=== PATIENT | male | born 2000 | race Caucasian/White ===

== ENCOUNTER 2022-12-26 04:38 | Inpatient (IN) ==
[2022-12-26] MEDS ORDERED: SODIUM CHLORIDE 0.9% 1000ML 1,000 ML IV SCH (05:00)
--- NOTE | 2022-12-26 05:08 | Emergency Department Note ---
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 Helical axial images of the head were obtained without IV contrast. Automated exposure control was utilized for the study. A dose lowering technique was utilized adhering to the principles of ALARA. FINDINGS: No acute intracranial hemorrhage, midline shift or mass effect is present. The ventricular system is unremarkable. The basal cisterns are patent. No extra-axial collections are present. There are no findings to suggest acute dural sinus thrombosis or acute territorial infarct. No significant calvarial abnormalities are present. Visualized portions of the sinuses and mastoid air cells are clear. IMPRESSION: 1. No acute intracranial findings. 2. No acute calvarial fracture. ACT 112: Negative or not required by law. Electronically signed by: Odell Dugan M.D. 12/26/2022 8:17 AM Discharge Plan Visit Data Chief Complaint: Illness Stated Complaint: Hallucinogenic, Psychosis Episode ED Provider: Danii Kirby Discharge Problem: CHI (closed head injury), Agitation, Contusion of face, Myalgia, Rhabdomyolysis Patient Disposition: Admitted As Inpatient Discharge Instructions Interventions: ED Discharge Assessment Last Done: 12/26/22 19:17
[2022-12-26 05:40] LABS: Albumin Level 4.7 gm/dl (3.4-5.0); Bilirubin,Total 0.4 mg/dl (0.2-1.0); Calcium 9.3 mg/dl (8.6-10.3); Potassium 3.6 mmol/L (3.5-5.1)
[2022-12-26 05:41] LABS: Basophils # (auto) 0.02 K/uL (0-0.2); Basophils % (auto) 0.2 %; Eosinophils # (auto) 0.08 K/uL (0-0.50); Eosinophils % (auto) 0.7 %; Hematocrit (blood only) 42.9 % (42.0-52.0); Hemoglobin 14.6 g/dl (14.0-18.0); Immature Granulocytes # (auto) 0.09 K/uL (0.01-0.20); Immature Granulocytes % (auto) 0.8 %; Lymphocytes # (auto) 1.89 K/uL (1.2-3.4); Lymphocytes % (auto) 16.4 %; Mean Corpuscular Hemoglobin 27.4 pg (25.0-34.0); Mean Corpuscular Volume 80.5 fL (80.0-100.0); Mean Platelet Volume 11.4 fL (9.4-12.4); Monocytes # (auto) 0.72 K/uL (0.11-0.59); Monocytes % (auto) 6.2 %; Neutrophils # (auto) 8.75 K/uL (1.40-6.50); Neutrophils % (auto) 75.7 %; Platelet Count 223 K/uL (130-400); RDW Coefficient of Variation 13.1 % (11.5-14.5); RDW Standard Deviation 37.5 fL (36.4-46.3); Red Blood Count 5.33 M/uL (4.70-6.10); White Blood Count 11.55 K/ul (4.8-10.8)
[2022-12-26 05:46] LABS: BUN Creatinine Ratio 18.4 (10-20); Creatinine Clr Calc Pharmacy 129.7 ml/min; Est GFR (African American) 84.4 ml/min; Est GFR (Non-African American) 72.8 ml/min; Globulin 2.4 gm/dl (2.5-4.0); Total Protein 7.1 gm/dl (6.0-8.3)
[2022-12-26] MEDS ORDERED: SODIUM CHLORIDE 0.9% 1000ML 1,000 ML IV ONE (05:54)
[2022-12-26 06:48] LABS: Acetaminophen < 3 ug/ml (10-30); Salicylate < 3.0 mg/dl (3.0-30)
[2022-12-26 07:25] LABS: Appearance Urine Clear (Clear); Bacteria Urine Automated Negative (Negative); Bilirubin Urine Negative (Negative); Blood Urine 3+ (Negative); Color Urine Yellow; Epithelial Cell Urine Auto 0-5 /lpf (0-5); Glucose Urine UA Negative (Negative); Ketones Urine 1+ (Negative); Leukocyte Esterase Urine Negative (Negative); Nitrite Urine Negative (Negative); Protein Urine 2+ (Negative); RBC Urine Automated 0-4 /hpf (0-4); Urobilinogen Urine Negative (Negative); pH Urine 5.5 (4.5-7.5)
[2022-12-26 07:43] LABS: Amphetamines+Metham, Urine Neg (Neg); Barbiturates, Urine Neg (Neg); Benzodiazepine, Urine Neg (Neg); Cocaine, Urine Neg (Neg); MDMA (Ecstacy), Urine Neg (Neg); Methadone, Urine Neg (Neg); Opiate, Urine Neg (Neg); Phencyclidine, Urine Neg (Neg)
[2022-12-26] MEDS ORDERED: NICOTINE 14 MG/24 HR PATCH TD STA (08:00)
--- NOTE | 2022-12-26 08:03 | Electrocardiogram Report ---
Test Reason : Blood Pressure : / mmHG Vent. Rate : 105 BPM Atrial Rate : 105 BPM P-R Int : 166 ms QRS Dur : 102 ms QT Int : 360 ms P-R-T Axes : 056 044 036 degrees QTc Int : 475 ms Sinus tachycardia Otherwise normal ECG When compared with ECG of 24-NOV-2022 15:03, Vent. rate has increased BY 42 BPM Confirmed by Kip Flores ([id number]) on 12/26/2022 8:03:13 AM Referred By: REFERRED SELF Confirmed By:Kip Flores
[2022-12-26] MEDS: LACTATED RINGER'S 1,000 ML IV SCH ×3 (08:05→18:25)
--- NOTE | 2022-12-26 08:20 | CT Scan Report ---
CT OF THE HEAD WITHOUT CONTRAST CLINICAL HISTORY: trauma COMPARISON STUDY: No previous studies for comparison. TECHNIQUE: Helical axial images of the head were obtained without IV contrast. Automated exposure con trol was utilized for the study. A dose lowering technique was utilized adhering to the principles o f ALARA. FINDINGS: No acute intracranial hemorrhage, midline shift or mass effect is present. The ventricular system is unremarkable. The basal cisterns are patent. No extra-axial collections are present. There are no findings to suggest acute dural sinus thrombosis or acute territorial infarct. No significant calvarial abnormalities are present. Visualized portions of the sinuses and mastoid air cells are kelsie ar. IMPRESSION: 1. No acute intracranial findings. 2. No acute calvarial fracture. ACT 112: Negative or not required by law. Electronically signed by: Odell Dugan M.D. 12/26/2022 8:17 AM
--- NOTE | 2022-12-26 08:21 | CT Scan Report ---
MAXILLOFACIAL CT WITHOUT CONTRAST CLINICAL HISTORY: trauma COMPARISON STUDY: None. TECHNIQUE: A maxillofacial CT was performed without IV contrast. Coronal and sagittal reformats were viewed. Automated exposure control was utilized for the study. A dose lowering technique was utiliz ed adhering to the principles of ALARA. FINDINGS: No acute facial bone fracture is identified. Alignment of the temporomandibular joints is a natomic. There is mild sinus mucosal thickening. The globes are intact. There is no retrobulbar hemat mehnaz. IMPRESSION: No acute facial fracture. ACT 112: Negative or not required by law. Electronically signed by: Odell Dugan M.D. 12/26/2022 8:20 AM
--- NOTE | 2022-12-26 08:33 | XRay Report ---
XR chest 1V portable CLINICAL HISTORY: trauma COMPARISON STUDY: Chest radiograph November 24, 2022. FINDINGS: Lung volumes are normal. Lungs are clear. There is no pneumothorax or pleural effusion. Car diac size is normal. Mediastinal contours are normal. There is no evidence for pulmonary edema. IMPRESSION: No acute cardiopulmonary findings. ACT 112: Negative or not required by law. Electronically signed by: Odell Dugan M.D. 12/26/2022 8:32 AM
--- NOTE | 2022-12-26 08:41 | CT Scan Report ---
CT cervical spine wo con CT DOSE: 1536.41 mGy.cm CLINICAL HISTORY: 22 years-old Male with trauma. Acute neck injury status post trauma COMPARISON: Head CT of same day TECHNIQUE: Multiple axial CT images of the cervical spine were obtained without contrast. A dose low ering technique was utilized adhering to the principles of ALARA. FINDINGS: Vertebral body heights and alignment are normal. No fracture or subluxation is identified. Mild levoscoliosis of the cervicothoracic junction is likely positional. The study is mildly motion degraded. The intervertebral disc spaces are preserved. No significant central canal or neural for aminal stenosis is identified. The cervical soft tissues appear unremarkable. The visualized lung apices appear clear. IMPRESSION: No acute fracture or subluxation. ACT 112: Negative or not required by law. The above report was generated using voice recognition software. It may contain grammatical, syntax o r spelling errors. Electronically signed by: Crow García M.D. 12/26/2022 8:38 AM
--- NOTE | 2022-12-26 09:20 | History & Physical Report ---
Date of Service December 26, 2022 Assessment & Plan (1) Smokeless tobacco use: (2) Toxic metabolic encephalopathy: (3) Rhabdomyolysis: (4) Contusion of face: (5) CHI (closed head injury): (6) Hypertension: (7) Acute kidney injury: Plan This is a 21-year-old male with PMH of hypertension, obesity, daily tobacco use who presents from home after an aggressive episode earlier this morning and was found to have acute kidney injury in setting of rhabdomyolysis. Toxic metabolic encephalopathy Brief episode of agitation/delirium in setting of developing rhabdo Recent heat exposure and physical overexertion with single episode of agitation with hallucination of police trying to kill him this AM lasting 30 min, resolved with IM Ativan by EMS -> now A&Ox3 Tox screen negative, no evidence of infection with unremarkable CXR and UA, TSH WNL, CK elevated at 4,618 CT head with no acute intracranial findings No post-ictal period suggestive of seizure, no known mental health history Brain MRI wo con ordered, psych and neuro consulted Continue IV fluids Contusion of face, abrasions 2/2 period of agitation, hitting and wrestling this AM CT head, face CT, cervical spine CT without evidence of fracture or trauma Rhabdomyolysis In setting of physical overexertion this week (works for [employer] business), heat exposure and started to jog 2 days ago CK 1,569 -> 4,618 in ED after receiving 2L NSS Evidence of KLAUDIA, no CP Continue IV fluid resuscitation, monitor renal function Acute kidney injury Cr 1.36 (baseline Cr 0.9 per outpatient labwork) 2/2 rhabdo Continue IV fluids HTN Holding lisinopril 2/2 KLAUDIA Tobacco use 1 can of smokeless tobacco daily; nicotine patch ordered DVT Ppx: SCDs Code status: FULL PCP: Lei Dispo: Admitted to [facility] Patient seen in collaboration with Dr. Moore Please see addendum. I spent a total of 75 minutes coordinating, documenting, and providing care for this patient excluding time spent in the performance of separately billed services. History of Present Illness Chief Complaint: Agitation Primary Care Provider: Joel Odom DO This is a 21-year-old male with PMH of hypertension, obesity, daily tobacco use who presents from home after an aggressive episode earlier this morning. Patient lives with parents and earlier this morning, mom overheard him making aggravated sounds and out cries from his room and went to check on it. Found him thrashing around in his bed apparently sleeping but became more agitated when she attempted to wake him up. Patient was not responding to his name or opening his eyes but he was getting out of bed, kneeling on the ground, lying down and rolling back and forth on his forearms. Mom called her into the room due to concern that the patient was going to hurt himself but the situation continued to escalate as patient began wrestling and police were called. EMS and police came to the scene and patient became even more agitated with taking multiple men to hold him down. Was given IM Ativan and then reportedly came to, opened his eyes and answer questions appropriately and calmly. No post ictal period noted, no bowel or bladder incontinence. It was approximately half hour between the time mom first saw patient and when EMS was able to sedate him. Mom showed pictures of the room following this episode with evidence of a chair being upturned and a dresser knocked to the ground. Per patient report, he he remembers multiple men being in the room threatening to kill him and inject him with something lethal and he remembers his mom and girlfriend at bedside crying. Thought he heard his mom say that "this was the end." States that although he clearly remembers these threats, admits they don't make sense when he hears the whole picture from his mom at bedside. Denies any episodes similar to this in the past. No history of hallucinations, night terrors or seizure. Does reportedly snore and has not been fully evaluated for sleep apnea. Leading up to this morning, patient had an active social weekend where he barely slept and drink 1/5 of whiskey during a democrat. 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 States he tried to rehydrate with water in a case of propel. Also started running with his girlfriend this week and jogged a mile Friday evening and Friday morning. Did admit to feeling sore this week but attributed that to starting to jog. Eats a high protein diet consisting mainly of meat, eggs and cheese and takes vitamin C, magnesium and potassium as electrolyte supplements. Started this type of diet 3 months ago and has lost 30 pounds. Denies drug use of any kind including cocaine or meth. Does not drink regularly but more so binge drinks during social events. Only taking lisinopril for history of hypertension and electrolytes mentioned above. Dad with history of bipolar disorder but patient denies any known personal psych history. During exam, patient is fully alert and oriented. Endorsing diffuse muscle aches and fatigue as well as dark urine. Denies any lightheadedness, chest pain, hematuria. No fever, chills, recent illness, congestion, cough, chest pain, shortness of breath, nausea, vomiting, abdominal pain, dysuria, diarrhea constipation. Allergies Allergy/AdvReac Type Severity Reaction Status Date / Time No Known Allergies Allergy Unknown Unverified 02/10/14 13:58 Home Medications Medication Instructions Recorded Confirmed Type Potassium 500mg 1,000 mg PO DAILY 12/26/22 History ascorbic acid (vitamin C) 1,000 mg 1,000 mg PO DAILY 12/26/22 12/26/22 History tablet (Vitamin C) lisinopril 20 mg tablet 20 mg PO DAILY 12/26/22 12/26/22 History magnesium 500 mg tablet 500 mg PO DAILY 12/26/22 12/26/22 History Past Med/Surg History Medical History Hypertension Obesity Smokeless tobacco use Surgical History Status post medial meniscus repair Family History (Updated 12/26/22 @ 10:44 by Mora Marquez PA-C) Other Heart disease Social History Smoking Status: Never smoker Tobacco Type: Smokeless Tobacco (Dip or Chew) Second Hand Exposure: No; Do You Dip or Chew Tobacco: Yes; Tobacco Cessation Education Requested by Patient: No Hx Alcohol Use: Yes Alcohol type: beer and hard liquor Hx Substance Use: No Preferred Language: Mongolian Communication Ability: Effective Mig Welder Required: No Beliefs That Will Affect Care: None Current Living Situation: Parent Other Information That Helps Us Care for You: No Feels Safe at Home: Yes Safety Concerns: Feels Safe At This Time Assistive Devices: None Review of Systems Review of Systems: At least ten systems reviewed and negative except as noted in the HPI. Physical Exam Physical Exam: General Appearance: WD/WN, vitals as above, NAD, sitting up in bed, pleasant, conversing easily Head: normocephalic, atraumatic, multiple contusions and abrasions noted to forehead Eyes: normal inspection, PERRL, + edema and ecchymosis noted to R periorbital region ENT: external ear and nose normal, oropharynx normal Neck: normal visual inspection, trachea midline, no thyromegaly Respiratory: normal respiratory effort, lungs clear to auscultation, no wheeze, rales, rhonchi. No accessory muscle use Cardiovascular: regular rate, rhythm, no murmur, normal peripheral pulses, no BLE edema. Vessels: no JVD Chest: normal inspection of chest Abdomen/GI: normal bowel sounds, soft, nontender, no hepatosplenomegaly Extremities/Musculoskeletal: no cyanosis or clubbing, extremities motor strength 5/5 Neurologic: PERRL, EOMI, accommodation nl, no face palsy, no dysarthria, CN's II-XI intact bilaterally and moves all extremities Psychiatric: A+Ox3, euthymic affect Skin: no rashes, normal color, warm/dry, + superficial bruising and abrasions noted on face, extremities and flank Results & Data Results & Data Vital Signs (Past 12 Hours) Vital Signs Temp Pulse Pulse Resp BP BP Pulse Ox 12/26/22 07:08 92 H 18 145/82 H 99 12/26/22 05:49 92 H 18 145/82 H 99 12/26/22 05:08 36.8 C 104 H 19 98 12/26/22 04:45 112 H 12/26/22 04:42 110 H 25 H 134/86 96 O2 Del Method 12/26/22 07:08 Room Air 12/26/22 05:49 12/26/22 05:08 Room Air 12/26/22 04:45 12/26/22 04:42 Room Air Laboratory Results Short CBC 12/26/22 Range/Units 04:46 WBC 11.55 H (4.8-10.8) K/ul Hgb 14.6 (14.0-18.0) g/dl Hct 42.9 (42.0-52.0) % Plt Count 223 (130-400) K/uL BMP 12/26/22 04:46 Sodium 137 Potassium 3.6 Chloride 104 Carbon Dioxide 18 L BUN 25 H Creatinine 1.36 Glucose 154 H Calcium 9.3 Cardiac Enzymes 07/27/23 07/27/23 Range/Units 04:46 06:15 Total Creatine Kinase 1569 H 4618 H (30-223) U/L Liver Function 12/26/22 Range/Units 04:46 Total Bilirubin 0.4 (0.2-1.0) mg/dl AST 45 H (13-39) U/L ALT 46 (7-52) U/L Alkaline Phosphatase 56 (34-104) U/L Albumin 4.7 (3.4-5.0) gm/dl Urine 12/26/22 Range/Units 06:55 Urine Color Yellow Urine Appearance Clear (Clear) Urine pH 5.5 (4.5-7.5) Ur Specific [place] 1.020 (1.000-1.030) Urine Protein 2+ H (Negative) Urine Glucose (UA) Negative (Negative) Diagnostic Findings Cervical Spine CT 12/26/22 07:24 CT cervical spine wo con CT DOSE: 1536.41 mGy.cm CLINICAL HISTORY: 22 years-old Male with trauma. Acute neck injury status post trauma COMPARISON: Head CT of same day TECHNIQUE: Multiple axial CT images of the cervical spine were obtained without contrast. A dose lowering technique was utilized adhering to the principles of ALARA. FINDINGS: Vertebral body heights and alignment are normal. No fracture or subluxation is identified. Mild levoscoliosis of the cervicothoracic junction is likely positional. The study is mildly motion degraded. The intervertebral disc spaces are preserved. No significant central canal or neural foraminal stenosis is identified. The cervical soft tissues appear unremarkable. The visualized lung apices appear clear. IMPRESSION: No acute fracture or subluxation. ACT 112: Negative or not required by law. The above report was generated using voice recognition software. It may contain grammatical, syntax or spelling errors. Electronically signed by: Crow García M.D. 12/26/2022 8:38 AM Chest X-Ray 12/26/22 07:24 XR chest 1V portable CLINICAL HISTORY: trauma COMPARISON STUDY: Chest radiograph November 24, 2022. FINDINGS: Lung volumes are normal. Lungs are clear. There is no pneumothorax or pleural effusion. Cardiac size is normal. Mediastinal contours are normal. There is no evidence for pulmonary edema. IMPRESSION: No acute cardiopulmonary findings. ACT 112: Negative or not required by law. Electronically signed by: Odell Dugan M.D. 12/26/2022 8:[address] 12/26/22 07:[address] WITHOUT CONTRAST CLINICAL HISTORY: trauma COMPARISON STUDY: None. TECHNIQUE: A maxillofacial CT was performed without IV contrast. Coronal and sagittal reformats were viewed. Automated exposure control was utilized for the study. A dose lowering technique was utilized adhering to the principles of ALARA. FINDINGS: No acute facial bone fracture is identified. Alignment of the temporomandibular joints is anatomic. There is mild sinus mucosal thickening. The globes are intact. There is no retrobulbar hematoma. IMPRESSION: No acute facial fracture. ACT 112: Negative or not required by law. Electronically signed by: Odell Dugan M.D. 12/26/2022 8:[address] 12/26/22 07:24 CT OF THE HEAD WITHOUT CONTRAST CLINICAL HISTORY: trauma COMPARISON STUDY: No previous studies for comparison. TECHNIQUE: Helical axial images of the head were obtained without IV contrast. Automated exposure control was utilized for the study. A dose lowering technique was utilized adhering to the principles of ALARA. FINDINGS: No acute intracranial hemorrhage, midline shift or mass effect is present. The ventricular system is unremarkable. The basal cisterns are patent. No extra-axial collections are present. There are no findings to suggest acute dural sinus thrombosis or acute territorial infarct. No significant calvarial abnormalities are present. Visualized portions of the sinuses and mastoid air cells are clear. IMPRESSION: 1. No acute intracranial findings. 2. No acute calvarial fracture. ACT 112: Negative or not required by law. Electronically signed by: Odell Dugan M.D. 12/26/2022 8:17 AM ECG Additional Comments: EKG reviewed: sinus tachycardia at 105 bpm, Otherwise normal ECG Code Status & VTE Plan VTE Prophylaxis Plan VTE Prophylaxis will be ordered: Yes Supervising Physician Co-Signing Physician Notes Attending addendum: The patient was seen and examined in emergency room in presence of the mother and the girlfriend She worked in the sun on Friday lifting a few tons of heavy stones and try to rehydrate himself, started to jog 1 mile to his stay weaning and also Friday morning and has been on high-protein diet and has had a couple of drinks. He went to bed last evening with minimal aches calf and other areas and woke up at around 3 AM with morning and he was noted to be very confused and required physical restriction and later on controlled with IM Ativan on route to the emergency room. During my examination in the emergency room he was alert awake and oriented and without any symptoms except aches and pains all over. On examination Lying in bed very anxious Obese with stable hemodynamics Generalized erythematous rash likely secondary to sunburn involving face mainly and also other areas of the body Chestclear to auscultate bilaterally HeartS1-S2, regular Abdomenbenign Extremitiesno edema, minimal calf tenderness CNSalert, awake and oriented x3 Admission labs, EKG and imaging studies reviewed No acute findings on imaging studies and the labs showed increasing CPK and mild dehydration with low CO2 Likely suffered heat exhaustion with confusion/delirium secondary to heat exertion Rule out frontal lobe seizures Has rhabdomyolysis Hypertension on lisinopril Will get MRI of the brain, neurology and psychiatric evaluation Will receive intravenous fluid and monitor CK and PRP Agree with assessment and plan as outlined above by RAAD [address] Dr
--- NOTE | 2022-12-26 12:50 | XRay Report ---
ORBIT RADIOGRAPHS 3 VIEWS HISTORY: pre-MRI screening. COMPARISON: Facial bone CT December 26, 2022. FINDINGS: There are no radiopaque foreign bodies identified within the orbits. IMPRESSION: No radiopaque foreign bodies identified within the orbits. ACT 112: Negative or not required by law. Electronically signed by: Odell Dugan M.D. 12/26/2022 12:48 PM
--- NOTE | 2022-12-26 14:21 | Magnetic Resonance Report ---
MR brain wo con HISTORY: 22 years-old Male hallucination, agitation, rhabdo acute altered mental status COMPARISON: Head CT of same day TECHNIQUE: Multiplanar multisequence MRI the brain FINDINGS: No restricted diffusion. No acute intracranial hemorrhage, midline shift, abnormal extra-axial collec tion, hydrocephalus or intracranial mass. Unremarkable midline structures. Normal volume and signal o f the brain parenchyma. Cerebral venous sinuses and major arterial flow voids are patent. Skull, orbi ts and soft tissues are unremarkable. Mild mucosal thickening of the paranasal sinuses. Trace mastoid effusions. IMPRESSION: Unremarkable MRI of the brain. ACT 112: Negative or not required by law. The above report was generated using voice recognition software. It may contain grammatical, syntax o r spelling errors. Electronically signed by: Crow García M.D. 12/26/2022 2:20 PM
[2022-12-26] MEDS ORDERED: ONDANSETRON INJ 2 MG/ML 2 ML VIAL IV PRN (14:25)
[2022-12-26] MEDS ORDERED: POLYETHYLENE (MIRALAX) 17 GM PACK PO PRN (14:25)
[2022-12-26] MEDS ORDERED: ACETAMINOPHEN 325 MG TAB PO PRN (14:25)
[2022-12-26] MEDS ORDERED: NICOTINE 14 MG/24 HR PATCH TD ONE (15:44)
--- NOTE | 2022-12-26 18:02 | Neurology Consultation ---
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 Agree with IVF and trending CK. Patient back to baseline. Will defer on starting AED for now. Will obtain routine EEG tomorrow morning and outpatient ambulatory EEG for further evaluation. Ambulatory EEG will also be helpful to characterize the involuntary movements that he reports having during drowsiness or light sleep. Pending EEG results will consider starting AED as frontal lobe seizure typically respond well to Tegretol. Will arrange follow up in Neurology clinic with myself at [facility]. History of Present Illness Reason for Consultation: Altered mentation Requesting Physician: Mora Marquez PA-C Attending Physician: Rose Mary Moore MD History of Present Illness A 22 yo M with No PMH admitted with acute episode of altered mentation and agitation early this morning last for almost 30 minutes but resolved w Ativan. No history of similar symptoms. No history of epilepsy. Patient amnestic to most but witnessed by mother at bedside. She woak to him moaning and thrashing around. He stood up and was hitting furniture in his room. He was not following commands. Multiple injuries including his eyes, hand, and foot. No illicit durg use. 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 Hauled a lot of shell. Did not bite his tongue. He is back to [facility]. Has muscle jerk at night prior to going to sleep particular on the left side. Allergies Allergy/AdvReac Type Severity Reaction Status Date / Time No Known Allergies Allergy Unknown Unverified 02/10/14 13:58 Home Medications Medication Instructions Recorded Confirmed Type Potassium 500mg 1,000 mg PO DAILY 12/26/22 History ascorbic acid (vitamin C) 1,000 mg 1,000 mg PO DAILY 12/26/22 12/26/22 History tablet (Vitamin C) lisinopril 20 mg tablet 20 mg PO DAILY 12/26/22 12/26/22 History magnesium 500 mg tablet 500 mg PO DAILY 12/26/22 12/26/22 History Patient History Medical History Hypertension Obesity Smokeless tobacco use Surgical History Status post medial meniscus repair Family History (Updated 12/26/22 @ 10:44 by Mora Marquez PA-C) Other Heart disease Social History Smoking Status: Never smoker Tobacco Type: Smokeless Tobacco (Dip or Chew) Second Hand Exposure: No; Do You Dip or Chew Tobacco: Yes; Tobacco Cessation Education Requested by Patient: No Hx Alcohol Use: Yes Alcohol type: beer and hard liquor Hx Substance Use: No Preferred Language: Setswana Communication Ability: Effective Bottle And Glass Inspector Required: No Beliefs That Will Affect Care: None Current Living Situation: Parent Other Information That Helps Us Care for You: No Feels Safe at Home: Yes Safety Concerns: Feels Safe At This Time Assistive Devices: None Physical Exam Physical Exam: Patient seen on televideo. Awake and alert. Speech is clear. tongue midline no abrasion. bruise to his eye. Face symmetric. Moving all 4 extremities. No myoclonic jerks. Gait normal Results & Data Vital Signs (Past 12 Hours) Vital Signs Pulse Pulse Resp BP BP Pulse Ox O2 Del Method 12/26/22 17:00 75 23 12/26/22 17:00 145/81 H 12/26/22 16:50 76 21 12/26/22 16:40 70 20 12/26/22 16:30 69 23 12/26/22 16:30 116/82 12/26/22 16:20 73 18 12/26/22 16:10 65 18 12/26/22 16:00 63 18 12/26/22 16:00 109/60 12/26/22 15:50 72 24 12/26/22 15:40 71 15 12/26/22 15:31 120/78 12/26/22 15:31 70 21 12/26/22 15:30 74 19 12/26/22 15:20 78 22 12/26/22 15:14 69 12/26/22 15:10 79 20 96 12/26/22 15:00 71 19 98 12/26/22 15:00 139/64 12/26/22 14:50 76 19 98 12/26/22 14:40 76 24 99 12/26/22 14:30 74 22 98 12/26/22 14:30 150/66 H 12/26/22 13:40 75 15 12/26/22 13:30 77 15 12/26/22 13:30 136/63 12/26/22 13:20 70 15 12/26/22 13:10 74 15 12/26/22 13:10 141/62 H 12/26/22 13:00 89 22 12/26/22 12:50 73 15 12/26/22 12:40 79 18 12/26/22 12:10 79 22 12/26/22 12:00 79 19 12/26/22 12:00 144/65 H 12/26/22 11:56 134/64 12/26/22 11:56 79 19 12/26/22 11:40 84 15 12/26/22 11:30 81 22 12/26/22 11:20 78 20 12/26/22 11:10 85 15 12/26/22 11:30 82 24 141/71 H 100 Room Air 12/26/22 11:00 79 16 12/26/22 10:51 88 19 12/26/22 10:00 86 16 12/26/22 09:50 93 H 22 12/26/22 09:40 87 16 12/26/22 09:30 80 16 12/26/22 09:20 81 16 12/26/22 09:10 80 16 12/26/22 09:00 81 16 12/26/22 08:50 77 16 12/26/22 08:40 78 22 12/26/22 08:30 79 23 12/26/22 08:20 73 22 12/26/22 08:10 82 18 12/26/22 08:00 80 15 12/26/22 07:55 82 16 12/26/22 07:55 141/71 H 12/26/22 07:30 84 16 12/26/22 07:20 85 16 12/26/22 07:18 82 16 12/26/22 07:18 137/78 12/26/22 06:50 84 16 99 12/26/22 06:40 88 18 99 12/26/22 06:30 84 16 97 12/26/22 06:20 84 21 98 12/26/22 06:10 85 12 97 12/26/22 09:00 89 18 145/82 H 99 Room Air 12/26/22 07:08 92 H 18 145/82 H 99 Room Air
[2022-12-27] MEDS: LACTATED RINGER'S 1,000 ML IV SCH ×5 (01:06→23:12)
[2022-12-27 08:22] LABS: Albumin Globulin Ratio 1.9 (0.9-2); Albumin Level 3.8 gm/dl (3.4-5.0); BUN Creatinine Ratio 17.3 (10-20); Bilirubin,Total 0.6 mg/dl (0.2-1.0); Calcium 8.8 mg/dl (8.6-10.3); Creatinine Clr Calc Pharmacy 221.1 ml/min; Est GFR (African American) 145.2 ml/min; Est GFR (Non-African American) 125.3 ml/min; Total Protein 5.8 gm/dl (6.0-8.3)
[2022-12-27] MEDS: NICOTINE 21 MG/24 HR TDSY TD SCH (09:28)
[2022-12-27 09:32] LABS: Hematocrit (blood only) 36.1 % (42.0-52.0); Hemoglobin 12.3 g/dl (14.0-18.0); Mean Corpuscular Hemoglobin 27.3 pg (25.0-34.0); Mean Corpuscular Hgb Conc 34.1 g/dL (32.0-36.0); Mean Platelet Volume 11.7 fL (9.4-12.4); Platelet Count 150 K/uL (130-400); RDW Coefficient of Variation 13.2 % (11.5-14.5); RDW Standard Deviation 37.9 fL (36.4-46.3); Red Blood Count 4.51 M/uL (4.70-6.10); White Blood Count 6.64 K/ul (4.8-10.8)
--- NOTE | 2022-12-27 11:02 | Psychiatric Consultation ---
Date of Consultation December 27, 2022 Impression / Recommendations Impression Diagnostically sounds like episode of delirium in setting of heat exhaustion/rhabdomyolysis/high protein diet versus seizure episode given report of repeated vocal tics. Appreciate neurology consult and that they'll follow up with him in the outpatient setting. No signs of any current confusion/altered mental status nor any symptoms suggestive of current primary psychiatric disorder. 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 Psychiatry consulted for recommendations given concern for possible hallucinations/confusion. Chief Complaint "I don't remember most of it". History of Present Illness Cory is joined by his mother, godfather and girlfriend at bedside who he is comfortable with being present for our discussion. He was brought by EMT after acute episode of confusion with repetitive verbalizations/grunts and dramatic change in behavior of walking around his home around 3am and destroying items and requiring state police to calm him down. He denies any history of similar episodes. His mother confirms events. Occurred after day of being outside in the heat and then woke up around 3am with abrupt confusion and behavioral agitation. He cannot recall anything except suddenly waking with a executive vice president and chief operating officer on top of him in front of their fireplace in the home and recalls people wanting to give him an injection of medication and he recalls thinking they were talking about him dying or that they would kill him. States he now knows now this wasn't the case. Today fully oriented, mood is stable, denies any concerns. Denies any current hallucinations and his mother confirms he never appeared to be responding to hallucinations during the episode of confusion/behavior change. No psychiatric history, no psychiatric medications, no history of inpatient hospitalizations. Family history of father with late onset bipolar disorder. Allergies Allergy/AdvReac Type Severity Reaction Status Date / Time No Known Allergies Allergy Unknown Unverified 02/10/14 13:58 Home Medications Medication Instructions Recorded Confirmed Type Potassium 500mg 1,000 mg PO DAILY 12/26/22 History ascorbic acid (vitamin C) 1,000 mg 1,000 mg PO DAILY 12/26/22 12/26/22 History tablet (Vitamin C) lisinopril 20 mg tablet 20 mg PO DAILY 12/26/22 12/26/22 History magnesium 500 mg tablet 500 mg PO DAILY 12/26/22 12/26/22 History Patient History Medical History Hypertension Obesity Smokeless tobacco use Surgical History Status post medial meniscus repair Family History Other Heart disease Social History Smoking Status: Never smoker Tobacco Type: Smokeless Tobacco (Dip or Chew) Second Hand Exposure: No; Do You Dip or Chew Tobacco: Yes; Tobacco Cessation Education Requested by Patient: No Hx Alcohol Use: Yes Alcohol type: beer and hard liquor Hx Substance Use: No Preferred Language: German Communication Ability: Effective Loan Manager Required: No Beliefs That Will Affect Care: None Current Living Situation: Parent Other Information That Helps Us Care for You: No Feels Safe at Home: Yes Safety Concerns: Feels Safe At This Time Assistive Devices: None Physical Exam Psychiatric: Orientation: alert and oriented x 3 Apperance: appropriately dressed and appropriately groomed Eye Contact: good eye contact Motor Behavior: no abnormal motor movements Speech: normal rate/rhythm/volume of speech Affect: euthymic affect Mood: no depressed mood and no anxious mood Thought Process: linear/logical thought process Thought Content: reality based without delusions Suicidal Thoughts: denies suicidal thoughts Homicidal Thoughts: denies homicidal thoughts Hallucinations: no auditory hallucinations and no visual hallucinations Cognition: recent memory grossly intact, remote memory grossly intact, attention grossly intact and language grossly intact Estimated Intelligence: consistent with education level Insight: + fair insight Judgment: + fair judgement Vital Signs (Past 24 Hours): Last Vital Signs Temp 36.7 C 12/27/22 10:49 Pulse 72 12/27/22 10:49 Resp 18 12/27/22 10:49 BP 138/89 12/27/22 10:49 Pulse Ox 98 12/27/22 10:49 O2 Del Method Room Air 12/27/22 10:49 Review of Systems All systems reviewed & are unremarkable except as noted in HPI & below Results & Data (PSY) Medications Administered Lactated Ringer's (Lr) 1,000 mls @ 200 mls/hr IV .Q5H [facility] Stop: 01/25/23 07:29 Last Infusion: 12/27/22 09:58 Dose: 200 mls/hr Documented By: Admin: 12/27/22 07:30 Dose: 150 mls/hr Documented By: Infusion: 12/27/22 07:30 Dose: 150 mls/hr Documented By: Admin: 12/27/22 01:06 Dose: 150 mls/hr Documented By: Infusion: 12/27/22 01:06 Dose: 0 mls/hr Documented By: Admin: 12/26/22 18:25 Dose: 150 mls/hr Documented By: Infusion: 12/26/22 17:42 Dose: 0 mls/hr Documented By: Admin: 12/26/22 12:02 Dose: 250 mls/hr Documented By: Infusion: 12/26/22 12:01 Dose: 0 mls/hr Documented By: Admin: 12/26/22 08:05 Dose: 250 mls/hr Documented By: HNB Miscellaneous (Remove Nicoderm Patch) 1 each N/A DAILY@0859 [facility] Stop: 01/26/23 08:58 Last Admin: 12/27/22 09:28 Dose: 1 each Documented By: ALL Nicotine (Nicotine 21 Mg/24 Hr Tdsy) 21 mg TD QAM [facility] Stop: 01/26/23 08:59 Last Admin: 12/27/22 09:28 Dose: 21 mg Documented By: ALL Coding Level of Care Code 68211 IN/OBS CONSULT LVL 3,45M Diagnoses Toxic metabolic encephalopathy G92.8 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
--- NOTE | 2022-12-27 12:17 | Electroencephalogram ---
EEG Procedure Note Date of Service December 27, 2022 Start / End Times Start Time: 09:53 End Time: 10:[address] Wellington Herrera History A 22 year old male with episode of altered mentation. EEG performed for evaluation of epileptiform acitivity. Home Medication List Medication Instructions Recorded Confirmed Type Potassium 500mg 1,000 mg PO DAILY 12/26/22 History ascorbic acid (vitamin C) 1,000 mg 1,000 mg PO DAILY 12/26/22 12/26/22 History tablet (Vitamin C) lisinopril 20 mg tablet 20 mg PO DAILY 12/26/22 12/26/22 History magnesium 500 mg tablet 500 mg PO DAILY 12/26/22 12/26/22 History Inpatient Medication List Lactated Ringer's (Lr) 1,000 mls @ 200 mls/hr IV .Q5H [facility] Stop: 01/25/23 07:29 Last Infusion: 12/27/22 09:58 Dose: 200 mls/hr Documented By: Admin: 12/27/22 07:30 Dose: 150 mls/hr Documented By: Infusion: 12/27/22 07:30 Dose: 150 mls/hr Documented By: Admin: 12/27/22 01:06 Dose: 150 mls/hr Documented By: Infusion: 12/27/22 01:06 Dose: 0 mls/hr Documented By: Admin: 12/26/22 18:25 Dose: 150 mls/hr Documented By: Infusion: 12/26/22 17:42 Dose: 0 mls/hr Documented By: Admin: 12/26/22 12:02 Dose: 250 mls/hr Documented By: Infusion: 12/26/22 12:01 Dose: 0 mls/hr Documented By: Admin: 12/26/22 08:05 Dose: 250 mls/hr Documented By: ARNULFO Miscellaneous (Remove Nicoderm Patch) 1 each N/A DAILY@0859 [facility] Stop: 01/26/23 08:58 Last Admin: 12/27/22 09:28 Dose: 1 each Documented By: ALL Nicotine (Nicotine 21 Mg/24 Hr Tdsy) 21 mg TD QAM [facility] Stop: 01/26/23 08:59 Last Admin: 12/27/22 09:28 Dose: 21 mg Documented By: LCS Discontinued Medications Sodium Chloride (Nss 1000ml) 1,000 mls @ 999 mls/hr IV .Q1H1M [facility] Stop: 12/26/22 06:00 Last Infusion: 12/26/22 06:01 Dose: 0 mls/hr Documented By: Admin: 12/26/22 04:59 Dose: 999 mls/hr Documented By: LINDSEY Sodium Chloride (Nss 1000ml) 1,000 mls @ 999 mls/hr IV .Q1H1M ONE Stop: 12/26/22 06:54 Last Infusion: 12/26/22 06:58 Dose: 0 mls/hr Documented By: Admin: 12/26/22 06:01 Dose: 999 mls/hr Documented By: LINDSEY Miscellaneous (Remove Nicoderm Patch) 1 each N/A DAILY@0859 [facility] Stop: 01/25/23 08:58 Last Admin: 12/26/22 08:13 Dose: Not Given Documented By: ARNULFO Nicotine (Nicotine 14 Mg/24 Hr Patch) 14 mg TD NOW STA Stop: 12/26/22 08:01 Last Admin: 12/26/22 08:13 Dose: 14 mg Documented By: ARNULFO Nicotine (Nicotine 14 Mg/24 Hr Patch) 14 mg TD ONCE ONE Stop: 12/26/22 15:45 Last Admin: 12/26/22 15:49 Dose: 14 mg Documented By: TYLER Description This is a 21 electrode EEG with a single channel dedicated to limited EKG. The electrodes were placed in accordance with the International 10-20 system. REPORT: At the onset of the EEG the patient is awake. The background is symmetric and well organized. The posterior dominant rhythm is 10 Hz. There is a normal anterior to posterior gradient. Frontal head regions consist of low amplitude beta activity. No stage 2 sleep transients are seen. Photic stimulation does not induce any additional abnormalities. Drowsiness is characterized by increased theta activity, decreased blink rate, and decreased myogenic artifact. Interpretation IMPRESSION: This is a normal awake and drowsy routine EEG. There is no evidence of focal slowing or epileptiform activity.
--- NOTE | 2022-12-27 14:37 | Hospitalist Progress Note ---
Date of Service December 27, 2022 Assessment & Plan (1) Smokeless tobacco use: (2) Toxic metabolic encephalopathy: (3) Rhabdomyolysis: (4) Contusion of face: (5) CHI (closed head injury): (6) Hypertension: (7) Acute kidney injury: Plan This is a 21-year-old male with PMH of hypertension, obesity, daily tobacco use who presents from home after an aggressive episode earlier this morning and was found to have acute kidney injury in setting of rhabdomyolysis. Toxic metabolic encephalopathy Brief episode of agitation/delirium in setting of developing rhabdo Recent heat exposure and physical overexertion with single episode of agitation with hallucination of police trying to kill him lasting 30 min, resolved with IM Ativan by EMS -> now A&Ox3 Tox screen negative, no evidence of infection with unremarkable CXR and UA, TSH WNL, CK elevated CT head with no acute intracranial findings No post-ictal period suggestive of seizure, no known mental health history MRI brain without contrastno significant finding Neurology evaluated the patient; no AEDs for now. Outpatient neurology follow- up with Dr. Herrera. Contusion of face, abrasions 2/2 period of agitation, hitting and wrestling this AM CT head, face CT, cervical spine CT without evidence of fracture or trauma Rhabdomyolysis In setting of physical overexertion this week (works for [employer] business), heat exposure and started to jog 2 days ago CK uptrending to 23K. AST elevation likely due to muscle injury as well Creatinine down trended Increase IV fluid rate to 200 cc/h. Strict input and output monitoring Follow-up CK tomorrow a.m. Acute kidney injury, resolved Cr 1.36 (baseline Cr 0.9 per outpatient labwork) 2/2 rhabdo Back to baseline. HTN Holding lisinopril 2/2 KLAUDIA Tobacco use 1 can of smokeless tobacco daily; nicotine patch ordered DVT Ppx: SCDs, ambulation Code status: FULL PCP: Lei Dispo: Ad[facility] Discussed with patient's mother at bedside. Answered questions/queries. Time spent evaluating patient, direct bedside care, chart review, placing orders, interpretation of diagnostic studies, discussion with consultants, patient, and family members, as well as other required patient management activities is 60 minutes. Please note the above document was generated using voice recognition software. It may contain grammatical, syntax or spelling errors. Any formal questions or concerns about the content, text or information contained within the body of this dictation should be directly addressed to the provider for clarification Admission and Anticipated Discharge Date Admission Date: December 26, 2022 Subjective Patient seen and examined at bedside. He reports muscle soreness; no complaint of fever, chills, chest pain or abdominal pain. Assuring urine output. Review of Systems Review of Systems: All systems reviewed & are unremarkable except as noted in Subjective Physical Exam Physical Exam: General Appearance: WD/WN, vitals as above, NAD, sitting up in bed, pleasant, c onversing easily Head: normocephalic, atraumatic, multiple contusions and abrasions noted to forehead Eyes: normal inspection, PERRL, + edema and ecchymosis noted to R periorbital region ENT: external ear and nose normal, oropharynx normal Neck: normal visual inspection, trachea midline, no thyromegaly Respiratory: normal respiratory effort, lungs clear to auscultation, no wheeze, rales, rhonchi. No accessory muscle use Cardiovascular: regular rate, rhythm, no murmur, normal peripheral pulses, no BLE edema. Vessels: no JVD Chest: normal inspection of chest Abdomen/GI: normal bowel sounds, soft, nontender, no hepatosplenomegaly Extremities/Musculoskeletal: no cyanosis or clubbing, extremities motor strength 5/5 Neurologic: PERRL, EOMI, accommodation nl, no face palsy, no dysarthria, CN's II-XI intact bilaterally and moves all extremities Psychiatric: A+Ox3, euthymic affect Skin: no rashes, normal color, warm/dry, + superficial bruising and abrasions noted on face, extremities and flank Results & Data Results & Data Vital Signs (Past 12 Hours) Vital Signs Temp Pulse Pulse Resp BP Pulse Ox O2 Del Method 12/27/22 10:49 36.7 C 72 18 138/89 98 Room Air 12/27/22 07:45 68 12/27/22 07:46 36.4 C L 71 20 136/86 99 Room Air 12/27/22 04:02 36.7 C 66 18 118/50 L 99 Room Air Laboratory Results Laboratory Results WBC 6.64 K/ul (4.8-10.8) 12/27/22 06:42 RBC 4.51 M/uL (4.70-6.10) L 12/27/22 06:42 Hgb 12.3 g/dl (14.0-18.0) L 12/27/22 06:42 Hct 36.1 % (42.0-52.0) L 12/27/22 06:42 MCV 80.0 fL (80.0-100.0) 12/27/22 06:42 MCH 27.3 pg (25.0-34.0) 12/27/22 06:42 MCHC 34.1 g/dL (32.0-36.0) 12/27/22 06:42 RDW Std Deviation 37.9 fL (36.4-46.3) 12/27/22 06:42 RDW Coeff of Yehuda 13.2 % (11.5-14.5) 12/27/22 06:42 Plt Count 150 K/uL (130-400) 12/27/22 06:42 MPV 11.7 fL (9.4-12.4) 12/27/22 06:42 Immature Gran % (Auto) 0.8 % 12/26/22 04:46 Neut % (Auto) 75.7 % 12/26/22 04:46 Lymph % (Auto) 16.4 % 12/26/22 04:46 [place] % (Auto) 6.2 % 12/26/22 04:46 Eos % (Auto) 0.7 % 12/26/22 04:46 Baso % (Auto) 0.2 % 12/26/22 04:46 Neut # (Auto) 8.75 K/uL (1.40-6.50) H 12/26/22 04:46 Lymph # (Auto) 1.89 K/uL (1.2-3.4) 12/26/22 04:46 [place] # (Auto) 0.72 K/uL (0.11-0.59) H 12/26/22 04:46 Eos # (Auto) 0.08 K/uL (0-0.50) 12/26/22 04:46 Baso # (Auto) 0.02 K/uL (0-0.2) 12/26/22 04:46 Immature Gran # (Auto) 0.09 K/uL (0.01-0.20) 12/26/22 04:46 Sodium 140 mmol/L (136-145) 12/27/22 06:42 Potassium 4.0 mmol/L (3.5-5.1) 12/27/22 06:42 Chloride 109 mmol/L (98-107) H 12/27/22 06:42 Carbon Dioxide 26 mmol/L (21-32) 12/27/22 06:42 Anion Gap 5 (3-11) 12/27/22 06:42 BUN 14 mg/dl (6-23) 12/27/22 06:42 Creatinine 0.81 mg/dl (0.6-1.4) D 12/27/22 06:42 Est Cr Clr Drug Dosing 221.1 ml/min 12/27/22 06:42 Est GFR ( Amer) 145.2 ml/min 12/27/22 06:42 Est GFR (Non-Af Amer) 125.3 ml/min 12/27/22 06:42 BUN/Creatinine Ratio 17.3 (10-20) 12/27/22 06:42 Glucose 104 mg/dl (70-99(Fasting)) H 12/27/22 06:42 Calcium 8.8 mg/dl (8.6-10.3) 12/27/22 06:42 Total Bilirubin 0.6 mg/dl (0.2-1.0) 12/27/22 06:42 AST 202 U/L (13-39) H 12/27/22 06:42 ALT 61 U/L (7-52) H 12/27/22 06:42 Alkaline Phosphatase 39 U/L (34-104) 12/27/22 06:42 Total Creatine Kinase 41559 U/L (30-223) H 12/27/22 06:42 Total Protein 5.8 gm/dl (6.0-8.3) L 12/27/22 06:42 Albumin 3.8 gm/dl (3.4-5.0) 12/27/22 06:42 Globulin 2.0 gm/dl (2.5-4.0) L 12/27/22 06:42 Albumin/Globulin Ratio 1.9 (0.9-2) 12/27/22 06:42 TSH 3.164 uIu/ml (0.300-4.500) 12/26/22 04:46 Urine Color Yellow 12/26/22 06:55 Urine Appearance Clear (Clear) 12/26/22 06:55 Urine pH 5.5 (4.5-7.5) 12/26/22 06:55 Ur Specific [place] 1.020 (1.000-1.030) 12/26/22 06:55 Urine Protein 2+ (Negative) H 12/26/22 06:55 Urine Glucose (UA) Negative (Negative) 12/26/22 06:55 Urine Ketones 1+ (Negative) H 12/26/22 06:55 Urine Blood 3+ (Negative) H 12/26/22 06:55 Urine Nitrite Negative (Negative) 12/26/22 06:55 Urine Bilirubin Negative (Negative) 12/26/22 06:55 Urine Urobilinogen Negative (Negative) 12/26/22 06:55 Ur Leukocyte Esterase Negative (Negative) 12/26/22 06:55 Urine WBC (Auto) 1-5 /hpf (0-5) 12/26/22 06:55 Urine RBC (Auto) 0-4 /hpf (0-4) 12/26/22 06:55 U Hyaline Cast (Auto) 5-10 /lpf (0-5) H 12/26/22 06:55 U Epithel Cells (Auto) 0-5 /lpf (0-5) 12/26/22 06:55 Urine Bacteria (Auto) Negative (Negative) 12/26/22 06:55 Salicylates < 3.0 mg/dl (3.0-30) L 12/26/22 06:11 Urine Opiates Screen Neg (Neg) 12/26/22 06:55 Ur Methadone, Qual Neg (Neg) 12/26/22 06:55 Acetaminophen < 3 ug/ml (10-30) L 12/26/22 06:11 Urine Barbiturates Neg (Neg) 12/26/22 06:55 Ur Phencyclidine (PCP) Neg (Neg) 12/26/22 06:55 U Amphetamin/Meth Scrn Neg (Neg) 12/26/22 06:55 MDMA (Ecstasy) Screen Neg (Neg) 12/26/22 06:55 U Benzodiazepines Scrn Neg (Neg) 12/26/22 06:55 Ur Cocaine Metabolite Neg (Neg) 12/26/22 06:55 U Marijuana (THC) Screen Neg (Neg) 12/26/22 06:55 Ethyl Alcohol mg/dL < 10.0 mg/dl (<10.0) 12/26/22 04:[address] 12/26/22 07:24 CT cervical spine wo con CT DOSE: 1536.41 mGy.cm CLINICAL HISTORY: 22 years-old Male with trauma. Acute neck injury status post trauma COMPARISON: Head CT of same day TECHNIQUE: Multiple axial CT images of the cervical spine were obtained without contrast. A dose lowering technique was utilized adhering to the principles of ALARA. FINDINGS: Vertebral body heights and alignment are normal. No fracture or subluxation is identified. Mild levoscoliosis of the cervicothoracic junction is likely positional. The study is mildly motion degraded. The intervertebral disc spaces are preserved. No significant central canal or neural foraminal stenosis is identified. The cervical soft tissues appear unremarkable. The visualized lung apices appear clear. IMPRESSION: No acute fracture or subluxation. ACT 112: Negative or not required by law. The above report was generated using voice recognition software. It may contain grammatical, syntax or spelling errors. Electronically signed by: Crow García M.D. 12/26/2022 8:38 AM Chest X-Ray 12/26/22 07:24 XR chest 1V portable CLINICAL HISTORY: trauma COMPARISON STUDY: Chest radiograph November 24, 2022. FINDINGS: Lung volumes are normal. Lungs are clear. There is no pneumothorax or pleural effusion. Cardiac size is normal. Mediastinal contours are normal. There is no evidence for pulmonary edema. IMPRESSION: No acute cardiopulmonary findings. ACT 112: Negative or not required by law. Electronically signed by: Odell Dugan M.D. 12/26/2022 8:[address] 12/26/22 07:[address] WITHOUT CONTRAST CLINICAL HISTORY: trauma COMPARISON STUDY: None. TECHNIQUE: A maxillofacial CT was performed without IV contrast. Coronal and sagittal reformats were viewed. Automated exposure control was utilized for the study. A dose lowering technique was utilized adhering to the principles of ALARA. FINDINGS: No acute facial bone fracture is identified. Alignment of the temporomandibular joints is anatomic. There is mild sinus mucosal thickening. The globes are intact. There is no retrobulbar hematoma. IMPRESSION: No acute facial fracture. ACT 112: Negative or not required by law. Electronically signed by: Odell Dugan M.D. 12/26/2022 8:[address] 12/26/22 07:24 CT OF THE HEAD WITHOUT CONTRAST CLINICAL HISTORY: trauma COMPARISON STUDY: No previous studies for comparison. TECHNIQUE: Helical axial images of the head were obtained without IV contrast. Automated exposure control was utilized for the study. A dose lowering technique was utilized adhering to the principles of ALARA. FINDINGS: No acute intracranial hemorrhage, midline shift or mass effect is present. The ventricular system is unremarkable. The basal cisterns are patent. No extra-axial collections are present. There are no findings to suggest acute dural sinus thrombosis or acute territorial infarct. No significant calvarial abnormalities are present. Visualized portions of the sinuses and mastoid air cells are clear. IMPRESSION: 1. No acute intracranial findings. 2. No acute calvarial fracture. ACT 112: Negative or not required by law. Electronically signed by: Odell Dugan M.D. 12/26/2022 8:17 AM Brain MRI 12/26/22 10:18 MR brain wo con HISTORY: 22 years-old Male hallucination, agitation, rhabdo acute altered mental status COMPARISON: Head CT of same day TECHNIQUE: Multiplanar multisequence MRI the brain FINDINGS: No restricted diffusion. No acute intracranial hemorrhage, midline shift, abnormal extra-axial collection, hydrocephalus or intracranial mass. Unremarkable midline structures. Normal volume and signal of the brain parenchyma. Cerebral venous sinuses and major arterial flow voids are patent. Skull, orbits and soft tissues are unremarkable. Mild mucosal thickening of the paranasal sinuses. Trace mastoid effusions. IMPRESSION: Unremarkable MRI of the brain. ACT 112: Negative or not required by law. The above report was generated using voice recognition software. It may contain grammatical, syntax or spelling errors. Electronically signed by: Crow García M.D. 12/26/2022 2:20 PM Orbit X-Ray 12/26/22 11:08 ORBIT RADIOGRAPHS 3 VIEWS HISTORY: pre-MRI screening. COMPARISON: Facial bone CT December 26, 2022. FINDINGS: There are no radiopaque foreign bodies identified within the orbits. IMPRESSION: No radiopaque foreign bodies identified within the orbits. ACT 112: Negative or not required by law. Electronically signed by: Odell Dugan M.D. 12/26/2022 12:48 PM
--- NOTE | 2022-12-27 16:41 | Communication Note ---
Date of Service: December 27, [address] Michel. Routine EEG was normal. Ok to discharge from Neuro standpoint when rhabdomyolysis has resolved. Will arrange follow up in Neurology clinic w ambulatory EEG. Will defer on start antiepileptic medication.
[2022-12-28] MEDS: LACTATED RINGER'S 1,000 ML IV SCH ×5 (04:00→22:55)
[2022-12-28 08:43] LABS: Hematocrit (blood only) 34.5 % (42.0-52.0); Hemoglobin 11.7 g/dl (14.0-18.0); Mean Corpuscular Hemoglobin 27.4 pg (25.0-34.0); Mean Corpuscular Hgb Conc 33.9 g/dL (32.0-36.0); Mean Corpuscular Volume 80.8 fL (80.0-100.0); Mean Platelet Volume 11.6 fL (9.4-12.4); Platelet Count 139 K/uL (130-400); RDW Coefficient of Variation 13.2 % (11.5-14.5); RDW Standard Deviation 38.4 fL (36.4-46.3); Red Blood Count 4.27 M/uL (4.70-6.10); White Blood Count 5.92 K/ul (4.8-10.8)
[2022-12-28] MEDS: NICOTINE 21 MG/24 HR TDSY TD SCH (08:51)
[2022-12-28 09:02] LABS: Anion Gap 4 (3-11); BUN Creatinine Ratio 15.1 (10-20); Blood Urea Nitrogen 11 mg/dl (6-23); Calcium 9.1 mg/dl (8.6-10.3); Carbon Dioxide 28 mmol/L (21-32); Chloride 109 mmol/L (98-107); Creatinine Clr Calc Pharmacy 242.3 ml/min; Est GFR (African American) > 150.0 ml/min; Est GFR (Non-African American) 130.7 ml/min; Glucose 115 mg/dl (70-99(Fasting)); Potassium 3.9 mmol/L (3.5-5.1); Sodium 141 mmol/L (136-145)
[2022-12-28 09:18] LABS: Alanine Aminotransferase 61 U/L (7-52); Albumin Globulin Ratio 1.9 (0.9-2); Albumin Level 3.9 gm/dl (3.4-5.0); Alkaline Phosphatase 39 U/L (34-104); Aspartate Aminotransferase 137 U/L (13-39); Bilirubin,Total 0.4 mg/dl (0.2-1.0); Creatine Kinase 9933 U/L (30-223); Globulin 2.1 gm/dl (2.5-4.0)
--- NOTE | 2022-12-28 15:16 | Hospitalist Progress Note ---
Date of Service December 28, 2022 Assessment & Plan (1) Smokeless tobacco use: (2) Toxic metabolic encephalopathy: (3) Rhabdomyolysis: (4) Contusion of face: (5) CHI (closed head injury): (6) Hypertension: (7) Acute kidney injury: Plan Patient is a 21 yr old male with PMH of hypertension, obesity, daily tobacco use who presents from home after an aggressive episode earlier this morning and was found to have acute kidney injury in setting of rhabdomyolysis. Toxic metabolic encephalopathy H/O Alcohol Use Presented with brief episode of agitation/delirium in setting of developing rhabdomyolysis. Recent heat exposure and physical overexertion with single episode of agitation with hallucination of police trying to kill him lasting 30 min, resolved with IM Ativan by EMS DD: Possible partial epileptic seizure, alcohol withdrawal, delirium in setting of heat exhaustion patient is/rhabdomyolysis --Brain MRI:Unremarkable MRI of the brain. --Facial CT:No acute facial fracture. --Neck CT:No acute fracture or subluxation. --Tox Screen: Negative --EEG:This is a normal awake and drowsy routine EEG. There is no evidence of focal slowing or epileptiform activity. Appreciate neurology input Mental status back to baseline Will need neurology follow-up with ambulatory EEG as outpatient No plan to start on antiepileptic medication Advised to avoid driving until cleared by neurology Contusion of face, abrasions Secondary to above Imaging as above Acute Rhabdomyolysis In setting of physical overexertion (works for [employer] business), heat exposure, has been exercising Transaminitis, KLAUDIA due to above --[id number] LFTs improving Renal function stable CK levels improving Continue IV fluids HTN Hold lisinopril for now Monitor BP Tobacco use Uses 1 can of smokeless tobacco daily Continue Nicotine patch Morbid Obesity BMI: 40 DVT Px: SCDs Code status: FULL CODE Admission and Anticipated Discharge Date Admission Date: December 26, 2022 Subjective Patient is seen and examined at bedside States having muscle soreness which has been improving Eager to get discharged Denies any chest pain, dyspnea, dizziness, nausea, vomiting, abdominal pain Discussed with patient's family at bedside Review of Systems Review of Systems: All systems reviewed & are unremarkable except as noted in Subjective Physical Exam Physical Exam: Physical Exam: Vitals signs as noted above General Appearance:Obese, no apparent distress Head: normocephalic, Atraumatic Eyes: normal inspection, EOMI Neck: supple, Trachea midline Respiratory/Chest: Normal breath sounds, CTA, No accessory muscle use Cardiovascular: S1, S2, No murmur Abdomen/GI:Soft, Non tender, Bowel sounds present Extremities/Musculoskeletal:normal inspection, no edema Neurologic/Psych:AAOX3, grossly no focal neurological deficits Skin: normal color, warm Results & Data Results & Data Vital Signs (Past 12 Hours) Vital Signs Temp Pulse Pulse Resp BP Pulse Ox O2 Del Method 12/28/22 11:07 36.8 C 79 18 158/80 H 100 Room Air 12/28/22 07:07 36.5 C 54 L 18 108/63 99 Room Air 12/28/22 07:25 52 L Laboratory Results Short CBC 12/28/22 Range/Units 07:52 WBC 5.92 (4.8-10.8) K/ul Hgb 11.7 L (14.0-18.0) g/dl Hct 34.5 L (42.0-52.0) % Plt Count 139 (130-400) K/uL BMP 12/28/22 07:52 Sodium 141 Potassium 3.9 Chloride 109 H Carbon Dioxide 28 BUN 11 Creatinine 0.73 Glucose 115 H Calcium 9.1 Cardiac Enzymes 12/28/22 Range/Units 07:52 Total Creatine Kinase 9933 H (30-223) U/L Liver Function 12/28/22 Range/Units 07:52 Total Bilirubin 0.4 (0.2-1.0) mg/dl AST 137 H (13-39) U/L ALT 61 H (7-52) U/L Alkaline Phosphatase 39 (34-104) U/L Albumin 3.9 (3.4-5.0) gm/dl
[2022-12-29] MEDS: LACTATED RINGER'S 1,000 ML IV SCH ×2 (03:59→09:05)
[2022-12-29] MEDS: NICOTINE 21 MG/24 HR TDSY TD SCH (08:26)
[2022-12-29 08:46] LABS: Anion Gap 5 (3-11); BUN Creatinine Ratio 12.2 (10-20); Blood Urea Nitrogen 9 mg/dl (6-23); Calcium 9.5 mg/dl (8.6-10.3); Carbon Dioxide 30 mmol/L (21-32); Chloride 108 mmol/L (98-107); Creatinine Clr Calc Pharmacy 243.8 ml/min; Est GFR (African American) > 150.0 ml/min; Glucose 100 mg/dl (70-99(Fasting)); Potassium 4.1 mmol/L (3.5-5.1); Sodium 143 mmol/L (136-145)
[2022-12-29 09:04] LABS: Alanine Aminotransferase 58 U/L (7-52); Albumin Globulin Ratio 1.9 (0.9-2); Alkaline Phosphatase 38 U/L (34-104); Aspartate Aminotransferase 97 U/L (13-39); Bilirubin,Total 0.5 mg/dl (0.2-1.0); Globulin 2.1 gm/dl (2.5-4.0); Magnesium 1.8 mg/dl (1.7-2.4); Total Protein 6.1 gm/dl (6.0-8.3)
[2022-12-29 09:07] LABS: Estimated Average Glucose 105 mg/dl; Hemoglobin A1C 5.3 % (4.5-5.6)
[2022-12-29 09:10] LABS: Creatine Kinase 4971 U/L (30-223)
--- NOTE | 2022-12-29 09:11 | Hospitalist Progress Note ---
Date of Service December 29, 2022 Assessment & Plan (1) Smokeless tobacco use: (2) Toxic metabolic encephalopathy: (3) Rhabdomyolysis: (4) Contusion of face: (5) CHI (closed head injury): (6) Hypertension: (7) Acute kidney injury: Plan Patient is a 21 yr old male with PMH of hypertension, obesity, daily tobacco use who presents from home after an aggressive episode earlier this morning and was found to have acute kidney injury in setting of rhabdomyolysis. Toxic metabolic encephalopathy H/O Alcohol Use Presented with brief episode of agitation/delirium in setting of developing rhabdomyolysis. Recent heat exposure and physical overexertion with single episode of agitation with hallucination of police trying to kill him lasting 30 min, resolved with IM Ativan by EMS DD: Possible partial epileptic seizure, alcohol withdrawal, delirium in setting of heat exhaustion patient is/rhabdomyolysis --Brain MRI:Unremarkable MRI of the brain. --Facial CT:No acute facial fracture. --Neck CT:No acute fracture or subluxation. --Tox Screen: Negative --EEG:This is a normal awake and drowsy routine EEG. There is no evidence of focal slowing or epileptiform activity. Appreciate neurology input Mental status back to baseline No plan to start on antiepileptic medication Advised to avoid driving until cleared by neurology Need neurology follow-up with ambulatory EEG as outpatient Plan to discharge home today Contusion of face, abrasions Secondary to above Imaging as above Acute Rhabdomyolysis In setting of physical overexertion (works for [email or web address] business), heat exposure, has been exercising Transaminitis, KLAUDIA due to above --[id number] LFTs continue to improve Renal function stable Continue IV fluids while hospitalized HTN Resume lisinopril upon discharge Monitor BP Tobacco use Uses 1 can of smokeless tobacco daily Continue Nicotine patch Morbid Obesity BMI: 40 DVT Px: SCDs Code status: FULL CODE Disposition Home Admission and Anticipated Discharge Date Admission Date: December 26, 2022 Subjective Patient is seen and examined at bedside Feels much better today No new complaints Muscle ache resolved CK continues to trend down Denies any chest pain, dyspnea, dizziness, nausea, vomiting, abdominal pain Plan to discharge home today Review of Systems Review of Systems: All systems reviewed & are unremarkable except as noted in Subjective Physical Exam Physical Exam: Physical Exam: Vitals signs as noted above General Appearance:Obese, no apparent distress Head: normocephalic, Atraumatic Eyes: normal inspection, EOMI Neck: supple, Trachea midline Respiratory/Chest: Normal breath sounds, CTA, No accessory muscle use Cardiovascular: S1, S2, No murmur Abdomen/GI:Soft, Non tender, Bowel sounds present Extremities/Musculoskeletal:normal inspection, no edema Neurologic/Psych:AAOX3, grossly no focal neurological deficits Skin: normal color, warm Results & Data Results & Data Vital Signs (Past 12 Hours) Vital Signs Temp Pulse Pulse Resp BP Pulse Ox O2 Del Method 12/29/22 07:23 36.5 C 58 L 18 116/64 97 Room Air 12/29/22 07:30 58 L 12/29/22 02:30 36.5 C 68 22 129/81 99 Room Air 12/28/22 23:33 70 12/28/22 22:51 36.7 C 62 20 130/83 96 Room Air Laboratory Results [facility] 12/29/22 07:52 Sodium 143 Potassium 4.1 Chloride 108 H Carbon Dioxide 30 BUN 9 Creatinine 0.74 Glucose 100 H Calcium 9.5 Cardiac Enzymes 12/29/22 Range/Units 07:52 Total Creatine Kinase 4971 H (30-223) U/L Liver Function 12/29/22 Range/Units 07:52 Total Bilirubin 0.5 (0.2-1.0) mg/dl AST 97 H (13-39) U/L ALT 58 H (7-52) U/L Alkaline Phosphatase 38 (34-104) U/L Albumin 4.0 (3.4-5.0) gm/dl
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
== END 2022-12-29 10:57 | disposition home or self-care (01) | DRG 682 ==
LOC: ED 04:38 → SUATTDRO 09:17 → EDINP 09:17 → 2S 19:17

== ENCOUNTER 2023-01-29 09:38 | Inpatient (IN) ==
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
[2023-01-29] MEDS ORDERED: LORazepam 2 MG/1 ML VIAL IV STA (10:15)
[2023-01-29 10:38] LABS: Basophils # (auto) 0.03 K/uL (0.00-0.20); Basophils % (auto) 0.2 %; Eosinophils # (auto) 0.04 K/uL (0.00-0.50); Eosinophils % (auto) 0.3 %; Hematocrit (blood only) 43.3 % (42.0-52.0); Hemoglobin 14.9 g/dl (14.0-18.0); Immature Granulocytes # (auto) 0.09 K/uL (0.01-0.20); Immature Granulocytes % (auto) 0.7 %; Lymphocytes % (auto) 8.7 %; Mean Corpuscular Hemoglobin 27.7 pg (25.0-34.0); Mean Corpuscular Hgb Conc 34.4 g/dL (32.0-36.0); Mean Corpuscular Volume 80.6 fL (80.0-100.0); Monocytes # (auto) 0.79 K/uL (0.11-0.59); Monocytes % (auto) 6.3 %; Neutrophils # (auto) 10.57 K/uL (1.40-6.50); Neutrophils % (auto) 83.8 %; Platelet Count 217 K/uL (130-400); RDW Coefficient of Variation 12.9 % (11.5-14.5); RDW Standard Deviation 37.2 fL (36.4-46.3); Red Blood Count 5.37 M/uL (4.70-6.10); White Blood Count 12.62 K/ul (4.8-10.8)
--- NOTE | 2023-01-29 10:53 | XRay Report ---
XR chest 1V portable CLINICAL HISTORY: Altered mental status. COMPARISON STUDY: Chest radiograph December 26, 2022. FINDINGS: Lung volumes are normal. Lungs are clear. There is no pneumothorax or pleural effusion. Car diac size is normal. Mediastinal contours are normal. There is no evidence for pulmonary edema. IMPRESSION: No acute cardiopulmonary findings. ACT 112: Negative or not required by law. Electronically signed by: Odell Dugan M.D. 01/29/2023 10:52 AM
[2023-01-29 11:12] LABS: Lyme Ab IgG w/WB Rflx Negative (Negative); Lyme Ab IgM w/WB Rflx Negative (Negative)
[2023-01-29 11:13] LABS: Albumin Globulin Ratio 2.6 (0.9-2); Albumin Level 4.9 gm/dl (3.4-5.0); BUN Creatinine Ratio 13.6 (10-20); Bilirubin,Total 0.7 mg/dl (0.2-1.0); Calcium 9.7 mg/dl (8.6-10.3); Creatinine Clr Calc Pharmacy 157.7 ml/min; Est GFR (African American) 109.1 ml/min; Est GFR (Non-African American) 94.1 ml/min; Globulin 1.9 gm/dl (2.5-4.0); INR 1.1 (0.9-1.1); Magnesium 2.2 mg/dl (1.7-2.4); Partial Thromboplastin Ratio 0.9; Partial Thromboplastin Time 24.6 Seconds (21.0-31.0); Potassium 3.6 mmol/L (3.5-5.1); Prothrombin Time 11.8 Seconds (9.0-12.0); Total Protein 6.8 gm/dl (6.0-8.3)
--- NOTE | 2023-01-29 11:15 | CT Scan Report ---
CT OF THE HEAD WITHOUT CONTRAST CLINICAL HISTORY: Altered mental status. COMPARISON STUDY: Head CT and MRI of the brain December 26, 2022. TECHNIQUE: Helical axial images of the head were obtained without IV contrast. Automated exposure con trol was utilized for the study. A dose lowering technique was utilized adhering to the principles o f ALARA. FINDINGS: This study is moderately compromised by motion artifact. No acute intracranial hemorrhage, midline shift or mass effect is present. The ventricular system is unremarkable. The basal cisterns a re patent. No extra-axial collections are present. There are no findings to suggest acute dural sinus thrombosis or acute territorial infarct. No significant calvarial abnormalities are present. Visuali zed portions of the sinuses and mastoid air cells are clear. IMPRESSION: Exam moderately compromised by motion artifact. No acute intracranial findings. ACT 112: Negative or not required by law. Electronically signed by: Odell Dugan M.D. 01/29/2023 11:14 AM
--- NOTE | 2023-01-29 11:26 | CT Scan Report ---
CT OF THE CERVICAL SPINE WITHOUT CONTRAST CLINICAL HISTORY: altered mental status, head injury COMPARISON STUDY: Cervical spine CT December 26, 2022. TECHNIQUE: Helical axial images of the cervical spine were obtained without IV contrast. Sagittal a nd coronal reconstructions were viewed. Automated exposure control was utilized for the study. A do se lowering technique was utilized adhering to the principles of ALARA. FINDINGS: Alignment of the cervical spine is anatomic. Vertebral body heights are maintained. No acut e cervical spine fracture or subluxation is present. There is no prevertebral edema. Facet joints are intact. IMPRESSION: No acute cervical spine fracture or subluxation. ACT 112: Negative or not required by law. Electronically signed by: Odell Dugan M.D. 01/29/2023 11:24 AM
[2023-01-29 11:31] LABS: Appearance Urine Clear (Clear); Bilirubin Urine Negative (Negative); Blood Urine Trace (Negative); Color Urine Yellow; Epithelial Cell Urine Auto >30 /lpf (0-5); Glucose Urine UA Negative (Negative); Ketones Urine 1+ (Negative); Leukocyte Esterase Urine Negative (Negative); Nitrite Urine Negative (Negative); Protein Urine 2+ (Negative); RBC Urine Automated 0-4 /hpf (0-4); Urobilinogen Urine Negative (Negative); pH Urine 5.5 (4.5-7.5)
[2023-01-29 11:36] LABS: Acetaminophen < 3 ug/ml (10-30); Salicylate < 3.0 mg/dl (3.0-30)
[2023-01-29 11:46] LABS: Mucus Urine Present (None Prsent)
[2023-01-29 11:48] LABS: Bacteria Urine Automated 1+ (Negative)
[2023-01-29 11:54] LABS: Amphetamines+Metham, Urine Neg (Neg); Barbiturates, Urine Neg (Neg); Benzodiazepine, Urine Neg (Neg); Cocaine, Urine Neg (Neg); MDMA (Ecstacy), Urine Neg (Neg); Methadone, Urine Neg (Neg); Opiate, Urine Neg (Neg); Phencyclidine, Urine Neg (Neg)
[2023-01-29] MEDS ORDERED: SODIUM CHLORIDE 0.9% 1,000 ML IV SCH (12:30)
[2023-01-29] MEDS ORDERED: ACETAMINOPHEN 325 MG TAB PO PRN (12:52)
[2023-01-29] MEDS ORDERED: ONDANSETRON INJ 2 MG/ML 2 ML VIAL IV PRN (12:52)
[2023-01-29] MEDS ORDERED: MAGNESIUM HYDROXIDE SUSP 30 ML UDC PO PRN (12:52)
[2023-01-29] MEDS ORDERED: ALUMINUM/MAGNESIUM SUSP 30 ML UDC PO PRN (12:52)
[2023-01-29] MEDS ORDERED: POLYETHYLENE (MIRALAX) 17 GM PACK PO PRN (12:52)
--- NOTE | 2023-01-29 13:06 | History & Physical Report ---
Date of Service January 29, 2023 Assessment & Plan (1) AMS (altered mental status): (2) Paranoia: (3) Hypertension: (4) Smokeless tobacco use: Plan 22 year old male that presents to the ED today after his neighbor brought him to the ED after pt experienced an episode of paranoid thoughts unprovoked leading to him 'destroying' the inside of his home for which he has little to no memory of the events occurring. He had a similar episode occur leading to inpatient hospitalization from 12/26-12/29 where was found to have acute kidney injury in setting of rhabdomyolysis. There was questionable partial seizure last admission and was to have an EEG for follow up and Neurology outpatient review; EEG is scheduled for 02/09. Nothing unusual leading up to his girlfriend departing this morning and after she left he fell back asleep and then woke with paranoia of someone trying to "kill" him. He then destroyed his room but does not recall doing so despite having small lacerations on his head, face arms and legs. Reports having a left leg twitch that occurs every single night; without neuropathy. Nontoxic. UDS negative. TSH 2.780. CK 563. Mild leukocytosis 12.62, CK 563, Lyme's negative, UDS negative. Head CT, CXR and cervical spine CT negative. Last ECHO 01/11/22: EF 62%, LV wall motion normal without valve abnormalities. Patient AAOx4, calm and coherent with appropriate meaningful conversation. No other contributing symptoms. Suspect this is related to sleep-wake cycle. Denies frightening nightmares or sleep walking. Brother at bedside said he sometimes used to talk in his sleep but no behavior issues otherwise. Will trend CK levels, check vitamin B12, obtain awake/drowsy EEG and involve neurology if abnormalities on EEG and psychiatry. If frontal lobe seizures suspected and confirmed; may consider Depakote initiation as discussed with Neurology via tiger text. AMS: Paranoia: back to baseline mental status Suspect this is related to sleep-wake cycle Mild leukocytosis 12.62, afebrile and does not appear toxic UDS negative TSH 2.780 CK 563, Lyme's negative Head CT, CXR and cervical spine CT negative EEG awake/drowsy ordered; suspect frontal lobe seizure; if confirmed; may consider Depakote initiation as discussed with Neurology via tiger text. Based on EEG results, reach out to Neuro; consult Neurology. Consult Psychiatry. HTN: Chronic stable Takes lisinopril; compliant; continue Smokeless tobacco use: Uses chewing tobacco Recommend cessation Disposition: PCP: Joel MIJARES CODE STATUS: Full code VTE prophylaxis: Lovenox SQ I spent a total of 88 minutes coordinating, documenting, and providing care for this patient excluding time spent in the performance of separately billed services. All of the aforementioned completed while collaborating with the assigned attending physician for a full treatment plan. Please see their addendum for further details. History of Present Illness Chief Complaint: AMS;Paranoia Primary Care Provider: Joel Odom DO Mr. Mora is a 22 year old male that presents to the ED today via EMS after he experienced an episode of paranoid thoughts unprovoked leading to him 'destroying' the inside of his home for which he has little to no memory of the events occurring. He had a similar episode occur leading to inpatient hospitalization from 12/26-12/29 where was found to have acute kidney injury in setting of rhabdomyolysis. There was questionable partial seizure last admission and was to have an EEG for follow up and Neurology outpatient review; however, he canceled his appointment on 01/09 and his EEG is scheduled for 02/09. He did admit to a small amount of whiskey last night. He said that there was nothing unusual leading up to his girlfriend departing this morning and after she left h e fell back asleep and then woke with paranoia of someone trying to "" kill him. He then destroyed his room but does not recall doing so despite having small lacerations on his head, face arms and legs. Reports having a left leg twitch that occurs every single night; without neuropathy. Nontoxic. UDS negative. TSH 2.780. CK 563. Drank a small amount of whiskey last night. 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 Mild leukocytosis 12.62, afebrile and does not appear toxic. CK 563, Lyme's negative, UDS negative. Head CT, CXR and cervical spine CT negative. Last ECHO 01/11/22: EF 62%, LV wall motion normal without valve abnormalities. During our examination patient AAOx4, calm and coherent with appropriate meaningful conversation. Girlfriend at bedside feels safe with patient at baseline. Denies headache, visual or auditory changes, shortness of breath, chest pain, palpitations, abdominal pain or tenderness, bowel or urinary changes, auditory or visual hallucinations at baseline, recent falls or trauma. Suspect this is related to sleep-wake cycle. Denies frightening nightmares or sleep walking. Brother at bedside said he sometimes used to talk in his sleep but no behavior issues otherwise. Will trend CK levels, check vitamin B12, obtain awake/drowsy EEG and involve neurology and psychiatry as appropriate. If frontal lobe seizures suspected and confirmed; may consider Depakote initiation as discussed with Neurology via tiger text. Patient will be admitted for further evaluation and management. Please see A/P for further details. Allergies Allergy/AdvReac Type Severity Reaction Status Date / Time No Known Allergies Allergy Unknown Unverified 01/29/23 11:08 Home Medications Medication Instructions Recorded Confirmed Type ascorbic acid (vitamin C) 1,000 mg 1,000 mg PO DAILY 12/26/22 01/29/23 History tablet (Vitamin C) lisinopril 20 mg tablet 20 mg PO DAILY 12/26/22 01/29/23 History magnesium oxide 500 mg tablet 500 mg PO DAILY 01/29/23 01/29/23 History Past Med/Surg History Medical History (Updated 01/29/23 @ 14:20 by MARYANA Muhammad) AMS (altered mental status) Hypertension Obesity Paranoia Smokeless tobacco use Tobacco use disorder Surgical History Status post medial meniscus repair Family History Other Heart disease Social History Smoking Status: Never smoker Tobacco Type: Smokeless Tobacco (Dip or Chew) Second Hand Exposure: No; Do You Dip or Chew Tobacco: Yes; Hx Alcohol Use: Yes Alcohol type: beer and hard liquor Hx Substance Use: No Preferred Language: Turkmen Communication Ability: Effective Sap Security Consultant Required: No Beliefs That Will Affect Care: None Current Living Situation: Parent Feels Safe at Home: Yes Assistive Devices: None Review of Systems Review of Systems: Neuro: (-) Falls, trauma, slurred speech HEENT: (-) SUH, dizziness, dysphagia, visual or auditory changes, (_) auditory hallucinations CV: (-) CP, palpitations, swelling Resp: (-) SOB GI: (-) appetite changes, N/V/D, bowel changes : (-) urinary changes Skin: (-) rashes (+) numerous lacerations on head neck, face, arms, legs. Psych: (-) anxiety, depression, (-) SI/SA Physical Exam Physical Exam: Neuro: AAOx4, PERRLA, no aphagia, memory changes, CNII-XII grossly intact HEENT: head normocephalic, moist mucus membranes CV: S1/S2, (-) M/G/R, (-) edema, cap refill < 3 seconds Resp: Lungs CTA in all tee. On RA GI: Abdomen S/NT/ND, Ax4 bowel sounds, (-) CVA tenderness Musculoskeletal: 5/5 B/L UE strength, 5/5 B/L LE strength. No gait disturbance. left leg twitching during exam Skin: (-) rashes , (-) erythema. Psych: euthymic mood Results & Data Results & Data Vital Signs (Past 12 Hours) Vital Signs Temp Pulse Resp BP Pulse Ox O2 Del Method 01/29/23 12:30 85 24 160/75 H 99 01/29/23 12:00 90 17 99 Room Air 01/29/23 12:00 139/63 01/29/23 11:30 91 H 19 99 Room Air 01/29/23 11:11 94 H 21 99 Room Air 01/29/23 10:45 98 H 20 99 Room Air 01/29/23 10:45 127/76 01/29/23 10:30 101 H 21 01/29/23 10:26 99 H 22 01/29/23 10:26 106 H 01/29/23 10:13 Room Air 01/29/23 09:46 36.9 C 113 H 20 132/88 97 Room Air Laboratory Results Short CBC 01/29/23 Range/Units 10:00 WBC 12.62 H (4.8-10.8) K/ul Hgb 14.9 (14.0-18.0) g/dl Hct 43.3 (42.0-52.0) % Plt Count 217 (130-400) K/uL BMP 08/30/23 10:00 Sodium 138 Potassium 3.6 Chloride 104 Carbon Dioxide 20 L BUN 15 Creatinine 1.10 Glucose 160 H Calcium 9.7 Cardiac Enzymes 01/29/23 Range/Units 10:00 Total Creatine Kinase 563 H (30-223) U/L Liver Function 01/29/23 Range/Units 10:00 Total Bilirubin 0.7 (0.2-1.0) mg/dl AST 37 (13-39) U/L ALT 37 (7-52) U/L Alkaline Phosphatase 55 (34-104) U/L Albumin 4.9 (3.4-5.0) gm/dl Urine 01/29/23 Range/Units 11:10 Urine Color Yellow Urine Appearance Clear (Clear) Urine pH 5.5 (4.5-7.5) Ur Specific [place] 1.020 (1.000-1.030) Urine Protein 2+ H (Negative) Urine Glucose (UA) Negative (Negative) Diagnostic Findings Chest X-Ray 01/29/23 10:12 XR chest 1V portable CLINICAL HISTORY: Altered mental status. COMPARISON STUDY: Chest radiograph December 26, 2022. FINDINGS: Lung volumes are normal. Lungs are clear. There is no pneumothorax or pleural effusion. Cardiac size is normal. Mediastinal contours are normal. There is no evidence for pulmonary edema. IMPRESSION: No acute cardiopulmonary findings. ACT 112: Negative or not required by law. Electronically signed by: Odell Dugan M.D. 01/29/2023 10:[address] 01/29/23 10:31 CT OF THE CERVICAL SPINE WITHOUT CONTRAST CLINICAL HISTORY: altered mental status, head injury COMPARISON STUDY: Cervical spine CT December 26, 2022. TECHNIQUE: Helical axial images of the cervical spine were obtained without IV contrast. Sagittal and coronal reconstructions were viewed. Automated exposure control was utilized for the study. A dose lowering technique was utilized adhering to the principles of ALARA. FINDINGS: Alignment of the cervical spine is anatomic. Vertebral body heights are maintained. No acute cervical spine fracture or subluxation is present. There is no prevertebral edema. Facet joints are intact. IMPRESSION: No acute cervical spine fracture or subluxation. ACT 112: Negative or not required by law. Electronically signed by: Odell Dugan M.D. 01/29/2023 11:[address] 01/29/23 10:31 CT OF THE HEAD WITHOUT CONTRAST CLINICAL HISTORY: Altered mental status. COMPARISON STUDY: Head CT and MRI of the brain December 26, 2022. TECHNIQUE: Helical axial images of the head were obtained without IV contrast. Automated exposure control was utilized for the study. A dose lowering techniq ue was utilized adhering to the principles of ALARA. FINDINGS: This study is moderately compromised by motion artifact. No acute intracranial hemorrhage, midline shift or mass effect is present. The ventricular system is unremarkable. The basal cisterns are patent. No extra- axial collections are present. There are no findings to suggest acute dural sinus thrombosis or acute territorial infarct. No significant calvarial abnormalities are present. Visualized portions of the sinuses and mastoid air cells are clear. IMPRESSION: Exam moderately compromised by motion artifact. No acute intrac ranial findings. ACT 112: Negative or not required by law. Electronically signed by: Odell Dugan M.D. 01/29/2023 11:14 AM Code Status & VTE Plan Code Status Full Code in the event of cardiac or respiratory arrest VTE Prophylaxis Plan VTE Prophylaxis will be ordered: Yes Supervising Physician Co-Signing Physician Notes Pt seen and examined by me, care coordinated w/ E. MARYANA Xiao, pls refer to her note above for further detail. Pt is a 22 yo M who presents via EMS after he experienced an episode of paranoid thoughts unprovoked leading to him 'destroying' the inside of his home for which he has little to no memory of the events occurring. He had a similar episode occur leading to inpatient hospitalization from 12/26-12/29 where he was found to have acute kidney injury in setting of rhabdomyolysis. There was questionable partial seizure last admission and was to have an EEG for follow up and Neurology outpatient review; however, his EEG is scheduled for January and so was not done yet. He did admit to a small amount of whiskey last night. He said that there was nothing unusual leading up to his girlfriend departing this morning and after she left he fell back asleep and then woke with paranoia of someone trying to "kill him". He then destroyed his room but does not recall doing so despite having small lacerations on his head, face arms and legs. Reports having a left leg twitch that occurs every night. 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 UDS negative. TSH 2.780. CK 563. Mild leukocytosis 12.62, afebrile, Lyme's negative. Head CT, CXR and cervical spine CT negative. Currently patient is AAOx3, calm and coherent, answers appropriately. Girlfriend and pt's brother present at the bedside. Lungs are clear to auscultation, heart sounds regular. Abdomen soft, nontender to palp. Pt moves extremities, no weakness and no sensory loss noted. Suspect this is related to sleep-wake cycle. Will trend CK levels, check vitamin B12, obtain awake/drowsy EEG and involve neurology and psychiatry as appropriate. If frontal lobe seizures suspected and confirmed; may consider Depakote initiation as discussed with Neurology via tiger text. MD Rohini
[2023-01-29] MEDS ORDERED: DIPHTHERIA/TETANUS/PERTUSSIS Vaccine (Tdap, Age 7+yrs) 0.5mL SYR/VL IM ONE (13:25)
[2023-01-29] MEDS: THIAMINE HCL 100 MG in SYRINGE 9 ML IV SCH (21:19)
[2023-01-29] MEDS: FOLIC ACID 1 MG in SYRINGE 9.8 ML IV SCH (21:19)
[2023-01-29] MEDS: SODIUM CHLORIDE 0.9% 1,000 ML IV SCH (21:19)
[2023-01-30] MEDS: SODIUM CHLORIDE 0.9% 1,000 ML IV SCH ×5 (02:33→23:32)
[2023-01-30 07:34] LABS: Hematocrit (blood only) 35.2 % (42.0-52.0); Hemoglobin 12.1 g/dl (14.0-18.0); Mean Corpuscular Hemoglobin 27.5 pg (25.0-34.0); Mean Corpuscular Hgb Conc 34.4 g/dL (32.0-36.0); Mean Platelet Volume 11.1 fL (9.4-12.4); Platelet Count 155 K/uL (130-400); RDW Coefficient of Variation 13.1 % (11.5-14.5); RDW Standard Deviation 37.5 fL (36.4-46.3)
[2023-01-30] MEDS: lisinopril 20 MG TAB PO SCH (08:00)
[2023-01-30] MEDS: THIAMINE HCL 100 MG in SYRINGE 9 ML IV SCH (08:00)
[2023-01-30] MEDS: FOLIC ACID 1 MG in SYRINGE 9.8 ML IV SCH (08:00)
[2023-01-30 08:16] LABS: Est GFR (African American) 145.9 ml/min
[2023-01-30 08:17] LABS: Albumin Globulin Ratio 2.1 (0.9-2); Albumin Level 3.9 gm/dl (3.4-5.0); BUN Creatinine Ratio 13.8 (10-20); Bilirubin,Total 0.7 mg/dl (0.2-1.0); Calcium 8.4 mg/dl (8.6-10.3); Creatinine Clr Calc Pharmacy 216.8 ml/min; Est GFR (Non-African American) 125.9 ml/min; Globulin 1.9 gm/dl (2.5-4.0); Phosphorus 3.8 mg/dl (2.5-4.9); Potassium 3.9 mmol/L (3.5-5.1); Total Protein 5.8 gm/dl (6.0-8.3)
[2023-01-30] MEDS ORDERED: ENOXAPARIN INJ 40 MG/0.4 ML SYR SQ SCH (09:00)
[2023-01-30] MEDS ORDERED: ASCORBIC ACID 500 MG TAB PO SCH (09:00)
[2023-01-30] MEDS ORDERED: MAGNESIUM OXIDE 400 MG TAB PO SCH (09:00)
--- NOTE | 2023-01-30 12:01 | Psychiatric Consultation ---
Date of Consultation January 30, 2023 Impression / Recommendations Impression 22 y/o man who, prior to a month ago, had no history of psychiatric or behavioral issues. Last month he was admitted to the medical service with very similar history and was thought possibly to have had a seizure. The symptoms at that time resolved and he was to have had neurological follow-up including EEG on 02/09/2023. Alcohol had been prior to each of these events. The pt denies "regular" drinking but does do some binge drinking. The differential here is relatively broad. * The presentation does not match typical mood disorder (major depression, bipolar disorder) or thought disorder (schizophrenia) patterns, nor really any other primary psychiatric condition. * This could represent REM behavior disorder - pt appears to wake already in the process of destroying things. 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 The temporal correlation with waking from sleep appears strong. * The possibility of a seizure disorder has been considered and is in the process of being evaluated. * Alcohol withdrawal seems unlikely given lack of vital signs alterations and rapid clearing and alcohol-induced seizures appear unlikely since several days elapsed between drinking and the first episode. (1) AMS (altered mental status): Plan In addition to the outpatient workup for seizure that's currently underway, would recommend a sleep medicine evaluation to assess for REM behavior disorder or other parasomnia. In light of alcohol use preceding each of these events (although in the first episode by a few days), strongly recommend pt abstain from alcohol completely. This is not only because alcohol use can induce seizures but also because alcohol use changes sleep architecture, suppressing REM and potentially leading to delayed REM periods or REM rebound. At this point I do not recommend adding any psychiatric medications because these events have thus far been self-limiting, because it's not clear to me what we would be treating, and because many candidate medications affect sleep architecture and REM. Psych History Identifying Data CHER WRAY is a 22-year-old M with no clear previous psychiatric history but a previous medical admission with a very similar presentation a month ago, admitted on 01/30/2023 for []. Consult is by the hospitalist service for "AMS/hallucinations/aggresion". Chief Complaint "I don't really get what's causing this". History of Present Illness As part of a thorough review of the available medical records, I have read and confirmed the following note by the ED physician: "This is a 22-year-old male that presents to the emergency department via private vehicle with complaints of "memory loss, disoriented". Patient is here today accompanied by girlfriend as well as family friend, Tim. Patient provides much of the history. The patient notes that earlier today shortly after 7 AM his girlfriend left for work. He notes that not long after he be dawna with the thought that somebody was out to get him/kill him. He states that he then searched the area and he has very little recollection after that time. He states that he destroyed his room again, noting similar happened about a month ago, and notes cuts, scrapes and bruising overlying his body. He notes some discomfort to the left side of the face where he struck the left eyebrow region. He denies any neck pain, chest pain, abdominal pain. He does note some minor mid back discomfort. He notes discomfort overlying the abrasions of the dorsal toes. Tetanus status is out of date. Patient does note he drank some whiskey last evening. Although he did have a long day yesterday doing activities and work, he notes nothing was really strenuous. Patient does note similar, nearly identical scenario just over 1 month ago." and the following note by the hospitalist: "22 year old male that presents to the ED today after his neighbor brought him to the ED after pt experienced an episode of paranoid thoughts unprovoked leading to him 'destroying' the inside of his home for which he has little to no memory of the events occurring. He had a similar episode occur leading to inpatient hospitalization from 12/26-12/29 where was found to have acute kidney injury in setting of rhabdomyolysis. There was questionable partial seizure last admission and was to have an EEG for follow up and Neurology outpatient review; EEG is scheduled for 02/09. Nothing unusual leading up to his girlfriend departing this morning and after she left he fell back asleep and then woke with paranoia of someone trying to "kill" him. He then destroyed his room but does not recall doing so despite having small lacerations on his head, face arms and legs. Reports having a left leg twitch that occurs every single night; without neuropathy. Nontoxic. UDS negative. TSH 2.780. CK 563. Mild leukocytosis 12.62, CK 563, Lyme's negative, UDS negative. Head CT, CXR and cervical spine CT negative. Last ECHO 01/11/22: EF 62%, LV wall motion normal without valve abnormalities. Patient AAOx4, calm and coherent with appropriate meaningful conversation. No other contributing symptoms. Suspect this is related to sleep-wake cycle. Denies frightening nightmares or sleep walking. Brother at bedside said he sometimes used to talk in his sleep but no behavior issues otherwise." Review of the medical record reveals psychiatric consultation one month ago but no other psychiatric records. Pt has now had 2 episodes, about 1 month apart, of remarkably similar destruct marli behavior and persecutory delusions upon awakening. Alcohol use has been involved at least to some degree each time - he had "a fifth" (750 mL) of liquor a few nights before the first event and "a little to drink" the night before this one. He has a history of talking in his sleep "a while ago". Pt describes events to me exactly as he has to others. Allergies Allergy/AdvReac Type Severity Reaction Status Date / Time No Known Allergies Allergy Unknown Unverified 01/29/23 11:08 Home Medications Medication Instructions Recorded Confirmed Type ascorbic acid (vitamin C) 1,000 mg 1,000 mg PO DAILY 12/26/22 01/29/23 History tablet (Vitamin C) lisinopril 20 mg tablet 20 mg PO DAILY 12/26/22 01/29/23 History magnesium oxide 500 mg tablet 500 mg PO DAILY 01/29/23 01/29/23 History Patient History Medical History AMS (altered mental status) Hypertension Obesity Paranoia Smokeless tobacco use Tobacco use disorder Surgical History Status post medial meniscus repair Family History Other Heart disease Social History Smoking Status: Never smoker Tobacco Type: Smokeless Tobacco (Dip or Chew) Second Hand Exposure: No; Do You Dip or Chew Tobacco: No; Tobacco Cessation Education Requested by Patient: No Hx Alcohol Use: Yes Alcohol type: beer and hard liquor Hx Substance Use: No Preferred Language: Citizen Of [place] Communication Ability: Effective Pin Puller Required: No Beliefs That Will Affect Care: None Current Living Situation: Family Other Information That Helps Us Care for You: No Feels Safe at Home: Yes Safety Concerns: Feels Safe At This Time Assistive Devices: None Physical Exam Psychiatric: Orientation: alert (asleep on approach but wakes easily), oriented to person, oriented to place, oriented to time and cooperative Apperance: appropriately dressed, appropriately groomed and appeared stated age obese with large neck circumference Eye Contact: good eye contact Motor Behavior: no abnormal motor movements Speech: normal rate/rhythm/volume of speech Affect: euthymic affect Moo d: no depressed mood, no anxious mood and no irritable mood Thought Process: goal directed thought process, linear/logical thought process and thought association intact Thought Content: reality based without delusions Suicidal Thoughts: denies suicidal thoughts Homicidal Thoughts: denies homicidal thoughts Hallucinations: no auditory hallucinations and no visual hallucinations Cognition: recent memory grossly intact, remote memory grossly intact, attention grossly intact and language grossly intact Estimated Intelligence: average estimated intelligence Insight: good insight Judgment: good judgement Vital Signs (Past 24 Hours): Last Vital Signs Temp 36.9 C 01/30/23 11:44 Pulse 77 01/30/23 11:44 Resp 17 01/30/23 11:44 BP 143/69 H 01/30/23 11:44 Pulse Ox 99 01/30/23 11:44 O2 Del Method Room Air 01/30/23 11:44 Review of Systems Psychiatric: no depression, no hopelessness, no suicidal ideation, no panic attacks and no hallucinations Results & Data (PSY) Medications Administered Ascorbic Acid (Ascorbic Acid 500 Mg Tab) 1,000 mg PO DAILY CARMEN Stop: 03/01/23 08:59 Last Admin: 01/30/23 08:00 Dose: 1,000 mg Documented By: EVELIA Enoxaparin Sodium (Enoxaparin Inj 40 Mg/0.4 Ml Syr) 40 mg SQ QAM CARMEN Stop: 03/01/23 08:59 Last Admin: 01/30/23 10:53 Dose: 40 mg Documented By: EVELIA Sodium Chloride (Nss 1000ml) 1,000 mls @ 200 mls/hr IV .Q5H CARMEN Stop: 02/28/23 20:14 Last Admin: 01/30/23 08:07 Dose: 200 mls/hr Documented By: Infusion: 01/30/23 07:33 Dose: 200 mls/hr Documented By: Admin: 01/30/23 02:33 Dose: 200 mls/hr Documented By: Infusion: 01/30/23 02:19 Dose: 200 mls/hr Documented By: Admin: 01/29/23 21:19 Dose: 200 mls/hr Documented By: MELODY Lisinopril (Lisinopril 20 Mg Tab) 20 mg PO DAILY CARMEN Stop: 03/01/23 08:59 Last Admin: 01/30/23 08:00 Dose: 20 mg Documented By: EVELIA Magnesium Oxide (Magnesium Oxide 400 Mg Tab) 400 mg PO DAILY CARMEN Stop: 03/01/23 08:59 Last Admin: 01/30/23 08:00 Dose: 400 mg Documented By: EVELIA Coding Level of Care Code 03441 IN/OBS CONSULT LVL 4,60M Diagnoses AMS (altered mental status) R41.82 Time Spent (min) 69
--- NOTE | 2023-01-30 12:56 | Hospitalist Progress Note ---
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 Patient had an episode where he he became aggressive and destroyed the inside of his home; no recollection of the event. Similar episode that happened in November for which he was admitted. He reports history of jerking movement of his left leg when he falls asleep; multiple episodes throughout the night for many years. He had MRI brain and EEG done during last hospitalization which where unremarkable. Patient was evaluated by neurology during the hospitalization; concern for epileptic seizure of frontal lobe with impairment of consciousness. Labs reviewed; leukocytosis resolved BUN/creatinine within normal limits. CT head without contrast reviewed; no acute finding. CT cervical spine; no acute abnormality. Discussed with Dr. Herrera from neurology; he recommends trial of Depakote 500 mg twice daily for possible partial epileptic seizure of frontal lobe. EEG sleep/awake ordered. Patient also has ambulatory EEG ordered for February 08. Dr. Herrera suggested to keep the appointment and have outpatient ambulatory EEG Psychiatry to evaluate patient as well. Rhabdomyolysis Presented with CK of 563; trended up to 3335. Currently on IV hydration with normal saline at 200 cc/h. Encouraged oral hydration as well. We will obtain CK tomorrow a.m. HTN: Chronic stable Takes lisinopril; compliant; continue Smokeless tobacco use: Uses chewing tobacco Recommend cessation Disposition: PCP: Joel MIJARES CODE STATUS: Full code VTE prophylaxis: Lovenox SQ Time spent evaluating patient, direct bedside care, chart review, placing orders, interpretation of diagnostic studies, discussion with consultants, patient, and family members, as well as other required patient management activities is 60 minutes. Please note the above document was generated using voice recognition software. It may contain grammatical, syntax or spelling errors. Any formal questions or concerns about the content, text or information contained within the body of this dictation should be directly addressed to the provider for clarification Admission and Anticipated Discharge Date Admission Date: January 29, 2023 Subjective Patient seen and examined at bedside. He is alert oriented x3; not in distress. Denies any headache, chills, fever, chest pain or shortness of breath. Review of Systems Review of Systems: All systems reviewed & are unremarkable except as noted in Subjective Physical Exam Physical Exam: Constitutional: Alert orient x3. Multiple bruises noted on the face, corner of left eye, also on dorsal aspect of hand and foot. Respiratory: normal respiratory effort, lungs clear to auscultation, no wheeze, rales, rhonchi. Normal insp/exp effort, no accessory muscle use Cardiovascular: RRR, no murmur, no edema Vessels: no JVD or carotid bruit Chest: normal inspection of chest Abdomen: normal bowel sounds, soft, nontender, no hepatosplenomegaly Musculoskeletal: no cyanosis or clubbing, extremities motor strength 5/5 Skin: no rashes, warm and dry normal turgor Neurologic: PERRL, EOMI, accommodation nl, no face palsy, no dysarthria CN's II- XI intact bilaterally and moves all extremities Psychiatric: A+Ox3, euthymic affect Results & Data Results & Data Vital Signs (Past 12 Hours) Vital Signs Temp Pulse Pulse Resp BP Pulse Ox O2 Del Method 01/30/23 11:44 36.9 C 77 17 143/69 H 99 Room Air 01/30/23 05:59 67 01/30/23 07:40 36.5 C 75 18 137/68 98 Room Air 01/30/23 04:18 36.4 C L 75 18 136/69 97 Room Air 01/30/23 01:08 79 Laboratory Results Laboratory Results WBC 7.60 K/ul (4.8-10.8) 01/30/23 07:02 RBC 4.40 M/uL (4.70-6.10) L 01/30/23 07:02 Hgb 12.1 g/dl (14.0-18.0) L 01/30/23 07:02 Hct 35.2 % (42.0-52.0) L 01/30/23 07:02 MCV 80.0 fL (80.0-100.0) 01/30/23 07:02 MCH 27.5 pg (25.0-34.0) 01/30/23 07:02 MCHC 34.4 g/dL (32.0-36.0) 01/30/23 07:02 RDW Std Deviation 37.5 fL (36.4-46.3) 01/30/23 07:02 RDW Coeff of Yehuda 13.1 % (11.5-14.5) 01/30/23 07:02 Plt Count 155 K/uL (130-400) 01/30/23 07:02 MPV 11.1 fL (9.4-12.4) 01/30/23 07:02 Immature Gran % (Auto) 0.7 % 01/29/23 10:00 Neut % (Auto) 83.8 % 01/29/23 10:00 Lymph % (Auto) 8.7 % 01/29/23 10:00 Lynn % (Auto) 6.3 % 01/29/23 10:00 Eos % (Auto) 0.3 % 01/29/23 10:00 Baso % (Auto) 0.2 % 01/29/23 10:00 Neut # (Auto) 10.57 K/uL (1.40-6.50) H 01/29/23 10:00 Lymph # (Auto) 1.10 K/uL (1.20-3.40) L 01/29/23 10:00 Lynn # (Auto) 0.79 K/uL (0.11-0.59) H 01/29/23 10:00 Eos # (Auto) 0.04 K/uL (0.00-0.50) 01/29/23 10:00 Baso # (Auto) 0.03 K/uL (0.00-0.20) 01/29/23 10:00 Immature Gran # (Auto) 0.09 K/uL (0.01-0.20) 01/29/23 10:00 PT 11.8 Seconds (9.0-12.0) 01/29/23 10:00 INR 1.1 (0.9-1.1) 01/29/23 10:00 APTT 24.6 Seconds (21.0-31.0) 01/29/23 10:00 PTT Ratio 0.9 01/29/23 10:00 Sodium 139 mmol/L (136-145) 01/30/23 07:02 Potassium 3.9 mmol/L (3.5-5.1) 01/30/23 07:02 Chloride 109 mmol/L (98-107) H 01/30/23 07:02 Carbon Dioxide 25 mmol/L (21-32) 01/30/23 07:02 Anion Gap 5 (3-11) 01/30/23 07:02 BUN 11 mg/dl (6-23) 01/30/23 07:02 Creatinine 0.80 mg/dl (0.6-1.4) D 01/30/23 07:02 Est Cr Clr Drug Dosing 216.8 ml/min 01/30/23 07:02 Est GFR ( Amer) 145.9 ml/min 01/30/23 07:02 Est GFR (Non-Af Amer) 125.9 ml/min 01/30/23 07:02 BUN/Creatinine Ratio 13.8 (10-20) 01/30/23 07:02 Glucose 109 mg/dl (70-99(Fasting)) H 01/30/23 07:02 POC Glucose 163 mg/dl (70-99) H 01/29/23 09:59 Calcium 8.4 mg/dl (8.6-10.3) L 01/30/23 07:02 Phosphorus 3.8 mg/dl (2.5-4.9) 01/30/23 07:02 Magnesium 2.0 mg/dl (1.7-2.4) 01/30/23 07:02 Total Bilirubin 0.7 mg/dl (0.2-1.0) 01/30/23 07:02 AST 42 U/L (13-39) H 01/30/23 07:02 ALT 29 U/L (7-52) 01/30/23 07:02 Alkaline Phosphatase 39 U/L (34-104) 01/30/23 07:02 Ammonia 47.0 umol/L (18-72) 01/29/23 10:20 Total Creatine Kinase 3335 U/L (30-223) H 01/30/23 07:02 Troponin I High Sens 9.0 pg/ml (0-20) 01/29/23 10:00 Total Protein 5.8 gm/dl (6.0-8.3) L 01/30/23 07:02 Albumin 3.9 gm/dl (3.4-5.0) 01/30/23 07:02 Globulin 1.9 gm/dl (2.5-4.0) L 01/30/23 07:02 Albumin/Globulin Ratio 2.1 (0.9-2) H 01/30/23 07:02 Lipase 7 U/L (11-82) L 01/29/23 10:00 Vitamin B12 455 pg/ml (180-914) 01/29/23 15:44 TSH 2.780 uIu/ml (0.300-4.500) 01/29/23 10:00 Urine Color Yellow 01/29/23 11:10 Urine Appearance Clear (Clear) 01/29/23 11:10 Urine pH 5.5 (4.5-7.5) 01/29/23 11:10 Ur Specific Dalton 1.020 (1.000-1.030) 01/29/23 11:10 Urine Protein 2+ (Negative) H 01/29/23 11:10 Urine Glucose (UA) Negative (Negative) 01/29/23 11:10 Urine Ketones 1+ (Negative) H 01/29/23 11:10 Urine Blood Trace (Negative) H 01/29/23 11:10 Urine Nitrite Negative (Negative) 01/29/23 11:10 Urine Bilirubin Negative (Negative) 01/29/23 11:10 Urine Urobilinogen Negative (Negative) 01/29/23 11:10 Ur Leukocyte Esterase Negative (Negative) 01/29/23 11:10 Urine WBC (Auto) 1-5 /hpf (0-5) 01/29/23 11:10 Urine RBC (Auto) 0-4 /hpf (0-4) 01/29/23 11:10 U Hyaline Cast (Auto) 5-10 /lpf (0-5) H 01/29/23 11:10 U Epithel Cells (Auto) >30 /lpf (0-5) H 01/29/23 11:10 Urine Bacteria (Auto) 1+ (Negative) H 01/29/23 11:10 Ur Renal Epithelial Cell Not Reportable 01/29/23 11:10 Urine Mucus Present (None Prsent) A 01/29/23 11:10 Salicylates < 3.0 mg/dl (3.0-30) L 01/29/23 10:00 Urine Opiates Screen Neg (Neg) 01/29/23 11:10 Ur Methadone, Qual Neg (Neg) 01/29/23 11:10 Acetaminophen < 3 ug/ml (10-30) L 01/29/23 10:00 Urine Barbiturates Neg (Neg) 01/29/23 11:10 Ur Phencyclidine (PCP) Neg (Neg) 01/29/23 11:10 U Amphetamin/Meth Scrn Neg (Neg) 01/29/23 11:10 MDMA (Ecstasy) Screen Neg (Neg) 01/29/23 11:10 U Benzodiazepines Scrn Neg (Neg) 01/29/23 11:10 Ur Cocaine Metabolite Neg (Neg) 01/29/23 11:10 U Marijuana (THC) Screen Neg (Neg) 01/29/23 11:10 Ethyl Alcohol mg/dL < 10.0 mg/dl (<10.0) 01/29/23 10:00 Lyme Disease IgG Ab Negative (Negative) 01/29/23 10:00 Lyme Disease IgM Ab Negative (Negative) 01/29/23 10:00 Impressions Chest X-Ray 01/29/23 10:12 XR chest 1V portable CLINICAL HISTORY: Altered mental status. COMPARISON STUDY: Chest radiograph December 26, 2022. FINDINGS: Lung volumes are normal. Lungs are clear. There is no pneumothorax or pleural effusion. Cardiac size is normal. Mediastinal contours are normal. There is no evidence for pulmonary edema. IMPRESSION: No acute cardiopulmonary findings. ACT 112: Negative or not required by law. Electronically signed by: Odell Dugan M.D. 01/29/2023 10:[address] 01/29/23 10:31 CT OF THE CERVICAL SPINE WITHOUT CONTRAST CLINICAL HISTORY: altered mental status, head injury COMPARISON STUDY: Cervical spine CT December 26, 2022. TECHNIQUE: Helical axial images of the cervical spine were obtained without IV contrast. Sagittal and coronal reconstructions were viewed. Automated exposure control was utilized for the study. A dose lowering technique was utilized adhering to the principles of ALARA. FINDINGS: Alignment of the cervical spine is anatomic. Vertebral body heights are maintained. No acute cervical spine fracture or subluxation is present. There is no prevertebral edema. Facet joints are intact. IMPRESSION: No acute cervical spine fracture or subluxation. ACT 112: Negative or not required by law. Electronically signed by: Odell Dugan M.D. 01/29/2023 11:[address] 01/29/23 10:31 CT OF THE HEAD WITHOUT CONTRAST CLINICAL HISTORY: Altered mental status. COMPARISON STUDY: Head CT and MRI of the brain December 26, 2022. TECHNIQUE: Helical axial images of the head were obtained without IV contrast. Automated exposure control was utilized for the study. A dose lowering technique was utilized adhering to the principles of ALARA. FINDINGS: This study is moderately compromised by motion artifact. No acute intracranial hemorrhage, midline shift or mass effect is present. The ventricular system is unremarkable. The basal cisterns are patent. No extra- axial collections are present. There are no findings to suggest acute dural sinus thrombosis or acute territorial infarct. No significant calvarial abnormalities are present. Visualized portions of the sinuses and mastoid air cells are clear. IMPRESSION: Exam moderately compromised by motion artifact. No acute intracranial findings. ACT 112: Negative or not required by law. Electronically signed by: Odell Dugan M.D. 01/29/2023 11:14 AM
[2023-01-30] MEDS: DIVALPROEX EXTENDED RELEASE 500 MG TAB PO SCH ×2 (13:13→21:31)
[2023-01-31] MEDS: SODIUM CHLORIDE 0.9% 1,000 ML IV SCH (04:11)
[2023-01-31 06:50] LABS: Basophils # (auto) 0.02 K/uL (0.00-0.20); Basophils % (auto) 0.4 %; Eosinophils # (auto) 0.11 K/uL (0.00-0.50); Eosinophils % (auto) 2.1 %; Hematocrit (blood only) 33.5 % (42.0-52.0); Hemoglobin 11.2 g/dl (14.0-18.0); Immature Granulocytes # (auto) 0.02 K/uL (0.01-0.20); Immature Granulocytes % (auto) 0.4 %; Lymphocytes # (auto) 1.55 K/uL (1.20-3.40); Lymphocytes % (auto) 29.1 %; Mean Corpuscular Hemoglobin 27.5 pg (25.0-34.0); Mean Corpuscular Hgb Conc 33.4 g/dL (32.0-36.0); Mean Corpuscular Volume 82.1 fL (80.0-100.0); Mean Platelet Volume 11.4 fL (9.4-12.4); Monocytes % (auto) 9.4 %; Neutrophils # (auto) 3.12 K/uL (1.40-6.50); Neutrophils % (auto) 58.6 %; Platelet Count 124 K/uL (130-400); RDW Coefficient of Variation 12.9 % (11.5-14.5); Red Blood Count 4.08 M/uL (4.70-6.10); White Blood Count 5.32 K/ul (4.8-10.8)
[2023-01-31 07:05] LABS: Est GFR (African American) 147.5 ml/min
[2023-01-31 07:06] LABS: BUN Creatinine Ratio 14.1 (10-20); Calcium 8.3 mg/dl (8.6-10.3); Creatinine Clr Calc Pharmacy 227.8 ml/min; Est GFR (Non-African American) 127.2 ml/min
[2023-01-31] MEDS: DIVALPROEX EXTENDED RELEASE 500 MG TAB PO SCH (08:33)
[2023-01-31] MEDS: lisinopril 20 MG TAB PO SCH (08:34)
[2023-01-31] MEDS ORDERED: THIAMINE HCL 100 MG TAB PO SCH (09:00)
[2023-01-31] MEDS ORDERED: FOLIC ACID 1 MG TAB PO SCH (09:00)
--- NOTE | 2023-01-31 12:34 | Discharge Summary ---
Date of Service January 31, 2023 Admission HPI Per Admitting Provider Mr. Mora is a 22 year old male that presents to the ED today via EMS after he experienced an episode of paranoid thoughts unprovoked leading to him 'destroying' the inside of his home for which he has little to no memory of the events occurring. He had a similar episode occur leading to inpatient hospitalization from 12/26-12/29 where was found to have acute kidney injury in setting of rhabdomyolysis. There was questionable partial seizure last admission and was to have an EEG for follow up and Neurology outpatient review; however, he canceled his appointment on 01/09 and his EEG is scheduled for 02/09. He did admit to a small amount of whiskey last night. He said that there was nothing unusual leading up to his girlfriend departing this morning and after she left he fell back asleep and then woke with paranoia of someone trying to "" kill him. He then destroyed his room but does not recall doing so despite having small lacerations on his head, face arms and legs. Reports having a left leg twi tch that occurs every single night; without neuropathy. Nontoxic. UDS negative. TSH 2.780. CK 563. Drank a small amount of whiskey last night. 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 Mild leukocytosis 12.62, afebrile and does not appear toxic. CK 563, Lyme's negative, UDS negative. Head CT, CXR and cervical spine CT negative. Last ECHO 01/11/22: EF 62%, LV wall motion normal without valve abnormalities. During our examination patient AAOx4, calm and coherent with appropriate meaningful conversation. Girlfriend at bedside feels safe with patient at baseline. Denies headache, visual or auditory changes, shortness of breath, chest pain, palpitations, abdominal pain or tenderness, bowel or urinary changes, auditory or visual hallucinations at baseline, recent falls or trauma. Suspect this is related to sleep-wake cycle. Denies frightening nightmares or sleep walking. Brother at bedside said he sometimes used to talk in his sleep but no behavior issues otherwise. Will trend CK levels, check vitamin B12, obtain awake/drowsy EEG and involve neurology and psychiatry as appropriate. If frontal lobe seizures suspected and confirmed; may consider Depakote initiation as discussed with Neurology via tiger text. Patient will be admitted for further evaluation and management. Please see A/P for further details. Admission Exam Per Admitting Provider Neuro: AAOx4, PERRLA, no aphagia, memory changes, CNII-XII grossly intact HEENT: head normocephalic, moist mucus membranes CV: S1/S2, (-) M/G/R, (-) edema, cap refill < 3 seconds Resp: Lungs CTA in all tee. On RA GI: Abdomen S/NT/ND, Ax4 bowel sounds, (-) CVA tenderness Musculoskeletal: 5/5 B/L UE strength, 5/5 B/L LE strength. No gait disturbance. left leg twitching during exam Skin: (-) rashes , (-) erythema. 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 Multiple bruises noted on the face, corner of left eye, also on dorsal aspect of hand and foot. Respiratory: normal respiratory effort, lungs clear to auscultation, no wheeze, rales, rhonchi. Normal insp/exp effort, no accessory muscle use Cardiovascular: RRR, no murmur, no edema Vessels: no JVD or carotid bruit Chest: normal inspection of chest Abdomen: normal bowel sounds, soft, nontender, no hepatosplenomegaly Musculoskeletal: no cyanosis or clubbing, extremities motor strength 5/5 Skin: no rashes, warm and dry normal turgor Neurologic: PERRL, EOMI, accommodation nl, no face palsy, no dysarthria CN's II- XI intact bilaterally and moves all extremities Psychiatric: A+Ox3, euthymic affect Discharge Data Allergies Allergy/AdvReac Type Severity Reaction Status Date / Time No Known Allergies Allergy Unknown Unverified 01/29/23 11:08 Consultations 01/29/23 12:44 ED Decision to Admit Stat 01/29/23 12:52 Consult Psychiatry Routine Ordered Studies 01/29/23 10:31 CT cervical spine wo con Stat CT head/brain wo con Stat Hospital Course (1) AMS (altered mental status): (2) 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 Patient had an episode where he he became aggressive and destroyed the inside of his home; no recollection of the event. Similar episode that happened in November for which he was admitted. He reports history of jerking movement of his left leg when he falls asleep; multiple episodes throughout the night for many years. He had MRI brain and EEG done during last hospitalization which where unremarkable. Patient was evaluated by neurology during the hospitalization; concern for epileptic seizure of frontal lobe with impairment of consciousness. During the hospitalization, patient underwent CT head without contrast and CT cervical spine which did not show any acute finding. He was found to have rhabdomyolysis with CK uptrending to 3000 for which he was given IV hydration with improvement in the CK level. Discussion was done with Dr. Herrera from neurology; he suggested trial of Depakote 500 mg twice daily for possible partial epileptic seizure. Psychiatry was consulted; the event is not likely related with psychiatric disorder. It might be related with REM behavior disorder or other parasommia. At discharge, patient was discharged on Depakote 500 mg twice daily. Discussion was done regarding triggers of seizure. Patient has outpatient ambulatory EEG set up for next week. Discussion was done with patient regarding follow-up with primary care doctor with referral to sleep medicine. Please note the above document was generated using voice recognition software. It may contain grammatical, syntax or spelling errors. 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 Joel Odom, DO [Primary Care Provider] - (Date & Time 02/04/2023 2:20 PM Provider Joel Odom DO Department Family Practice [facility] ) Diet: Regular Addtl Attending Provider Instructions: The most likely cause for the consciousness is partial epileptic seizure of frontal lobe with impairment of consciousness. Dr. Herrera from neurology recommended Depakote 500 mg twice daily to be started. Please follow-up for ambulatory EEG and neurology follow-up. An appointment will also be set up with your primary care doctor for referral to sleep medicine for sleep related disorders. Pending Studies at Discharge: No Stand-Alone Forms: My [facility], Smoking Cessation Medications and DC Order Prescriptions: New divalproex 500 mg Tablet Extended Release 24 Hr 500 mg PO BID Qty: 60 0RF Continued ascorbic acid (vitamin C) [Vitamin C] 1,000 mg Tablet 1,000 mg PO DAILY lisinopril 20 mg tablet 20 mg PO DAILY magnesium oxide 500 mg Tablet 500 mg PO DAILY Discharge Orders: Discharge Order (Routine); Ordered 01/31/23 Ordered By: Dru Michel Admission Data Admit Date/Time: 01/29/23 12:52 Attending Provider: Dru Michel Admit Provider: Quan Nova Primary Care Provider: Joel Odom Other Providers: Quan Nova ; Jennifer Mcguire ; Aviva Belcher ; Jaxon Cruz Other Interventions: Discharge Summary Assessment (RN) Last Done: 01/31/23 08:35
--- NOTE | 2023-02-02 08:19 | Electrocardiogram Report ---
Test Reason : Blood Pressure : / mmHG Vent. Rate : 107 BPM Atrial Rate : 107 BPM P-R Int : 166 ms QRS Dur : 098 ms QT Int : 350 ms P-R-T Axes : 048 008 018 degrees QTc Int : 467 ms Sinus tachycardia Incomplete right bundle branch block Possible Inferior infarct , age undetermined Abnormal ECG When compared with ECG of 26-DEC-2022 04:54, Incomplete right bundle branch block is now Present Confirmed by Ritchie Tovar ([id number]) on 02/02/2023 8:18:43 AM Referred By: REFERRED SELF Confirmed By:Ritchie Tovar
--- OUTSIDE RECORDS SUMMARY | 2023-02-04 15:12 | External Medical Summary | Summary of Care ---
Author Name Unknown Organization [facility] Address [address] [facility] [place] [address] Phone [phone] Care Team Providers Care Library Paraprofessional Name Role Phone Joel Odom DO Primary Care Provider Reason for Referral * Evaluate & Treat - Unlimited Visits (Within 10 days (routine)) - Authorized Specialty Diagnoses / Procedures Referred By Barbara cooper Referred To Contact Neurology Diagnoses Seizure-like activity (HCC) Joel Odom DO [address] [place] [address] Referral ID Status Reason Start Date Expiration Date Visits Requested Visits Authorized [id number] Authorized Specialty Services Required 01/02/[phone] Question Answer Referral Priority Within 10 days (routine) CAD NEUROLOGY REFERRAL QUESTIONS Seizure Comments [facility] Hospitalization for questionable seizure activity. Saw Dr Waggoner. Recommend outpatient f/u with ambulatory EEG. Reason for Visit * Reason Onset Date Comments case management 01/02/2023 Encounter Details Date Type Department Care Team Description 01/02/2023 Vehicle Controls Engineer Telephone Family Practice [facility] [address] [place] [address] Elen Najera, pain management nurse practitioner Allergies No known active allergiesdocumented as of this encounter (statuses as of 01/06/2023) Medications Medication Sig Dispensed Refills Start Date End Date Status Mupirocin 2 % External Ointment (Bactroban) Apply to the nose twice daily for 14 days 15 g 0 04/19/2022 Active Lisinopril 20 MG Oral Tablet (Prinivil) Take 1 tablet by mouth once daily 90 Tablet 1 12/11/2022 Active documented as of this encounter (statuses as of 01/06/2023) Active Problems Problem Noted Date History of epistaxis 05/16/2020 Deviated nasal septum 05/16/2020 Hypertrophy of both inferior nasal turbi nates 05/16/2020 Obesity, morbid (more than 100 lbs over ideal weight or BMI > 40) 07/28/2018 Morbid obesity due to excess calories Exotropia of both eyes 03/10/2017 HTN, goal below 140/90 11/15/2016 Overview: RX lisinopril COLOR BLINDNESS OTHER COLOR DEFICIENCIES 10/16/2004 Genu varum 09/10/2000 documented as of this encounter (statuses as of 01/06/2023) Resolved Problems Problem Noted Date Resolved Date Body mass index (BMI) of 40.0 to 44.9 in adult 0 06/15/2018 08/11/2018 Overview: Per Obesity protocol #1 Preop examination 05/14/2018 11/26/2018 Obesity, Class II, BMI 35-39.9, isolated (see ac tual BMI) 11/05/2016 06/19/2018 Overview: Per Obesity protocol #1 Chewing tobacco use 09/08/2015 05/17/2019 Routine child health exam 10/16/20042017 documented as of this encounter (statuses as of 01/06/2023) Immunizations Name Administration Dates Next Due DTaP - Dipth/Tet/Acell Pertussis 005,03/11/2001,03/18/2000,12/31,1999 HIB Hep B - HIB Hepatitis B (Comvax) 12/09/2000, 01/16/2000,1999 HPV Vaccine, 9-Valent 01/03/2017,11/05/2016 IPV - Polio Virus Vaccine (Inact) 2004,03/11/2001,01/16/2000,11/01 MMR - Measles/Mumps/Rubella Vaccine 10/16/2004,0 09/10/2000 Meningococcal Conjugate Vacc ine (Menactra/Menveo) 01/03/2017,06/27/2011 Pneumococcal Conjugate Vacci ne, 7 Valent 12/09/2000,06/10/2000,03/18/2000 Seasonal Influenza, Split, I IV3, No Preserve, Inj 03/30/2002 04/30/2002 Seasonal Influenza, Split, I IV3, With Preserve, Inj 06/27/2011,03/22/2003,05/13/2002 TDAP (age 11 and older)(Adacel) 06/27/2011 Varicella Vaccine (Chicken Pox) 06/27/2011,09/10 documented as of this encounter Social History Tobacco Use Types Packs/Day Years Used Date Smoking Tobacco: Never Smokeless Tobacco: Current Snuff Last attempted to quit: 02/04/2019 Comments:can last 2 days Alcohol Use Standard Drinks/Week Comments No 0 (1 standard drink = 0.6 oz pur e alcohol) Food Insecurity Answer Date Recorded Within the past 12 months, y ou worried that your food would run out before you got money to buy more. Never true 05/17/2019 Within the past 12 months, t he food you bought just didn't last and you didn't have money to get more. Never true 05/17/2019 Sex Assigned at Date Recorded Not on file Job Start Date Occupation Industry Not on file Not on file Not on file documented as of this encounter Miscellaneous Notes * Telephone Encounter - MIKAL Melendez - 01/06/2023 3:14 PM EDT Pt scheduled * Addendum Note - Wellington Waggoner DO - 01/03/2023 9:58 AM EDTAddended by: WELLINGTON WAGGONER on: 01/03/2023 09:58 AM Modules accepted: Orders * Telephone Encounter - Wellington Waggoner DO - 01/03/2023 9:56 AM EDT Please arrange ambulatory EEG as patient was recently seen in hospital by me. Once ambulatory results are obtained will arrange follow up with me. * Telephone Encounter - Kathi Odom - 01/03/2023 8:18 AM EDT Neuro, please help pt schedule hospital f/u * Telephone Encounter - Joanna Rodríguez MD - 01/02/2023 5:00 PM EDT Neurology referral, saw dr Waggoner inpatient. * Telephone Encounter - Elen Najera RN - 01/02/2023 4:13 PM EDT Spoke with patient, who politely declines further case management calls/follow up. Reports he is feeling better, no concerning symptoms, but he did schedule hosp follow up appt. He is asking for neuro referral as this recommended at hospital d/c. Will pend referral to PCP. documented in this encounter Plan of Treatment Upcoming Encounters Date Type Specialty Care Team Description 01/09/2023 Office Visit Family Medicine Apolinar Lara, MARYANA [address] [place] [address] 02/07/2023 NeuroDiagnostic Study Neurophysiology Sp, Neurophys Tech [address] [facility] [place] [address] 02/10/2023 NeuroDiagnostic Study Neurophysiology Sp, [place]phys [place] [facility] [place] [address] 03/11/2023 Office Visit Neurology Wellington Waggoner DO [address] [facility] [place] [address] 04/18/2023 Office Visit Cardiology Taina Benson PA-C [address] [place] [address] 05/14/2023 Office Visit Family Medicine Lei Joel PauletteDO [address] [place] [address] Scheduled Orders Name Type Priority Associated Diagnoses Orde r Schedule EEG AMBULATORY Procedures Routine New onset seizure (HCC) Ordered: 01/03/2023 Scheduled Referrals Name Type Priority Associated Diagnoses Orde r Schedule NEUROLOGY REFERRAL OP Referral Within 10 days (routine) Seizure-like activity (HCC) Ordered: 01/02/2023 Health Maintenance Due Date Last Done Comments GARDASIL-HPV IMMUNIZATION SERIES (3 - Male 3-dose series) 05/07/2017 01/03/2017, 11/05/2016 Albumin/Creatinine Ratio 09/06/2017 DTaP,Tdap,and Td Vaccines (7 - Td or Tdap) 06/27/2021 06/27/2011, 10/16/2004, 03/11/2001, Additional history exists Influenza Vaccine (FLU shot) (#1) 2023 03/10/2013, 03/03/2012, 06/27/2011, Additional history exists Depression Screening, Annual for Pts 12 and Over 05/02/2023 05/02/2022 GFR 05/02/2023 05/02/2022, 05/03, 06/04/2019, Additional history exists Hepatitis B Completed 12/09/2000, 12/31, 1999 MENINGOCOCCAL (MENACTRA/MENVEO) Completed 01/03/2017, 06/27/2011 COVID-19 Vaccine Discontinued Hepatitis C Screening Discontinued Pneumococcal Vaccine: Pediatrics (0 to 5 Years) and At-Risk Patients (6 to 64 Years) Aged Out No longer eligible based on patient's age to complete this topic documented as of this encounter Medical Devices Not on filedocumented as of this encounter Visit Diagnoses Diagnosis Seizure-like activity (HCC)- Primary Other convulsions New onset seizure (HCC) Other convulsions documented in this encounter Care Teams Library Paraprofessional Relationship Specialty Start Date End Date Joel Odom, [address] [place] [address] PCP - General Family Medicine 05/14/18 documented as of this encounter
--- OUTSIDE RECORDS SUMMARY | 2023-02-04 15:12 | External Medical Summary | Summary of Care ---
Author Name Unknown Organization [facility] Address [address] [facility] [place] [address] Phone [phone] Care Team Providers Care Grape Cutter Name Role Phone Joel Odom DO Primary Care Provider Reason for Referral * Evaluate & Treat - Unlimited Visits (Within 10 days (routine)) - Authorized Specialty Diagnoses / Procedures Referred By Barbara cooper Referred To Contact Neurology Diagnoses Seizure-like activity (HCC) Joel Odom DO [address] [place] [address] Referral ID Status Reason Start Date Expiration Date Visits Requested Visits Authorized [id number] Authorized Specialty Services Required 01/02/[phone] Question Answer Referral Priority Within 10 days (routine) CAD NEUROLOGY REFERRAL QUESTIONS Seizure Comments [facility] Hospitalization for questionable seizure activity. Saw Dr Herrera. Recommend outpatient f/u with ambulatory EEG. Reason for Visit * Reason Onset Date Comments case management 01/02/2023 Encounter Details Date Type Department Care Team Description 01/02/2023 Silk Opener Telephone Family Practice [facility] [address] [place] [address] Elen Najera, content management consultant Allergies No known active allergiesdocumented as of this encounter (statuses as of 01/03/2023) Medications Medication Sig Dispensed Refills Start Date End Date Status Mupirocin 2 % External Ointment (Bactroban) Apply to the nose twice daily for 14 days 15 g 0 04/19/2022 Active Lisinopril 20 MG Oral Tablet (Prinivil) Take 1 tablet by mouth once daily 90 Tablet 1 12/11/2022 Active documented as of this encounter (statuses as of 01/03/2023) Active Problems Problem Noted Date History of [...] as of this encounter (statuses as of 01/03/2023) Resolved Problems Problem Noted Date Resolved Date [...] as of this encounter (statuses as of 01/03/2023) Immunizations Name Administration Dates Next Due DTaP [...] encounter Miscellaneous Notes * Telephone Encounter - Kathi Odom - 01/03/2023 8:18 AM EDT Neuro, please help pt schedule hospital f/u * Telephone Encounter - Joanna Rodríguez MD - 01/02/2023 5:00 PM EDT Neurology referral, saw dr Herrera inpatient. * Telephone Encounter - Elen Najera [...] Description 01/09/2023 Office Visit Family Medicine Apolinar Lara CRNP [address] [place] [address] 04/18/2023 Office Visit Cardiology Taina Benson PA-C [address] [place] [address] 05/14/2023 Office Visit Family Medicine Joel Odom DO [address] [place] [address] Scheduled Referrals Name Type Priority Associated Diagnoses [...] Diagnosis Seizure-like activity (HCC)- Primary Other convulsions documented in this encounter Care Teams Grape Cutter Relationship Specialty Start Date End Date Joel Odom DO [address] [place] [address] PCP - General Family Medicine 05/14/18 documented as of this encounter
--- OUTSIDE RECORDS SUMMARY | 2023-02-04 15:12 | External Medical Summary | Summary of Care ---
Author Name Unknown Organization [facility] Address [address] [facility] [place] [address] Phone [phone] Care Team Providers Care Tool Shaper Setup Operator Name Role Phone Joel Odom DO Primary Care Provider Reason for Referral * Evaluate & Treat - Unlimited Visits (Within 10 days (routine)) - Authorized Specialty Diagnoses / Procedures Referred By Barbara cooper Referred To Contact Neurology Diagnoses Seizure-like activity (HCC) Joel Odom DO [address] [place] [address] Referral ID Status Reason Start Date Expiration Date Visits Requested Visits Authorized [id number] Authorized Specialty Services Required 01/02/[phone] Question Answer Referral Priority Within 10 days (routine) CAD NEUROLOGY REFERRAL QUESTIONS Seizure Comments [facility] Hospitalization for questionable seizure activity. Saw Dr Herrera. Recommend outpatient f/u with ambulatory EEG. Reason for Visit * Reason Onset Date Comments case management 01/02/2023 Encounter Details Date Type Department Care Team Description 01/02/2023 Outpatient Program Coordinator Telephone Family Practice [facility] [address] [place] [address] Elen Najera, assistant manager quality management Allergies No known active allergiesdocumented as of [...] as of this encounter Miscellaneous Notes * Addendum Note - Wellington Herrera DO - 01/03/2023 9:58 AM EDTAddended by: WELLINGTON HERRERA on: 01/03/2023 09:58 AM Modules accepted: Orders * Telephone Encounter - Wellington Herrera DO - 01/03/2023 9:56 AM EDT Please [...] CRNP [address] [place] [address] 04/18/2023 Office Visit Cardiology Taina Benson PA-C [address] [place] [address] 05/14/2023 Office Visit Family Medicine Joel Odom DO [address] [place] [address] Scheduled Orders Name Type Priority Associated Diagnoses [...] convulsions documented in this encounter Care Teams Tool Shaper Setup Operator Relationship Specialty Start Date End Date Joel Odom DO [address] [place] [address] PCP - General Family Medicine 05/14/18 documented as of this encounter
--- OUTSIDE RECORDS SUMMARY | 2023-02-04 15:12 | External Medical Summary | Summary of Care ---
Author Name Unknown Organization [facility] Address [address] [facility] [place] [address] Phone [phone] Care Team Providers Care Acid Blower Name Role Phone Lei Joel Hernandezrebecca Primary Care Provider Encounter Details Date Type Department Care Team Description 12/27/2022 Result Scan Unspecified Department <No scans attached> Allergies No known active allergiesdocumented as of this encounter (statuses as of 12/30/2022) Medications Medication Sig Dispensed Refills Start Date End Date Status Mupirocin 2 % External Ointment (Bactroban) Apply to the nose twice daily for 14 days 15 g 0 04/19/2022 Active Lisinopril 20 MG Oral Tablet (Prinivil) Take 1 tablet by mouth once daily 90 Tablet 1 12/11/2022 Active documented as of this encounter (statuses as of 12/30/2022) Active Problems Problem Noted Date History of [...] as of this encounter (statuses as of 12/30/2022) Resolved Problems Problem Noted Date Resolved Date [...] as of this encounter (statuses as of 12/30/2022) Immunizations Name Administration Dates Next Due HPV Vaccine, 9-Valent 01/03/2017,11/05/2016 Meningococcal Conjugate Vaccine (Menactra/Menveo ) 01/03/2017,06/27/2011 Seasonal Influenza, Split, IIV3, With Preserve, Inj 06/27/2011 TDAP (age 11 and older)(Adacel) 06/27/2011 Varicella Vaccine (Chicken Pox) 06/27/2011 documented as of this encounter Social History [...] on file documented as of this encounter Plan of Treatment Upcoming Encounters Date Type Specialty Care Team Description 04/18/2023 Office Visit Cardiology Taina Benson PA-C [address] [place] [address] 05/14/2023 Office Visit Family Medicine Joel Odom DO [address] [place] [address] Health Maintenance Due Date Last Done Comments [...] Not on filedocumented as of this encounter Procedures Procedure Name Priority Date/Time Associated Diagnosis Comments PROCEDURE SCANNED RESULT 12/27/2022 documented in this encounter Results * PROCEDURE SCANNED RESULT (12/27/2022) 12/27/2022 No Physician Data Unknown SURGERY documented in this encounter Care Teams Acid Blower Relationship Specialty Start Date End Date Joel Odom DO [address] [place] [address] PCP - General Family Medicine 05/14/18 documented as of this encounter
--- OUTSIDE RECORDS SUMMARY | 2023-02-04 15:12 | External Medical Summary | Summary of Care ---
Author Name Unknown Organization [facility] Address [address] [facility] [place] [address] Phone [phone] Care Team Providers Care Food And Drink Factory Workers Name Role Phone Joel Odom DO Primary Care Provider Reason for Referral * Evaluate & Treat - Unlimited Visits (Within 10 days (routine)) - Authorized Specialty Diagnoses / Procedures Referred By Barbara cooper Referred To Contact Neurology Diagnoses Seizure-like activity (HCC) Joel Odom DO [address] [place] [address] Referral ID Status Reason Start Date Expiration Date Visits Requested Visits Authorized [id number] Authorized Specialty Services Required 01/02/[phone] Question Answer Referral Priority Within 10 days (routine) CAD NEUROLOGY REFERRAL QUESTIONS Seizure Comments [facility] Hospitalization for questionable seizure activity. Saw Dr Herrera. Recommend outpatient f/u with ambulatory EEG. Reason for Visit * Reason Onset Date Comments case management 01/02/2023 Encounter Details Date Type Department Care Team Description 01/02/2023 Plastic Machine Operator Telephone Family Practice [facility] [address] [place] [address] Elen Najera, director of program management Allergies No known active allergiesdocumented as [...] CRNP [address] [place] [address] 04/18/2023 Office Visit Cardiology Taina Benson PA-C [address] [place] [address] 05/14/2023 Office Visit Family Medicine Joel Odom DO [address] [place] [address] Scheduled Referrals Name Type Priority Associated Diagnoses [...] convulsions documented in this encounter Care Teams Food And Drink Factory Workers Relationship Specialty Start Date End Date Joel Odom DO [address] [place] [address] PCP - General Family Medicine 05/14/18 documented as of this encounter
--- OUTSIDE RECORDS SUMMARY | 2023-02-04 15:12 | External Medical Summary | Summary of Care ---
Author Name Unknown Organization [facility] Address [address] [place] [address] Phone [phone] Care Team Providers Care Development Planner Name Role Phone Oliva Odomr Paulette Primary Care Provider Reason for Visit * Reason Onset Date Comments Advice 01/03/2023 Dr Herrera Encounter Details Date Type Department Care Team Description 01/03/2023 Telephone Neurology [facility] [address] [place] [address] Services, Scheduling [address] [place] [address] Advice ( Dr Herrera) Allergies No known active allergiesdocumented as of [...] 01/03/2023) Immunizations Name Administration Dates Next Due HPV [...] * Telephone Encounter - MIKAL Melendez - 01/03/2023 4:23 PM EDT Pt is not to be seen until after the results of the EEG are available. I had been in contact with pt thru myg. This appt with KK should have never been scheduled. * Telephone Encounter - Vandana Hartley LPN - 01/03/2023 2:55 PM EDT Please call pt and clarify? He is currently scheduled on 01/21 with KK. * Telephone Encounter - MIKAL Khoury - 01/03/2023 2:48 PM EDT Please advise pt only wants Dr Herrera please advise documented in this encounter Plan of Treatment Upcoming Encounters Date Type Specialty Care Team Description 01/09/2023 Office Visit Family Medicine Apolinar Lara CRNP [address] [place] [address] 02/07/2023 NeuroDiagnostic Study Neurophysiology Sp, Neurophys Tech [address] [facility], [place] [address] 02/10/2023 NeuroDiagnostic Study Neurophysiology Sp, Neurophys Tech [address] [facility], [place] [address] 03/11/2023 Office Visit Neurology Wellington Herrera, [address] [facility], [place] [address] 04/18/2023 Office Visit Cardiology Taina Benson PA-C [address] [place] [address] 05/14/2023 Office Visit Family Medicine Joel Odom DO [address] [place] [address] Health Maintenance Due Date Last Done Comments [...] Not on filedocumented as of this encounter Care Teams Development Planner Relationship Specialty Start Date End Date Joel Odom DO [address] [place] [address] PCP - General Family Medicine 05/14/18 documented as of this encounter
--- OUTSIDE RECORDS SUMMARY | 2023-02-04 15:12 | External Medical Summary | Summary of Care ---
Author Name Unknown Organization [facility] Address [address] [facility] [place] [address] Phone [phone] Care Team Providers Care Biofuels Plant Superintendent Name Role Phone Joel Odom DO Primary Care Provider Reason for Referral * Evaluate & Treat - Unlimited Visits (Within 10 days (routine)) - Authorized Specialty Diagnoses / Procedures Referred By Barabra cooper Referred To Contact Neurology Diagnoses Seizure-like activity (HCC) Joel Odom DO [address] [place] [address] Referral ID Status Reason Start Date Expiration Date Visits Requested Visits Authorized [id number] Authorized Specialty Services Required 01/02/[phone] Question Answer Referral Priority Within 10 days (routine) CAD NEUROLOGY REFERRAL QUESTIONS Seizure Comments [facility] Hospitalization for questionable seizure activity. Saw Dr Herrera. Recommend outpatient f/u with ambulatory EEG. Reason for Visit * Reason Onset Date Comments case management 01/02/2023 Encounter Details Date Type Department Care Team Description 01/02/2023 First Assistant Manager Telephone Family Practice [facility] [address] [place] [address] Elen Najera, records management specialist Allergies No known active allergiesdocumented as of this encounter (statuses as of 01/02/2023) Medications Medication Sig Dispensed Refills Start Date End Date Status Mupirocin 2 % External Ointment (Bactroban) Apply to the nose twice daily for 14 days 15 g 0 04/19/2022 Active Lisinopril 20 MG Oral Tablet (Prinivil) Take 1 tablet by mouth once daily 90 Tablet 1 12/11/2022 Active documented as of this encounter (statuses as of 01/02/2023) Active Problems Problem Noted Date History of [...] as of this encounter (statuses as of 01/02/2023) Resolved Problems Problem Noted Date Resolved Date [...] as of this encounter (statuses as of 01/02/2023) Immunizations Name Administration Dates Next Due HPV [...] encounter Miscellaneous Notes * Telephone Encounter - Joanna Rodríguez MD [...] Family Medicine Apolinar Lara CRNP [address] [place] [address] 04/18/2023 Office Visit Cardiology Taina Benson PA-C [address] [place] [address] 05/14/2023 Office Visit Family Medicine Joel Odom DO [address] [place] [address] Scheduled Referrals Name Type Priority Associated Diagnoses [...] convulsions documented in this encounter Care Teams Biofuels Plant Superintendent Relationship Specialty Start Date End Date Joel Odom DO [address] [place] [address] PCP - General Family Medicine 05/14/18 documented as of this encounter
--- OUTSIDE RECORDS SUMMARY | 2023-02-04 15:12 | External Medical Summary | Summary of Care ---
Author Name Unknown Organization [facility] Address [address] [facility] [place] [address] Phone [phone] Care Team Providers Care Baler Name Role Phone Camelia Odom DO Primary Care Provider Reason for Visit * Reason Comments eRx-Medication Refill Encounter Details Date Type Department Care Team Description 12/09/2022 Refill Family Practice [facility] [address] [place] [address] Camelia Odom DO [address] [place] [address] Allergies No known active allergiesdocumented as of this encounter (statuses as of 12/11/2022) Medications Medication Sig Dispensed Refills Start Date End Date Status Mupirocin 2 % External Ointment (Bactroban) Apply to the nose twice daily for 14 days 15 g 0 04/19/2022 Active Lisinopril 20 MG Oral Tablet (Prinivil) Take 1 tablet by mouth once daily 90 Tablet 1 12/11/2022 Active Lisinopril 20 MG Oral Tablet (Prinivil) Take 1 tablet by mouth once daily 90 Tablet 1 06/26/2022 12/11/2022 Discontinued documented as of this encounter (statuses as of 12/11/2022) Active Problems Problem Noted Date History of [...] as of this encounter (statuses as of 12/11/2022) Resolved Problems Problem Noted Date Resolved Date [...] as of this encounter (statuses as of 12/11/2022) Immunizations Name Administration Dates Next Due HPV [...] encounter Miscellaneous Notes * Telephone Encounter - Andree Biggs [facility] - 12/11/2022 7:51 AM EDTSigned Prescriptions: Disp Refills Lisinopril 20 MG Oral Tablet (Prinivil) 90 Tab*1 Sig: Take 1 tablet by mouth once dailyAuthorizing Provider: CAMELIA ODOMOrderhemalatha User: ANDREE BIGGS AN N documented in this encounter Plan of Treatment Upcoming Encounters Date Type Specialty Care Team Description 12/18/2022 Office Visit Cardiology Pino Mckeon DO [address] [place] [address] 05/14/2023 Office Visit Family Medicine Camelia Odom DO [address] [place] [address] Health Maintenance Due Date Last Done Comments [...] filedocumented as of this encounter Care Teams Baler Relationship Specialty Start Date End Date Camelia Odom DO [address] [place] [address] PCP - General Family Medicine 05/14/18 documented as of this encounter
--- OUTSIDE RECORDS SUMMARY | 2023-02-04 15:13 | External Medical Summary ---
Author Name Unknown Address Unknown Organization K01:[facility] [place] - [address] [facility] [place] [address] Laboratory Report Ordering Provider Test Date Status KEILA ROSS 05/02/2022 15:28:48 Final Observation Date Value Abnormality Reference (Units ) Status SYNC LEUKOCYTES IN BLOOD BY AUTOMATED COUNT 05/02/2022 15:28:48 5.46 4.00-10.80 (K/uL) Final Segs 05/02/2022 15:28:48 60.9 40.0-75.0 (%) Final Lymphs % 05/02/2022 15:28:48 28.9 18.0-42.0 (%) Final Monos 05/02/2022 15:28:48 7.9 1.0-11.0 (%) Final Eosinophils 05/02/2022 15:28:48 1.1 0.0-6.0 (%) Final Basos 05/02/2022 15:28:48 0.5 0.0-2.0 (%) Final Immature Granulocyte, Percent 05/02/2022 15:28:48 0.7 0.0-2.0 (%) Final Absolute Segs 05/02/2022 15:28:48 3.32 1.80-7.70 (K/uL) Final Lymphs, absolute 05/02/2022 15:28:48 1.58 1.00-4.80 (K/ul) Final Monos, Abs 05/02/2022 15:28:48 0.43 0.00-1.10 (K/uL) Final Eos, Abs 05/02/2022 15:28:48 0.06 0.00-0.70 (K/uL) Final Basos, Abs 05/02/2022 15:28:48 0.03 0.00-0.20 (K/uL) Final Immature Granulocytes, Number 05/02/2022 15:28:48 0.04 0.00-0.20 (K/uL) Final Performing Location [facility] [place] - [address] [facility] [address]
--- OUTSIDE RECORDS SUMMARY | 2023-02-04 15:13 | External Medical Summary | Summary of Care ---
Author Name Unknown Organization [facility] Address [place] [address] Care Team Providers Care Dye Lab Technician Name Role Phone Joel Odom DO Primary Care Provider Reason for Visit * Reason Comments Return Visit Pt here for 3 mo ret urn. Pt states this is a check up and has no concerns voiced. Encounter Details Date Type Department Care Team Description 05/02/2022 Office Visit Family [facility] [address] [place] [phone] Joel Odom DO [address] [place] [phone] Well adult exam*; Obesity, morbid (more than 100 lbs over ideal weight or BMI > 40) (HCC); HTN, goal below 140/90; Genu varum, unspecified laterality Allergies No known active allergiesdocumented as of this encounter (statuses as of 05/02/2022) Medications Medication Sig Dispensed Refills Start Date End Date Status Lisinopril 20 MG Oral Tablet (Prinivil) Take 1 Tablet by mouth daily. 90 Tablet 3 05/30/2021 Active Mupirocin 2 % External Ointment (Bactroban) Apply to the nose twice daily for 14 days 15 g 0 04/19/2022 Active documented as of this encounter (statuses as of 05/02/2022) Active Problems Problem Noted Date History of [...] as of this encounter (statuses as of 05/02/2022) Resolved Problems Problem Noted Date Resolved Date [...] as of this encounter (statuses as of 05/02/2022) Immunizations Name Administration Dates Next Due HPV Vaccine, 9-Valent 01/03/2017,11/05/2016 Meningococcal Conjugate Vaccine (Menactra/Menveo ) 01/03/2017,06/27/2011 Seasonal Influenza, Split, IIV3, With Preserve, Inj 06/27/2011 TDAP (age 11 and older)(Adacel) 06/27/2011 Varicella Vaccine (Chicken Pox) 06/27/2011 documented as of this encounter Social History Tobacco Use Types Packs/Day Years Used Date Smoking Tobacco: Never Smokeless Tobacco: Current Snuff Last attempted to quit: 02/04/2019 Tobacco Cessation:Ready to Q uit: Not Asked; Counseling Given: Not Answered Comments:can last 2 days Alcohol Use Standard [...] on file documented as of this encounter Last Filed Vital Signs Vital Sign Reading Time Taken Comments Blood Pressure 134/72 05/02/2022 3:00 PM EST Pulse 98 05/02/2022 3:00 PM EST Temperature 36.4 C (97.5 F) 05/02/2022 3:00 PM ES T Respiratory Rate 16 05/02/2022 3:00 PM EST Oxygen Saturation 99% 05/02/2022 3:00 PM EST Inhaled Oxygen Concentration - - Weight 155.3 kg (342 lb 6 oz) 05/02/2022 3:00 PM EST Height - - Body Mass Index 43.38 04/19/2022 7:44 AM EST documented in this encounter Progress Notes * Joel Odom, DO - 05/02/2022 2:58 PM EST Images from the original note were not included. Assessment and Plan Well Adult Educated the patient on routine and scheduled health maintenance items. Age appropriate preventive guidance provided to patient. Discussion of age appropriate generally recommended screening tests reviewed. Tests ordered in agreement with patient. Greater than half of visit spent on counselling and discussion of patient illness, along with pros and cons of various treatment options. Obesity, morbid (more than 100 lbs over ideal weight or BMI > 40) (HCC) Stable weight, provided education HTN, goal below 140/90 Stable BP in clinic today - ALBUMIN / CREATININE RATIO, URINE; Future - BASIC METABOLIC PANEL; Future Genu varum, unspecified laterality History of Present Illness Cory Mora is a 21 year old male that presents for Return Visit (Pt here for 3 mo return. Pt states this is a check up and has no concerns voiced.) Doing well overall Compliant with medications Physical Exam Vitals: 05/02/22 1500 Temp: 36.4 C (97.5 F) Pulse: 98 Resp: 16 SpO2: 99% BP: 134/72 Physical Exam Vitals and nursing note reviewed. Constitutional: Appearance: Normal appearance. HENT: Head: Normocephalic and atraumatic. Right Ear: Tympanic membrane, ear canal and external ear normal. There is no impacted cerumen. Left Ear: Tympanic membrane, ear canal and external ear normal. There is no impacted cerumen. Nose: Nose normal. Mouth/Throat: Mouth: Mucous membranes are moist. Pharynx: Oropharynx is clear. Eyes: Extraocular Movements: Extraocular movements intact. Conjunctiva/sclera: Conjunctivae normal. Pupils: Pupils are equal, round, and reactive to light. Cardiovascular: Rate and Rhythm: Normal rate and regular rhythm. Heart sounds: Normal heart sounds. Pulmonary: Effort: Pulmonary effort is normal. Breath sounds: Normal breath sounds. Abdominal: General: Abdomen is flat. Palpations: Abdomen is soft. Musculoskeletal: General: Normal range of motion. Cervical back: Normal range of motion and neck supple. Lymphadenopathy: Cervical: No cervical adenopathy. Skin: General: Skin is warm and dry. Neurological: General: No focal deficit present. Mental Status: He is alert and oriented to person, place, and time. Wrap-Up Follow Up: Return in about 1 year (around 05/02/2023). Time: Total time today was 25 minutes excluding any time spent in the performance of separately billed services. documented in this encounter Plan of Treatment Upcoming Encounters Date Type Specialty Care Team Description 12/18/2022 Office Visit Cardiology Pino Mckeon DO [address] [place] [address] 05/14/2023 Office Visit Family Medicine Joel Odom DO [address] [place] [address] Scheduled Orders Name Type Priority Associated Diagnoses Orde r Schedule ALBUMIN / CREATININE RATIO, URINE Lab Routine HTN, goal below 140/90 Expected: 05/02/2022 (Approximate), Expires: 05/02/2023 BASIC METABOLIC PANEL Lab Routine HTN, goal below 140/90 Expected: 05/02/2022 (Approximate), Expires: 05/02/2023 Health Maintenance Due Date Last Done Comments GARDASIL-HPV IMMUNIZATION SERIES (3 - Male 3-dose series) 05/07/2017 01/03/2017, 11/05/2016 Alb / Creat Ratio 09/06/2017 Depression Screening, Annual for Pts 12 and Over 05/17/2020 05/17/2019 DTaP,Tdap,and Td Vaccines (7 - Td or Tdap) 06/27/2021 06/27/2011, 10/16/2004, 03/11/2001, Additional history exists Influenza Vaccine (FLU shot) (#1) 2022 03/10/2013, 03/03/2012, 06/27/2011, Additional history exists GFR - Renal Function 05/30/2022 05/30/2021, 06/04/2019, 10/21/2018, Additional history exists Hepatitis B Completed 12/09/2000, [...] as of this encounter Visit Diagnoses Diagnosis Well adult exam- Primary Routine general medical examination at a health care facility Obesity, morbid (more than 100 lbs over ideal weight or BMI > 40) (HCC) Morbid obesity HTN, goal below 140/90 Unspecified essential hypertension Genu varum, unspecified laterality documented in this encounter Care Teams Dye Lab Technician Relationship Specialty Start Date End Date Joel Odom DO [address] [facility] [place] [address] PCP - General Family Medicine 05/14/18 documented as of this encounter
--- OUTSIDE RECORDS SUMMARY | 2023-02-04 15:13 | External Medical Summary | Summary of Care ---
Author Name Unknown Organization [facility] Address [place] [address] Care Team Providers Care Hat Brim Curler Name Role Phone Joel Odom DO Primary Care Provider Reason for Visit * Reason Comments Follow Up nosebleeds * Evaluate & Treat - Unlimited Visits (Within 3 days (urgent)) - Authorized Specialty Diagnoses / Procedures Referred By Barbara cooper Referred To Contact Otolaryngology Diagnoses Epistaxis Joel Odom DO [address] [place] [address] Referral ID Status Reason Start Date Expiration Date Visits Requested Visits Authorized [id number] Authorized Specialty Services Required 2 [phone] Encounter Details Date Type Department Care Team Description 04/19/[address] [facility] [address] [place] [address] Sheng Howe DO [address] [place] [id number] History of epistaxis* Allergies No known active allergiesdocumented as of this encounter (statuses as of 04/22/2022) Medications Medication Sig Dispensed Refills Start Date End Date Status Lisinopril 20 MG Oral Tablet (Prinivil) Take 1 Tablet by mouth daily. 90 Tablet 3 05/30/2021 Active documented as of this encounter (statuses as of 04/22/2022) Active Problems Problem Noted Date History of [...] as of this encounter (statuses as of 04/22/2022) Resolved Problems Problem Noted Date Resolved Date [...] as of this encounter (statuses as of 04/22/2022) Immunizations Name Administration Dates Next Due HPV [...] Sign Reading Time Taken Comments Blood Pressure - - Pulse - - Temperature 36.4 C (97.6 F) 04/19/2022 7:29 AM ES T Respiratory Rate - - Oxygen Saturation - - Inhaled Oxygen Concentration - - Weight 156.3 kg (344 lb 9.6 oz) 04/19/2022 7:29 AM EST Height 189.2 cm (6' 2.49") 04/19/2022 7:29 AM ES T Body Mass Index 43.67 04/19/2022 7:29 AM EST documented in this encounter Progress Notes * Sheng Howe DO - 04/22/2022 9:32 AM EST Encounter created in error documented in this encounter Nursing Notes * Sera Menon LPN - 04/19/2022 7:30 AM EST Chief Complaint Patient presents with Follow Up nosebleeds Cory Mora is a 21 year old male who present for nose bleeds. Patient reports Last nose bleed: 3 weeks ago Lastin-30 minutes How often: comes and goes Which nostril: right Current treatment: none Hx of cauterization: yes On Asprin/Anitcoagulant: no ER Visit: no Hx of blood transfusion due to nose bleed: no Bleeding Disorders: no documented in this encounter Plan of Treatment Upcoming Encounters Date Type Specialty Care Team Description 05/02/2022 Office Visit Family Medicine Joel Odom DO [address] [place] [id number] 12/18/2022 Office Visit Cardiology Pino Mckeon DO [address] [place] [address] Scheduled Referrals Name Type Priority Associated Diagnoses Order Schedule OTOLARYNGOLOGY REFERRAL OP Referral Within 3 days (urgent) Epistaxis Ordered: 03/25/2022 Health Maintenance Due Date Last Done Comments GARDASIL-HPV IMMUNIZATION SERIES (3 - Male 3-dose series) 05/07/2017 01/03/2017, 11/05/2016 Alb / Creat Ratio 09/06/2017 Hepatitis C Screening 09/06/2017 Depression Screening, Annual for Pts 12 and Over 05/17/2020 05/17/2019 DTaP,Tdap,and Td Vaccines (7 - Td or Tdap) 06/27/2021 06/27/2011, 10/16/2004, 03/11/2001, Additional history exists Influenza Vaccine (FLU shot) (#1) 2022 03/10/2013, 03/03/2012, 06/27/2011, Additional history exists GFR - Renal Function 05/30/2022 05/30/2021, 06/04/2019, 10/21/2018, Additional history exists Hepatitis B Completed 12/09/2000, 12/31, 1999 MENINGOCOCCAL (MENACTRA/MENVEO) Completed 01/03/2017, 06/27/2011 COVID-19 Vaccine Discontinued Pneumococcal Vaccine: Pediatrics (0 to 5 Years) and At-Risk Patients (6 to 64 Years) Aged Out No longer eligible based on patient's age to complete this topic documented as of this encounter Medical Devices Not on filedocumented as of this encounter Visit Diagnoses Diagnosis History of epistaxis- Primary Personal history of other diseases of respiratory system documented in this encounter Care Teams Hat Brim Curler Relationship Specialty Start Date End Date Joel Odmo, [address] [place] [address] PCP - General Family Medicine 05/14/18 documented as of this encounter
--- OUTSIDE RECORDS SUMMARY | 2023-02-04 15:13 | External Medical Summary ---
Author Name Unknown Address Unknown Organization K01:LABORATORY [facility] [place] - [address] [place] [address] Laboratory Report Ordering Provider Test Date Status KEILA ROSS 05/02/2022 15:28:48 Final Observation Date Value Abnormality Reference (Units ) Status TSH 05/02/2022 15:28:48 1.55 0.27-4.20 (uIU/mL) Final Performing Location LABORATORY C - [address] [place] [address]
--- OUTSIDE RECORDS SUMMARY | 2023-02-04 15:13 | External Medical Summary | Summary of Care ---
Author Name Unknown Organization [facility] Address [place] [address] Care Team Providers Care Brand Sales Consultant Name Role Phone Camelia Odom DO Primary Care Provider Reason for Visit * Reason Comments eRx-Medication Refill Encounter Details Date Type Department Care Team Description 06/25/2022 Refill Family Practice [facility] [address] [place] [address] Camelia Odom DO [address] [place] [address] Allergies No known active allergiesdocumented as of this encounter (statuses as of 06/26/2022) Medications Medication Sig Dispensed Refills Start Date End Date Status Mupirocin 2 % External Ointment (Bactroban) Apply to the nose twice daily for 14 days 15 g 0 04/19/2022 Active Lisinopril 20 MG Oral Tablet (Prinivil) Take 1 tablet by mouth once daily 90 Tablet 1 06/26/2022 Active Lisinopril 20 MG Oral Tablet (Prinivil) Take 1 Tablet by mouth daily. 90 Tablet 3 05/30/2021 06/26/2022 Discontinued documented as of this encounter (statuses as of 06/26/2022) Active Problems Problem Noted Date History of [...] as of this encounter (statuses as of 06/26/2022) Resolved Problems Problem Noted Date Resolved Date [...] as of this encounter (statuses as of 06/26/2022) Immunizations Name Administration Dates Next Due HPV [...] encounter Miscellaneous Notes * Telephone Encounter - Tamar Hurley RPh - 06/26/2022 11:30 AM ESTSigned Prescriptions: Disp Refills Lisinopril 20 MG Oral Tablet (Prinivil) 90 Tab*1 Sig: Take 1 tablet by mouth once dailyAuthorizing Provider: CAMELIA ODOMOrderhemalatha User: TAMAR HURLEY documented in this encounter Plan of Treatment Upcoming Encounters Date Type Specialty Care Team Description 12/18/2022 Office Visit Cardiology Pino Mckeon, [address] [place] [id number] 05/14/2023 Office Visit Family Medicine Camelia Odom DO [address] [place] [address] Health Maintenance Due Date Last Done Comments GARDASIL-HPV IMMUNIZATION SERIES (3 - Male 3-dose series) 05/07/2017 01/03/2017, 11/05/2016 Alb / Creat Ratio 09/06/2017 DTaP,Tdap,and Td Vaccines (7 - Td or Tdap) 06/27/2021 06/27/2011, 10/16/2004, 03/11/2001, Additional history exists Influenza Vaccine (FLU shot) (#1) 2022 03/10/2013, 03/03/2012, 06/27/2011, Additional history exists Depression Screening, Annual for Pts 12 and Over 05/02/2023 05/02/2022 GFR - Renal Function 05/02/2023 05/02/2022, 05/30/2021, 06/04/2019, Additional history exists Hepatitis B Completed [...] filedocumented as of this encounter Care Teams Brand Sales Consultant Relationship Specialty Start Date End Date [facility] [address] [facility] [place] [address] PCP - General Family Medicine 05/14/18 documented as of this encounter
--- OUTSIDE RECORDS SUMMARY | 2023-02-04 15:13 | External Medical Summary | Summary of Care ---
Author Name Unknown Organization [facility] Address [place] [address] Care Team Providers Care Data Officer Name Role Phone Joel Odom DO Primary Care Provider Reason for Visit * Reason Comments Follow Up nosebleeds * Evaluate & Treat - Unlimited Visits (Within 3 days (urgent)) - Authorized Specialty Diagnoses / Procedures Referred By Barbara cooper Referred To Contact Otolaryngology Diagnoses Epistaxis Joel Odom DO [address] [place] [address] Referral ID Status Reason Start Date Expiration Date Visits Requested Visits Authorized [id number] Authorized Specialty Services Required 2 [phone] Encounter Details Date Type Department Care Team Description 04/19/2022 Office Visit Otolaryngology [facility] [address] [place] [address] Sheng Howe DO [address] [place] [address] Recurrent epistaxis*; Epistaxis Allergies No known active allergiesdocumented as of this encounter (statuses as of 04/19/2022) Medications Medication Sig Dispensed Refills Start Date End Date Status Lisinopril 20 MG Oral Tablet (Prinivil) Take 1 Tablet by mouth daily. 90 Tablet 3 05/30/2021 Active Mupirocin 2 % External Ointment (Bactroban) Apply to the nose twice daily for 14 days 15 g 0 04/19/2022 Active documented as of this encounter (statuses as of 04/19/2022) Active Problems Problem Noted Date History of [...] as of this encounter (statuses as of 04/19/2022) Resolved Problems Problem Noted Date Resolved Date [...] as of this encounter (statuses as of 04/19/2022) Immunizations Name Administration Dates Next Due HPV [...] - Temperature 36.4 C (97.6 F) 04/19/2022 7:44 AM ES T Respiratory Rate - - Oxygen Saturation - - Inhaled Oxygen Concentration - - Weight 156.3 kg (344 lb 9.3 oz) 04/19/2022 7:44 AM EST Height 189.2 cm (6' 2.49") 04/19/2022 7:44 AM ES T Body Mass Index 43.66 04/19/2022 7:44 AM EST documented in this encounter Progress Notes * Sheng Howe, - 04/19/2022 8:02 AM EST Otolaryngology Head and Neck Surgery 04/19/2022 Patient comes in today for recurrent epistaxis. Saw Dr. Hauser previously for the same entity. Doeshave a history of nasal cautery in the past. States the right-side of his nose recurrent bleeds. Has not had any bleeding for about the past 3 weeks. He does not use any antibiotic ointment or [place] gel. Occasionally will use Vaseline in the nose. No history of bleeding disorder. Did have nasal endoscopy for which was unremarkable. 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 H53.50 HTN, goal below 140/90 I10 Exotropia of both eyes H50.10 Morbid obesity due to excess calories ([facility]) E66.01 Obesity, morbid (more than 100 lbs over ideal weight or BMI > 40) ([facility]) E66.01 History of epistaxis Z87.898 Deviated nasal septum J34.2 Hypertrophy of both inferior nasal turbinates J34.3 Past Medical History: Diagnosis Date Closed fracture of unspecified bone age 2 Fracture of 2-3rd metatarsal bones Past Surgical History: Procedure Laterality Date CONTROL OF NOSEBLEED, COMPLEX Right 07/27/2015 CONTROL NASAL HEMORRHAGE ANTERIOR COMPLEX performed by Sheng Howe DO at OR [facility] KNEE ARTHROSCOPY/MENISCECTOMY Right 06/2017 Right knee, [facility] [place] was OK. REVISE TWO HORIZONTAL EYE MUSCLES Bilateral 07/28/2018 STRABISMUS SURGERY RECESSION OR RESECTION TWO HORIZONTAL MUSCLES performed by Pino Smiley MD at OR [facility] Medications Current Outpatient Medications Medication Sig Dispense Refill Mupirocin 2 % External Ointment (Bactroban) Apply to the nose twice daily for 14 days 15 g 0 Lisinopril 20 MG Oral Tablet (Prinivil) Take 1 Tablet by mouth daily. 90 Tablet 3 No current facility-administered medications for this visit. Allergies Review of patient's allergies indicates: No Known Allergies Family History Family History Problem Relation Age of Onset Diabetes Grandfather (Paternal) Hypertension Father Hypertension Grandfather (Paternal) Heart Disorder Grandfather (Maternal) from [place] at 33 y.o. Cancer Other Social History Social History Tobacco Use Smoking status: Never Smokeless tobacco: Current Types: Snuff Last attempt to quit: 02/04/2019 Tobacco comments: can last 2 days Substance Use Topics Alcohol use: No Vaping/E-Cigarette Use Vaping/E-Cigarette Substances Vaping/E-Cigarette Devices Review of Systems Negative for constitutional, eyes, cardiac, pulmonary, hepatic, renal, digestive, hematologic, epileptic, syncopal, musculo-skeletal, mental health, integumentary, hypertensive, lipid, arthritic, diabetic, thyroid or neurologic disorders (except as listed in the PMH and Problem List). Physical Examination: Temp 36.4 C (97.6 F) | Ht 1.892 m (6' 2.49") | Wt (!) 156.3 kg (344 lb 9.3 oz) | BMI 43.66 kg/m | BSA 2.87 m PHYSICAL EXAM General: This is a healthy appearing male who appears his stated age. The patient is alert and appropriately verbally conversant without hoarseness. Face: The face was inspected and no cutaneous masses or lesions were visualized. There was no erythema or edema noted. Facial movement was symmetric without weakness. No skin lesions were detected. There was no sinus tenderness elicited. The parotid and submandibular glands were normal to palpation. Eyes: Extra-ocular muscle function was intact. No nystagmus was observed. Pupils were equal. Cranial Nerves: Cranial nerves II, III, IV, and were noted to be intact via extra-ocular muscle movement testing. Cranial nerve VII noted to be intact and symmetric by facial movement. Cranial nerve VIII was tested with tuning fork examination and revealed symmetric hearing. Cranial nerves IX and X noted to be intact by gag reflex and palatal movement. Cranial nerve XII noted to be intact by active and symmetric tongue movement. Nose: Examination of the nose revealed no masses, polyps, mucopus, or other lesion. The nasal septum was non-obstructing. The turbinates were without abnormality. Patient has bilateral dry excoriatedareas of the caudal septum right worse than left. PROCEDURE After obtaining informed consent from the patient a time out was held, procedure verified. Examination of the nose revealed excoriated caudal septum with some crusting bilaterally right worse than left. Surgicel was applied over the excoriated site on the right caudal septum under headlight guidance. Patient tolerated the procedure well. ASSESSMENT: Epistaxis (784.7) PLAN: Epistaxis management today was as per the above procedure note. Will have him use mupirocin ointment for 2 weeks. Then will have him switch to AYR gel. I spent a total of 30 minutes on the date of service in preparation, delivery, and documentation ofthe care provided to the above patient, excluding any time spent on the performance of any procedures or separately billable services. Sheng Howe DO, ILYA [facility] Otolaryngology Head and Neck Surgery [place] 04/19/2022 8:05 AM documented in this encounter Nursing Notes * Sera Menon LPN - 04/19/2022 7:45 AM EST Chief Complaint Patient presents with [...] Description 05/02/2022 Office Visit Family Medicine Joel Odom, [address] [place] [address] 12/18/2022 Office Visit Cardiology Pino Mckeon, DO [address] [place] [address] Health Maintenance Due Date Last Done Comments [...] as of this encounter Visit Diagnoses Diagnosis Recurrent epistaxis- Primary Epistaxis Epistaxis documented in this encounter Care Teams Data Officer Relationship Specialty Start Date End Date Joel Odom DO [address] [place] [address] PCP - General Family Medicine 05/14/18 documented as of this encounter
--- OUTSIDE RECORDS SUMMARY | 2023-02-04 15:13 | External Medical Summary ---
Author Name Unknown Address Unknown Organization K01:LABORATORY [facility] - [address] [place] [address] Laboratory Report Ordering Provider Test Date Status CLAYTON DENISE 05/02/2022 15:28:48 Final Observation Date Value Abnormality Reference (Units ) Status HbA1C 05/02/2022 15:28:48 5.3 4.0-5.6 (% ) Final Performing Location LABORATORY [facility] - [address] [place] [address]
--- OUTSIDE RECORDS SUMMARY | 2023-02-04 15:13 | External Medical Summary | Summary of Care ---
Author Name Unknown Organization [facility] Address [address] [place] [address] Phone [phone] Care Team Providers Care Computer Game Designer Name Role Phone Joel Odom DO Primary Care Provider Reason for Visit * Reason Comments Ear Pain Encounter Details Date Type Department Care Team Description 08/19/2022 Conven[facility] [place] [address] [place] [address] Micheal Moulton PA-C [address] [place] [address] [place] [address] Viral URI with cough*; Otalgia of both ears; Acute conjunctivitis of both eyes, unspecified acute conjunctivitis type Allergies No known active allergiesdocumented as of this encounter (statuses as of 08/19/2022) Medications Medication Sig Dispensed Refills Start Date End Date Status Mupirocin 2 % External Ointment (Bactroban) Apply to the nose twice daily for 14 days 15 g 0 04/19/2022 Active Lisinopril 20 MG Oral Tablet (Prinivil) Take 1 tablet by mouth once daily 90 Tablet 1 06/26/2022 Active Ciprofloxacin HCl 0.3 % Ophthalmic Solution (Ciloxan)Indications:A cute conjunctivitis of both eyes, unspecified acute conjunctivitis type Instill 1 Drop into both eyes in the morning and 1 Drop at noon and 1 Drop in the evening and 1 Drop before bedtime. Do all this for 10 days. 10 mL 0 08/19/2022 08/29/2022 Active documented as of this encounter (statuses as of 08/19/2022) Active Problems Problem Noted Date History of [...] as of this encounter (statuses as of 08/19/2022) Resolved Problems Problem Noted Date Resolved Date [...] as of this encounter (statuses as of 08/19/2022) Immunizations Name Administration Dates Next Due HPV [...] Sign Reading Time Taken Comments Blood Pressure 140/86 08/19/2022 1:15 PM EDT Pulse 113 08/19/2022 1:15 PM EDT Temperature 36.9 C (98.4 F) 08/19/2022 12:47 PM E DT Respiratory Rate 16 08/19/2022 12:47 PM EDT Oxygen Saturation 99% 08/19/2022 12:47 PM EDT Inhaled Oxygen Concentration - - Weight 152.4 kg (336 lb) 08/19/2022 12:47 PM EDT Height 190.5 cm (6' 3") 08/19/2022 12:47 PM EDT Body Mass Index 42 08/19/2022 12:47 PM EDT documented in this encounter Patient Instructions * Patient Instructions* Micheal Moulton PA-C - 08/19/2022 1:15 PM EDT Nasal [place]: Flonase OR Nasacort, in addition to one of these medicated nasal spray use saline nasal spray to avoid dryness and thin out mucous OTC antihistamine (claritin, zyrtec, xyzal or real) OTC decongestants: Sudafed, Mucinex-D (get from behind pharmacy counter, you have to show your ID) Continue supportive measures-- Drink plenty of fluids, rest, cool mist humidifier, hot showers. You may also use ibuprofen or acetaminophen OTC for relief of pain or fevers. Follow up with PCP within 5-7 day(s) if no improvement, sooner if worse. Go to the ED if any new or severe symptoms appear. Patient Instructions for Conjunctivitis: 1. Wash hands frequently, especially after touching the eyes, to avoid spread. 2. Use cool compresses on the eyes as needed. 3. Wash crusting eyelids with baby shampoo daily. 4. Wipe the eyes from inner to outer corners. 5. Discard any makeup use until free of symptoms. Change contacts and/or discard used ones until symptoms disappear. 6. Wash bedding including pillowcases every day. 7. Use antibiotic eye drops as directed - be sure to finish entire course even if you are feeling better. 8. Follow-up with PCP if not improving within 2-3 days. If worsening, recommend ophthalmology evaluation. documented in this encounter Progress Notes * Micheal Moulton PA-C - 08/19/2022 1:07 PM EDT Cory Mora is a 21 year old male who presents with upper respiratory symptoms for 1 week(s) Patient was accompanied by Self. Nursing Notes: Marcela Rothman, RT 08/19/22 1252 Signed Cory Mora is a 21 year old male who presents to walk-in clinic today complaining of Chief Complaint Patient presents with Ear Pain Main Symptoms: congestion, ear pain in both ears, LT feels worse How lon week Tried: tylenol helped with the ear pain, and dayquil and nyquil Pt accompanied by: self HPI 21 yo M with URI symptoms for the last 6-7 days. Cold symptoms with sore throat, cough, congestion. Girlfriend was sick with similar symptoms prior to him starting. Then two days ago with Left ear pain, congestion, blocked sensation. Right ear feels a bit the same way, as well. Has been using tylenol and day/nyquil with some improvement. Eyes draining, red, crusty the last few days. No vision changes. Does not wear contacts. No fever, chills, CP, SOB, Nv/d/, abd pain, rashes. ROS See HPI for pertinent positives and negatives. Patient denies addtional complaints. HISTORY Past Medical History: Diagnosis Date Closed fracture of unspecified bone age 2 Fracture of 2-3rd metatarsal bones Past Surgical History: Procedure Laterality Date CONTROL OF NOSEBLEED, COMPLEX Right 07/27/2015 CONTROL NASAL HEMORRHAGE ANTERIOR COMPLEX performed by Sheng Howe DO at [facility] KNEE ARTHROSCOPY/MENISCECTOMY Right 06/2017 [facility] [place] [facility]. REVISE TWO HORIZONTAL EYE MUSCLES Bilateral 07/28/2018 STRABISMUS SURGERY RECESSION OR RESECTION TWO HORIZONTAL MUSCLES performed by Pino Smiley MD at OR [facility] Social History Tobacco Use Smoking status: Never Smokeless tobacco: Current Types: Snuff Last attempt to quit: 02/04/2019 Tobacco comments: can last 2 days Substance Use Topics Alcohol use: No Vaping/E-Cigarette Use Vaping/E-Cigarette Substances Vaping/E-Cigarette Devices Current Outpatient Medications Medication Sig Dispense Refill Lisinopril 20 MG Oral Tablet (Prinivil) Take 1 tablet by mouth once daily 90 Tablet 1 Ciprofloxacin HCl 0.3 % Ophthalmic Solution (Ciloxan) Instill 1 Drop into both eyes in the morning and 1 Drop at noon and 1 Drop in the evening and 1 Drop before bedtime. Do all this for 10 days.10 mL 0 Mupirocin 2 % External Ointment (Bactroban) Apply to the nose twice daily for 14 days 15 g 0 No current facility-administered medications for this visit. Review of patient's allergies indicates: No Known Allergies Family History Problem Relation Age of Onset Diabetes Grandfather (Paternal) Hypertension Father Hypertension Grandfather (Paternal) Heart Disorder Grandfather (Maternal) from [place] at 33 y.o. Cancer Other OBJECTIVE BP 140/86 (BP Site: Left Arm, BP Position: Sitting, BP Cuff Size: Regular) | Pulse 113 | Temp 36.9 C (98.4 F) (Tympanic) | Resp 16 | Ht 1.905 m (6' 3") | Wt (!) 152.4 kg (336 lb) | SpO2 99% | BMI42.00 kg/m | BSA 2.84 m Wt Readings from Last 1 Encounters: 08/19/22 (!) 152.4 kg (336 lb) General Appearance: awake, alert, no apparent distress HEENT: perrl and eomi B/L conjunctival injection No active drainage or crusting, no FB tms - clear, normal light reflex, no erythema oral pharynx clear, mucus membranes moist No sinus tenderness or facial pain to percussion No turbinate engorgement or discharge Neck: normal, supple, no adenopathy Respiratory: clear to auscultation, no rhonchi, no wheezes and no crackles Heart: regular rate, regular rhythm, no murmurs , no rubs and no gallops Skin: skin color, texture, turgor are normal, no rashes or significant lesions ASSESSMENT AND PLAN Viral URI with cough (Primary) Otalgia of both ears Acute conjunctivitis of both eyes, unspecified acute conjunctivitis type - Ciprofloxacin HCl 0.3 % Ophthalmic Solution (Ciloxan); Instill 1 Drop into both eyes in the morning and 1 Drop at noon and 1 Drop in the evening and 1 Drop before bedtime. Do all this for 10 days. Follow-up: Return if symptoms worsen or fail to improve. | Check-out note: If symtoms worsen or fail to improve If no improvement with below in next 4-5 days, return for reeval to make sure no bacterial infection. F/U PRN ER if acutely worse. Pt verbalized understanding and agrees with plan. Questions/Concerns addressed. Patient Goals for plan of care discussed in detail. Patient Instructions Nasal [place]: Flonase OR Nasacort, in addition to one of these medicated nasal spray use saline nasal spray to avoid dryness and thin out mucous OTC antihistamine (claritin, zyrtec, xyzal or real) OTC decongestants: Sudafed, Mucinex-D (get from behind pharmacy counter, you have to show your ID) Continue supportive measures-- Drink plenty of fluids, rest, cool mist humidifier, hot showers. You may also use ibuprofen or acetaminophen OTC for relief of pain or fevers. Follow up with PCP within 5-7 day(s) if no improvement, sooner if worse. Go to the ED if any new or severe symptoms appear. Patient Instructions for Conjunctivitis: 1. Wash hands frequently, especially after touching the eyes, to avoid spread. 2. Use cool compresses on the eyes as needed. 3. Wash crusting eyelids with baby shampoo daily. 4. Wipe the eyes from inner to outer corners. 5. Discard any makeup use until free of symptoms. Change contacts and/or discard used ones until symptoms disappear. 6. Wash bedding including pillowcases every day. 7. Use antibiotic eye drops as directed - be sure to finish entire course even if you are feeling better. 8. Follow-up with PCP if not improving within 2-3 days. If worsening, recommend ophthalmology evaluation. Micheal T Brown, PA-C [facility] [address] [facility] [address] documented in this encounter Nursing Notes * Marcela Rothman, - 08/19/2022 12:50 PM EDT Cory Mora is a 21 year old male who presents to walk-in clinic today complaining of Chief Complaint Patient presents with Ear Pain Main Symptoms: congestion, ear pain in both ears, LT feels worse How lon week Tried: tylenol helped with the ear pain, and dayquil and nyquil Pt accompanied by: self documented in this encounter Plan of Treatment Upcoming Encounters Date Type Specialty Care Team Description 12/18/2022 Office Visit Cardiology Pino Mckeon, DO [address] [place] [address] 05/14/2023 Office Visit Family Medicine Joel Odom DO [address] [place] [address] Health Maintenance Due Date Last Done Comments [...] as of this encounter Visit Diagnoses Diagnosis Viral URI with cough- Primary Acute upper respiratory infections of unspecified site Otalgia of both ears Otalgia, unspecified Acute conjunctivitis of both eyes, unspecified acute conjunctivitis type documented in this encounter Care Teams Computer Game Designer Relationship Specialty Start Date End Date Joel Odom DO [address] [place] [address] PCP - General Family Medicine 05/14/18 documented as of this encounter
--- OUTSIDE RECORDS SUMMARY | 2023-02-04 15:13 | External Medical Summary ---
Author Name Unknown Address Unknown Organization K01:[place] [place] [address] [place] [address] Laboratory Report Ordering Provider Test Date Status CODYCELIARITESH 05/02/2022 15:28:48 Final Observation Date Value Abnormality Reference (Units ) Status WBC, Total 05/02/2022 15:28:48 5.46 4.00-10.8 0 (K/uL) Final RBC 05/02/2022 15:28:48 4.88 4.50-5.25 (M/uL) Final Hemoglobin 05/02/2022 15:28:48 13.2 Below low normal 14 .0-16.8 (g/dL) Final Performing Location LABORATORY C - [address] [place] [address]
--- OUTSIDE RECORDS SUMMARY | 2023-02-04 15:13 | External Medical Summary ---
Author Name Unknown Address Unknown Organization K01:LABORATORY [facility] [place] - [address] [place] [address] Laboratory Report Ordering Provider Test Date Status KEILA ROSS 05/02/2022 15:28:48 Final Observation Date Value Abnormality Reference (Units ) Status BUN 05/02/2022 15:28:48 11 6-20 (mg/dL) Final Creatinine 05/02/2022 15:28:48 0.9 0.6-1.2 (mg/dL) Final Glomerular filtration rate/1.73 sq M.predicted [Volume Rate/Area] in Serum, Plasma or Blood by Creatinine-based formula (CKD-EPI) 05/02/2022 15:28:48 >90 >=60 (mL/min) Final Performing Location LABORATORY [facility] [place] - [address] [place] [address]
--- OUTSIDE RECORDS SUMMARY | 2023-02-04 15:13 | External Medical Summary | Summary of Care ---
Author Name Unknown Organization [place] [address] Care Team Providers Care Employee Relations Assistant Name Role Phone Odom Joel Hernandezrebecca Primary Care Provider Encounter Details Date Type Department Care Team Description 06/24/2022 Orders Only Outcomes Research Department [address] [place] [address] Siria Deleon [facility] Marketing Research Other*[id number] Allergies No known active allergiesdocumented as of this encounter (statuses as of 06/24/2022) Medications Medication Sig Dispensed Refills Start Date End Date Status Lisinopril 20 MG Oral Tablet (Prinivil) Take 1 Tablet by mouth daily. 90 Tablet 3 05/30/2021 Active Mupirocin 2 % External Ointment (Bactroban) Apply to the nose twice daily for 14 days 15 g 0 04/19/2022 Active documented as of this encounter (statuses as of 06/24/2022) Active Problems Problem Noted Date History of [...] as of this encounter (statuses as of 06/24/2022) Resolved Problems Problem Noted Date Resolved Date [...] as of this encounter (statuses as of 06/24/2022) Immunizations Name Administration Dates Next Due HPV [...] Office Visit Cardiology Pino Mckeon, DO [address] [facility] [place] [address] 05/14/2023 Office Visit Family Medicine Joel Odom DO [address] [place] [address] Scheduled Orders Name Type Priority Associated Diagnoses Orde r Schedule MYCODE INITIAL ADULT Lab Routine MyCode Research Other*[id number] Expected: 06/24/2022 (Approximate), Expires: 07/14/2023 Health Maintenance Due Date Last Done Comments [...] as of this encounter Visit Diagnoses Diagnosis MyCode Research Other*[id number] documented in this encounter Care Teams Employee Relations Assistant Relationship Specialty Start Date End Date Joel Odom DO [address] [place] [address] PCP - General Family Medicine 05/14/18 documented as of this encounter
--- OUTSIDE RECORDS SUMMARY | 2023-02-04 15:13 | External Medical Summary | Summary of Care ---
Author Name Unknown Organization [facility] Address [place] [address] Care Team Providers Care Handkerchief Maker Name Role Phone Joel Odom DO Primary Care Provider Reason for Visit * Reason Comments Outpatient Testing Encounter Details Date Type Department Care Team Description 05/02/2022 Laboratory Laboratory, [facility] [address] [facility] [place] [address] [facility] [address] [facility] [place] [address] Encounter for long-term (current) use of medications; Numbness of leg; HTN, goal below 140/90 Allergies No known active allergiesdocumented as of [...] Mckeon, DO [address] [place] [address] 05/14/2023 Office Visit Family Medicine Joel Odomrebecca, DO [address] [place] [address] Pending Results Name Type Priority Associated Diagnoses Date /Time HEMOGLOBIN A1C Lab Routine Encounter for long-term (current) use of medications 05/02/2022 3:28 PM EST CBC WITH WBC DIFFERENTIAL AND ANEMIA REFLEX WORKUP Lab Routine Numbness of leg 05/02/2022 3:28 PM EST BASIC METABOLIC PANEL Lab Routine Numbness of leg 05/02/2022 3:28 PM EST TSH WITH FREE T4 IF INDICATED Lab Routine Numbness of leg 05/02/2022 3:28 PM EST ANEMIA CBC Lab Routine Numbness of leg 05/02/2022 3:28 PM EST DIFFERENTIAL, AUTOMATED Lab Routine Numbness of leg 05/02/2022 3:28 PM EST ANEMIA REFLEX CHEMISTRY HOLD Lab Routine Numbness of leg 05/02/2022 3:28 PM EST Health Maintenance Due Date Last Done Comments [...] as of this encounter Visit Diagnoses Diagnosis Encounter for long-term (current) use of medications Encounter for long-term (current) use of other medications Numbness of leg Disturbance of skin sensation HTN, goal below 140/90 Unspecified essential hypertension documented in this encounter Care Teams Handkerchief Maker Relationship Specialty Start Date End Date Joel Odom DO [address] [place] [address] PCP - General Family Medicine 05/14/18 documented as of this encounter
--- OUTSIDE RECORDS SUMMARY | 2023-02-04 15:13 | External Medical Summary | Summary of Care ---
Author Name Unknown Organization [place] [address] Care Team Providers Care Closing Machine Operator Name Role Phone Lei Joel Caldwell DO Primary Care Provider Reason for Visit * Reason Onset Date Comments Appointment 03/26/2022 Encounter Details Date Type Department Care Team Description 03/26/2022 Telephone Otolaryngology [facility] [address] [facility] [place] [address] Services, Scheduling [address] [place] [address] Appointment Allergies No known active allergiesdocumented as of this encounter (statuses as of 03/26/2022) Medications Medication Sig Dispensed Refills Start Date End Date Status Lisinopril 20 MG Oral Tablet (Prinivil) Take 1 Tablet by mouth daily. 90 Tablet 3 05/30/2021 Active documented as of this encounter (statuses as of 03/26/2022) Active Problems Problem Noted Date History of [...] as of this encounter (statuses as of 03/26/2022) Resolved Problems Problem Noted Date Resolved Date [...] as of this encounter (statuses as of 03/26/2022) Immunizations Name Administration Dates Next Due DTaP [...] Tobacco Use Types Packs/Day Years Used Date Never Smoker Smokeless Tobacco: Current User Snuff Quit: 02/04/2019 Comments:can last 2 days Alcohol Use [...] Miscellaneous Notes * Telephone Encounter - MIKAL Edmonds - 03/26/2022 3:15 PM EDT alredy sent documented in this encounter Plan of Treatment Upcoming Encounters Date Type Specialty Care Team Description 05/02/2022 Office Visit Family Medicine Joel Odom, [address] [place] [address] 12/18/2022 Office Visit Cardiology Pino Mckeon, [address] [place] [address] Health Maintenance Due Date Last Done Comments [...] this topic documented as of this encounter Implants Not on filedocumented as of this encounter Advance Directives Documents on File Type Date Recorded Patient Threat Analyst Expl anation Advanced Directive Advanced Directive Advanced Directive Advanced Directive Advanced Directive Advanced Directive Advanced Directive Advanced Directive Advanced Directive Advanced Directive Advanced Directive Advanced Directive Advanced Directive Advanced Directive Advanced Directive Advanced Directive Advanced Directive Advanced Directive Advanced Directive Advanced Directive Advanced Directive Advanced Directive Advanced Directive 07/17/2018 11:14 AM Care Teams Closing Machine Operator Relationship Specialty Start Date End Date Joel Odom DO [address] [facility] [place] [address] PCP - General Family Medicine 05/14/18 documented as of this encounter
--- OUTSIDE RECORDS SUMMARY | 2023-02-04 15:14 | External Medical Summary ---
Author Name Unknown Address Unknown Organization K01:[facility] [address] [place] [address] Laboratory Report Ordering Provider Test Date Status CLAYTON DENISE 05/30/2021 13:06:04 Final Observation Date Value Abnormality Reference (Units ) Status HbA1C 05/30/2021 13:06:04 5.5 4.0-5.6 (% ) Final Performing Location [facility] [address] [place] [address]
--- OUTSIDE RECORDS SUMMARY | 2023-02-04 15:14 | External Medical Summary | Summary of Care ---
Author Name Unknown Organization [facility] Address [place] [address] Care Team Providers Care Natural Foods Clerk Name Role Phone Joel Odom DO Primary Care Provider Reason for Visit * Reason Comments Outpatient Testing Encounter Details Date Type Department Care Team Description 05/30/2021 Laboratory Laboratory, [facility] 132 [facility] [place] [address] [facility] [place] [place] [address] Encounter for long-term (current) use of medications Allergies No known active allergiesdocumented as of this encounter (statuses as of 05/30/2021) Medications Medication Sig Dispensed Refills Start Date End Date Status Lisinopril 20 MG Oral Tablet (Prinivil) Take 1 tablet by mouth once daily 90 Tab 0 03/13/2021 Active Lisinopril 40 MG Oral Tablet Take 0.5 Tabs by mouth daily. 45 Tab 3 03/18/2021 Active documented as of this encounter (statuses as of 05/30/2021) Active Problems Problem Noted Date History of epistaxis 05/16/2020 Deviated nasal septum 05/16/2020 Hypertrophy of both inferior nasal turbi nates 05/16/2020 Obesity, morbid (more than 100 lbs over ideal weight or BMI > 40) 07/28/2018 Morbid obesity due to excess calories Exotropia of both eyes 03/10/2017 Systemic primary arterial hypertension 0 11/15/2016 Overview: RX lisinopril COLOR BLINDNESS OTHER COLOR DEFICIENCIES 10/16/2004 Genu varum 09/10/2000 documented as of this encounter (statuses as of 05/30/2021) Resolved Problems Problem Noted Date Resolved Date [...] as of this encounter (statuses as of 05/30/2021) Immunizations Name Administration Dates Next Due DTaP [...] Years Used Date Never Smoker Smokeless Tobacco: Former User Snuff Quit: 02/04/2019 Comments:can last 2 [...] Encounters Date Type Specialty Care Team Description 05/30/2021 Office Visit Family Medicine Joel Odom, DO 132 [facility] [place] [address] Arrived Pending Results Name Type Priority Associated Diagnoses Date /Time BASIC METABOLIC PANEL Lab Routine Encounter for long-term (current) use of medications 05/30/2021 12:03 PM EST Health Maintenance Due Date Last Done Comments COVID-19 Vaccine (1) 09/06/2004 GARDASIL-HPV IMMUNIZATION SERIES (3 - Male 3-dose series) 05/07/2017 01/03/2017, 11/05/2016 Yearly Wellness Visit 01/03/2018 01/03/2017 , 09/08/2015, 06/27/2011, Additional history exists Depression Screening, Annual for Pts 12 and Over 05/17/2020 05/17/2019 *BASIC METABOLIC PANEL (BMP) FOR HTN YEARLY 06/08/2020 Influenza Vaccine (FLU shot) (#1) 2021 03/10/2013, 03/03/2012, 06/27/2011, Additional history exists DTaP,Tdap,and Td Vaccines (7 - Td or Tdap) 06/27/2021 06/27/2011, 10/16/2004, 03/11/2001, Additional history exists MENINGOCOCCAL (MENACTRA/MENVEO) Completed 01/03/2017, 06/27/2011 Pneumococcal Vaccine: Pediatrics (0 to 5 Years) and At-Risk Patients (6 to 64 Years) Aged Out No longer eligible based on patient's age to complete this topic documented as of this encounter Implants Not on filedocumented as of this encounter Visit Diagnoses Diagnosis Encounter for long-term (current) use of medications Encounter for long-term (current) use of other medications documented in this encounter Advance Directives Documents on File Type Date Recorded Patient Management Trainee Marketing Expl anation Advanced Directive Advanced Directive Advanced Directive Advanced Directive Advanced Directive Advanced Directive Advanced Directive Advanced Directive Advanced Directive Advanced Directive Advanced Directive Advanced Directive Advanced Directive 07/17/2018 11:14 AM Care Teams Natural Foods Clerk Relationship Specialty Start Date End Date Joel Odom DO 132 [facility] [place] [address] PCP - General Family Medicine 05/14/18 documented as of this encounter
--- OUTSIDE RECORDS SUMMARY | 2023-02-04 15:14 | External Medical Summary | Summary of Care ---
Author Name Unknown Organization [facility] Address [place] [address] Care Team Providers Care Document Specialist Name Role Phone Camelia Odom DO Primary Care Provider Encounter Details Date Type Department Care Team Description 03/17/2021 Refill Family Practice [facility] [address] [place] [address] Camelia Odom DO [address] [place] [address] [phone] Allergies No Known Active Allergiesdocumented as of this encounter (statuses as of 03/18/2021) Medications Medication Sig Dispensed Refills Start Date End Date Status Lisinopril 20 MG Oral Tablet (Prinivil) Take 1 tablet by mouth once daily 90 Tab 0 03/13/2021 Active Lisinopril 40 MG Oral Tablet Take 0.5 Tabs by mouth daily. 45 Tab 3 03/18/2021 Active documented as of this encounter (statuses as of 03/18/2021) Active Problems Problem Noted Date History of [...] as of this encounter (statuses as of 03/18/2021) Resolved Problems Problem Noted Date Resolved Date [...] as of this encounter (statuses as of 03/18/2021) Immunizations Name Administration Dates Next Due DTaP [...] 02/04/2019 Comments:can last 2 days Alcohol Use Drinks/Week oz/Week Comments No Food Insecurity Answer Date Recorded Within the past 12 months, y ou worried that your food would run out before you got money to buy more. Never true Within the past 12 months, t he food you bought just didn't last and you didn't have money to get more. Never true Sex Assigned at Date Recorded Not on file Job Start Date Occupation Industry Not on file Not on file Not on file documented as of this encounter Miscellaneous Notes * Telephone Encounter - Camelia Odom DO - 03/18/2021 3:58 PM EDT Signed Prescriptions: Disp Refills Lisinopril 40 MG Oral Tablet 45 Tab 3 Sig: Take 0.5 Tabs by mouth daily. Authorizing Provider: CAMELIA ODOM * Telephone Encounter - Tamara [place] MED ASSIST - 03/17/2021 5:21 PM EDT [email or web address]. Rx pended for 40 mg tabs 1/2 tab daily. Will need to call patient with this change if approved. documented in this encounter Plan of Treatment Upcoming Encounters Date Type Specialty Care Team Description 05/30/2021 Laboratory Laboratory Myron Saba [address] [place] [address] [phone] 05/30/2021 Office Visit Family Medicine Camelia Odom DO [address] [place] [address] [phone] Health Maintenance Due Date Last Done Comments COVID-19 Vaccine (1) 2011 GARDASIL-HPV IMMUNIZATION SERIES (3 - Male 3-dose series) 05/07/2017 01/03/2017, 11/05/2016 Yearly Wellness Visit 01/03/2018 01/03/2017 , 09/08/2015, 06/27/2011, Additional history exists *DEPRESSION SCREENING,ANNUAL FOR PTS 12 AND OVER 05/19/2020 *BASIC METABOLIC PANEL (BMP) FOR HTN YEARLY 06/08/2020 Influenza Vaccine (FLU shot) (#1) 2021 03/10/2013, 03/03/2012, 06/27/2011, Additional history exists DTaP,Tdap,and Td Vaccines (7 - Td) 06/27/2021 06/27/2011, 10/16/2004, 03/11/2001, Additional history exists MENINGOCOCCAL (MENACTRA/MENVEO) Completed 01/03/2017, 06/27/2011 Pneumococcal Vaccine: Pediatrics (0 to 5 Years) and At-Risk Patients (6 to 64 Years) Aged Out No longer eligible based on patient's age to complete this topic documented as of this encounter Implants Not on filedocumented as of this encounter Advance Directives Documents on File Type Date Recorded Patient Promos Executive Producer Expl 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 Advanced Directive Advanced Directive Advanced Directive
--- OUTSIDE RECORDS SUMMARY | 2023-02-04 15:14 | External Medical Summary ---
Author Name Unknown Address Unknown Organization K01:[facility] - [address] [place] [address] Laboratory Report Ordering Provider Test Date Status CLAYTON DENISE 05/30/2021 12:03:14 Final Observation Date Value Abnormality Reference (Units ) Status Triglyceride 05/30/2021 12:03:14 195 Above high normal <=174 (mg/dL) Final Performing Location [facility] [address] [place] [address]
--- OUTSIDE RECORDS SUMMARY | 2023-02-04 15:14 | External Medical Summary | Summary of Care ---
Author Name Unknown Organization [facility] Address [place] [address] Care Team Providers Care Lead Systems Analyst Name Role Phone Anibal Odomhernandez Hernandezrebecca Primary Care Provider Reason for Visit * Reason Onset Date Comments MyCode Consent 05/30/2021 Encounter Details Date Type Department Care Team Description 05/30/2021 Orders Only Outcomes Research Department [address] [facility] [place] [address] Katie Romano CHRA MyCode Research Other*[id number]* Allergies No known active allergiesdocumented as of [...] on file documented as of this encounter Progress Notes * LOLITA Araujo - 05/30/2021 1:01 PM EST MyCode Consent Documentation Cory Mora provided consent/authorization to participate in the MyCode Project. documented in this encounter Plan of Treatment Upcoming Encounters Date Type Specialty Care Team Description 08/29/2021 Office Visit Family Medicine Joel Odom, [address] [place] [address] 11/28/2021 Office Visit Cardiology Pino Mckeon, [address] [place] [address] Scheduled Orders Name Type Priority Associated Diagnoses Orde r Schedule MYCODE INITIAL ADULT Lab Routine MyCode Research Other*[id number] Expected: 05/30/2021 (Approximate), Expires: 06/19/2022 Health Maintenance Due Date Last Done Comments [...] history exists MENINGOCOCCAL (MENACTRA/MENVEO) Completed 01/03/2017, 06/27/2011 COVID-19 Vaccine Discontinued Pneumococcal Vaccine: Pediatrics (0 to 5 Years) and At-Risk Patients (6 to 64 Years) Aged Out No longer eligible based on patient's age to complete this topic documented as of this encounter Implants Not on filedocumented as of this encounter Visit Diagnoses Diagnosis MyCode Research Other*[id number]- Primary documented in this encounter Advance Directives Documents on File Type Date Recorded Patient Ceramist Expl anation Advanced Directive Advanced Directive Advanced Directive Advanced Directive Advanced Directive Advanced Directive Advanced Directive Advanced Directive Advanced Directive Advanced Directive Advanced Directive Advanced Directive Advanced Directive Advanced Directive Advanced Directive Advanced Directive 07/17/2018 11:14 AM Care Teams Lead Systems Analyst Relationship Specialty Start Date End Date Joel Odom DO 132 [facility] [place] [address] PCP - General Family Medicine 05/14/18 documented as of this encounter
--- OUTSIDE RECORDS SUMMARY | 2023-02-04 15:14 | External Medical Summary | Summary of Care ---
Author Name Unknown Organization [facility] Address [place] [address] Care Team Providers Care Decay Control Operator Name Role Phone Joel Odomrebecca Primary Care Provider Reason for Referral * Precert (Within 10 days (routine)) - Authorized Specialty Diagnoses / Procedures Referred By Contac t Referred To Contact Cardiac Studies Diagnoses Sinus tachycardia Essential hypertension with goal blood pressure less than 130/80 Procedures ECHO, COMPLETE (2D), TRANS-THORACIC Pino Mckeon DO [address] [place] [id number] Referral ID Status Reason Start Date Expiration Date V isits Requested Visits Authorized [id number] Authorized Precert 11/28/2021 999 999 Reason for Visit * Reason Comments Follow Up Encounter Details Date Type Department Care Team Description 11/28/2021 Office Visit Cardiology, [facility] [address] [place] [address] Pino Mckeon DO [address] [place] [address] Essential hypertension with goal blood pressure less than 130/80*; Systemic primary arterial hypertension; Sinus tachycardia Allergies No known active allergiesdocumented as of this encounter (statuses as of 11/28/2021) Medications Medication Sig Dispensed Refills Start Date End Date Status Lisinopril 20 MG Oral Tablet (Prinivil) Take 1 Tablet by mouth daily. 90 Tablet 3 05/30/2021 Active documented as of this encounter (statuses as of 11/28/2021) Active Problems Problem Noted Date History of [...] as of this encounter (statuses as of 11/28/2021) Resolved Problems Problem Noted Date Resolved Date [...] as of this encounter (statuses as of 11/28/2021) Immunizations Name Administration Dates Next Due DTaP [...] Smokeless Tobacco: Current User Snuff Quit: 02/04/2019 Tobacco Cessation:Ready to Q uit: No; Counseling Given: Yes Comments:can last 2 days Alcohol Use Standard [...] Sign Reading Time Taken Comments Blood Pressure 132/72 11/28/2021 3:26 PM EDT Pulse 98 11/28/2021 3:26 PM EDT Temperature 35.9 C (96.6 F) 11/28/2021 3:26 PM ED T Respiratory Rate 14 11/28/2021 3:26 PM EDT Oxygen Saturation - - Inhaled Oxygen Concentration - - Weight 159.1 kg (350 lb 11.2 oz) 11/28/2021 3:26 PM EDT Height - - Body Mass Index 44.42 05/30/2021 12:27 PM EST documented in this encounter Progress Notes * Pino Mckeon DO - 11/28/2021 3:22 PM EDT Subjective: 21-year-old patient presents for follow-up of hypertension. Last evaluated by the undersigned in 2019. Previously followed by pediatric cardiology. Today , feeling well from a cardiovascular perspective . 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 Home blood pressure readings with fair control .Compliant with lisinopril, 20 mg daily. Denies chest pain or unusual shortness of breath . No palpitations, lightheadedness, dizziness, syncope, or near syncope. Chews snuff daily. Admits to occasional alcohol use. Reports feeling anxious in the doctor's office. Offers no other concerns/complaints this time. ECG: Sinus tachycardia 2D echocardiogram report 10/2016: Normal transthoracic echocardiogram . Past Medical History: Patient Active Problem List Diagnosis Code Genu varum M21.169 COLOR BLINDNESS OTHER COLOR DEFICIENCIES H53.50 Systemic primary arterial hypertension I10 Exotropia of both eyes H50.10 Morbid obesity due to excess calories ([facility]) E66.01 Obesity, morbid (more than 100 lbs over ideal weight or BMI > 40) ([facility]) E66.01 History of epistaxis Z87.898 Deviated nasal septum J34.2 Hypertrophy of both inferior nasal turbinates J34.3 Past Surgical History: Procedure Laterality Date CONTROL OF NOSEBLEED, COMPLEX Right 07/27/2015 CONTROL NASAL HEMORRHAGE ANTERIOR COMPLEX performed by Sheng Howe DO at OR [facility] [address] KNEE ARTHROSCOPY/MENISCECTOMY Right 06/2017 Right formerly [facility], [place], [place] was OK. REVISE TWO HORIZONTAL EYE MUSCLES Bilateral 07/28/2018 STRABISMUS SURGERY RECESSION OR RESECTION TWO HORIZONTAL MUSCLES performed by Pino Smiley MD at OR [facility] Family History: Denies family history of premature coronary disease or sudden cardiac Family History Problem Relation Age of Onset Diabetes Grandfather (Paternal) Hypertension Father Hypertension Grandfather (Paternal) Heart Disorder Grandfather (Maternal) from [place] at 33 y.o. Cancer Other Family Status Relation Status Mother Alive Father Alive Owns [employer] company Brother Alive Step brother Grandfather (Paternal) Father Grandfather (Paternal) Grandfather (Maternal) Other Social History: Tobacco abuse, snuff Social History Socioeconomic History Marital status: Single Spouse name: Not on file Number of children: Not on file Years of education: Not on file Highest education level: Not on file Occupational History Not on file Tobacco Use Smoking status: Never Smoker Smokeless tobacco: Former User Types: Snuff Tobacco comment: can last 2 days Substance and Sexual Activity Alcohol use: No Drug use: No Sexual activity: Never Other Topics Concern Not on file Social History Narrative Not on file Social Determinants of Health Financial Resource Strain: Not on file Food Insecurity: Not on file Transportation Needs: Not on file Physical Activity: Not on file Stress: Not on file Social Connections: Not on file Intimate Partner Violence: Not on file Housing Stability: Not on file Social History Social History Narrative Not on file ROS: All others negative other than those noted in the HPI. Review of patient's allergies indicates: No Known Allergies Current Outpatient Medications Medication Sig Dispense Refill Lisinopril 20 MG Oral Tablet (Prinivil) Take 1 Tablet by mouth daily. 90 Tablet 3 No current facility-administered medications for this visit. OBJECTIVE/PHYSICAL EXAMINATION: BP 132/72 (BP Site: Left Arm, BP Position: Sitting, BP Cuff Size: Large) | Pulse 98 | Temp 35.9 C(96.6 F) | Resp 14 | Wt (!) 159.1 kg (350 lb 11.2 oz) | BMI 44.42 kg/m | BSA 2.89 m General: NAD, AAO x3, well nourished. HEENT: Normocephalic. Atraumatic. Conjunctiva pink, no scleral icterus. No carotid bruits, the carotid upstrokes are brisk. No JVD. No HJR Heart: Regular normal S-1 and S-2 no S-3 or S-4 gallop. No murmurs or rubs appreciated. PMI is not displaced. No RV heave.Lungs: Clear bilateral without rales , rhonchi, or wheeze. Abdomen: Normal bowel sounds. Soft. Nontender. No masses or organomegaly. No abdominal bruits. Extremities: No clubbing, cyanosis, or edema.Pulses: radial=2/4, Dorsalis pedis =2/4, posterior tibial=2/4. Neuro: No focal deficits. IMPRESSION: 1. 21-year-old male with essential hypertension - BP controlled in office with a situational component. 2. Obesity - commended for recent weight loss 3. Former tobacco use - snuff 4. Sinus tachycardia RECOMMENDATIONS/PLAN: Echo, complete (2d), trans-thoracic Ekg I had a long discussion with the patient regarding his blood pressure management. Continue lisinopril 20 mg daily. Monitor home blood pressure 1-2 days per week approximately 2 hours after a.m. medications. Restrict sodium intake to less than 2 g daily. Goal blood pressure less than 130/80. Consider addition of low-dose hydrochlorothiazide pending review of ambulatory blood pressure readings. Encouraged to participate in a regular aerobic exercise program. Minimum goals discussed: 30 to 40 minutes of moderate intensity exercise, 4 days per week. All questions answered to patient's satisfaction. He is agreeable to the current plan, however, will report any change or decline in clinical status. Follow Up: Return in about 1 year (around 11/28/2022). I spent a total of 30-39 minutes (exact time 31 mins) on the date of service in preparation, delivery, and documentation of the care provided to Cory Mora excluding any time spent in the performance of separately billed services. Pino Mckeon DO, FACC Associate Cardiology - [facility] documented in this encounter Nursing Notes * Tanya Kumar RN - 11/28/2021 3:26 PM EDT Examination Room: 11 Name: Cory Mora Date of : (2000). Reason for Visit: Follow up Interim Hospitalization(s): No Problems/Concerns: States feeling well, overall. Only monitoring bp on occasion. Chest Pain/SOB: Denies [facility] Discussed: Yes [facility] is a way you can talk to your provider online through e-mail. Would you like to sign up? I can activate it for you? ALREADY ACTIVE Patient was instructed to not get up on the exam table until directed and assisted by their provider; patient is to remain seated in the chair/ wheelchair/ exam table for fall prevention and safety reasons. Patient is aware to have assistance to step down off exam table with personnel. Patient voiced full comprehension of instructions. documented in this encounter Plan of Treatment Upcoming Encounters Date Type Specialty Care Team Description 12/20/2021 Office Visit Family Medicine Joel Odomrebecca, DO [address] [place] [address] 01/11/2022 Cardiac Studies Cardiac Studies 12/18/2022 Office Visit Cardiology Pino Mckeon, DO [address] [place] [address] Scheduled Orders Name Type Priority Associated Diagnoses Orde r Schedule EKG EKG Routine Systemic primary arterial hypertension Ordered: 11/28/2021 ECHO, COMPLETE (2D), TRANS-THORACIC Echocardiology Routine Sinus tachycardia Essential hypertension with goal blood pressure less than 130/80 Expected: 11/28/2021 (Approximate), Expires: 12/29/2023 Health Maintenance Due Date Last Done Comments GARDASIL-HPV IMMUNIZATION SERIES (3 - Male 3-dose series) 05/07/2017 01/03/2017, 11/05/2016 Depression Screening, Annual for Pts 12 and Over 05/17/2020 05/17/2019 DTaP,Tdap,and Td Vaccines (7 - Td or Tdap) 06/27/2021 06/27/2011, 10/16/2004, 03/11/2001, Additional history exists Influenza Vaccine (FLU shot) (Season Ended) 2022 03/10/2013, 03/03/2012, 06/27/2011, Additional history exists BASIC METABOLIC PANEL (BMP) FOR HTN YEARLY 05/30/2022 05/30/2021, 06/04/2019, 10/21/2018, Additional history exists MENINGOCOCCAL (MENACTRA/MENVEO) Completed 01/03/2017, 06/27/2011 COVID-19 Vaccine Discontinued Pneumococcal Vaccine: Pediatrics (0 to 5 Years) and At-Risk Patients (6 to 64 Years) Aged Out No longer eligible based on patient's age to complete this topic documented as of this encounter Implants Not on filedocumented as of this encounter Visit Diagnoses Diagnosis Essential hypertension with goal blood pressure less than 130/80- Primary Systemic primary arterial hypertension Unspecified essential hypertension Sinus tachycardia Other specified cardiac dysrhythmias documented in this encounter Advance Directives Documents on File Type Date Recorded 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
--- OUTSIDE RECORDS SUMMARY | 2023-02-04 15:14 | External Medical Summary | Summary of Care ---
Author Name Unknown Organization [facility] Address [place] [address] Care Team Providers Care Hospice Care Sales Consultant Name Role Phone Joel Odom DO Primary Care Provider Reason for Visit * Reason Comments Outpatient Testing Encounter Details Date Type Department Care Team Description 05/30/2021 Laboratory Laboratory, [facility] [address] [facility] [place] [address] [facility] [address] Encounter for long-term (current) use of medications; Screening for diabetes mellitus Allergies No known active allergiesdocumented as of this encounter (statuses as of 05/30/2021) Medications Medication Sig Dispensed Refills Start Date End Date Status Lisinopril 20 MG Oral Tablet (Prinivil) Take 1 tablet by mouth once daily 90 Tab 0 03/13/2021 05/30/2021 Discontinued( Refill) Lisinopril 40 MG Oral Tablet Take 0.5 Tabs by mouth daily. 45 Tab 3 03/18/2021 05/30/2021 Discontinued( Medication List Clean Up) documented as of this encounter (statuses as [...] Laboratory [facility] [address] [place] [address] Arrived 08/29/2021 Office Visit Family Medicine Joel Odom DO [address] [place] [address] 11/28/2021 Office Visit Cardiology Pino Mckeon DO [address] [place] [address] Pending Results Name Type Priority Associated Diagnoses Date /Time BASIC METABOLIC PANEL Lab Routine Encounter for long-term (current) use of medications 05/30/2021 12:03 PM EST HEMOGLOBIN A1C Lab Routine Screening for diabetes mellitus 05/30/2021 1:06 PM EST Health Maintenance Due Date Last [...] for long-term (current) use of other medications Screening for diabetes mellitus documented in this encounter Advance Directives Documents on File Type Date 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
--- OUTSIDE RECORDS SUMMARY | 2023-02-04 15:14 | External Medical Summary | Summary of Care ---
Author Name Unknown Organization [facility] Address [place] [address] Care Team Providers Care Elementary Assistant Principal Name Role Phone Camelia Odom DO Primary Care Provider Reason for Visit * Reason Comments eRx-Medication Refill Encounter Details Date Type Department Care Team Description 03/10/2021 Refill Family Practice [facility] [address] [place] [address] Camelia Odom DO [address] [place] [address] [phone] Allergies No Known Active Allergiesdocumented as of this encounter (statuses as of 03/13/2021) Medications Medication Sig Dispensed Refills Start Date End Date Status Lisinopril 20 MG Oral Tablet (Prinivil) Take 1 tablet by mouth once daily 90 Tab 0 03/13/2021 Active Lisinopril 20 MG Oral Tablet (Prinivil) Take 1 tablet by mouth once daily 30 Tab 0 02/06/2021 03/13/2021 Discontinued documented as of this encounter (statuses as of 03/13/2021) Active Problems Problem Noted Date History of [...] as of this encounter (statuses as of 03/13/2021) Resolved Problems Problem Noted Date Resolved Date [...] as of this encounter (statuses as of 03/13/2021) Immunizations Name Administration Dates Next Due DTaP [...] Miscellaneous Notes * Telephone Encounter - Andree Peter RPh - 03/13/2021 5:39 AM EDT Signed Prescriptions: Disp Refills Lisinopril 20 MG Oral Tablet (Prinivil) 90 Tab 0 Sig: Take 1 tablet by mouth once dailyAuthorizing Provider: CAMELIA ODOM User: ANDREE PETER N * Telephone Encounter - Andree Peter RPh - 03/13/2021 5:38 AM EDT Lab appt 05/30 refill approved. Thank you, Andree Peter PharmD. 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
--- OUTSIDE RECORDS SUMMARY | 2023-02-04 15:14 | External Medical Summary | Summary of Care ---
Author Name Unknown Organization [facility] Address [place] [address] Care Team Providers Care Safety Advisor Name Role Phone Joel Odom DO Primary Care Provider Reason for Visit * Reason Comments Outpatient Testing Encounter Details Date Type Department Care Team Description 05/30/2021 Laboratory Laboratory, [facility] [address] [employer] [place] [phone] [facility] [address] Encounter for long-term [...] 05/30/2021 Office Visit Family Medicine Joel Odom, 132 [facility] [place] [address] Pending Results Name Type Priority Associated Diagnoses [...] Documents on File Type Date Recorded Patient Jigman Expl anation Advanced Directive Advanced Directive Advanced Directive Advanced Directive Advanced Directive Advanced Directive Advanced Directive Advanced Directive Advanced Directive Advanced Directive Advanced Directive Advanced Directive Advanced Directive 07/17/2018 11:14 AM Care Teams Safety Advisor Relationship Specialty Start Date End Date Joel Odom DO [address] [facility] [place] [address] PCP - General Family Medicine 05/14/18 documented as of this encounter
--- OUTSIDE RECORDS SUMMARY | 2023-02-04 15:14 | External Medical Summary | Summary of Care ---
Author Name Unknown Organization [facility] Address [place] [address] Care Team Providers Care Commissioned Police Officer Name Role Phone Joel Odom DO Primary Care Provider Reason for Visit * Reason Comments Follow Up Doing well, no srini rns Encounter Details Date Type Department Care Team Description 05/30/2021 Office Visit Family [facility] [address] [place] [address] Joel Odom DO [address] [place] [address] Morbid obesity due to excess calories (HCC)*; Obesity, morbid (more than 100 lbs over ideal weight or BMI > 40) (HCC); Genu varum, unspecified laterality; Systemic primary arterial hypertension; Encounter for long-term (current) use of medications; Screening for diabetes mellitus Allergies No known active allergiesdocumented as of this encounter (statuses as of 05/30/2021) Medications Medication Sig Dispensed Refills Start Date End Date Status Lisinopril 20 MG Oral Tablet (Prinivil) Take 1 Tablet by mouth daily. 90 Tablet 3 05/30/2021 Active Lisinopril 20 MG Oral Tablet (Prinivil) Take 1 tablet by mouth once daily 90 Tab 0 03/13/2021 Discontinued(Refi ll) Lisinopril 40 MG Oral Tablet Take 0.5 Tabs by mouth daily. 45 Tab 3 03/18/2021 Discontinued([facility] Clean Up) Chlorthalidone 25 MG Oral Tablet (Hygroton) Take 1 Tablet by mouth daily. In the morning. 90 Tablet 3 05/30/2021 1 Discontinued documented as of this encounter (statuses [...] Sign Reading Time Taken Comments Blood Pressure 154/98 05/30/2021 12:27 PM EST Pulse 90 05/30/2021 12:27 PM EST Temperature 36.3 C (97.4 F) 05/30/2021 12:[address] Respiratory Rate - - Oxygen Saturation 99% 05/30/2021 12:27 PM EST Inhaled Oxygen Concentration - - Weight 168.7 kg (372 lb) 05/30/2021 12:27 PM EST Height 189.2 cm (6' 2.5") 05/30/2021 12:27 PM ES T Body Mass Index 47.12 05/30/2021 12:27 PM EST documented in this encounter Patient Instructions * Patient Instructions* Joel Odom, - 05/30/2021 12:33 PM EST BMI (Body Mass Index) is the number obtained by dividing a person's weight in kilograms by his or her height in meters squared. BMI is used in determining obesity. BMI is not used to determine a person's actual percentage of body fat, but it is a good tool to doors prefitter weight in terms of what is healthy and unhealthy. It is used to identify adults at increased risk for developing weight related medical problems. Estimated body mass index is 47.12 kg/m as calculated from the following: Height as of this encounter: 1.892 m (6' 2.5"). Weight as of this encounter: 168.7 kg (372 lb). Severe Obesity - BMI 40 kg/m2 and above - Severely obese individuals are at a very high risk for developing: * Heart disease * Stroke * Diabetes * High Blood Pressure * High Cholesterol * GERD (acid reflux) * Sleep Apnea * Osteoarthritis * Fatty Liver Disease * Certain Types of Cancers * Gout * Gall Bladder Disease - Weight loss has been shown to decrease weight related medical problems. - A BMI of 40 kg/m2 or higher decreases lifespan by 10 yrs, compared to those with a normal BMI. - A 12-week weight management text message program is also available. Go to [employer] and seethe message under '[employer]' for more information and enrollment. Patient is Instructed to: Diet: * Limit total fat intake to no more than 40 grams per day (low fat diet). * Increase fruits and vegetables to 5 servings per day, combined. * Limited starches (breads, pasta, rice, potatoes, corn, cereals) to 4 servings per day. Avoid Calorie Containing Drinks: * No fruit juices, regular sodas or sweetened drinks. * Water is preferred - 64 ounces per day unless advised of a fluid restriction. * Diet sodas and drinks permitted. Keep Honest, Accurate Food logs: * www.Justinmind.InteKrin * www.Buzzoola.InteKrin * If you bite it - write it! Weigh Yourself Weekly: * Morning is best. * Try to do this outside your home. * Have a friend/spouse remind you to weigh yourself, accountability to others helps. Perform 30 minutes of physical activity daily: * Can do all at once or 5 minutes 6 times per day * 8, 000-10,000 steps per day using a pedometer * Make it fun! documented in this encounter Progress Notes * Joel Odom DO - 05/30/2021 12:33 PM EST Assessment and plan Morbid obesity due to excess calories (HCC) Discussed weight and need to get a handle on this Also discussed treatment of his HTN and the need to increase meds if he isn't able to reduce weight/BP on his own in the next few months, will be following up in short course Obesity, morbid (more than 100 lbs over ideal weight or BMI > 40) (HCC) Genu varum, unspecified laterality Systemic primary arterial hypertension Encounter for long-term (current) use of medications - Hemoglobin A1C; Future - Lipid Panel with Direct LDL if TG is High; Future Screening for diabetes mellitus - Hemoglobin A1C; Future Follow up Follow-up: Return in about 3 months (around 08/28/2021). | Check-out note: Please schedule back withKopinski for f/u Over due for f/u with him More labs today Subjective Cory Mora is a 20 year old male that presents for Follow Up (Doing well, no concerns) Doing well Does notice weight has increased due to eating Compliant with meds overall Worried about DMII Objective BP 154/98 | Pulse 90 | Temp 36.3 C (97.4 F) | Ht 1.892 m (6' 2.5") | Wt (!) 168.7 kg (372 lb) |SpO2 99% | BMI 47.12 kg/m | BSA 2.98 m Body mass index is 47.12 kg/m. BP Readings from Last 3 Encounters: 05/30/21 154/98 06/04/19 152/82 05/17/19 150/90 Wt Readings from Last 3 Encounters: 05/30/21 (!) 168.7 kg (372 lb) 05/16/20 (!) 164.1 kg (361 lb 11.2 oz) 06/04/19 (!) 155.5 kg (342 lb 14.4 oz) (>99 %, Z= 3.49)* * Growth percentiles are based on CDC (Boys, 2-20 Years) data. Physical Exam Vitals and nursing note reviewed. [...] and oriented to person, place, and time. Total time today including reviewing chart before the visit, pertinent labs, imaging reports, face to face time, and documentation time was 25 minutes. The above was discussed and understanding was expressed. Joel Odom DO Patient counseling on weight management given. documented in this encounter Plan of Treatment Upcoming Encounters Date Type Specialty Care Team Description 08/29/2021 Office Visit Family Medicine Joel Odom DO [address] [place] [id number] 11/28/2021 Office Visit Cardiology Pino Mckeon DO [address] [place] [id number] Pending Results Name Type Priority Associated Diagnoses Date /Time LIPID PANEL WITH DIRECT LDL IF TG IS HIGH Lab Routine Encounter for long-term (current) use of medications 05/30/2021 12:03 PM EST HEMOGLOBIN A1C Lab Routine Screening for diabetes mellitus 05/30/2021 1:06 PM EST Scheduled Orders Name Type Priority Associated Diagnoses Orde r Schedule HEMOGLOBIN A1C Lab Routine Encounter for long-term (current) use of medications Expected: 05/30/2021 (Approximate), Expires: 05/30/2022 LIPID PANEL WITH DIRECT LDL IF TG IS HIGH Lab Routine Encounter for long-term (current) use of medications Expected: 05/30/2021, Expires: 05/30/2022 HEMOGLOBIN A1C Lab Routine Screening for diabetes mellitus Expected: 05/30/2021 (Approximate), Expires: 05/30/2022 Health Maintenance Due Date Last Done Comments [...] as of this encounter Visit Diagnoses Diagnosis Morbid obesity due to excess calories (HCC)- Primary Obesity, morbid (more than 100 lbs over ideal weight or BMI > 40) (HCC) Morbid obesity Genu varum, unspecified laterality Systemic primary arterial hypertension Unspecified essential hypertension Encounter for long-term (current) use of medications Encounter for long-term (current) use of other medications Screening for diabetes mellitus documented in this encounter Advance Directives Documents on File Type Date Recorded 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
--- OUTSIDE RECORDS SUMMARY | 2023-02-04 15:14 | External Medical Summary ---
Author Name Unknown Address Unknown Organization K0G:[facility] [place] [address] [place] [address] Laboratory Report Ordering Provider Test Date Status LILLIANA PRATHER 05/30/2021 12:03:14 Final Observation Date Value Abnormality Reference (Units ) Status BUN 05/30/2021 12:03:14 18 6-20 (mg/dL) Final Creatinine 05/30/2021 12:03:14 0.9 0.6-1.2 (mg/dL) Final Glomerular filtration rate/1.73 sq M.predicted [Volume Rate/Area] in Serum, Plasma or Blood by Creatinine-based formula (CKD-EPI) 05/30/2021 12:03:14 >90 >=60 (mL/min) Final Performing Location [facility] [employer] [address] [place] [address]
--- OUTSIDE RECORDS SUMMARY | 2023-02-04 15:14 | External Medical Summary | Summary of Care ---
Author Name Unknown Organization [facility] Address [place] [address] Care Team Providers Care Data Analytics Specialist Name Role Phone Anibal Odomvoyaakov Caldwell Primary Care Provider Reason for Referral * Evaluate & Treat - Unlimited Visits (Within 10 days (routine)) - Authorized Specialty Diagnoses / Procedures Referred By Barbara cooper Referred To Contact Physical Therapy / Physical Medicine And Rehab Diagnoses Chronic midline low back pain with sciatica, sciatica laterality unspecified Divya Rosario CRNP [address] [place] [address] [id number] Referral ID Status Reason Start Date Expiration Date Visits Requested Visits Authorized [id number] Authorized Specialty Services Required 03/05/2022 999 999 Question Answer Referral Priority Within 10 days (routine) Reason for Visit * Reason Comments Acute L leg numbness and y ellow tinged mucus with cough Encounter Details Date Type Department Care Team Description 03/05/2022 Office Visit Family Practice [facility] [address] [place] [address] [phone] Divya Rosario CRNP [address] [place] [id number] Chronic midline low back pain with sciatica, sciatica laterality unspecified*; Obesity, morbid (more than 100 lbs over ideal weight or BMI > 40) (HCC); HTN, goal below 140/90; Hypertrophy of both inferior nasal turbinates; Acute sinusitis, recurrence not specified, unspecified location Allergies No known active allergiesdocumented as of this encounter (statuses as of 03/05/2022) Medications Medication Sig Dispensed Refills Start Date End Date Status Lisinopril 20 MG Oral Tablet (Prinivil) Take 1 Tablet by mouth daily. 90 Tablet 3 05/30/2021 Active Amoxicillin-Pot Clavulanate 875-125 MG Oral TabletIndications:Ac faraz sinusitis, recurrence not specified, unspecified location Take by mouth 1 Tablet in the morning AND 1 Tablet before bedtime. Do all this for 10 days. 20 Tablet 0 03/05/2022 03/15/2022 Active predniSONE 20 MG Oral Tablet (Deltasone)Indicatio ns:Acute sinusitis, recurrence not specified, unspecified location Take by mouth 2 Tablets in the morning for 5 days. 10 Tablet 0 03/05/2022 03/10/2022 Active documented as of this encounter (statuses as of 03/05/2022) Active Problems Problem Noted Date History of [...] as of this encounter (statuses as of 03/05/2022) Resolved Problems Problem Noted Date Resolved Date [...] as of this encounter (statuses as of 03/05/2022) Immunizations Name Administration Dates Next Due DTaP [...] Sign Reading Time Taken Comments Blood Pressure 140/82 03/05/2022 1:47 PM EDT Pulse 101 03/05/2022 1:47 PM EDT Temperature 37.7 C (99.8 F) 03/05/2022 1:47 PM ED T Respiratory Rate - - Oxygen Saturation 98% 03/05/2022 1:47 PM EDT Inhaled Oxygen Concentration - - Weight 164.1 kg (361 lb 11.2 oz) 03/05/2022 1:47 PM EDT Height - - Body Mass Index 45.82 05/30/2021 12:27 PM EST documented in this encounter Progress Notes * M[place]ANA Pompa - 03/05/2022 1:56 PM EDT Images from the original note were not included. History of Present Illness Cory Mora is a 21 year old male that presents for Acute (L leg numbness and yellow tinged mucuswith cough ) HPI 2 complaints: URI symptoms x 1 mo; had covid 3 weeks ago Cough, productive, yellow thick mucous in mornings. No dyspnea. No fevers, chills n/v/d. No malaise. Took some OTC cold/flu meds with covid infection but none in a week or so. Intermittent L leg "numbness" that's not really numbness -- can't describe but it is an altered sensation of his leg despite being able to feel and move it. Lasts for 5 seconds. A few times a day. Increasing in frequency. No swelling or temperature changes or claudication or pain. Full mobility. Occ midline low back pain. No bowel/bladder dysfunction. No hip popping/clicking. No joints giving out. No weakness. Will happen when crouching, sitting, or standing but not usually while walking around. Physical Exam Vitals: 03/05/22 1347 Temp: 37.7 C (99.8 F) Pulse: 101 SpO2: 98% BP: 140/82 Physical Exam Vitals reviewed. Constitutional: Appearance: Normal appearance. HENT: Head: Normocephalic and atraumatic. Right Ear: Tympanic membrane, ear canal and external ear normal. Left Ear: Tympanic membrane, ear canal and external ear normal. Nose: Nose normal. Mouth/Throat: Mouth: Mucous membranes are moist. Eyes: Extraocular Movements: Extraocular movements intact. Conjunctiva/sclera: Conjunctivae normal. Pupils: Pupils are equal, round, and reactive to light. Cardiovascular: Rate and Rhythm: Normal rate and regular rhythm. Pulses: Normal pulses. Heart sounds: Normal heart sounds. Pulmonary: Effort: Pulmonary effort is normal. Breath sounds: Normal breath sounds. Musculoskeletal: Cervical back: Normal range of motion and neck supple. Lumbar back: No spasms or tenderness. Right hip: No tenderness. Normal range of motion. Normal strength. Left hip: No tenderness. Normal range of motion. Normal strength. Right lower leg: No edema. Left lower leg: No edema. Skin: General: Skin is warm and dry. Capillary Refill: Capillary refill takes less than 2 seconds. Findings: No erythema. Neurological: Mental Status: He is alert and oriented to person, place, and time. Sensory: No sensory deficit. Motor: No weakness. Gait: Gait normal. Deep Tendon Reflexes: Reflexes normal. Psychiatric: Behavior: Behavior normal. Assessment and Plan Chronic midline low back pain with sciatica, sciatica laterality unspecified Suspect symptoms are radicular -- has had back pain on and off for some time. Will rx steroid and recommend PT. Recheck 8 weeks. F/u if worsening or any red flag symptoms occur - XR L SPINE AP AND LATERAL - PHYSICAL THERAPY REFERRAL OP Obesity, morbid (more than 100 lbs over ideal weight or BMI > 40) (HCC) HTN, goal below 140/90 Hypertrophy of both inferior nasal turbinates Acute sinusitis, recurrence not specified, unspecified location - discussed supportive care, indications for f/u or ER - Amoxicillin-Pot Clavulanate 875-125 MG Oral Tablet; Take by mouth 1 Tablet in the morning AND 1 Tablet before bedtime. Do all this for 10 days. - predniSONE 20 MG Oral Tablet (Deltasone); Take by mouth 2 Tablets in the morning for 5 days. Wrap-Up Follow Up: Return in about 8 weeks (around 04/30/2022), or if symptoms worsen or fail to improve. Time: I spent a total of 20-29 minutes (exact time 20 mins) on the date of service in preparation, delivery, and documentation of the care provided to Cory Mora excluding any time spent in the performance of separately billed services. documented in this encounter Nursing Notes * Jeanna Mendoza LPN - 03/05/2022 1:42 PM EDT The patient has been properly identified by confirmation of name and date of . Chief Complaint Patient presents with Acute L leg numbness and yellow tinged mucus with cough Pt states end of Aug his leg starts at hips goes to toes. Occasional numbness that pt states is difficult to explain. Has happened up to 3 times one day and frequent at night. Tested positive on at home COIVD test 2 weeks, tested negative a few days ago still experiencing Sxa lot of mucus epically in morning. documented in this encounter Plan of Treatment Upcoming Encounters Date Type Specialty Care Team Description 05/02/2022 Office Visit Family Medicine Joel Odom, [address] [place] [address] 12/18/2022 Office Visit Cardiology Pino Mckeon, [address] [place] [phone] Pending Results Name Type Priority Associated Diagnoses Date /Time XR L SPINE AP AND LATERAL Medical Imaging STAT Chronic midline low back pain with sciatica, sciatica laterality unspecified 03/05/2022 2:29 PM EDT Scheduled Referrals Name Type Priority Associated Diagnoses Orde r Schedule PHYSICAL THERAPY REFERRAL OP Referral Within 10 days (routine) Chronic midline low back pain with sciatica, sciatica laterality unspecified Ordered: 03/05/2022 Health Maintenance Due Date Last Done Comments [...] as of this encounter Visit Diagnoses Diagnosis Chronic midline low back pain with sciatica, sciatica laterality unspecified- Primary Obesity, morbid (more than 100 lbs over ideal weight or BMI > 40) (HCC) Morbid obesity HTN, goal below 140/90 Unspecified essential hypertension Hypertrophy of both inferior nasal turbinates Hypertrophy of nasal turbinates Acute sinusitis, recurrence not specified, unspecified location documented in this encounter Advance Directives Documents on File Type Date Recorded 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 Advanced Directive Advanced Directive Advanced Directive Advanced Directive Advanced Directive Advanced Directive Advanced Directive Advanced Directive Advanced Directive Advanced Directive Advanced Directive Advanced Directive Advanced Directive Advanced Directive Advanced Directive Advanced Directive Advanced Directive Advanced Directive Advanced Directive Advanced Directive Advanced Directive Advanced Directive Advanced Directive 07/17/2018 11:14 AM Care Teams Data Analytics Specialist Relationship Specialty Start Date End Date Joel Odom DO [address] [place] [address] PCP - General Family Medicine 05/14/18 documented as of this encounter
--- OUTSIDE RECORDS SUMMARY | 2023-02-04 15:14 | External Medical Summary | Summary of Care ---
Author Name Unknown Organization [facility] Address [facility] [place] [address] Care Team Providers Care Funeral Pre Arrangement Counselor Name Role Phone Joel Odom DO Primary Care Provider Encounter Details Date Type Department Care Team Description 02/11/[address] [place] [phone] Ariela Bay PA-C [address] [place] [address] [place] [address] Numbness of leg* Allergies No known active allergiesdocumented as of this encounter (statuses as of 02/11/2022) Medications Medication Sig Dispensed Refills Start Date End Date Status Lisinopril 20 MG Oral Tablet (Prinivil) Take 1 Tablet by mouth daily. 90 Tablet 3 05/30/2021 Active documented as of this encounter (statuses as of 02/11/2022) Active Problems Problem Noted Date History of [...] as of this encounter (statuses as of 02/11/2022) Resolved Problems Problem Noted Date Resolved Date [...] as of this encounter (statuses as of 02/11/2022) Immunizations Name Administration Dates Next Due DTaP [...] as of this encounter Progress Notes * Ariela Bay PA-C - 02/11/2022 3:05 PM EDT Patient location: HOME. I was in a hospital or clinic location. After connecting through [employer],patient was verified with two unique identifiers. Patient (or authorized legal appliance service representative) was then informed that this was a Telemedicine visit and being conducted confidentially over secure lines. Methods to assure confidentiality were taken. Patient acknowledged consent and understanding of pr ivacy and security of the Telemedicine visit. The patient agreed to participate. Pt with numbness at right leg for the past couple weeks. It happens randomly and lasts about 5 seconds. It happens about once a day and at night time. Pt denies restless legs, swelling, redness, bruising. Pt denies weakness in leg. He is able to walk with no difficulty. No tingling in leg. No lowerback pain. No bowel or bladder issues. Pt states that he drinks a lot of water. Review of patient's allergies indicates: No Known Allergies Current Outpatient Medications Medication Sig Dispense Refill Lisinopril 20 MG Oral Tablet (Prinivil) Take 1 Tablet by mouth daily. 90 Tablet 3 No current facility-administered medications for this visit. Past Medical History: Diagnosis Date Closed fracture of unspecified bone age 2 Fracture of 2-3rd metatarsal bones Social History Socioeconomic History Marital status: Single Spouse name: Not on file Number of children: Not on file Years of education: Not on file Highest education level: Not on file Occupational History Not on file Tobacco Use Smoking status: Never Smoker Smokeless tobacco: Current User Types: Snuff Tobacco comment: can last [...] on file Housing Stability: Not on file O:There were no vitals taken for this visit. Telemed visit A:Numbness of leg (Primary) - CBC WITH WBC DIFFERENTIAL AND ANEMIA REFLEX WORKUP; Future; Expected date: 02/11/2022 - BASIC METABOLIC PANEL; Future; Expected date: 02/11/2022 - TSH WITH FREE T4 IF INDICATED; Future; Expected date: 02/11/2022 Will check some labs. Needs in office visit to evaluate this further. Any questions/problems, please call. If anything changes, worsens, develops new sx, please call [facility]. Follow Up: Return if symptoms worsen or fail to improve. Ariela Bay PA-C documented in this encounter Plan of Treatment Upcoming Encounters Date Type Specialty Care Team Description 05/02/2022 Office Visit Family Medicine Joel Odom, [address] [place] [address] 12/18/2022 Office Visit Cardiology Pino Mckeon DO [address] [place] [address] Scheduled Orders Name Type Priority Associated Diagnoses Orde r Schedule CBC WITH WBC DIFFERENTIAL AND ANEMIA REFLEX WORKUP Lab Routine Numbness of leg Expected: 02/11/2022 (Approximate), Expires: 02/11/2023 BASIC METABOLIC PANEL Lab Routine Numbness of leg Expected: 02/11/2022 (Approximate), Expires: 02/11/2023 TSH WITH FREE T4 IF INDICATED Lab Routine Numbness of leg Expected: 02/11/2022 (Approximate), Expires: 02/11/2023 Health Maintenance Due Date Last Done Comments [...] as of this encounter Visit Diagnoses Diagnosis Numbness of leg- Primary Disturbance of skin sensation documented in this encounter Advance Directives Documents on File Type Date Recorded 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 Advanced Directive Advanced Directive Advanced Directive Advanced Directive Advanced Directive Advanced Directive Advanced Directive Advanced Directive Advanced Directive Advanced Directive Advanced Directive Advanced Directive Advanced Directive Advanced Directive Advanced Directive Advanced Directive Advanced Directive Advanced Directive Advanced Directive Advanced Directive Advanced Directive 07/17/2018 11:14 AM Care Teams Funeral Pre Arrangement Counselor Relationship Specialty Start Date End Date Joel Odom DO [address] [place] [address] PCP - General Family Medicine 05/14/18 documented as of this encounter
--- OUTSIDE RECORDS SUMMARY | 2023-02-04 15:15 | External Medical Summary ---
Author Name Unknown Address [address] [facility] [place] [address] Phone [place] [place] [employer] [address] [facility] [place] [address] Laboratory Report Ordering Provider Test Date Status CELIA PRIESTVANESSA 06/04/2019 08:27:00 Final Observation Date Value Abnormality Reference (Units ) Status BUN 06/04/2019 10:08 17 6-20 (mg/dL) Final Creatinine 06/04/2019 10:08 0.9 0.6-1.2 (mg/ dL) Final E Glom Filt Rate 06/04/2019 10:08 >60.0 >60 Final Performing Location [facility] [place] [employer] [address] [facility] [place] [address]
--- OUTSIDE RECORDS SUMMARY | 2023-02-04 15:15 | External Medical Summary | Summary of Care ---
Author Name Unknown Organization [facility] Address [place] [address] Care Team Providers Care Artist Consultant Name Role Phone Joel Odom DO Primary Care Provider Reason for Visit * Reason Comments Physical-Exam no concerns Encounter Details Date Type Department Care Team Description 05/17/2019 Office Visit Family [facility] [address] [place] [address] Joel Odom DO [address] [place] [address] [phone] Morbid obesity due to excess calories (HCC)*; HTN, goal below 140/90; Systemic primary arterial hypertension Allergies No Known Allergiesdocumented as of this encounter (statuses as of 05/17/2019) Medications Medication Sig Dispensed Refills Start Date End Date Status lisinopril (PRINIVIL) 20 MG Tablet Take 1 Tab by mouth daily. 90 Tab 3 05/17/2019 Active lisinopril (PRINIVIL) 10 MG TabletIndications:H TN, goal below 140/90 Take 1 Tab by mouth daily. 90 Tab 3 12/16/2018 05/17/2019 Discontinued documented as of this encounter (statuses as of 05/17/2019) Active Problems Problem Noted Date Obesity, morbid (more than 100 lbs over ideal weight or BMI > 40) 07/28/2018 Morbid obesity due to excess calories Exotropia of both eyes 03/10/2017 Systemic primary arterial hypertension 0 11/15/2016 Overview: RX lisinopril COLOR BLINDNESS OTHER COLOR DEFICIENCIES 10/16/2004 Genu varum 09/10/2000 documented as of this encounter (statuses as of 05/17/2019) Resolved Problems Problem Noted Date Resolved Date [...] as of this encounter (statuses as of 05/17/2019) Immunizations Name Administration Dates Next Due DTaP - Dipth/Tet/Acell Pertussis 005,03/11/2001,03/18/2000,12/31,1999 HIB Hep B - HIB Hepatitis B (Comvax) 12/09/2000, 01/16/2000,1999 HPV Vaccine, 9-Valent 01/03/2017,11/05/2016 IPV - Polio Virus Vaccine (Inact) 2004,03/11/2001,01/16/2000,11/01 MMR - Measles/Mumps/Rubella Vaccine 10/16/2004,0 09/10/2000 Meningococcal Conjugate Vacc ine (Menactra/Menveo) 01/03/2017,06/27/2011 Pneumococcal Conjugate Vacci ne, 7 Valent 12/09/2000,06/10/2000,03/18/2000 Seasonal Influenza, Trivalen t, No Preserve, 6-35 mos, Split 03/30/2002 04/30/2002 Seasonal Influenza, Trivalen t, with Preserve, 3yr & Above, Split 06/27/2011,03/22/2003,05/13/2002 TDAP (age 11 and older)(Adacel) 06/27/2011 [...] file Not on file Not on file Travel History Travel Start Travel End documented as of this encounter Last Filed Vital Signs Vital Sign Reading Time Taken Comments Blood Pressure 150/90 05/17/2019 9:40 AM EST Pulse 100 05/17/2019 9:40 AM EST Temperature 36.8 C (98.3 F) 05/17/2019 9:40 AM ES T Respiratory Rate 18 05/17/2019 9:40 AM EST Oxygen Saturation - - Inhaled Oxygen Concentration - - Weight 155.6 kg (343 lb) 05/17/2019 9:40 AM EST Height 189.2 cm (6' 2.5") 05/17/2019 9:40 AM EST Body Mass Index 43.45 05/17/2019 9:40 AM EST documented in this encounter Patient Instructions * Patient Instructions* Joel Odom, DO - 05/17/2019 9:50 AM EST BMI (Body Mass Index) is the number obtained by dividing a person's weight in kilograms by his or her height in meters squared. BMI is used in determining obesity. BMI is not used to determine a person's actual percentage of body fat, but it is a good tool to accessioner weight in terms of what is healthy and unhealthy. It is used to identify adults at increased risk for developing weight related medical problems. Estimated body mass index is 43.45 kg/m as calculated from the following: Height as of this encounter: 1.892 m (6' 2.5"). Weight as of this encounter: 155.6 kg (343 lb). Severe Obesity - BMI 40 kg/m2 [...] message program is also available. Go to [employer] and seethe message under '[email or web address] News' for more information and enrollment. Patient [...] permitted. Keep Honest, Accurate Food logs: * www.Silatronix.5o9 * www.LeadPages.5o9 * If you bite it - write [...] Progress Notes * Joel Odom DO - 05/17/2019 9:50 AM EST Nursing Notes: Shauna Murrell LPN 05/17/19 0942 Signed The patient has been properly identified by confirmation of name and date of . Chief Complaint Patient presents with Physical-Exam no concerns ASSESSMENT/PLAN: 1. Morbid obesity due to excess calories (HCC) Provided education and specific dietary counseling for weight loss - BASIC METAB PANEL, BMP; Future - ALBUMIN / CREATININE RATIO, URINE; Future 2. HTN, goal below 140/90 Educated on pre reduction and its impact on his blood pressure, for now will increase to 20 mg and have patient monitor at home - BASIC METAB PANEL, BMP; Future - ALBUMIN / CREATININE RATIO, URINE; Future 3. Systemic primary arterial hypertension As above HPI: Cory Mora is a 18 year old male who: Presents today for f/u for his weight, BP. Doing well overall, denies symptoms. Takes BP med daily,but in morning. Has struggled with weight loss, nose that this would help his blood pressure. Did quit chewing tobacco ROS: CONSTITUTIONAL: no weight loss, no fevers, no sweats HEENT: no change in vision or hearing, no congestion, no sore throat CARDIAC: no chest pain, no palpitations, no orthopnea, no HOUSE, no syncope RESP: no wheezing and no SOB GI: no pain, no NVDC, no melena/hematochezia SKIN: no rashes MSK: no significant joint or muscle pain and no swelling : no dysuria or discharge NEURO: no memory loss, no numbness PSYCH: no SI/HI PHYSICAL EXAMINATION: BP 150/90 | Pulse 100 | Temp (Src) 98.3 (Tympanic) | Resp 18 | Ht 6' 2.5" (1.892m) | Wt 343 lbs (155.584kg) | BMI 43.45 kg/m | BSA 2.86 m GENERAL: alert, healthy, no distress, well nourished and well developed HEAD: normocephalic, atraumatic EYES: PERRL, EOMI, Conjunctiva are pink and non-injected, sclera clear EARS: External ears normal, Canals clear, TM's Normal NOSE: no mucosal erythema, no mucosal edema, no purulent discharge OROPHARYNX: no exudate, no erythema, lips, buccal mucosa, and tongue normal, mucous membranes are moist and dentition normal NECK: supple, no adenopathy, thyroid normal size, non-tender, without nodularity HEART: regular rate & rhythm, no murmurs and no gallops LUNGS: clear to auscultation bilaterally. No wheezing/rales/rhonchi ABDOMEN: abdomen soft, non-tender, normal bowel sounds and no masses or organomegaly SKIN: skin color, texture, turgor are normal, no rashes or significant lesions EXTREMITIES: no joint deformities, effusion, or inflammation, no edema, no clubbing, no cyanosis, Full ROM, Pulses Intact, Strength equal bilaterally NEURO: alert & oriented x 3 with fluent speech, no focal motor/sensory deficits, gait normal, reflexes normal and symmetric MSK:normal strength and ROM Patient Active Problem List Diagnosis Code Genu varum M21.169 COLOR BLINDNESS OTHER COLOR DEFICIENCIES H53.50 Chewing tobacco use Z72.0 Systemic primary arterial hypertension I10 Exotropia of both eyes H50.10 Morbid obesity due to excess calories ([facility]) E66.01 Obesity, morbid (more than 100 lbs over ideal weight or BMI > 40) ([facility]) E66.01 Past Medical History: Diagnosis Date Closed fracture of unspecified bone age 2 Fracture of 2-3rd metatarsal bones Past Surgical History: Procedure Laterality Date CONTROL OF NOSEBLEED, COMPLEX Right 07/27/2015 CONTROL NASAL HEMORRHAGE ANTERIOR COMPLEX performed by Sheng Howe DO at OR [facility] KNEE ARTHROSCOPY/MENISCECTOMY Right 06/2017 Right [facility], [place], [place] was OK. REVISE TWO HORIZONTAL EYE MUSCLES Bilateral 07/28/2018 STRABISMUS SURGERY RECESSION OR RESECTION TWO HORIZONTAL MUSCLES performed [place] Pino Smiley MD [place] [facility] [place] Current Outpatient Medications Medication Sig Dispense Refill lisinopril (PRINIVIL) 10 MG Tablet Take 1 Tab by mouth daily. 90 Tab 3 Review of patient's allergies indicates: No Known Allergies Joel Odom DO Family Practice [facility] [address] [facility] [id number] (This note was completed using the dictation program Fluency Direct. As such, there may be misspellings, word substitutions, or other variations that should not change the essence of the clinical content of this encounter note.If there is need for further clarification, please direct questions to the provider listed above.) Patient counseling on weight management given. documented in this encounter Nursing Notes * Shauna Murrell LPN - 05/17/2019 9:40 AM EST The patient has been properly identified by confirmation of name and date of . Chief Complaint Patient presents with Physical-Exam no concerns documented in this encounter Plan of Treatment Upcoming Encounters Date Type Specialty Care Team Description 06/04/2019 Office Visit Cardiology Pino Mckeon, DO [address] [facility] [place] [address] [phone] 07/16/2019 Office Visit Ophthalmology Pino Smiley MD [address] [place] [address] [phone] 11/16/2019 Office Visit Family Medicine Joel Odom, DO [address] [facility] [place] [address] [phone] Scheduled Orders Name Type Priority Associated Diagnoses Orde r Schedule BASIC METAB PANEL, BMP Lab Routine Morbid obesity due to excess calories (HCC) HTN, goal below 140/90 Expected: 05/17/2019 (Approximate), Expires: 05/16/2020 ALBUMIN / CREATININE RATIO, URINE Lab Routine Morbid obesity due to excess calories (HCC) HTN, goal below 140/90 Expected: 05/17/2019 (Approximate), Expires: 05/16/2020 Health Maintenance Due Date Last Done Comments GARDASIL-HPV IMMUNIZATION SERIES (3 - Male 3-dose series) 05/07/2017 01/03/2017, 11/05/2016 18 YEAR WELLNESS VISIT 09/06/2018 Influenza Vaccine (FLU shot) (#1) 2019 03/10/2013, 03/03/2012, 06/27/2011, Additional history exists *DEPRESSION SCREENING,ANNUAL FOR PTS 12 AND OVER 05/17/2019 DTaP,Tdap,and Td Vaccines (7 - Td) 06/27/2021 06/27/2011, 10/16/2004, 03/11/2001, Additional history exists MENINGOCOCCAL (MENACTRA) Completed 01/03/2017, 06/03 Pneumococcal Vaccine: Pediatrics (0 to 5 Years) and At-Risk Patients (6 to 64 Years) Aged Out No longer eligible based on patient's age to complete this topic documented as of this encounter Implants Not on filedocumented as of this encounter Visit Diagnoses Diagnosis Morbid obesity due to excess calories (HCC)- Primary HTN, goal below 140/90 Unspecified essential hypertension Systemic primary arterial hypertension Unspecified essential hypertension documented in this encounter Advance Directives Documents on File Type Date Recorded Patient Pad Tufter Expl anation Advanced Directive Advanced Directive Advanced Directive Advanced Directive Advanced Directive Advanced Directive 07/17/2018 11:14 AM Advanced Directive Advanced Directive
--- OUTSIDE RECORDS SUMMARY | 2023-02-04 15:15 | External Medical Summary | Summary of Care ---
Author Name Unknown Organization [facility] Address [place] [address] Care Team Providers Care Band Teacher Name Role Phone Joel Odom DO Primary Care Provider Reason for Visit * Reason Comments NEW PATIENT epistaxis * Evaluate & Treat - Unlimited Visits (Within 10 days (routine)) Status Reason Specialty Diagnoses / Procedures Referred By Contact Referred To Contact Authorized Specialty Services Required Otolaryngology Diagnoses Recurrent epistaxis Simona Self DO [address] [facility] [place] [address] Encounter Details Date Type Department Care Team Description 05/16/2020 Office Visit Otolaryngology [facility] [address] [facility] [place] [address] Champ Hauser II, MD [address] [facility] [place] [address] History of epistaxis*; Hypertrophy of both inferior nasal turbinates; Deviated nasal septum Allergies No Known Active Allergiesdocumented as of this encounter (statuses as of 05/16/2020) Medications Medication Sig Dispensed Refills Start Date End Date Status Lisinopril 20 MG Oral Tablet (PRINIVIL) Take 1 Tab by mouth daily. 90 Tab 1 05/01/2020 Active documented as of this encounter (statuses as of 05/16/2020) Active Problems Problem Noted Date History of [...] as of this encounter (statuses as of 05/16/2020) Resolved Problems Problem Noted Date Resolved Date [...] as of this encounter (statuses as of 05/16/2020) Immunizations Name Administration Dates Next Due DTaP [...] Assigned at Date Recorded Not on file documented as of this encounter Last Filed Vital Signs Vital Sign Reading Time Taken Comments Blood Pressure - - Pulse - - Temperature 36.8 C (98.2 F) 05/16/2020 1 0:48 AM EST Respiratory Rate - - Oxygen Saturation - - Inhaled Oxygen Concentration - - Weight 164.1 kg (361 lb 11.2 oz) 2019 10:48 AM EST Height 189.2 cm (6' 2.5") 05/16/2020 10 :48 AM EST Body Mass Index 45.82 05/16/2020 10:48 AM EST documented in this encounter Progress Notes * Murtaza SANDOVAL, Champ Manzano MD - 05/16/2020 12:29 PM EST Nursing Notes: Domi Smith LPN 05/16/20 1054 Signed Chief Complaint Patient presents with NEW PATIENT epistaxis Cory Mora is a 19 year old male who presents today for evaluation of left sided epistaxis. He can have 3-4 a day and at times he will only have one a week. They last anywhere from 5-10 minutes. He uses a wood stove for heat and will have a pot of water placed on it to help humidify air. He doesnot use humidifier, Vaseline or [place]. His last nosebleed was two days ago. He reports that one out of every several times he blows his nose it will cause a nosebleed. Last Office/Telemedicine Visit: 06/19/2016 ASSESSMENT/PLAN: S00.431D Hematoma auricle/pinna, right, subsequent encounter (primary encounter diagnosis) Plan: Return to work or school Plan: Findings of examination and recommendations were discussed with the patient. Bolster removed and ear improved and healthy. He can return to wrestling with headgear. 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 H53.50 Systemic primary arterial hypertension I10 Exotropia of both eyes H50.10 Morbid obesity due to excess calories ([facility]) E66.01 Obesity, morbid (more than 100 lbs over ideal weight or BMI > 40) ([facility]) E66.01 Past Medical History: Diagnosis Date Closed fracture of unspecified bone age 2 Fracture of 2-3rd metatarsal bones Past Surgical History: Procedure Laterality Date CONTROL OF NOSEBLEED, COMPLEX Right 07/27/2015 CONTROL NASAL HEMORRHAGE ANTERIOR COMPLEX performed by Sheng Howe DO at OR [facility] KNEE ARTHROSCOPY/MENISCECTOMY Right 06[place]2017 [place] [place]. REVISE TWO HORIZONTAL EYE MUSCLES Bilateral 07/28/2018 STRABISMUS SURGERY RECESSION OR RESECTION TWO HORIZONTAL MUSCLES performed [place] Pino Smiley MD [place] [facility] [place] Current Outpatient Medications Medication Sig Dispense Refill Lisinopril 20 MG Oral Tablet (PRINIVIL) Take 1 Tab by mouth daily. 90 Tab 1 Allergies Review of patient's allergies indicates: No Known Allergies Family History Family History Problem Relation Age of Onset Diabetes Grandfather (Paternal) Hypertension Father Hypertension Grandfather (Paternal) Heart Disorder Grandfather (Maternal) from [place] at 33 y.o. 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 THIS WAS REVIEWED BY ME WITH THE PATIENT AND WILL BE SCANNED INTO THE PATIENT'S CHART. Areas covered were pulmonary","hepatic","renal"," digestive","hematologic","epileptic","syncopal","musculo-skeletal","mental health","integumentary","hypertensive","lipid","arthritic","diabetic", "thyroid", and "neurologic" disorders. Physical Examination: Temp 36.8 C (98.2 F) (Tympanic) | Ht 1.892 m (6' 2.5") | Wt (!) 164.1 kg (361 lb 11.2 oz) | BMI45.82 kg/m | BSA 2.94 m Procedure: Nasal endoscopy (14487) Due to limitations of a mirror exam and need for comprehensive evaluation of the upper airway, fiberoptic examination of the upper airway was performed. The flexible fiberoptic scope was passed through both nostrils. The septum was DEVIATED TO THE LEFT WITH ABOUT 50% OBSTRUCTION OF THE RIGHT NASAL AIRWAY, but was without perforation or ulcerations. THERE WAS AN AREA OF EXCORIATION IN THE RIGHT ANTERIOR SEPTUM. THERE WAS NO OLD OR NEW BLOOD IN THE NOSE. Nasal mucosa was found to be SLIGHTLY EDEMATOUS. Turbinates were SLIGHTLY hypertrophied. Middle meatus was without polyps, masses, or pus. Nasopharynx was visualized and was without masses, polyps, or lesions. ++++ SPECIFICALLY, THERE WAS NO JUVENILE ANGIOFIBROMA. Tongue base was WNL. Vocal cord mobility and appearance was normal without paralysis or paresis. There was no significant edema or erythema of the larynx. Hypopharyngeal exam showed that there was no pooling of secretions in the hypopharynx and no mass effect. The patient tolerated the procedure well. Given all of the above, the assessment and plan from today's visit is as follows. (Z87.678) History of epistaxis (primary encounter diagnosis) Plan: NASAL ENDOSCOPY, DIAGNOSTIC Epistaxis management today was discussed as per below Epistaxis (Nosebleed) Instructions 1. [place] Nasal [place]: Use 2 squirts in each nostril every hour. 2. [place] Nasal Saline Gel in each nostril every one-to-four hours. 3. Use a humidifier in the home, especially in the bedroom. 4. DO NOT blow your nose. 5. DO NOT manipulate your nose. 6. DO NOT pick at your nose. 7. Avoid bending over. 8. DO NOT strain in the bathroom. 9. Sneeze with your mouth open. 10. If your nose starts bleeding, pinch your nose for 10 minutes. 11. DO NOT put anything in the nose to stop the bleeding. The patient was given a written instruction sheet concerning epistaxis precautions. Specifically hewas instructed to avoid touching the nose, nose blowing, and sneezing with the mouth closed and bending or straining. He was further instructed to use [place] nasal saline spray several times per day and a humidifier at night. If the nose starts to bleed, they are instructed to hold pressure for ten minutes and call ENT if the bleeding persists. He will follow up on an as needed basis. (J34.3) Hypertrophy of both inferior nasal turbinates Plan: NASAL ENDOSCOPY, DIAGNOSTIC THIS MAY OR MAY NOT REQUIRE SURGICAL INTERVENTION. (J34.2) Deviated nasal septum Plan: NASAL ENDOSCOPY, DIAGNOSTIC THIS MAY OR MAY NOT REQUIRE SURGICAL INTERVENTION. documented in this encounter Nursing Notes * Domi Smith LPN - 05/16/2020 10:49 AM EST Chief Complaint Patient presents with NEW PATIENT epistaxis Cory Mora is a 19 year old male who presents today for evaluation of left sided epistaxis. He can have 3-4 a day and at times he will only have one a week. They last anywhere from 5-10 minutes. He uses a wood stove for heat and will have a pot of water placed on it to help humidify air. He doesnot use humidifier, Vaseline or [place]. His last nosebleed was two days ago. He reports that one out of every several times he blows his nose it will cause a nosebleed. Last Office/Telemedicine Visit: 06/19/2016 ASSESSMENT/PLAN: S00.431D Hematoma auricle/pinna, right, subsequent encounter (primary encounter diagnosis) Plan: Return to work or school Plan: Findings of examination and recommendations were discussed with the patient. Bolster removed and ear improved and healthy. He can return to wrestling with headgear. documented in this encounter Plan of Treatment Scheduled Orders Name Type Priority Associated Diagnoses Orde r Schedule NASAL ENDOSCOPY, DIAGNOSTIC Procedures Routine History of epistaxis Hypertrophy of both inferior nasal turbinates Deviated nasal septum Ordered: 05/16/2020 Health Maintenance Due Date Last Done Comments GARDASIL-HPV IMMUNIZATION SERIES (3 - Male 3-dose series) 05/07/2017 01/03/2017, 11/05/2016 Yearly Wellness Visit 01/03/2018 01/03/2017 , 09/08/2015, 06/27/2011, Additional history exists Influenza Vaccine (FLU shot) (#1) 2020 03/10/2013, 03/03/2012, 06/27/2011, Additional history exists DTaP,Tdap,and [...] history of other diseases of respiratory system Hypertrophy of both inferior nasal turbinates Hypertrophy of nasal turbinates Deviated nasal septum documented in this encounter Advance Directives Documents on File Type Date Recorded Patient Supply Assistant Expl 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
--- OUTSIDE RECORDS SUMMARY | 2023-02-04 15:15 | External Medical Summary | Summary of Care ---
Author Name Unknown Organization [facility] Address [place] [address] Care Team Providers Care Addiction Therapist Name Role Phone Camelia Odom DO Primary Care Provider Encounter Details Date Type Department Care Team Description 12/16/2018 Refill Family Practice [facility] [address] [facility] [place] [address] Camelia Odom DO [address] [facility] [place] [address] [phone] HTN, goal below 140/90 Allergies No Known Allergiesdocumented as of this encounter (statuses as of 12/16/2018) Medications Medication Sig Dispensed Refills Start Date End Date Status lisinopril (PRINIVIL) 10 MG TabletIndications:H TN, goal below 140/90 Take 1 Tab by mouth daily. 90 Tab 3 12/16/2018 Active lisinopril (PRINIVIL) 10 MG TabletIndications:H TN, goal below 140/90 Take 1 Tab by mouth daily. 90 Tab 3 07/20/2018 12/16/2018 Discontinued documented as of this encounter (statuses as of 12/16/2018) Active Problems Problem Noted Date Obesity, morbid (more than 100 lbs over ideal weight or BMI > 40) 07/28/2018 Morbid obesity due to excess calories Exotropia of both eyes 03/10/2017 Systemic primary arterial hypertension 0 11/15/2016 Overview: RX lisinopril Chewing tobacco use 09/08/2015 COLOR BLINDNESS OTHER COLOR DEFICIENCIES 10/16/2004 Genu varum 09/10/2000 documented as of this encounter (statuses as of 12/16/2018) Resolved Problems Problem Noted Date Resolved Date Body mass index (BMI) of 40.0 to 44.9 in adult 0 06/15/2018 08/11/2018 Overview: Per Obesity protocol #1 Preop examination 05/14/2018 11/26/2018 Obesity, Class II, BMI 35-39.9, isolated (see ac tual BMI) 11/05/2016 06/19/2018 Overview: Per Obesity protocol #1 Routine child health exam 10/16/20042017 documented as of this encounter (statuses as of 12/16/2018) Immunizations Name Administration Dates Next Due DTaP [...] Never Smoker Smokeless Tobacco: Current User Snuff Comments:can last 2 days Alcohol Use Drinks/Week oz/Week Comments No Sex Assigned at Date Recorded Not on file Job Start Date Occupation Industry Not on file Not on file Not on file Travel History Travel Start Travel End documented as of this encounter Miscellaneous Notes * Telephone Encounter - Camelia Odom DO - 12/16/2018 12:47 PM EDT Signed Prescriptions: Disp Refills lisinopril (PRINIVIL) 10 MG Tablet 90 Tab 3 Sig: Take 1 Tab by mouth daily. Authorizing Provider: CAMELIA ODOM * Telephone Encounter - Shauna Murrell LPN - 12/16/2018 11:37 AM EDT [facility] sent fax requesting refill of Lisinopril for 90 day supply. Order pended, please review and sign if appropriate. documented in this encounter Plan of Treatment Upcoming Encounters Date Type Specialty Care Team Description 04/30/2019 Office Visit Cardiology Pino Mckeon DO [address] [facility] [place] [address] [phone] 05/17/2019 Office Visit Family Medicine Camelia Odom DO [address] [place] [address] [phone] 07/16/2019 Office Visit Ophthalmology Pino Smiley MD [address] [place] [address] Health Maintenance Due Date Last Done Comments GARDASIL-HPV IMMUNIZATION SE OTIS (3 - Male 3-dose series) 05/07/2017 01/03/2017, 11/05/2016 18 YEAR WELLNESS VISIT 09/06/2018 Influenza Vaccine (FLU shot) (#1) 2018 03/10/2013, 03/03/2012, 06/27/2011, Additional history exists DTaP,Tdap,and Td Vaccines (7 - Td) 06/27/2021 06/27/2011, 10/16/2004, 03/11/2001, Additional history exists MENINGOCOCCAL (MENACTRA) Completed 01/03/2017, 06/03 documented as of this encounter Implants Not on filedocumented as of this encounter Visit Diagnoses Diagnosis HTN, goal below 140/90 Unspecified essential hypertension documented in this encounter Advance Directives Documents on File Type Date Recorded Patient Quality Assurance Coach Expl anation Advanced Directive Advanced Directive Advanced Directive Advanced Directive Advanced Directive Advanced Directive 07/17/2018 11:14 AM Advanced Directive Advanced Directive
--- OUTSIDE RECORDS SUMMARY | 2023-02-04 15:15 | External Medical Summary | Summary of Care ---
Author Name Unknown Organization [facility] Address [place] [address] Care Team Providers Care Project Landscape Architect Name Role Phone Joel Odom DO Primary Care Provider Reason for Visit * Reason Onset Date Comments COVID-19 Screening 08/04/2020 Encounter Details Date Type Department Care Team Description 08/04/2020 Pandemic Screening COVID19 Screening, [facility] [address] [place] [address] [place], Covid19 Screening [address] [place] [address] [phone] Suspected 2019 novel coronavirus infection* Allergies No Known Active Allergiesdocumented as of this encounter (statuses as of 08/04/2020) Medications Medication Sig Dispensed Refills Start Date End Date Status Lisinopril 20 MG Oral Tablet (PRINIVIL) Take 1 Tab by mouth daily. 90 Tab 1 05/01/2020 Active documented as of this encounter (statuses as of 08/04/2020) Active Problems Problem Noted Date History of [...] as of this encounter (statuses as of 08/04/2020) Resolved Problems Problem Noted Date Resolved Date [...] as of this encounter (statuses as of 08/04/2020) Immunizations Name Administration Dates Next Due DTaP [...] as of this encounter Progress Notes * Marcia Rg PA-C - 08/04/2020 9:06 AM EST Travel Screening No screening recorded since 08/03/20 0000 Travel History Travel since 07/07/20 No documented travel since 07/07/20 COVID-19 Suspected based on symptoms and exposure Testing ordered COVID 19 Testing documented in this encounter Plan of Treatment Scheduled Orders Name Type Priority Associated Diagnoses Orde r Schedule SARS-COV-2 (COVID-19), NAAT Lab Routine Suspected 2019 novel coronavirus infection Ordered: 08/04/2020 Health Maintenance Due Date Last Done Comments GARDASIL-HPV IMMUNIZATION SERIES (3 - Male 3-dose series) 05/07/2017 01/03/2017, 11/05/2016 Yearly Wellness Visit 01/03/2018 01/03/2017 , 09/08/2015, 06/27/2011, Additional history exists Influenza Vaccine (FLU shot) (#1) 2020 03/10/2013, 03/03/2012, 06/27/2011, Additional history exists *DEPRESSION SCREENING,ANNUAL FOR PTS 12 AND OVER 05/19/2020 *BASIC METABOLIC PANEL (BMP) FOR HTN YEARLY 06/08/2020 DTaP,Tdap,and Td Vaccines (7 - Td) 06/27/2021 06/27/2011, 10/16/2004, 03/11/2001, Additional history exists MENINGOCOCCAL (MENACTRA/MENVEO) Completed 01/03/2017, 06/27/2011 Pneumococcal Vaccine: Pediatrics (0 to 5 Years) and At-Risk Patients (6 to 64 Years) Aged Out No longer eligible based on patient's age to complete this topic documented as of this encounter Implants Not on filedocumented as of this encounter Visit Diagnoses Diagnosis Suspected 2018 novel coronavirus infection- Primary documented in this encounter Advance Directives Documents on File Type Date Recorded Patient Citizen Participation Specialist Expl 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 Advanced Directive
--- OUTSIDE RECORDS SUMMARY | 2023-02-04 15:15 | External Medical Summary | Summary of Care ---
Author Name Unknown Organization [facility] Address [place] [address] Care Team Providers Care Mushroom Cutter Name Role Phone Joel Odom DO Primary Care Provider Reason for Visit * Reason Comments Follow Up * Evaluate & Treat - Unlimited Visits (Within 10 days (routine)) Status Reason Specialty Diagnoses / Procedures Referred By Contact Referred To Contact Authorized Specialty Services Required Cardiovascular Medicine Diagnoses Systemic primary arterial hypertension Remi Cornelius MD [address] [place] [address] Encounter Details Date Type Department Care Team Description 06/04/2019 Office Visit Cardiology, [facility] [address] [place] [address] Pino Mckeon DO [address] [place] [address] [phone] Systemic primary arterial hypertension*; Obesity, Class II, BMI 35-39.9, isolated (see actual BMI) Allergies No Known Allergiesdocumented as of this encounter (statuses as of 06/04/2019) Medications Medication Sig Dispensed Refills Start Date End Date Status lisinopril (PRINIVIL) 20 MG Tablet Take 1 Tab by mouth daily. 90 Tab 3 05/17/2019 Active documented as of this encounter (statuses as of 06/04/2019) Active Problems Problem Noted Date Obesity, morbid (more than 100 lbs over ideal weight or BMI > 40) 07/28/2018 Morbid obesity due to excess calories Exotropia of both eyes 03/10/2017 Systemic primary arterial hypertension 0 11/15/2016 Overview: RX lisinopril COLOR BLINDNESS OTHER COLOR DEFICIENCIES 10/16/2004 Genu varum 09/10/2000 documented as of this encounter (statuses as of 06/04/2019) Resolved Problems Problem Noted Date Resolved Date [...] as of this encounter (statuses as of 06/04/2019) Immunizations Name Administration Dates Next Due DTaP [...] Smokeless Tobacco: Former User Snuff Quit: 02/04/2019 Tobacco Cessation:Counseling Given: Yes Comments:can last 2 days Alcohol Use Drinks/Week [...] Sign Reading Time Taken Comments Blood Pressure 152/82 06/04/2019 7:54 AM EST Pulse 82 06/04/2019 7:54 AM EST Temperature - - Respiratory Rate 18 06/04/2019 7:54 AM EST Oxygen Saturation - - Inhaled Oxygen Concentration - - Weight 155.5 kg (342 lb 14.4 oz) 06/04/2019 7:54 AM EST Height - - Body Mass Index - - documented in this encounter Progress Notes * Pino Mckeon DO - 06/04/2019 7:59 AM EST Subjective: 18-year-old patient presents for follow-up of hypertension. Diagnosed in 2017 and previously followed by pediatric cardiology. Patient feeling well from a cardiovascular perspective. Denies chest pain or unusual shortness of breath. Home blood pressure readings improved, averaging 130s/80. Lisinopril recently titrated to 20 mg daily by PCP. Patient reports headache for approximately 4 days after beginning 20 mg dose of lisinopril. Headaches have since subsided. 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 Denies any lightheadedness, dizziness, syncope, or near syncope. Recently quit chewing snuff. Admits to lack of regular exercise and dietary indiscretions. Has lost approximately 1 lb since our most recent office visit. No interim hospitalizations. Offers no other concerns/complaints this time. ECG: Normal sinus rhythm, normal ECG 2D echocardiogram report 10/2016: Normal transthoracic echocardiogram . Past Medical History: Patient Active Problem List Diagnosis Code Genu varum M21.169 COLOR BLINDNESS OTHER COLOR DEFICIENCIES H53.50 Systemic primary arterial hypertension I10 Exotropia of both eyes H50.10 Morbid obesity due to excess calories ([facility]) E66.01 Obesity, morbid (more than 100 lbs over ideal weight or BMI > 40) ([facility]) E66.01 Past Surgical History: Procedure Laterality Date CONTROL OF NOSEBLEED, COMPLEX Right 07/27/2015 CONTROL NASAL HEMORRHAGE ANTERIOR COMPLEX performed by Sheng Howe DO at OR [facility] KNEE ARTHROSCOPY/MENISCECTOMY Right 06/2017 Right knee, [facility], [place], [place] was OK. REVISE TWO HORIZONTAL EYE MUSCLES Bilateral 07/28/2018 STRABISMUS SURGERY RECESSION OR RESECTION TWO HORIZONTAL MUSCLES performed by Pino Smiley MD at OR [facility] [place] Family History: Denies family history of premature coronary disease or sudden cardiac Family History Problem Relation Age of Onset Diabetes Grandfather (Paternal) Hypertension Father Hypertension Grandfather (Paternal) Heart Disorder Grandfather (Maternal) from [place] at 33 y.o. Cancer Other Family Status Relation Status Mother Alive Father Alive Owns [employer] Brother Alive Step brother Grandfather (Paternal) Father Grandfather (Paternal) Grandfather (Maternal) Other Social History: Tobacco abuse, snuff Social History Socioeconomic History Marital status: Single Spouse name: Not on file Number of children: Not on file Years of education: Not on file Highest education level: Not on file Occupational History Not on file Social Needs Financial resource strain: Not on file Food insecurity: Worry: Never true Inability: Never true Transportation needs: Medical: Not on file Non-medical: Not on file Tobacco Use Smoking status: Never Smoker Smokeless tobacco: Former User Types: Snuff Tobacco comment: can last 2 days Substance and Sexual Activity Alcohol use: No Drug use: No Sexual activity: Never Lifestyle Physical activity: Days per week: Not on file Minutes per session: Not on file Stress: Not on file Relationships Social connections: Talks on phone: Not on file Gets together: Not on file Attends baptism service: Not on file Active member of club or organization: Not on file Attends meetings of clubs or organizations: Not on file Relationship status: Not on file Intimate partner violence: Fear of current or ex partner: Not on file Emotionally abused: Not on file Physically abused: Not on file Forced sexual activity: Not on file Other Topics Concern Not on file Social History Narrative Not on file Social History Patient does not qualify to have social determinant information on file (likely too young). Social History Narrative Not on file ROS: All others negative other than those noted in the HPI. Review of patient's allergies indicates: No Known Allergies Current Outpatient Medications Medication Sig Dispense Refill lisinopril (PRINIVIL) 20 MG Tablet Take 1 Tab by mouth daily. 90 Tab 3 OBJECTIVE/PHYSICAL EXAMINATION: BP 152/82 | Pulse 82 | Resp 18 | Wt 342 lbs 14.4 oz (155.538kg) General: NAD, AAO x3, well nourished. HEENT: [...] tibial=2/4. Neuro: No focal deficits. IMPRESSION: 1. 18-year-old male with essential hypertension - BP elevated in office with a situational component. Home blood pressure readings with borderline control. 2. Obesity - commended for recent weight loss 3. Former tobacco use - snuff RECOMMENDATIONS/PLAN: I had a long discussion with the patient regarding his blood pressure management. Lisinopril recently titrated to 20 mg daily. Recommend repeat basic metabolic panel today. He will attempt to make dietary improvements and increase frequency of regular aerobic exercise over the next 6 to 12 weeks. If blood pressure remains above goal, will consider transition to Zestoretic. He will monitor home blood pressure 2 to 3 days a week, approximately 2 hours after taking his a.m. medications. All questions answered to patient's satisfaction. He is agreeable to the current plan, however, will report any change or decline in clinical status. Follow Up: Return in about 3 months (around 09/03/2019). Pino Mckeon DO, FACC Associate Cardiology - [place] documented in this encounter Nursing Notes * Kane García LPN - 06/04/2019 7:55 AM EST Examination Room: 11 Name: Cory Mora Date of : (2000) Reason for Visit: f/u Interim Hospitalization(s): denies Problems/Concerns: denies cardiac concerns at this time Chest Pain/SOB: denies [facility] is a way you can talk to your provider online through e-mail. Would you like to sign up? I can activate it for you? ALREADY ACTIVE documented in this encounter Plan of Treatment Upcoming Encounters Date Type Specialty Care Team Description 07/16/2019 Office Visit Ophthalmology Pino Smiley MD [address] [place] [address] 09/08/2019 Office Visit Cardiology Taina Benson PA-C [address] [facility] [place] [address] [phone] 11/16/2019 Office Visit Family Medicine Joel Odom DO [address] [place] [address] [phone] Pending Results Name Type Priority Associated Diagnoses Date /Time BASIC METAB PANEL, BMP Lab Routine Systemic primary arterial hypertension 06/04/2019 8:27 AM EST Scheduled Orders Name Type Priority Associated Diagnoses Orde r Schedule EKG EKG Routine Systemic primary arterial hypertension Ordered: 06/04/2019 BASIC METAB PANEL, BMP Lab Routine Systemic primary arterial hypertension Expected: 06/04/2019 (Approximate), Expires: 09/03/2019 Health Maintenance Due Date Last Done Comments GARDASIL-HPV IMMUNIZATION SERIES (3 - Male 3-dose series) 05/07/2017 01/03/2017, 11/05/2016 18 YEAR WELLNESS VISIT 09/06/2018 Influenza Vaccine (FLU shot) (#1) 2019 03/10/2013, 03/03/2012, 06/27/2011, Additional history exists DTaP,Tdap,and [...] as of this encounter Visit Diagnoses Diagnosis Systemic primary arterial hypertension- Primary Unspecified essential hypertension Obesity, Class II, BMI 35-39.9, isolated (see actual BMI) Morbid obesity documented in this encounter Advance Directives Documents on File Type Date Recorded Patient Electronic Tester Expl anation Advanced Directive Advanced Directive Advanced Directive Advanced Directive Advanced Directive Advanced Directive 07/17/2018 11:14 AM Advanced Directive Advanced Directive"
--- OUTSIDE RECORDS SUMMARY | 2023-02-04 15:15 | External Medical Summary | Summary of Care ---
Author Name Unknown Organization [facility] Address [place] [address] Care Team Providers Care Fish Roe Technician Name Role Phone Camelia Odom DO Primary Care Provider Reason for Visit * Reason Onset Date Comments Medication Refill 04/29/2020 Encounter Details Date Type Department Care Team Description 04/29/2020 Refill [facility] [address] [place] [address] Camelia Odom DO [address] [place] [address] [phone] Allergies No Known Active Allergiesdocumented as of this encounter (statuses as of 05/01/2020) Medications Medication Sig Dispensed Refills Start Date End Date Status Lisinopril 20 MG Oral Tablet (PRINIVIL) Take 1 Tab by mouth daily. 90 Tab 1 05/01/2020 Active lisinopril (PRINIVIL) 20 MG Tablet Take 1 Tab by mouth daily. 90 Tab 3 05/17/2019 04/29/2020 Discontinued(R efill) documented as of this encounter (statuses as of 05/01/2020) Active Problems Problem Noted Date Obesity, morbid (more than 100 lbs over ideal weight or BMI > 40) 07/28/2018 Morbid obesity due to excess calories Exotropia of both eyes 03/10/2017 Systemic primary arterial hypertension 0 11/15/2016 Overview: RX lisinopril COLOR BLINDNESS OTHER COLOR DEFICIENCIES 10/16/2004 Genu varum 09/10/2000 documented as of this encounter (statuses as of 05/01/2020) Resolved Problems Problem Noted Date Resolved Date [...] as of this encounter (statuses as of 05/01/2020) Immunizations Name Administration Dates Next Due DTaP [...] Telephone Encounter - Camelia Odom DO - 05/01/2020 3:42 PM EST Signed Prescriptions: Disp Refills Lisinopril 20 MG Oral Tablet (PRINIVIL) 90 Tab 1 Sig: Take 1 Tab by mouth daily. Authorizing Provider: CAMELIA ODOM * Telephone Encounter - Desi Albarran LPN - 05/01/2020 3:29 PM EST Pending Prescriptions: Disp Refills Lisinopril 20 MG Oral Tablet (PRINIVIL) 90 Tab 3 Sig: Take 1 Tab by mouth daily. Last Office/Telemedicine Visit: 05/17/2019 Next Office Visit: No Future Appointments Last date the medication was ordered: 05/17/19 Patient Active Problem List Diagnosis Code Genu varum M21.169 COLOR BLINDNESS OTHER COLOR DEFICIENCIES H53.50 Systemic primary arterial hypertension I10 Exotropia of both eyes H50.10 Morbid obesity due to excess calories ([facility]) E66.01 Obesity, morbid (more than 100 lbs over ideal weight or BMI > 40) ([facility]) E66.01 Labs: CREATININE(mg/dL) Lisa Dt/Tm Resulted Value Status 06/04/19 8:27A 06/04/19 0.9 FINAL POTASSIUM(mmol/L) Lisa Dt/Tm Resulted Value Status 06/04/19 8:27A 06/04/19 4.6 FINAL No TSH components found LDL (CALCULATED)(mg/dL) Lisa Dt/Tm Resulted Value Status 11/05/16 4:21P 11/05/16 79 FINAL ALT(U/L) Lisa Dt/Tm Resulted Value Status 07/20/18 9:27A 07/20/18 54* FINAL Hemoglobin AIC Results: No HEMOGLOBIN, A1C components found * Telephone Encounter - Desi Albarran LPN - 05/01/2020 3:29 PM EST Message from [employer]: Refills have been requested for the following medications: lisinopril (PRINIVIL) 20 MG Tablet [Camelia Odom DO] [facility] pharmacy[facility] [address] [place] [address] documented in this encounter Plan of Treatment Upcoming Encounters Date Type Specialty Care Team Description 05/16/2020 Office Visit Otolaryngology Murtaza SANDOVAL, Champ Manzano MD [address] [place] [address] Health Maintenance Due Date Last Done Comments [...] Documents on File Type Date Recorded Patient Geologist Expl 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
--- OUTSIDE RECORDS SUMMARY | 2023-02-04 15:15 | External Medical Summary | Summary of Care ---
Author Name Unknown Organization [facility] Address [place] [address] Care Team Providers Care Film Recordist Name Role Phone Odom Joel Hernandezrebecca Primary Care Provider Encounter Details Date Type Department Care Team Description 05/16/2020 Scan Encounter Unspecified Department <No scans attached> Allergies No Known Active Allergiesdocumented as of this encounter (statuses as of 05/23/2020) Medications Medication Sig Dispensed Refills Start Date End Date Status Lisinopril 20 MG Oral Tablet (PRINIVIL) Take 1 Tab by mouth daily. 90 Tab 1 05/01/2020 Active documented as of this encounter (statuses as of 05/23/2020) Active Problems Problem Noted Date History of [...] as of this encounter (statuses as of 05/23/2020) Resolved Problems Problem Noted Date Resolved Date Body mass index (BMI) of 40.0 to 44.9 in adult 0 06/15/2018 08/11/2018 Overview: Per Obesity protocol #1 Preop examination 05/14/2018 11/26/2018 Obesity, Class II, BMI 35-39.9, isolated (see ac al BMI) 11/05/2016 06/19/2018 Overview: Per Obesity protocol #1 Chewing tobacco use 09/08/2015 05/17/2019 Routine child health exam 10/16/20042017 documented as of this encounter (statuses as of 05/23/2020) Immunizations Name Administration Dates Next Due DTaP [...] as of this encounter Plan of Treatment Health Maintenance Due Date Last Done Comments GARDASIL-HPV IMMUNIZATION SERIES (3 - Male 3-dose series) 05/07/2017 01/03/2017, 11/05/2016 Yearly Wellness Visit 01/03/2018 01/03/2017 , 09/08/2015, 06/27/2011, Additional history exists Influenza Vaccine (FLU shot) (#1) 2020 03/10/2013, 03/03/2012, 06/27/2011, Additional history exists *DEPRESSION SCREENING,ANNUAL FOR PTS 12 AND OVER 05/19/2020 DTaP,Tdap,and Td Vaccines (7 - Td) 06/27/2021 [...] Documents on File Type Date Recorded 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
--- OUTSIDE RECORDS SUMMARY | 2023-02-04 15:15 | External Medical Summary | Summary of Care ---
Author [place] [address] Care Team Providers Care Cashier Manager Name Role Phone Lei Joel Hernandezrebecca Primary Care Provider Reason for Visit * Reason Comments Other * Evaluate & Treat - Unlimited Visits (Within 10 days (routine)) Status Reason Specialty Diagnoses / Procedures Referred By Contact Referred To Contact Authorized Specialty Services Required Ophthalmology Diagnoses Exotropia of both eyes Remi Cornelius MD [address] [place] [address] [place] [address] Pino Smiley MD [address] [place] [address] Encounter Details Date Type Department Care Team Description 07/16/2019 Office Visit Ophthalmology, [address] [place] [address] Pino Smiley MD [address] [place] [address] Exotropia* Allergies No Known Allergiesdocumented as of this encounter (statuses as of 07/16/2019) Medications Medication Sig Dispensed Refills Start Date End Date Status lisinopril (PRINIVIL) 20 MG Tablet Take 1 Tab by mouth daily. 90 Tab 3 05/17/2019 Active documented as of this encounter (statuses as of 07/16/2019) Active Problems Problem Noted Date Obesity, morbid (more than 100 lbs over ideal weight or BMI > 40) 07/28/2018 Morbid obesity due to excess calories Exotropia of both eyes 03/10/2017 Systemic primary arterial hypertension 0 11/15/2016 Overview: RX lisinopril COLOR BLINDNESS OTHER COLOR DEFICIENCIES 10/16/2004 Genu varum 09/10/2000 documented as of this encounter (statuses as of 07/16/2019) Resolved Problems Problem Noted Date Resolved Date [...] as of this encounter (statuses as of 07/16/2019) Immunizations Name Administration Dates Next Due DTaP [...] Travel End documented as of this encounter Progress Notes * Pino Smiley MD - 07/16/2019 1:52 PM EST Date: 07/16/2019 Name: Cory Mora : 2000 Age: [age] year old Consult requested by: Dr. Joel Odom, DO Nursing notes reviewed. CC: Follow-up per my request. HPI: 18 year old with XT Operation: Bilateral lateral rectus recession, 7.0 mm. Not wearing glasses No strabismus with the glasses on Sees well at home Past Ocular History/Surgery: Patching: No Glasses: No Previous Surgery: Yes BLR recession 7.0 mm Review of patient's allergies indicates: No Known Allergies Review of Systems and Past Family and Social History no interval change Vision Method: Snellen Right Eye: 20/20 Va < Left Eye : 20/15 Sensory Testing: _ VF: Full to CF OU Strabismus: Method : Cover test Distance : X(T) = 10 Near : X(T) ' = 10 Ductions/Versions: Full No A or V pattern _ Pupils: RAPD: no Anisocoria: No Tension: Unable Lids and adnexa - no blepharitis External: AHP: No Lid Lag: no Ptosis: no Narrowing palpebral fissure: No Proptosis: no Orbicularis strength: normal Anterior Segment: Conjunctiva: OD: normal OS: normal Cornea: OD: clear OS: clear A/C: OD: quiet OS: quiet Iris: OD: normal OS: normal Lens: OD: normal OS: normal Macula: Rt: normal Lt: normal Optic Nerve: Rt: normal Lt: normal Periphery: Rt: normal Lt: normal Assessment: Strabismus: Intermittent XT Plan: Observation Follow up: 2 years Pino Smiley MD documented in this encounter Plan of Treatment Upcoming Encounters Date Type Specialty Care Team Description 09/08/2019 Office Visit Cardiology Taina Benson, PARita [address] [place] [address] [phone] 11/16/2019 Office Visit Family Medicine Joel Odom DO [address] [place] [address] [phone] Health Maintenance Due Date Last Done Comments GARDASIL-HPV IMMUNIZATION SERIES (3 - Male 3-dose series) 05/07/2017 01/03/2017, 11/05/2016 18 YEAR WELLNESS VISIT 09/06/2018 Influenza Vaccine (FLU shot) (#1) 2019 03/10/2013, 03/03/2012, 06/27/2011, Additional history exists 19 YEAR WELLNESS VISIT 2019 DTaP,Tdap,and Td Vaccines (7 - Td) 06/27/2021 06/27/2011, 10/16/2004, 03/11/2001, Additional history exists MENINGOCOCCAL (MENACTRA/MENVEO) Completed 01/03/2017, 06/27/2011 Pneumococcal Vaccine: Pediatrics (0 to 5 Years) and At-Risk Patients (6 to 64 Years) Aged Out No longer eligible based on patient's age to complete this topic documented as of this encounter Implants Not on filedocumented as of this encounter Visit Diagnoses Diagnosis Exotropia- Primary Exotropia, unspecified documented in this encounter Advance Directives Documents on File Type Date Recorded Patient Seconds Inspector Expl anation Advanced Directive Advanced Directive Advanced Directive Advanced Directive Advanced Directive Advanced Directive 07/17/2018 11:14 AM Advanced Directive Advanced Directive Advanced Directive
--- OUTSIDE RECORDS SUMMARY | 2023-02-04 15:15 | External Medical Summary | Summary of Care ---
Author Name Unknown Organization [facility] Address [place] [address] Care Team Providers Care Supervisor Park Workers Name Role Phone Camelia Odom DO Primary Care Provider Reason for Visit * Reason Comments eRx-Medication Refill Encounter Details Date Type Department Care Team Description 02/03/2021 Refill Family Practice [facility] [address] [place] [address] Camelia Odom DO [address] [place] [address] [phone] Encounter for long-term (current) use of medications* Allergies No Known Active Allergiesdocumented as of this encounter (statuses as of 02/08/2021) Medications Medication Sig Dispensed Refills Start Date End Date Status Lisinopril 20 MG Oral Tablet (Prinivil) Take 1 tablet by mouth once daily 30 Tab 0 02/06/2021 Active Lisinopril 20 MG Oral Tablet (PRINIVIL) Take 1 Tab by mouth daily. 90 Tab 1 05/01/2020 02/06/2021 Discontinued documented as of this encounter (statuses as of 02/08/2021) Active Problems Problem Noted Date History of [...] as of this encounter (statuses as of 02/08/2021) Resolved Problems Problem Noted Date Resolved Date [...] as of this encounter (statuses as of 02/08/2021) Immunizations Name Administration Dates Next Due DTaP [...] encounter Miscellaneous Notes * Telephone Encounter - Alejandra Damian PHARM Tech - 02/08/2021 8:47 AM EDT Received message from [facility] regarding patient needing appointment and labs. [facility] was agree[facility] to set up both an office visit and lab appointment. Patient's lab appointment is 05/30/2021 and office visit is 05/30/2021. Thanks, Alejandra Damian Laboratory Equipment Cleaner Pharmacy Refill Call Center 02/08/2021,8:47 AM * Telephone Encounter - Henny Nunez [facility] - 02/06/2021 1:23 PM EDT Signed Prescriptions: Disp Refills Lisinopril 20 MG Oral Tablet (Prinivil) 30 Tab 0 Sig: Take 1 tablet by mouth once daily Authorizing Provider: CAMELIA ODOM Ordering User: HENNY NUNEZ * Telephone Encounter - Henny Nunez [facility] - 02/06/2021 1:22 PM EDT Provided 30 days supply with 0 refill. Per refill protocol patient should have BMP on file within past year. Lab work ordered (AMP report and protocol medications checked). Please contact patient to schedule office visit with his PRIMARY CARE and advise of labs. Fasting is not required. Advise to obtain labs before requesting the next refill. Last Office/Telemedicine Visit: 05/17/2019 Next Office Visit: No Future Appointments Thanks, Henny Nunez Clinical Pharmacist Telepharmacy 02/06/2021, 1:22 PM documented in this encounter Plan of Treatment Upcoming Encounters Date Type Specialty Care Team Description 05/30/2021 Laboratory Laboratory Myron Saba [address] [place] [address] [phone] 05/30/2021 Office Visit Family Medicine Camelia Odom DO [address] [place] [address] [phone] Scheduled Orders Name Type Priority Associated Diagnoses Orde r Schedule BASIC METABOLIC PANEL Lab Routine Encounter for long-term (current) use of medications Expected: 02/13/2021 (Approximate), Expires: 02/06/2022 Health Maintenance Due Date Last Done Comments [...] Diagnosis Encounter for long-term (current) use of medications- Primary Encounter for long-term (current) use of other medications documented in this encounter Advance Directives Documents on File Type Date Recorded Patient Pulley Worker Expl 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 Advanced Directive Advanced Directive Advanced Directive
--- OUTSIDE RECORDS SUMMARY | 2023-02-04 15:15 | External Medical Summary ---
Author Name Unknown Address Unknown Organization K01:[facility] [address] [place] [address] Laboratory Report Ordering Provider Test Date Status GRICELDA GUZMAN 08/04/2020 09:06:55 Final Observation Date Value Abnormality Reference (Units ) Status SARS Coronavirus 2 08/04/2020 09:06:55 Negative N egative Final Performing Location [facility] [address] [place] [address]
--- OUTSIDE RECORDS SUMMARY | 2023-02-04 15:15 | External Medical Summary | Summary of Care ---
Author Name Unknown Organization [facility] Address [place] [address] Care Team Providers Care Bellhop Service Captain Name Role Phone Joel Odom DO Primary Care Provider Reason for Visit * Reason Comments Test Results Encounter Details Date Type Department Care Team Description 06/04/2019 Telephone Cardiology, [facility] [address] [place] [address] Pino Mckeon DO [address] [place] [address] [phone] Test Results Allergies No Known Allergiesdocumented as of this [...] encounter Miscellaneous Notes * Telephone Encounter - Loan Hernandez LPN - 06/04/2019 3:58 PM EST Patient notified and verbalized understanding. * Telephone Encounter - Loan Hernandez LPN - 06/04/2019 3:55 PM EST ----- Message from Pino Mckeon DO sent at 06/04/2019 12:46 PM EST ----- BMP demonstrates normal serum potassium and normal renal function. There is borderline elevated serum calcium level. Recommend repeat basic metabolic panel in 3 months prior to return visit. documented in this encounter Plan of Treatment Upcoming Encounters Date Type Specialty Care Team Description 07/16/2019 Office Visit Ophthalmology Pino Smiley MD [address] [place] [address] [phone] 09/08/2019 Office Visit Cardiology Taina Benson PA-C [address] [facility] [place] [address] [phone] 11/16/2019 Office Visit Family Medicine Joel Odom DO 132 [facility] [place] [address] [phone] Scheduled Orders Name Type Priority Associated Diagnoses Orde r Schedule BASIC METAB PANEL, BMP Lab Routine Serum calcium elevated Expected: 09/03/2019, Expires: 06/04/2020 Health Maintenance Due Date Last Done Comments [...] as of this encounter Visit Diagnoses Diagnosis Serum calcium elevated- Primary Hypercalcemia documented in this encounter Advance Directives Documents on File Type Date Recorded Patient Over Hauler Helper Expl anation Advanced Directive Advanced Directive Advanced Directive Advanced Directive Advanced Directive Advanced Directive 07/17/2018 11:14 AM Advanced Directive Advanced Directive
--- OUTSIDE RECORDS SUMMARY | 2023-02-04 15:15 | External Medical Summary | Summary of Care ---
Author Name Unknown Organization [facility] Address [place] [address] Care Team Providers Care Char Filter Tank Tender Head Name Role Phone Joel Odom DO Primary Care Provider Reason for Visit * Reason Comments Procedure right great toe ingr own nail Encounter Details Date Type Department Care Team Description 11/26/2018 Office Visit [facility] [address] [place] [address] Joel Odom DO [address] [place] [address] [phone] Obesity, morbid (more than 100 lbs over ideal weight or BMI > 40) ([facility])*; Ingrowing nail, right great toe Allergies No Known Allergiesdocumented as of this encounter (statuses as of 11/26/2018) Medications Medication Sig Dispensed Refills Start Date End Date Status lisinopril (PRINIVIL) 10 MG TabletIndications:HTN, goal below 140/90 Take 1 Tab by mouth daily. 90 Tab 3 07/20/2018 Active Hospital, Clinic, or Other Facility Administered Medication Ordered Dose Route Frequency Start Date End Date Status lidocaine-epinephrine 2 %-1:189803 inj 200 mgIndications:Ingrowing nail, right great toe 200 mg IJ ONCE 11/26/2018 11/26/2018 End ed documented as of this encounter (statuses as of 11/26/2018) Active Problems Problem Noted Date Obesity, morbid (more than 100 lbs over ideal weight or BMI > 40) 07/28/2018 Morbid obesity due to excess calories 12 / Exotropia of both eyes 03/10/2017 Systemic primary arterial hypertension 0 11/15/2016 Overview: RX lisinopril Chewing tobacco use 09/08/2015 COLOR BLINDNESS OTHER COLOR DEFICIENCIES 10/16/2004 Genu varum 09/10/2000 documented as of this encounter (statuses as of 11/26/2018) Resolved Problems Problem Noted Date Resolved Date Body mass index (BMI) of 40.0 to 44.9 in adult 0 06/15/2018 08/11/2018 Overview: Per Obesity protocol #1 Preop examination 05/14/2018 11/26/2018 Obesity, Class II, BMI 35-39.9, isolated (see ac tual BMI) 11/05/2016 06/19/2018 Overview: Per Obesity protocol #1 Routine child health exam 10/16/20042017 documented as of this encounter (statuses as of 11/26/2018) Immunizations Name Administration Dates Next Due DTaP [...] Sign Reading Time Taken Comments Blood Pressure 150/64 11/26/2018 9:40 AM EDT Pulse 80 11/26/2018 9:40 AM EDT Temperature 37.1 C (98.8 F) 11/26/2018 9:40 AM ED T Respiratory Rate 20 11/26/2018 9:40 AM EDT Oxygen Saturation - - Inhaled Oxygen Concentration - - Weight 152 kg (335 lb) 11/26/2018 9:40 AM EDT Height - - Body Mass Index - - documented in this encounter Progress Notes * Joel Odom, - 11/26/2018 10:00 AM EDT Nursing Notes: Shauna Murrell LPN 11/26/18 0946 Signed The patient has been properly identified by confirmation of name and date of . Chief Complaint Patient presents with Procedure right great toe ingrown nail ASSESSMENT/PLAN: 1. Obesity, morbid (more than 100 lbs over ideal weight or BMI > 40) ([facility]) educated 2. Ingrowing nail, right great toe Procedure Name: Ingrown Toenail Removal Indication: Pain, infection Location: R great toe nail Pre-Procedure Diagnosis: Ingrown Toenail Post-Procedure Diagnosis: Same, removed Informed consent: Procedure, alternate treatment options, risks, and benefits were thoroughly explained to the patient and informed consent was obtained before the procedure started. Equipment for the procedure was set up. PROCEDURE An appropriate timeout was taken. The procedure and site were confirmed by patient and team. -The area was prepped and draped in the usual sterile fashion. A digital block was done using 10cc of Lidocaine 2% with epinephrine for local anesthesia. -The nail elevator (toenail spatula) was used to free the proximal nail fold from the nail plate below it. -Then, the nail elevator was inserted under the nail plate of the ingrown part of the toenail to separate the nail plate from the nail bed. The nail elevator was sent all the way back to the nail matrix. -Using the nail splitter, the toenail was cut to separate the ingrown portion from the healthy portion. -A straight hemostat was then advanced under the free portion of the nail, as far as possible to grab the entire nail. It was then clamped down on this free nail segment and twisted and turned until the entire piece of toenail was removed. The entire piece was confirmed to be fully removed intact. -Hemostasis was achieved through direct pressure. The wound was copiously irrigated and the wound was dressed. Estimated blood loss was <1cc. Triple antibiotic ointment was applied. A dressing was applied to the area. Anticipatory guidance, as well as standard post-procedure care,was explained. Return precautions are given. The patient tolerated the procedure well without complications. Follow-up visit scheduled. HPI: Cory Mora is a 18 year old male who: ROS: CONSTITUTIONAL: no weight loss, no fevers, no sweats HEENT: no change in vision or hearing, no congestion, no sore throat CARDIAC: no chest pain, no palpitations, no orthopnea, no HOUSE, no syncope RESP: no wheezing and no SOB GI: no pain, no NVDC, no melena/hematochezia SKIN: ingrowing toe nail PHYSICAL EXAMINATION: BP 150/64 | Pulse 80 | Temp (Src) 98.8 (Tympanic) | Resp 20 | Wt 335 lbs (151.955kg) GENERAL: alert, healthy, no distress, well nourished [...] sounds and no masses or organomegaly SKIN: ingrowing R toe nail with erythema, pain to palpation Patient Active Problem List Diagnosis Code Genu varum M21.169 COLOR BLINDNESS OTHER COLOR DEFICIENCIES H53.50 Chewing tobacco use Z72.0 Systemic primary arterial hypertension I10 Exotropia of both eyes H50.10 Morbid obesity due to excess calories ([facility]) E66.01 Obesity, morbid (more than 100 lbs over ideal weight or BMI > 40) ([facility]) E66.01 Past Medical History: Diagnosis Date Closed fracture of unspecified bone age 2 Fracture of 2-3rd metatarsal bones Past Surgical History: Procedure Laterality Date CONTROL OF NOSEBLEED, COMPLEX Right 07/27/2015 CONTROL NASAL HEMORRHAGE ANTERIOR COMPLEX performed by Sheng Howe DO at OR [facility] KNEE ARTHROSCOPY/MENISCECTOMY Right 06/2017 Right knee, [facility], [place], [place] was OK. REVISE TWO HORIZONTAL EYE MUSCLES Bilateral 07/28/2018 STRABISMUS SURGERY RECESSION OR RESECTION TWO HORIZONTAL MUSCLES performed [place] Pino Smiley [place] [facility] [place] Outpatient Medications Medication Sig Dispense Refill lisinopril (PRINIVIL) 10 MG Tablet Take 1 Tab by mouth daily. 90 Tab 3 Review of patient's allergies indicates: No Known Allergies Joel Odom DO [facility] [address] [facility] [address] (This note was completed using the dictation program Fluency Direct. As such, there may be misspellings, word substitutions, or other variations that should not change the essence of the clinical content of this encounter note.If there is need for further clarification, please direct questions to the provider listed above.) documented in this encounter Nursing Notes * Shauna Murrell LPN - 11/26/2018 9:40 AM EDT The patient has been properly identified by confirmation of name and date of . Chief Complaint Patient presents with Procedure right great toe ingrown nail documented in this encounter Plan of Treatment Upcoming Encounters Date Type Specialty Care Team Description 04/30/2019 Office Visit Cardiology Pino Mckeon, DO 132 [facility] [place] [address] [phone] 05/17/2019 Office Visit Family Medicine Joel Odom Paulette, [address] [place] [address] [phone] 07/16/2019 Office Visit Ophthalmology Pino Smiley MD [address] [place] [address] Health Maintenance Due Date Last Done Comments GARDASIL-HPV IMMUNIZATION SE OTIS (3 - Male 3-dose series) 05/07/2017 01/03/2017, 11/05/2016 18 YEAR WELLNESS VISIT 09/06/2018 Influenza Vaccine (FLU shot) (Season Ended) 2018 03/10/2013, 03/03/2012, 06/27/2011, Additional history exists DTaP,Tdap,and Td Vaccines (7 - Td) 06/27/2021 06/27/2011, 10/16/2004, 03/11/2001, Additional history exists MENINGOCOCCAL (MENACTRA) Completed 01/03/2017, 06/03 documented as of this encounter Implants Not on filedocumented as of this encounter Visit Diagnoses Diagnosis Obesity, morbid (more than 100 lbs over ideal weight or BMI > 40) ([facility])- Primary Morbid obesity Ingrowing nail, right great toe Ingrowing nail documented in this encounter Administered Medications Inactive Administered Medications - up to 3 most recent administrations Medication Order MAR Action Action Date Dose Rate Site lidocaine-epinephrine 2 %-1:910819 inj 200 mg 200 mg (10 mL), Injection, ONCE, Lillian 11/26/18 at 1045, For 1 dose Given 11/26/2018 11:15 AM EDT 200 mg Foot Right documented in this encounter Advance Directives Documents on File Type Date Recorded Patient Client Service Associate Expl anation Advanced Directive Advanced Directive Advanced Directive Advanced Directive Advanced Directive Advanced Directive 07/17/2018 11:14 AM Advanced Directive Advanced Directive"
--- OUTSIDE RECORDS SUMMARY | 2023-02-04 15:16 | External Medical Summary | Summary of Care ---
Author Name [place] [address] Care Team Providers Care Hand Dry Cleaner Name Role Phone Lei Joel Hernandezrebecca Primary Care Provider Reason for Visit * Reason Comments Letter Requests Encounter Details Date Type Department Care Team Description 08/05/2018 Telephone [facility] [address] [place] [address] Pino Smiley MD [address] [place], [place] [id number] Letter Requests Allergies No Known Allergiesdocumented as of this encounter (statuses as of 08/06/2018) Medications Medication Sig Dispensed Refills Start Date End Date Status lisinopril (PRINIVIL) 10 MG TabletIndications:HTN, goal below 140/90 Take 1 Tab by mouth daily. 90 Tab 3 07/20/2018 Active documented as of this encounter (statuses as of 08/06/2018) Active Problems Problem Noted Date Obesity, morbid (more than 100 lbs over ideal weight or BMI > 40) 07/28/2018 Body mass index (BMI) of 40.0 to 44.9 in adult 06/15/2018 Overview: Per Obesity protocol #1 Preop examination 05/14/2018 Morbid obesity due to excess calories Exotropia of both eyes 03/10/2017 Systemic primary arterial hypertension 0 11/15/2016 Overview: RX lisinopril Chewing tobacco use 09/08/2015 COLOR BLINDNESS OTHER COLOR DEFICIENCIES 10/16/2004 Genu varum 09/10/2000 documented as of this encounter (statuses as of 08/06/2018) Resolved Problems Problem Noted Date Resolved Date Obesity, Class II, BMI 35-39.9, isolated (see ac tual BMI) 11/05/2016 06/19/2018 Overview: Per Obesity protocol #1 Routine child health exam 10/16/20042017 documented as of this encounter (statuses as of 08/06/2018) Immunizations Name Dates Previously Given Next Due DTaP - Dipth/Tet/Acell Pertussis 005,03/11/2001,03/18/2000,,1999 HIB Hep B - HIB Hepatitis B (Comvax) 12/09/2000, 01/16/2000,1999 HPV Vaccine, 9-Valent 01/03/2017,11/05/2016 IPV - Polio Virus Vaccine (Inact) 2004,03/11/2001,01/16/2000, MMR - Measles/Mumps/Rubella Vaccine 10/16/2004,0 09/10/2000 Meningococcal MCV4P Conjugat e Vaccine (Menactra) 01/03/2017,06/27/2011 Pneumococcal Conjugate Vacci ne, 7 Valent [...] encounter Miscellaneous Notes * Telephone Encounter - Pino Smiley MD - 08/06/2018 12:47 PM EST 08/06/2018 Cher Mora 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 Please send to [email or web address] documented in this encounter Plan of Treatment Upcoming Encounters Date Type Specialty Care Team Description 09/29/2018 Office Visit Cardiology Pino Mckeon, DO [address] [place] [address] [phone] 11/06/2018 Office Visit Ophthalmology Pino Smiley MD [address] [place] [address] 05/17/2019 Office Visit Family Medicine Joel Odom, [address] [place] [address] [phone] Health Maintenance Due Date Last Done Comments GARDASIL-HPV IMMUNIZATION SE OTIS (3 - Male 3-dose series) 05/07/2017 01/03/2017, 11/05/2016 17 YEAR WELLNESS VISIT 09/06/2017 Influenza Vaccine (FLU shot) (#1) 2017 03/10/2013, 03/03/2012, 06/27/2011, Additional history exists 18 YEAR WELLNESS VISIT 09/06/2018 DTaP,Tdap,and Td Vaccines (7 - Td) 06/27/2021 06/27/2011, 10/16/2004, 03/11/2001, Additional history exists MENINGOCOCCAL (MENACTRA) Completed 01/03/2017, 06/03 documented as of this encounter Implants Not on filedocumented as of this encounter Advance Directives Patient has advance care planning documents on file. For more information, please contact: [place] [address]
--- OUTSIDE RECORDS SUMMARY | 2023-02-04 15:16 | External Medical Summary | Summary of Care ---
Author Name Unknown Organization [facility] Address [place] [address] Care Team Providers Care Build Automation Engineer Name Role Phone Joel Odom DO Primary Care Provider Reason for Visit * Reason Comments pre-op exam eye surgery 07/28/18 Encounter Details Date Type Department Care Team Description 07/20/[address] [facility] [address] [place] [address] Joel Odom DO [address] [place] [address] [phone] Body mass index (BMI) of 40.0 to 44.9 in adult (HCC)*; Preop examination; HTN, goal below 140/90 Allergies No Known Allergiesdocumented as of this encounter (statuses as of 07/20/2018) Medications Medication Sig Dispensed Refills Start Date End Date Status lisinopril (PRINIVIL) 10 MG TabletIndications:HT N, goal below 140/90 Take 1 Tab by mouth daily. 90 Tab 3 07/20/2018 Active lisinopril (PRINIVIL) 5 MG TabletIndications:Sy stemic primary arterial hypertension Take 1 Tab by mouth daily. 30 Tab 5 04/22/2018 07/20/2018 Discontinued documented as of this encounter (statuses as of 07/20/2018) Active Problems Problem Noted Date Body mass index (BMI) of 40.0 to 44.9 in adult 06/15/2018 Overview: Per Obesity protocol #1 Preop examination 05/14/2018 Morbid obesity due to excess calories Exotropia of both eyes 03/10/2017 Systemic primary arterial hypertension 0 11/15/2016 Chewing tobacco use 09/08/2015 COLOR BLINDNESS OTHER COLOR DEFICIENCIES 10/16/2004 Genu varum 09/10/2000 documented as of this encounter (statuses as of 07/20/2018) Resolved Problems Problem Noted Date Resolved Date Obesity, Class II, BMI 35-39.9, isolated (see ac tual BMI) 11/05/2016 06/19/2018 Overview: Per Obesity protocol #1 Routine child health exam 10/16/20042017 documented as of this encounter (statuses as of 07/20/2018) Immunizations Name Dates Previously Given Next Due [...] Vital Signs Vital Sign Reading Time Taken Blood Pressure 154/84 07/20/2018 9:48 AM EST Pulse 76 07/20/2018 9:48 AM EST Temperature 36.4 C (97.5 F) 07/20/2018 9 :48 AM EST Respiratory Rate 18 07/20/2018 9:48 AM EST Oxygen Saturation - - Inhaled Oxygen Concentration - - Weight 152.9 kg (337 lb) 07/20/2018 9:4 8 AM EST Height - - Body Mass Index - - documented in this encounter Progress Notes * Lei Joel Sherrebecca, DO - 07/20/2018 9:55 AM EST Nursing Notes: Shauna Murrell, ANSON 07/20/18 0950 Signed The patient has been properly identified by confirmation of name and date of . Chief Complaint Patient presents with pre-op exam eye surgery 07/28/18 ASSESSMENT/PLAN: 1. Preop examination Patient is low risk for a low-risk surgery, no concerns from my standpoint to proceed with the surgery. 2. HTN, goal below 140/90 Increased Lisinopril to 10mg today and will have patient call with log of pressures within the weekto ensure control. Not a concerning elevation in clinic today, he's just been borderline for some time now and I think increasing his dose would be helpful. - lisinopril (PRINIVIL) 10 MG Tablet; Take 1 Tab by mouth daily. Dispense: 90 Tab; Refill: 3 3. Body mass index (BMI) of 40.0 to 44.9 in adult ([facility]) Provided education HPI: Cher Mora is a 17 year old male who presents for: 1. Preop examination Patient is having an opthomologic surgery to help with his ongoing issue. 2. HTN, goal below 140/90 Hx of slight elevation on last visit, patient asymptomatic today. No home sx. Increased Lisinopril to 10mg today and will have patient call with log of pressures within the weekto ensure control. Not a concerning elevation in clinic today, he's just been borderline for some time now and I think increasing his dose would be helpful. - lisinopril (PRINIVIL) 10 MG Tablet; Take 1 Tab by mouth daily. Dispense: 90 Tab; Refill: 3 3. Body mass index (BMI) of 40.0 to 44.9 in adult (HCC) Provided education in past, patient having trouble with compliance dietarily. ROS: CONSTITUTIONAL: no weight loss, no fevers, [...] numbness PSYCH: no SI/HI PHYSICAL EXAMINATION: BP 154/84 | Pulse 76 | Temp (Src) 97.5 (Tympanic) | Resp 18 | Wt 337 lbs (152.862kg) GENERAL: alert, healthy, no distress, well nourished [...] hypertension I10 Exotropia of both eyes H50.10 Preop examination Z01.818 Morbid obesity due to excess calories (HCC) E66.01 Body mass index (BMI) of 40.0 to 44.9 in adult (HCC) Z68.41 Past Medical History: Diagnosis Date Closed fracture of unspecified bone age 2 Fracture of 2-3rd metatarsal bones Past Surgical History: Procedure Laterality Date CONTROL OF NOSEBLEED, COMPLEX Right 07/27/2015 CONTROL NASAL HEMORRHAGE ANTERIOR COMPLEX performed by Sheng Howe DO at [facility] Current Outpatient Medications Medication Sig Dispense Refill lisinopril (PRINIVIL) 10 MG Tablet Take 1 Tab by mouth daily. 90 Tab 3 Review of patient's allergies indicates: No Known Allergies Joel Odom DO [address] [place] [address] (This note was completed using the dictation program Fluency Direct. As such, there may be misspellings, word substitutions, or other variations that should not change the essence of the clinical content of this encounter note.If there is need for further clarification, please direct questions to the provider listed above.) documented in this encounter Nursing Notes * Shauna Murrell LPN - 07/20/2018 9:47 AM EST The patient has been properly identified by confirmation of name and date of . Chief Complaint Patient presents with pre-op exam eye surgery 07/28/18 documented in this encounter Plan of Treatment Upcoming Encounters Date Type Specialty Care Team Description 07/28/2018 Hospital Encounter Operating Room IP Pino Smiley MD [address] [place] [address] [id number] 07/28/2018 Surgery Operating Room IP Pino Smiley MD [address] [place] [id number] STRABISMUS SURGERY RECESSION OR RESECTION TWO HORIZONTAL MUSCLES 07/29/2018 Office Visit Ophthalmology Pino Smiley MD [address] [facility] [place] [address] 08/07/2018 Office Visit Ophthalmology Pino Smiley MD [address] [place] [address] [phone] 09/29/2018 Office Visit Cardiology Pino Mckeon, DO [address] [place] [address] [phone] 05/17/2019 Office Visit Family Medicine Joel Odom, DO [address] [place] [address] [phone] Health Maintenance Due Date Last Done Comments GARDASIL-HPV IMMUNIZATION SE OTIS (3 - Male 3-dose series) 05/07/2017 01/03/2017, 11/05/2016 17 YEAR WELLNESS VISIT 09/06/2017 *BASIC METABOLIC PANEL (BMP) FOR HTN YEARLY 11/07/2017 Influenza Vaccine (FLU shot) (#1) 2017 03/10/2013, 03/03/2012, 06/27/2011, Additional history exists 18 YEAR WELLNESS VISIT 09/06/2018 DTaP,Tdap,and Td Vaccines (7 - Td) 06/27/2021 06/27/2011, 10/16/2004, 03/11/2001, Additional history exists MENINGOCOCCAL (MENACTRA) Completed 01/03/2017, 06/03 documented as of this encounter Implants Not on filedocumented as of this encounter Visit Diagnoses Diagnosis Body mass index (BMI) of 40.0 to 44.9 in adult (HCC)- Primary Preop examination Preoperative examination, unspecified HTN, goal below 140/90 Unspecified essential hypertension documented in this encounter Advance Directives Patient has advance care planning documents on file. For more information, please contact: [place] [phone]"
--- OUTSIDE RECORDS SUMMARY | 2023-02-04 15:16 | External Medical Summary | Summary of Care ---
Author [place] [address] Care Team Providers Care Egg Buyer Name Role Phone Lei Joel Hernandezrebecca Primary Care Provider Reason for Visit * Reason Comments Post-Op Encounter Details Date Type Department Care Team Description 07/31/2018 Office Visit [facility] [address] [place] [address] Pino Smiley MD [address] [place], [place] [id number] Exotropia* Allergies No Known Allergiesdocumented as of this encounter (statuses as of 07/31/2018) Medications Medication Sig Dispensed Refills Start Date End Date Status lisinopril (PRINIVIL) 10 MG TabletIndications:HTN, goal below 140/90 Take 1 Tab by mouth daily. 90 Tab 3 07/20/2018 Active documented as of this encounter (statuses as of 07/31/2018) Active Problems Problem Noted Date Obesity, morbid [...] as of this encounter (statuses as of 07/31/2018) Resolved Problems Problem Noted Date Resolved Date Obesity, Class II, BMI 35-39.9, isolated (see ac tual BMI) 11/05/2016 06/19/2018 Overview: Per Obesity protocol #1 Routine child health exam 10/16/20042017 documented as of this encounter (statuses as of 07/31/2018) Immunizations Name Dates Previously Given Next Due [...] Travel End documented as of this encounter Patient Instructions * Patient Instructions* Pino Smiley MD - 07/31/2018 12:47 PM EST OPHTHALMOLOGY PEDIATRIC POST OP PT INSTRUCTIONS Tobradex 1 drop to operated eye(s) 4 times a day for 4 days. Return immediatly with increase in redness, pain, discharge, swelling or decrease in vision. No heavy lifting for 1 week than gradually increase Pino Smiley MD 07/31/2018 [facility] [place] [address] documented in this encounter Progress Notes * Pino Smiley MD - 07/31/2018 12:44 PM EST A Post-Op Peds Nursing notes reviewed. 3 day S/P strabismus Both eyes Patient complains of: No problems Meds: Tobradex QID to operated eyes Vision OD F+F and CSM OS F+F and CSM Strabismus: Distance Ortho without glasses and Near Ortho without glasses Anterior Segment Conj: Normal post-op injection OD OS Cornea: Clear OD; Clear OS A/C: Deep & Quiet OU Vitreous: Clear OD; Clear OS Fundus: Normal Assessment: doing well post-op, eyes straight and patient happy with alignment Plan: Patient instructed to follow-up in 8 weeks Patient instructed to follow-up immediately with increased redness, discharge, pain, swelling or decreased vision or any other problems. Patient given phone number to contact with problems Pino Smiley MD documented in this encounter Nursing Notes * Vanita Gotti TECH - 07/31/2018 12:27 PM EST Cher Mora presents for p/o check. Post operative day 3 procedure: strabismus Operative eye: BOTH EYES Patient denies complaints; only occasional pain while moving eyes around [place] will be found in the ophth exam documented in this encounter Miscellaneous Notes * Addendum Note - Pino Smiley MD - 07/31/2018 12:49 PM EST Addended by: PINO SMILEY on: 07/31/2018 12:49 PM Modules accepted: SmartSet documented in this encounter Plan of Treatment Upcoming Encounters Date Type Specialty Care Team Description 08/07/2018 Office Visit Ophthalmology Pino Smiley MD [address] [place] [address] 09/29/2018 Office Visit Cardiology Pino Mckeon, DO [address] [place] [address] [phone] 05/17/2019 Office Visit Family Medicine Joel Odom, DO [address] [place] [address] [phone] Health Maintenance Due Date Last Done Comments [...] unspecified documented in this encounter Advance Directives Patient has advance care planning documents on file. For more information, please contact: [place] [phone]
--- OUTSIDE RECORDS SUMMARY | 2023-02-04 15:16 | External Medical Summary | Summary of Care ---
Author Name Unknown [facility] [place] [address] Care Team Providers Care Naval Aircrewman Mechanical Name Role Phone Joel Odom DO Primary Care Provider Reason for Visit * Reason Comments Other Encounter Details Date Type Department Care Team Description 11/06/2018 Office Visit Ophthalmology, [place] [facility] [place] [address] Pino Smiley MD [address] [place] [address] Exotropia* Allergies No Known Allergiesdocumented as of this encounter (statuses as of 11/06/2018) Medications Medication Sig Dispensed Refills Start Date End Date Status lisinopril (PRINIVIL) 10 MG TabletIndications:HTN, goal below 140/90 Take 1 Tab by mouth daily. 90 Tab 3 07/20/2018 Active documented as of this encounter (statuses as of 11/06/2018) Active Problems Problem Noted Date Obesity, morbid (more than 100 lbs over ideal weight or BMI > 40) 07/28/2018 Preop examination 05/14/2018 Morbid obesity due to excess calories Exotropia of both eyes 03/10/2017 Systemic primary arterial hypertension 0 11/15/2016 Overview: RX lisinopril Chewing tobacco use 09/08/2015 COLOR BLINDNESS OTHER COLOR DEFICIENCIES 10/16/2004 Genu varum 09/10/2000 documented as of this encounter (statuses as of 11/06/2018) Resolved Problems Problem Noted Date Resolved Date Body mass index (BMI) of 40.0 to 44.9 in adult 0 06/15/2018 08/11/2018 Overview: Per Obesity protocol #1 Obesity, Class II, BMI 35-39.9, isolated (see ac al BMI) 11/05/2016 06/19/2018 Overview: Per Obesity protocol #1 Routine child health exam 10/16/20042017 documented as of this encounter (statuses as of 11/06/2018) Immunizations Name Administration Dates Next Due DTaP [...] Progress Notes * Pino Smiley MD - 11/06/2018 10:06 AM EDT Date: 11/06/2018 Name: Cory Mora : 2000 Age: [age] year old Consult requested by: Dr. Joel Odom DO Nursing notes reviewed. CC: Follow-up per [...] : Cover test Distance : X(T) = 14 Near : X(T) ' = 14 Ductions/Versions: Full No A or V pattern [...] Strabismus: Intermittent XT Plan: Observation Follow up: 8 months Pino Smiley MD documented in this encounter Plan of Treatment Upcoming Encounters Date Type Specialty Care Team Description 04/30/2019 Office Visit Cardiology Pino Mckeon DO [address] [place] [address] [phone] 05/17/2019 Office Visit Family Medicine Joel Odom DO [address] [place] [address] [phone] 07/16/2019 Office Visit Ophthalmology Pino Smiley MD [address] [place] [address] [place] [address] [phone] Health Maintenance Due Date Last Done Comments GARDASIL-HPV IMMUNIZATION SE BERG (3 - Male 3-dose series) 05/07/2017 01/03/2017, [...] Documents on File Type Date Recorded Patient Control Room Technician Expl anation Advanced Directive Advanced Directive Advanced Directive Advanced Directive Advanced Directive Advanced Directive 07/17/2018 11:14 AM Advanced Directive Advanced Directive
--- OUTSIDE RECORDS SUMMARY | 2023-02-04 15:16 | External Medical Summary | Summary of Care ---
Author Name Unknown Organization [facility] Address [place] [address] Care Team Providers Care Building Economist Name Role Phone Joel Odom DO Primary Care Provider Reason for Visit * Reason Comments Surgery Encounter Details Date Type Department Care Team Description 05/27/2018 Telephone Podiatry [facility] [address] [place], [place] [id number] Jalyn Whatley DPM [address] [place] [address] Surgery Allergies No Known Allergiesas of this encounter Medications Medication Sig Dispensed Refills Start Date End Date Status lisinopril (PRINIVIL) 5 MG TabletIndications:System ic primary arterial hypertension Take 1 Tab by mouth daily. 30 Tab 5 04/22/2018 Active as of this encounter Active Problems Problem Noted Date Preop examination 05/14/2018 Morbid obesity due to excess calories Exotropia of both eyes 03/10/2017 Systemic primary arterial hypertension 0 11/15/2016 Obesity, Class II, BMI 35-39.9, isolated (see actual BMI) 11/05/2016 Chewing tobacco use 09/08/2015 COLOR BLINDNESS OTHER COLOR DEFICIENCIES 10/16/2004 Genu varum 09/10/2000 as of this encounter Resolved Problems Problem Noted Date Resolved Date Routine child health exam 10/16/20042017 as of this encounter Immunizations Name Dates Previously Given Next Due [...] older)(Adacel) 06/27/2011 Varicella Vaccine (Chicken Pox) 06/27/2011,09/10 as of this encounter Social History Tobacco Use Types Packs/Day Years Used Date Never Smoker Smokeless Tobacco: Current User Snuff Comments:can last 2 days Alcohol Use Drinks/Week oz/Week Comments No Sex Assigned at Date Recorded Not on file Job Start Date Occupation Industry Not on file Not on file Not on file Travel History Travel Start Travel End as of this encounter Miscellaneous Notes * Telephone Encounter - Barbara Hauser OSA - 05/27/2018 12:26 PM EST Spoke to patients mom. She would like to cancel surgery. FYI- Dr. Phylicia Wright- Can you please assist with cancelling his case on 06/01/2018 * Telephone Encounter - Barabra Hauser OSA - 05/27/2018 12:11 PM EST Received a call from the call center stating that mom called in to cancel patient surgery. No documentation with in [facility]. LMOM for mom or pt to return my call to confirm. Thank you. in this encounter Plan of Treatment Upcoming Encounters Date Type Specialty Care Team Description 06/01/2018 Hospital Encounter Surgery [place], Jalyn Mariam, DPM [address] [place] [address] [phone] 06/01/2018 Surgery Surgery WhatleyJalyn lopez Mariam, TRACEEKaylen [address] [place] [place] [address] [phone] EXCISION TUMOR LEG ANKLE SUBCUTANEOUS 09/29/2018 Office Visit Cardiology Pino Mckeon, DO [address] [place] [address] [phone] 05/17/2019 Office Visit Family Medicine Joel Odmo, [address] [place] [address] [phone] Health Maintenance Due Date Last Done Comments GARDASIL-HPV IMMUNIZATION SE OTIS (3 of 3 - Male 3-dose series) 05/07/2017 01/03/2017, 11/05/2016 17 YEAR WELLNESS VISIT 09/06/2017 *BASIC METABOLIC PANEL (BMP) FOR HTN YEARLY 11/07/2017 Influenza Vaccine (FLU shot) (#1) 2017 03/10/2013, 03/03/2012, 06/27/2011, Additional history exists DTaP,Tdap,and Td Vaccines (7 - Td) 06/27/2021 06/27/2011, 10/16/2004, 03/11/2001, Additional history exists as of this encounter Implants Not on fileas of this encounter Advance Directives Patient has advance care planning documents on file. For more information, please contact: [place] [phone]
--- OUTSIDE RECORDS SUMMARY | 2023-02-04 15:16 | External Medical Summary ---
Author Name Unknown Address [address] [place] [address] Phone Organization K0G:[facility] [employer] [address] [place] [address] Laboratory Report Ordering Provider Test Date Status CELIA PRIESTVANESSA 07/20/2018 09:27:00 Final Observation Date Value Abnormality Reference Status BUN 07/20/2018 10:48 14 6-20 Fin al Creatinine 07/20/2018 10:48 0.9 0.6-1.2 Fi nal E Glom Filt Rate 07/20/2018 10:48 >60.0 >60 Final Performing Location [facility] [address] [place] [address]
--- OUTSIDE RECORDS SUMMARY | 2023-02-04 15:16 | External Medical Summary ---
Author Name Unknown Address [address] [place] [address] Phone Organization K0G:[facility] [address] [facility] [place] [address] Laboratory Report Ordering Provider Test Date Status ZAYDAEDELMIRA 10/21/2018 09:32:00 Final Observation Date Value Abnormality Reference Status BUN 10/21/2018 11:31 15 6-20 Fin al Creatinine 10/21/2018 11:31 0.9 0.6-1.2 Fi nal Performing Location [email or web address] [address] [place] [address]
--- OUTSIDE RECORDS SUMMARY | 2023-02-04 15:16 | External Medical Summary | Summary of Care ---
Author Name Unknown Organization [place] [address] Care Team Providers Care Pulper Operator Name Role Phone Joel Odom DO Primary Care Provider Reason for Visit * Reason Comments Education Encounter Details Date Type Department Care Team Description 07/16/2018 Scheduled Telephone Pre Surgery [facility] [address] [place] [address] Education6, Presurgical Assessment [address] [place] [address] Pre-op testing* Allergies No Known Allergiesdocumented as of this encounter (statuses as of 07/16/2018) Medications Medication Sig Dispensed Refills Start Date End Date Status lisinopril (PRINIVIL) 5 MG TabletIndications:System ic primary arterial hypertension Take 1 Tab by mouth daily. 30 Tab 5 04/22/2018 Active documented as of this encounter (statuses as of 07/16/2018) Active Problems Problem Noted Date Body mass index (BMI) of 40.0 to 44.9 in adult 06/15/2018 Overview: Per Obesity protocol #1 Preop examination 05/14/2018 Morbid obesity due to excess calories Exotropia of both eyes 03/10/2017 Systemic primary arterial hypertension 0 11/15/2016 Chewing tobacco use 09/08/2015 COLOR BLINDNESS OTHER COLOR DEFICIENCIES 10/16/2004 Genu varum 09/10/2000 documented as of this encounter (statuses as of 07/16/2018) Resolved Problems Problem Noted Date Resolved Date Obesity, Class II, BMI 35-39.9, isolated (see ac tual BMI) 11/05/2016 06/19/2018 Overview: Per Obesity protocol #1 Routine child health exam 10/16/20042017 documented as of this encounter (statuses as of 07/16/2018) Immunizations Name Dates Previously Given Next Due [...] encounter Miscellaneous Notes * Telephone Encounter - Nikole Pettit RN - 07/16/2018 11:48 AM EST The following instructions were reviewed with Cher: Nothing to eat or milk products to drink after midnight with the exception of sips of clear liquidsup until 2 hours prior to the arrival time. Please have your pre-op lab work drawn at a [facility] lab facility near you within 1 week. The morning of surgery you may take Tylenol if needed with a sip of water at least two hours prior to your arrival time. The night before and the morning of surgery you should shower with an antibacterial soap, such as Dial or Safeguard. After your shower do not apply any creams, lotions, powders or deodorants. Do not wear any jewelry or any piercing's the day of surgery. Cher verbalized understanding of all instructions. Patient identified by: name/birthdate Person taught: Patient Anesthesia consent pool notified? No METHOD: Lecture-telephone interview Patient Preferred Learning Methods: Lecture-Telephone interview PATIENT EDUCATION SCREENING Education Screening: Patient Motivation Level: Asks Questions and Eager to Learn Language Barrier: no Physical Barrier: N/A LEARNING NEED: Health history interview completed, pre op information given, and questions answeredvia telephone interview OUTCOME: State / Describe / Explain PATIENT INSTRUCTIONS GIVEN: - General Preoperative Instructions Reviewed - Medication Instructions Reviewed - Instructed to stop the following medications prior to day of surgery: STOP - NSAID 7 days., STOP - Aspirin 7 days., STOP - Herbs 10 days. and STOP - Vitamin E 10 days. - NPO Instructions Reviewed - Patient advised to contact Surgeons Office if new onset of cold symptoms, fever, chills within 2 wks of planned surgery. Pt is planning on having surgery as I/O surgery; Patient instructed a responsible adult must be with patient for 24hrs after surgery. Do not drive, operate any appliances and/or machinery or sign legal documents for 24 hours. Verbalizes understanding of education: Yes Patient instructed to keep other appts as scheduled. In an emergency, is patient willing to accept blood products or blood transfusion? Did not ask Optime case procedure confirmed with patient/parent/guardian - no consent signed. Surgery date at time of Pre-Surgery Center Encounter: 07/28/2018 What procedure is patient having? strabismus, bilateral Laterality confirmed as Bilateral Does the patient have a yellow bar? No The inherent risks of general anesthesia were explained to the Patient and he verbalizes understanding. Serious problems are rare but he has been made aware of these risks. Risks include but are not limited to: nausea, vomiting, sore throat, dental damage, allergic reactions, heart or lung complications, stroke, or . The Patient was given the opportunity to ask questions concerning the anesthetic risks, possible complications, and alternatives to the planned anesthetic. Instructed that I&O surgery nurses will contact with time to arrive. Reviewed directions to I&O. Signature: Nikole Pettit RN 07/16/2018 documented in this encounter Plan of Treatment Upcoming Encounters Date Type Specialty Care Team Description 07/20/2018 Office Visit Joel Avina, DO [address] [place] [address] [phone] 07/28/2018 Hospital Encounter Operating Room IP Pino Smiley MD [address] [place] [address] [phone] 07/28/2018 Surgery Operating Room IP Pino Smiley MD [address] [place] [address] [place] [address] STRABISMUS SURGERY RECESSION OR RESECTION TWO HORIZONTAL MUSCLES 07/29/2018 Office Visit Ophthalmology Pino Smiley MD [address] [facility] [place] [address] 08/07/2018 Office Visit Ophthalmology Pino Smiley MD [address] [facility] [place] [address] 09/29/2018 Office Visit Cardiology Pino Mckeon DO [address] [place] [address] [phone] 05/17/2019 Office Visit Family Joel Smith, DO [address] [place] [address] [phone] Scheduled Tests Name Priority Associated Diagnoses Order S chedule BASIC METAB PANEL, BMP Routine Pre-op testing Expected: 07/17/2018 (Approximate), Expires: 08/14/2019 Health Maintenance Due Date Last Done Comments [...] as of this encounter Visit Diagnoses Diagnosis Pre-op testing- Primary Preoperative examination, unspecified documented in this encounter Advance Directives Patient has advance care planning documents on file. For more information, please contact: [place] [phone]
--- OUTSIDE RECORDS SUMMARY | 2023-02-04 15:16 | External Medical Summary | Summary of Care ---
Author Name Unknown Organization [facility] Address [place] [address] Care Team Providers Care Bulk Coolers Installer Name Role Phone Joel Odom DO Primary Care Provider Reason for Visit * Reason Comments Follow Up Encounter Details Date Type Department Care Team Description 10/21/2018 Office Visit Cardiology, [facility] [address] [place] [address] Pino Mckeon DO [address] [place] [address] [phone] Essential hypertension with goal blood pressure less than 140/90*; Obesity, Class II, BMI 35-39.9, isolated (see actual BMI); Tobacco use disorder Allergies No Known Allergiesdocumented as of this encounter (statuses as of 10/21/2018) Medications Medication Sig Dispensed Refills Start Date End Date Status lisinopril (PRINIVIL) 10 MG TabletIndications:HTN, goal below 140/90 Take 1 Tab by mouth daily. 90 Tab 3 07/20/2018 Active documented as of this encounter (statuses as of 10/21/2018) Active Problems Problem Noted Date Obesity, morbid (more than 100 lbs over ideal weight or BMI > 40) 07/28/2018 Preop examination 05/14/2018 Morbid obesity due to excess calories Exotropia of both eyes 03/10/2017 Systemic primary arterial hypertension 0 11/15/2016 Overview: RX lisinopril Chewing tobacco use 09/08/2015 COLOR BLINDNESS OTHER COLOR DEFICIENCIES 10/16/2004 Genu varum 09/10/2000 documented as of this encounter (statuses as of 10/21/2018) Resolved Problems Problem Noted Date Resolved Date Body mass index (BMI) of 40.0 to 44.9 in adult 0 06/15/2018 08/11/2018 Overview: Per Obesity protocol #1 Obesity, Class II, BMI 35-39.9, isolated (see ac tual BMI) 11/05/2016 06/19/2018 Overview: Per Obesity protocol #1 Routine child health exam 10/16/20042017 documented as of this encounter (statuses as of 10/21/2018) Immunizations Name Administration Dates Next Due DTaP [...] Never Smoker Smokeless Tobacco: Current User Snuff Tobacco Cessation:Ready to Q uit: No; Counseling [...] Sign Reading Time Taken Comments Blood Pressure 142/70 10/21/2018 8:50 AM EDT Pulse 90 10/21/2018 8:50 AM EDT Temperature - - Respiratory Rate 16 10/21/2018 8:50 AM EDT Oxygen Saturation - - Inhaled Oxygen Concentration - - Weight 152.6 kg (336 lb 8 oz) 10/21/2018 8:50 AM EDT Height - - Body Mass Index - - documented in this encounter Progress Notes * Pino Mckeon, DO - 10/21/2018 8:53 AM EDT Subjective: 18-year-old patient presents for follow-up of hypertension. Diagnosed in 2016 and previously followed by pediatric cardiology. I most recently evaluated patient March of 2018. Lisinopril increased to 10 mg daily by PCP in July. No repeat basic metabolic panel on file. Weight is up approximately 8 lb. Checks blood pressure at home sporadically. Reports systolic blood pressure ranging from 126 to 145 mmHg. States that if he sits and rests for approximately 5 min, blood pressurewill trend down to the 120s. Denies chest pain or unusual shortness of breath. Voices concern regarding elevated blood pressures during activity. Admits to dietary indiscretions and lack of regular exercise. No interim hospitalizations. No headaches, visual changes, or focal weakness. 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 Offers no other concerns/complaints this time. 2D echocardiogram report 10/2016: Normal transthoracic echocardiogram . Past Medical History: Patient Active Problem List Diagnosis Code Genu varum M21.169 COLOR BLINDNESS OTHER COLOR DEFICIENCIES H53.50 Chewing tobacco use Z72.0 Systemic primary arterial hypertension I10 Exotropia of both eyes H50.10 Preop examination Z01.818 Morbid obesity due to excess calories ([facility]) E66.01 Obesity, morbid (more than 100 lbs over ideal weight or BMI > 40) ([facility]) E66.01 Past Surgical History: Procedure Laterality Date CONTROL OF NOSEBLEED, COMPLEX Right 07/27/2015 CONTROL NASAL HEMORRHAGE ANTERIOR COMPLEX performed by Sheng Howe DO at OR [facility] KNEE ARTHROSCOPY/MENISCECTOMY Right 06/2017 Right knee, [facility], [place], [place] was OK. REVISE TWO HORIZONTAL EYE MUSCLES Bilateral 07/28/2018 STRABISMUS SURGERY RECESSION OR RESECTION TWO HORIZONTAL MUSCLES [place] [facility] History: Denies family history of premature coronary disease or sudden cardiac Family History Problem Relation Age of Onset Diabetes Grandfather (Paternal) Hypertension Father Hypertension Grandfather (Paternal) Heart Disorder Grandfather (Maternal) from [place] at 33 y.o. Cancer Other Family Status Relation Status Mother Alive Father Alive Owns [employer] company Brother Alive Step brother Grandfather (Paternal) [...] strain: Not on file Food insecurity: Worry: Not on file Inability: Not on file Transportation needs: Medical: Not on file Non-medical: [...] file Gets together: Not on file Attends yazdanism service: Not on file Active member of [...] History Narrative Not on file Social History Social History Narrative Not on file ROS: Pertinent positives as per HPI, comprehensive 10 system review otherwise negative. Review of patient's allergies indicates: No Known Allergies Current Outpatient Medications Medication Sig Dispense Refill lisinopril (PRINIVIL) 10 MG Tablet Take 1 Tab by mouth daily. 90 Tab 3 OBJECTIVE/PHYSICAL EXAMINATION: BP 142/70 | Pulse 90 | Resp 16 | Wt 336 lbs 8 oz (152.635kg) General: NAD, AAO x3, well nourished. HEENT: [...] 18-year-old male with essential hypertension - BP borderline controlled in office 2. Obesity with continued weight gain 3. Tobacco use RECOMMENDATIONS/PLAN: I had a long discussion with the patient regarding therapeutic lifestyle changes including weight loss, dietary modifications, and the benefits of regular aerobic exercise. Minimum exercise goals reviewed: 30-40 minutes of exercise three to four times a week. He will continue 10 mg of lisinopril daily. Repeat basic metabolic panel will be performed today. Patient will forward blood pressure readings to me via Myg in 3 months. Consider titration of lisinopril to 20 mg daily pending review. Discontinuation of all tobacco products recommended. All questions answered to patient's satisfaction. Heis agreeable to the current plan, however, will report any change or decline in clinical status. Follow Up: Return in about 6 months (around 04/23/2019). Pino Mckeon DO, [facility] - [place] documented in this encounter Nursing Notes * Tanya Kumar RN - 10/21/2018 8:51 AM EDT Examination Room: 11 Name: Cory Mora Date of : (2000). Reason for Visit: Follow up Interim Hospitalization(s): No Problems/Concerns: States feeling well, overall. Denies having any current cardiac concerns. Chest Pain/SOB: Denies [facility] is a way you can talk to your provider online through e-mail. Would you like to sign up? I can activate it for you? ALREADY ACTIVE documented in this encounter Miscellaneous Notes * Addendum Note - Jonathan Guevara TECH - 10/21/2018 9:35 AM EDT Addended by: JONATHAN GUEVARA on: 10/21/2018 09:35 AM Modules accepted: Orders documented in this encounter Plan of Treatment Upcoming Encounters Date Type Specialty Care Team Description 11/06/2018 Office Visit Ophthalmology Pino Smiley MD [address] [place], [place] [address] 04/30/2019 Office Visit Cardiology Pino Mckeon, DO [address] [facility] [place] [address] [phone] 05/17/2019 Office Visit Family Medicine Joel Odom, DO [address] [facility] [place] [address] [phone] Pending Results Name Type Priority Associated Diagnoses Date /Time BASIC METAB PANEL, BMP Lab Routine Essential hypertension with goal blood pressure less than 140/90 Obesity, Class II, BMI 35-39.9, isolated (see actual BMI) 10/21/2018 9:32 AM EDT Scheduled Orders Name Type Priority Associated Diagnoses Orde r Schedule BASIC METAB PANEL, BMP Lab Routine Essential hypertension with goal blood pressure less than 140/90 Obesity, Class II, BMI 35-39.9, isolated (see actual BMI) Expected: 10/21/2018 (Approximate), Expires: 01/21/2019 Health Maintenance Due Date Last Done Comments [...] hypertension with goal blood pressure less than 140/90- Primary Obesity, Class II, BMI 35-39.9, isolated (see actual BMI) Morbid obesity Tobacco use disorder documented in this encounter Advance Directives Documents on File Type Date Recorded Patient Team Manager Expl anation Advanced Directive Advanced Directive Advanced Directive Advanced Directive Advanced Directive Advanced Directive 07/17/2018 11:14 AM Advanced Directive"
--- OUTSIDE RECORDS SUMMARY | 2023-02-04 15:16 | External Medical Summary | Summary of Care ---
Author Name Unknown Organization [facility] Address [place] [address] Care Team Providers Care Yield Clerk Name Role Phone Joel Odom DO Primary Care Provider Reason for Visit * Reason Comments Procedure right great toe ingr own nail Encounter Details Date Type Department Care Team Description 11/26/2018 Office Visit [facility] [address] [place] [address] [facility] [place] [address] [phone] Obesity, morbid (more than 100 lbs over ideal weight or BMI > 40) ([facility])*; Ingrowing nail, right great toe Allergies [...] Start Date End Date Status lidocaine-epinephrine 2 %-1:211170 inj 200 mgIndications:Ingrowing nail, right great toe 200 mg IJ ONCE 11/26/2018 11/26/2018 Act marli documented as of this encounter (statuses as [...] > 40) ([facility]) educated 2. Ingrowing nail, right great [...] performed by Sheng Howe DO at OR [facility] KNEE ARTHROSCOPY/MENISCECTOMY Right 06/2017 Right knee, [facility], [place], [place] was OK. REVISE TWO HORIZONTAL EYE MUSCLES Bilateral 07/28/2018 STRABISMUS SURGERY RECESSION OR RESECTION TWO HORIZONTAL MUSCLES performed by Pino Smiley MD at [place] [facility] [place] Current Outpatient Medications Medication Sig Dispense Refill lisinopril (PRINIVIL) 10 MG Tablet Take 1 Tab by mouth daily. 90 Tab 3 Review of patient's allergies indicates: No Known Allergies Joel Odom DO [facility] [address] [facility] [address] (This note was completed using the dictation [...] Visit Cardiology Pino Mckeon, DO [address] [place] [address] [phone] 05/17/2019 Office Visit Family Medicine Joel Odom, DO [address] [place] [address] [phone] 07/16/2019 Office Visit Ophthalmology Pino Smiley MD [address] [place], [place] [address] Health Maintenance Due Date Last Done Comments [...] over ideal weight or BMI > 40) (HCC)- Primary Morbid obesity Ingrowing nail, right great toe Ingrowing nail documented in this encounter Advance Directives Documents on File Type Date Recorded Patient Vascular Tech Expl anation Advanced Directive Advanced Directive Advanced Directive Advanced Directive Advanced Directive Advanced Directive 07/17/2018 11:14 AM Advanced Directive Advanced Directive"
--- OUTSIDE RECORDS SUMMARY | 2023-02-04 15:16 | External Medical Summary | Summary of Care ---
Author Name [place] [address] Care Team Providers Care Dry Dip Worker Name Role Phone Lei Joel Hernandezrebecca Primary Care Provider Reason for Visit * Reason Comments Letter Requests Encounter Details Date Type Department Care Team Description 08/05/[address] 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 Please send to [email or web address] documented in this encounter Plan of Treatment Upcoming Encounters Date Type Specialty Care Team Description 09/29/2018 Office Visit Cardiology Pino Mckeon DO [address] [facility] [place] [address] [phone] 11/06/2018 Office Visit Ophthalmology Pino Smiley MD [address] [place], [place] [id number] 05/17/2019 Office Visit Family Medicine Joel Odom DO [address] [place] [address] [phone] Health Maintenance Due Date Last Done Comments [...] more information, please contact: [place] [phone]
--- OUTSIDE RECORDS SUMMARY | 2023-02-04 15:16 | External Medical Summary | Summary of Care ---
Author Name [place] [address] Care Team Providers Care Walking Dragline Oiler Name Role Phone Lei Joel Hernandezrebecca Primary Care Provider Reason for Visit * Reason Comments Post-Op Encounter Details Date Type Department Care Team Description 07/31/2018 Office Visit [facility] [address] [place] [address] Pino Smiley MD [address] [place], [place] [id number] Exotropia* Allergies No Known Allergiesdocumented as of [...] than gradually increase Pino Smiley MD 07/31/2018 [facility] [place] [address] documented in this encounter Progress Notes * [...] Mckeon, DO [address] [place] [address] [phone] 11/06/2018 Office Visit Ophthalmology Pino Smiley MD [address] [place] [address] [phone] 05/17/2019 Office Visit Family Medicine Joel Odom, [address] [place] [address] [phone] Health Maintenance Due Date Last Done Comments [...] more information, please contact: [place] [phone]
--- OUTSIDE RECORDS SUMMARY | 2023-02-04 15:16 | External Medical Summary | Summary of Care ---
Author [place] [address] Care Team Providers Care Environmental Engineer Name Role Phone Odom Joel Hernandezrebecca Primary Care Provider Reason for Visit * Reason Comments Appointment Canceled Encounter Details Date Type Department Care Team Description 07/29/2018 Telephone [facility] [address] [place] [address] Pino Smiley MD [address] [place], [place] [id number] Appointment Canceled Allergies No Known Allergiesdocumented as of this encounter (statuses as of 07/29/2018) Medications Medication Sig Dispensed Refills Start Date End Date Status lisinopril (PRINIVIL) 10 MG TabletIndications:HTN, goal below 140/90 Take 1 Tab by mouth daily. 90 Tab 3 07/20/2018 Active documented as of this encounter (statuses as of 07/29/2018) Active Problems Problem Noted Date Obesity, morbid [...] as of this encounter (statuses as of 07/29/2018) Resolved Problems Problem Noted Date Resolved Date Obesity, Class II, BMI 35-39.9, isolated (see ac tual BMI) 11/05/2016 06/19/2018 Overview: Per Obesity protocol #1 Routine child health exam 10/16/20042017 documented as of this encounter (statuses as of 07/29/2018) Immunizations Name Dates Previously Given Next Due [...] Telephone Encounter - Lorraine Alvarado OSA - 07/29/2018 8:37 AM EST Pt's mother said she already okayed this with you.. Pt cancelling until Friday.. Pt is very light sensitive today documented in this encounter Plan of Treatment Upcoming Encounters Date Type Specialty Care Team Description 07/31/2018 Office Visit Ophthalmology Pino Smiley MD [address] [place] [address] [phone] 08/07/2018 Office Visit Ophthalmology Pino Smiley MD [address] [place] [address] [phone] 09/29/2018 Office Visit Cardiology Pino Mckeon, DO [address] [facility] [place] [address] [phone] 05/17/2019 Office Visit Family Medicine Joel Odom, DO [address] [facility] [place] [address] [phone] Health Maintenance Due Date Last Done Comments [...] more information, please contact: [place] [phone]
--- OUTSIDE RECORDS SUMMARY | 2023-02-04 15:16 | External Medical Summary | Summary of Care ---
Author Name Unknown Organization [facility] Address [place] [address] Care Team Providers Care Unit Control Worker Name Role Phone Joel Odom DO Primary Care Provider Reason for Visit * Reason Comments Follow Up Encounter Details Date Type Department Care Team Description 10/21/2018 Office Visit Cardiology, [facility] [address] [place] [address] Pino Mckeon DO [address] [place] [address] [phone] Essential hypertension with goal blood pressure less [...] this encounter Progress Notes * Pino Mckeon, - 10/21/2018 8:53 AM EDT Subjective: 18-year-old [...] and rests for approximately 5 min, blood pressure will trend down to the 120s. Denies chest pain or unusual shortness of breath. Voices concern regarding elevated blood pressures during activity. Admits to dietary indiscretions and lack of regular exercise. No interim hospitalizations. No headaches, visual changes, or focal weakness. 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 Offers no other concerns/complaints this time. 2D echocardiogram report 10/2016: Normal transthoracic echocardiogram . Past Medical History: Patient Active Problem List Diagnosis Code Genu varum M21.169 COLOR BLINDNESS OTHER COLOR DEFICIENCIES H53.50 Chewing tobacco use Z72.0 Systemic primary arterial hypertension I10 Exotropia of both eyes H50.10 Preop examination Z01.818 Morbid obesity due to excess calories ([facility]) E66.01 Obesity, morbid (more than 100 lbs over ideal weight or BMI > 40) ([facility]) E66.01 Past Surgical History: Procedure Laterality Date CONTROL OF NOSEBLEED, COMPLEX Right 07/27/2015 CONTROL NASAL HEMORRHAGE ANTERIOR COMPLEX performed by Sheng Howe DO at OR [facility] KNEE ARTHROSCOPY/MENISCECTOMY Right 06/2017 [facility], [place], [place] was OK. REVISE TWO HORIZONTAL EYE MUSCLES Bilateral 07/28/2018 STRABISMUS SURGERY RECESSION OR RESECTION TWO HORIZONTAL MUSCLES performed by Pino Smiley MD [place] [facility] Family History: Denies family history of premature coronary disease or sudden cardiac Family History Problem Relation Age of Onset Diabetes Grandfather (Paternal) Hypertension Father Hypertension Grandfather (Paternal) Heart Disorder Grandfather (Maternal) from [place] at 33 y.o. Cancer Other Family Status Relation Status Mother Alive Father Alive Owns [employer] company Brother Alive Step brother Grandfather (Paternal) [...] file Gets together: Not on file Attends confucianist service: Not on file Active member of [...] 6 months (around 04/23/2019). [facility] - [place] documented [...] Office Visit Ophthalmology Pino Smiley MD [address] [place], [place] [id number] 04/30/2019 Office Visit Cardiology Pino Mckeon, DO 132 [facility] [place] [address] [phone] 05/17/2019 Office Visit Family Medicine Joel Odom, DO [address] [facility] [address] [phone] Pending Results Name Type Priority Associated Diagnoses [...] Documents on File Type Date Recorded Patient Marketing Communications Associate Expl anation Advanced Directive Advanced Directive Advanced Directive Advanced Directive Advanced Directive Advanced Directive 07/17/2018 11:14 AM Advanced Directive"
--- OUTSIDE RECORDS SUMMARY | 2023-02-04 15:17 | External Medical Summary | Summary of Care ---
Author Name Unknown Organization [place] [id number] Care Team Providers Care Chef Head Name Role Phone Joel Odom DO Primary Care Provider Reason for Visit * Reason Comments Other * Evaluate & Treat - Unlimited Visits (Within 10 days (routine)) Status Reason Specialty Diagnoses / Procedures Referred By Contact Referred To Contact Authorized Specialty Services Required Ophthalmology Diagnoses Exotropia of both eyes Remi Cornelius MD [address] [place] [address] Pino Smiley MD [address] [place] [address] Encounter Details Date Type Department Care Team Description 05/15/2018 Office Visit Ophthalmology, [place] [facility] [place] [address] Pino Smiley MD [address] [place] [address] Exotropia* Allergies No Known Allergiesas of this encounter [...] Start Travel End as of this encounter Progress Notes * Pino Smiley MD - 05/15/2018 1:44 PM EST Date: 05/15/2018 Name: Cher Mora : 2000 Age: [age] year old Consult requested by: Dr. Joel Odom, DO Nursing notes reviewed. CC: Follow-up per my request. HPI: 17 year old with XT Duration: few years. Quality: mild. Frequency: all of the time. Modifying factors: none. Not wearing glasses Past Ocular History/Surgery: Patching: No Glasses: No Previous Surgery: No Review of patient's allergies indicates: No Known Allergies Review of Systems and Past Family and Social History no interval change Vision Method: Snellen Right Eye: 20/20 Va < Left Eye : 20/20 Sensory Testing: _ VF: Full to CF OU Strabismus: Method : Cover test Distance : XT = 30 poor control SC Near : XT ' = 30 Ductions/Versions: Full No A or V pattern [...] OS: normal Lens: OD: normal OS: normal Drops: Cycloplegic Refraction: Over Rx : Fundus: Macula: Rt: normal Lt: normal Optic Nerve: Rt: normal Lt: normal Periphery: Rt: normal Lt: normal Assessment: Strabismus: Intermittent XT Plan: Surgery: BLR Recession 7.0 - no adjustable The following risks of strabismus surgery were discussed with the patient /family: or major medical complication from anesthesia, blindness from infection, bleeding, or a structural change in the eye, under/over correction, more surgery, diplopia, scarring, redness, chronic pain, ptosis, change in appearance, limited eye movement, and/or need for glasses Follow up:post-op Pino Smiley MD in this encounter Nursing Notes * Elizabeth Lester LPN - 05/15/2018 1:19 PM EST Pt here to be seen prior to surgery. Pt penciled in for surgery 18. in this encounter Plan of Treatment Upcoming Encounters Date Type Specialty Care Team Description 05/18/2018 Scheduled Telephone PreSurgery Jayant Presurgical Assessment Education [address] [place] [address] [phone] 06/01/2018 Hospital Encounter Surgery Jalyn Whatley, DPKaylen [address] [place] [address] [place] [address] [phone] 06/01/2018 Surgery Surgery WhatleyJalyn gould, DPKaylen [address] [place] [place] [address] [phone] EXCISION TUMOR LEG ANKLE SUBCUTANEOUS 06/08/2018 Office Visit Podiatry PhyliciaJalyn, DPKaylen [address] [place] [address] [place] [address] [phone] 09/29/2018 Office Visit Cardiology Pino Mckeon, DO [address] [place] [address] [phone] 05/17/2019 Office Visit Family Medicine Joel Odom, DO [address] [place] [address] [phone] Health Maintenance Due Date Last Done Comments GARDASIL-HPV IMMUNIZATION SE OTIS (3 of 3 - Male 3-dose series) 05/07/2017 01/03/2017, 11/05/2016 17 YEAR WELLNESS VISIT 09/06/2017 *DEPRESSION SCREENING, ONEILUA Jessi FOR PTS 18 AND OVER 09/08/2017 *BASIC METABOLIC PANEL (BMP) FOR HTN YEARLY 11/07/2017 Influenza Vaccine (FLU shot) (#1) 2017 03/10/2013, 03/03/2012, 06/27/2011, Additional history exists DTaP,Tdap,and Td Vaccines (7 - Td) 06/27/2021 06/27/2011, 10/16/2004, 03/11/2001, Additional history exists as of this encounter Implants Not on fileas of this encounter Visit Diagnoses Diagnosis Exotropia- Primary Exotropia, unspecified in this encounter Advance Directives Patient has advance care planning documents on file. For more information, please contact: [place] [phone]
--- OUTSIDE RECORDS SUMMARY | 2023-02-04 15:17 | External Medical Summary | Summary of Care ---
Author Name Unknown Organization [facility] Address [place] [address] Care Team Providers Care Credit Associate Name Role Phone Joel Odom DO Primary Care Provider Reason for Visit * Reason Comments NEW PATIENT establish PCPjorge luis pre op clearance Encounter Details Date Type Department Care Team Description 05/14/2018 Office Visit Family [facility] [address] [place] [address] Joel Odom DO [address] [place] [address] [phone] Morbid obesity due to excess calories (HCC)*; Obesity, Class II, BMI 35-39.9, isolated (see actual BMI); Systemic primary arterial hypertension; Preop examination Allergies No Known Allergiesas of this encounter [...] Start Travel End as of this encounter Last Filed Vital Signs Vital Sign Reading Time Taken Blood Pressure 144/74 05/14/2018 9:11 AM EST Pulse 104 05/14/2018 9:11 AM EST Temperature 36.8 C (98.2 F) 05/14/2018 9 :11 AM EST Respiratory Rate 16 05/14/2018 9:11 AM EST Oxygen Saturation - - Inhaled Oxygen Concentration - - Weight 151.5 kg (334 lb) 05/14/2018 9:1 1 AM EST Height 189.2 cm (6' 2.5") 05/14/2018 9: 11 AM EST Body Mass Index 42.31 05/14/2018 9:11 AM EST in this encounter Patient Instructions * Patient Instructions* Joel Odom, - 05/14/2018 9:23 AM EST BMI (Body Mass Index) is the number obtained by dividing a person's weight in kilograms by his or her height in meters squared. BMI is used in determining obesity. BMI is not used to determine a person's actual percentage of body fat, but it is a good tool to oven tender bagels weight in terms of what is healthy and unhealthy. It is used to identify adults at increased risk for developing weight related medical problems. Estimated body mass index is 42.31 kg/m as calculated from the following: Height as of this encounter: 1.892 m (6' 2.5"). Weight as of this encounter: 151.5 kg (334 lb). Severe Obesity - BMI 40 kg/m2 [...] message program is also available. Go to [employer] and seethe message under '[employer] News' for more information and enrollment. Patient [...] permitted. Keep Honest, Accurate Food logs: * www.Elastifile.AF83 * www.Reframed.tv * If you bite it - write [...] using a pedometer * Make it fun! in this encounter Progress Notes * Joel Odom, - 05/14/2018 9:23 AM EST Nursing Notes: Shauna Murrell, ANSON 05/14/18 0915 Signed The patient has been properly identified by confirmation of name and date of . Chief Complaint Patient presents with NEW PATIENT establish PCP, possible pre op clearance ASSESSMENT/PLAN: 1. Morbid obesity due to excess calories (HCC) Educated on diet and exercise 2. Obesity, Class II, BMI 35-39.9, isolated (see actual BMI) 3. Systemic primary arterial hypertension Patient has blood pressure cuff at home and reports stable blood pressures under 140/90 at home. Gets anxious when he comes into the clinic to have his blood pressure evaluated. Patient will call clinic with a log of home pressures were and will notify us if his blood pressure is uncontrolled at home. 4. Preop examination This is a low risk patient for low risk procedure, I see no reason why the patient should not proceed with his or removal as scheduled. Cleared from my standpoint HPI: Cher Mora is a 17 year old male who presents to Have a pre-op eval and to establish care. Hx of HTN. Controlled so far on 5mg of lisinopril. ROS: CONSTITUTIONAL: no weight loss, no fevers, [...] numbness PSYCH: no SI/HI PHYSICAL EXAMINATION: BP 144/74 | Pulse 104 | Temp (Src) 98.2 (Tympanic) | Resp 16 | Ht 6' 2.5" (1.892m) | Wt 334 lbs (151.501kg) | BMI 42.31 kg/m | BSA 2.82 m GENERAL: alert, healthy, no distress, well [...] LUNGS: clear to auscultation bilaterally. No wheezing/rales/rhonchi SKIN: plantar warts EXTREMITIES: no joint deformities, effusion, or inflammation, no edema, no clubbing, no cyanosis, Full ROM, Pulses Intact, Strength equal bilaterally NEURO: alert & oriented x 3 with fluent speech, no focal motor/sensory deficits, gait normal, reflexes normal and symmetric MSK:normal ROM and Strength Patient Active Problem List Diagnosis Code Genu varum M21.169 COLOR BLINDNESS OTHER COLOR DEFICIENCIES H53.50 Chewing tobacco use Z72.0 Obesity, Class II, BMI 35-39.9, isolated (see actual BMI) E66.9 Systemic primary arterial hypertension I10 Exotropia of both eyes H50.10 Preop examination Z01.818 Past Medical History: Diagnosis Date Closed fracture of unspecified bone age 2 Fracture of 2-3rd metatarsal bones Past Surgical History: Procedure Laterality Date CONTROL NASAL HEMORRHAGE ANTERIOR COMPLEX Right 07/27/2015 Performed by Sheng Howe DO at OR [facility] CONTROL OF NOSEBLEED, COMPLEX Right 07/27/2015 CONTROL NASAL HEMORRHAGE ANTERIOR COMPLEX performed by Sheng Howe DO at OR [facility] Current Outpatient Medications Medication Sig Dispense Refill lisinopril (PRINIVIL) 5 MG Tablet Take 1 Tab by mouth daily. 30 Tab 5 Review of patient's allergies indicates: No Known Allergies Joel Odom DO [address] [facility] [address] (This note was completed using the dictation program Fluency Direct. As such, there may be misspellings, word substitutions, or other variations that should not change the essence of the clinical content of this encounter note.If there is need for further clarification, please direct questions to the provider listed above.) * Joel Odom DO - 05/14/2018 9:23 AM EST Patient counseling on weight management given. in this encounter Nursing Notes * Shauna Murrell LPN - 05/14/2018 9:11 AM EST The patient has been properly identified by confirmation of name and date of . Chief Complaint Patient presents with NEW PATIENT establish PCP, possible pre op clearance in this encounter Plan of Treatment Upcoming Encounters Date Type Specialty Care Team Description 05/15/2018 Office Visit Ophthalmology Pino Smiley MD [address] [place] [address] [phone] 05/18/2018 Scheduled Telephone PreSurgery Saba, Presurgical Assessment Education [place] [address] [place] [address] [phone] 06/01/2018 Hospital Encounter Surgery Jalyn Whatley DPM [address] [place] [address] 06/01/2018 Surgery Surgery Jalyn Whatley DPM [address] [place] [place] [id number] EXCISION TUMOR LEG ANKLE SUBCUTANEOUS 06/08/2018 Office Visit Podiatry Jalyn Whatley DPM [address] [place] [address] 09/29/2018 Office Visit Cardiology Pino Mckeon, [address] [place] [address] [phone] 05/17/2019 Office Visit Family Medicine Joel Odom DO [address] [place] [address] [phone] Health Maintenance Due Date Last Done Comments GARDASIL-HPV IMMUNIZATION SE OTIS (3 of 3 - Male 3-dose series) 05/07/2017 01/03/2017, 11/05/2016 17 YEAR WELLNESS VISIT 09/06/2017 *DEPRESSION SCREENING, GRICELDA Bowen FOR PTS 18 AND OVER 09/08/2017 *BASIC METABOLIC PANEL (BMP) FOR HTN YEARLY 11/07/2017 Influenza Vaccine (FLU shot) (#1) 2017 03/10/2013, 03/03/2012, 06/27/2011, Additional history exists DTaP,Tdap,and Td Vaccines (7 - Td) 06/27/2021 06/27/2011, 10/16/2004, 03/11/2001, Additional history exists as of this encounter Implants Not on fileas of this encounter Visit Diagnoses Diagnosis Morbid obesity due to excess calories (HCC)- Primary Obesity, Class II, BMI 35-39.9, isolated (see actual BMI) Morbid obesity Systemic primary arterial hypertension Unspecified essential hypertension Preop examination Preoperative examination, unspecified in this encounter Advance Directives Patient has advance care planning documents on file. For more information, please contact: [place] [phone]
--- OUTSIDE RECORDS SUMMARY | 2023-02-04 15:17 | External Medical Summary | Summary of Care ---
Author Name Unknown Organization [facility] Address [place] [id number] Care Team Providers Care Watch Crystal Cutter Name Role Phone Remi Cornelius MD Primary Care Provider [phone] Reason for Referral * Evaluate & Treat - Unlimited Visits (Within 10 days (routine)) Status Reason Specialty Diagnoses / Procedures Referred By Contact Referred To Contact Authorized Specialty Services Required Ophthalmology Diagnoses Exotropia of both eyes Remi Cornelius MD [address] [place] [address] Pino Smiley MD [address] [facility] [place] [address] Reason for Visit * Reason Comments Referral Requested by Specialist Encounter Details Date Type Department Care Team Description 05/04/2018 Telephone Pediatrics [facility] 132 [facility] [place] [address] Remi Cornelius MD [address] [place] [address] Referral Requested by Specialist Allergies No Known Allergiesas of this encounter Medications Medication Sig Dispensed Refills Start Date End Date Status lisinopril (PRINIVIL) 5 MG TabletIndications:System ic primary arterial hypertension Take 1 Tab by mouth daily. 30 Tab 5 04/22/2018 Active as of this encounter Active Problems Problem Noted Date Exotropia of both eyes 03/10/2017 Systemic primary arterial hypertension 0 11/15/2016 Obesity, Class II, BMI 35-39.9, isolated (see actual BMI) 11/05/2016 Chewing tobacco use 09/08/2015 Routine child health exam 10/16/2004 COLOR BLINDNESS OTHER COLOR DEFICIENCIES 10/16/2004 Genu varum 09/10/2000 as of this encounter Immunizations Name Dates Previously Given Next Due DTaP - Dipth/Tet/Acell Pertussis 005,03/11/2001,03/18/2000,,1999 HIB Hep B - HIB Hepatitis B (Comvax) 12/09/2000, 01/16/2000,1999 HPV Vaccine, 9-Valent 01/03/2017,11/05/2016 IPV - Polio Virus Vaccine (Inact) 2004,03/11/2001,01/16/2000, MMR - Measles/Mumps/Rubella Vaccine 10/16/2004,0 09/10/2000 Meningococcal Conjugate Vacc ine (MENACTRA/MENVEO) 01/03/2017,06/27/2011 Pneumococcal Conjugate Vacci ne, 7 Valent 12/09/2000,06/10/2000,03/18/2000 Seasonal Influenza, Trivalen t, No Preserve, 6-35 mos, Split 03/30/2002 04/30/2002 Seasonal Influenza, Trivalen t, with Preserve, 3yr & Above, Split 06/27/2011,03/22/2003,05/13/2002 TDAP (age 11 and older)(Adacel) 06/27/2011 Varicella Vaccine (Chicken Pox) 06/27/2011,09/10 as of this encounter Social History Tobacco Use Types Packs/Day Years Used Date Never Smoker Smokeless Tobacco: Current User Comments:sometimes Alcohol Use Drinks/Week oz/Week Comments No Sex Assigned at Date Recorded Not on file Job Start Date Occupation Industry Not on file Not on file Not on file Travel History Travel Start Travel End as of this encounter Miscellaneous Notes * Telephone Encounter - Remi Cornelius MD - 05/04/2018 4:24 PM EST OK; referral done. * Telephone Encounter - Sharon Valle LPN - 05/04/2018 3:35 PM EST Pt has upcoming appt with Dr Smiley. His office is asking for referral to be placed in this encounter Plan of Treatment Upcoming Encounters Date Type Specialty Care Team Description 05/14/2018 Office Visit Family Medicine Joel Odom, 132 [facility] [place] [address] [phone] 05/15/2018 Office Visit Ophthalmology Pino Smiley MD [address] [place] [address] [phone] 05/18/2018 Scheduled Telephone PreSurgery Saba, Presurgical Assessment Education [place] 132 [facility] [place] [address] [phone] 06/01/2018 Hospital Encounter Surgery Jalyn Whatley DPM [address] [place] [address] [place] [address] [phone] 06/01/2018 Surgery Surgery Jalyn Whatley DPM [address] [place] [place] [address] [phone] EXCISION TUMOR LEG ANKLE SUBCUTANEOUS 06/08/2018 Office Visit Podiatry Jalyn Whatley DPM [address] [place] [address] [phone] 09/29/2018 Office Visit Cardiology Pino Mckeon DO [address] [place] [address] [phone] Scheduled Referrals Name Priority Associated Diagnoses Order S chedule OPHTHALMOLOGY REFERRAL OP Within 10 days (routine) Exotropia of both eyes Ordered: 05/04/2018 Health Maintenance Due Date Last Done Comments [...] fileas of this encounter Visit Diagnoses Diagnosis Exotropia of both eyes- Primary Exotropia, unspecified in this encounter Advance Directives Patient has advance care planning documents on file. For more information, please contact: [place] [phone]
--- OUTSIDE RECORDS SUMMARY | 2023-02-04 15:17 | External Medical Summary | Summary of Care ---
Author Name Unknown Organization [place] [address] Phone Care Team Providers Care Vice President Pharmacy Name Role Phone Remi Cornelius MD Primary Care Provider [phone] Encounter Details Date Type Department Care Team Description 03/11/2018 Scan Encounter Pediatrics [facility] 132 [facility] [place] [address] Remi Cornelius MD [address] [place] [address] <No scans attached> Allergies No Known Allergiesas of this encounter Medications Prescription Sig. Disp. Refills Start Date End Date Status mupirocin calcium (BACTROBAN) 2 % ointmentIndications:Im petigo Apply topically to affected area on R forearm three times a day x 5-7 days or as needed 22 g 0 03/03/2016 Active lisinopril (PRINIVIL) 5 MG Tablet Take 1 Tab by mouth daily. 30 Tab 5 07/11/2017 Active as of this encounter Active Problems [...] Assigned at Date Recorded Not on file as of this encounter Plan of Treatment Upcoming Encounters Date Type Specialty Care Team Description 05/15/2018 Office Visit [facility] [address] 09/29/2018 Office Visit Cardiology Pino Mckeon, DO 132 [facility] [place] [address] Health Maintenance Due Date Last Done Comments GARDASIL-HPV IMMUNIZATION SE OTIS (3 of 3 - Male 3 Dose Series) 05/07/2017 01/03/2017, 11/05/2016 17 YEAR WELLNESS VISIT 09/06/2017 *DEPRESSION SCREENING, GRICELDA Bowen FOR PTS 18 AND OVER 09/08/2017 *BASIC METABOLIC PANEL (BMP) FOR HTN YEARLY 11/07/2017 Influenza Vaccine (FLU shot) (#1) 2017 06/27/2011, 03/22/2003, 05/13/2002, Additional history exists DTaP,Tdap,and Td Vaccines (7 - Td) 06/27/2021 06/27/2011, 10/16/2004, 03/11/2001, Additional history exists as of this encounter Implants Not on fileas of this encounter
--- OUTSIDE RECORDS SUMMARY | 2023-02-04 15:17 | External Medical Summary | Summary of Care ---
Author Name Unknown Organization [place] [address] Phone Care Team Providers Care Diagnostic Radiologist Name Role Phone Remi Cornelius MD Primary Care Provider [phone] [phone] Reason for Referral * Evaluate & Treat - Unlimited Visits (Within 10 days (routine)) Status Reason Specialty Diagnoses / Procedures Referred By Contact Referred To Contact Authorized Specialty Services Required Cardiovascular Medicine Diagnoses Systemic primary arterial hypertension Remi Cornelius MD 132 [facility] [place] [address] Reason for Visit * Reason Comments REFERRAL REQUESTED BY SPECIALIST Encounter Details Date Type Department Care Team Description 03/10/2018 Telephone Pediatrics [facility] [address] [place] [address] Remi Cornelius MD 132 [facility] [place] [address] REFERRAL REQUESTED BY SPECIALIST Allergies No Known Allergiesas of this encounter [...] Not on file as of this encounter Miscellaneous Notes * Telephone Encounter - Loan Mclaughlin, MIKAL - 03/11/2018 8:45 AM EDT Referral in system. navinet referral done. Thanks * Telephone Encounter - Delilah Block, MIKAL - 03/10/2018 9:28 AM EDT New referral request: Our records indicate that you have an upcoming appointment and a referral is required for this visit. Please review pended referral for the following: Patient Name: Cher Mora Patient Primary care provider: Remi Cornelius MD Name of preferred specialist: Pino Mckeon DO Type of specialist: Payroll Accounting Manager Location of specialist: [facility] Phone # : Specialist's Fax #: Reason for visit: Systemic primary arterial hypertension Date of visit: 03/11/18 in this encounter Plan of Treatment Upcoming Encounters Date Type Specialty Care Team Description 05/15/2018 Office Visit Ophthalmology Pino Smiley MD 16 [place] [address] [phone] 09/29/2018 Office Visit Cardiology Pino Mckeon DO 132 [place] [address] Scheduled Referrals Name Priority Associated Diagnoses Order S chedule CARDIOLOGY REFERRAL OP Within 10 days (routine) Systemic primary arterial hypertension Ordered: 03/13/2018 Health Maintenance Due Date Last Done Comments [...] fileas of this encounter Visit Diagnoses Diagnosis Systemic primary arterial hy pertension - Primary Unspecified essential hypertension in this encounter
--- OUTSIDE RECORDS SUMMARY | 2023-02-04 15:17 | External Medical Summary | Summary of Care ---
Author Name Unknown Organization [facility] Address [place] [address] Care Team Providers Care Leather Flesher Name Role Phone Remi Cornelius MD Primary Care Provider [phone] [phone] Reason for Visit * Reason Comments Advice Encounter Details Date Type Department Care Team Description 04/22/2018 Refill Cardiology, [facility] [address] [place] [address] Pino Mckeon, 132 [facility] [place] [address] [phone] Systemic primary arterial hypertension* Allergies No Known Allergiesas of this encounter Medications Medication Sig Dispensed Refills Start Date End Date Status mupirocin calcium (BACTROBAN) 2 % ointmentIndication s:Impetigo Apply topically to affected area on R forearm three times a day x 5-7 days or as needed 22 g 0 03/03/2016 Active lisinopril (PRINIVIL) 5 MG TabletIndications: Systemic primary arterial hypertension Take 1 Tab by mouth daily. 30 Tab 5 04/22/2018 Active lisinopril (PRINIVIL) 5 MG Tablet Take 1 Tab by mouth daily. 30 Tab 5 07/11/2017 04/22/2018 Discontinued as of this encounter Active Problems Problem [...] encounter Miscellaneous Notes * Telephone Encounter - Sonia Laboy DO - 04/22/2018 2:43 PM EST Signed Prescriptions: Disp Refills lisinopril (PRINIVIL) 5 MG Tablet 30 Tab 5 Sig: Take 1 Tab by mouth daily. Authorizing Provider: SONIA LABOY * Telephone Encounter - NieshaGretel nuno Kaylen, ANSON - 04/22/2018 1:56 PM EST Pending Prescriptions: Disp Refills lisinopril (PRINIVIL) 5 MG Tablet 30 Tab 5 Sig: Take 1 Tab by mouth daily. * Telephone Encounter - Jalyn Pinedo Kaylen, ANSON - 04/22/2018 1:39 PM EST Mom calling due to pt needing refill on med. Pending Prescriptions: Disp Refills lisinopril (PRINIVIL) 5 MG Tablet 30 Tab 5 Sig: Take 1 Tab by mouth daily. 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 Chewing tobacco use Z72.0 Obesity, Class II, BMI 35-39.9, isolated (see actual BMI) E66.9 Systemic primary arterial hypertension I10 Exotropia of both eyes H50.10 Labs: CREATININE(mg/dL) Lisa Dt/Tm Resulted Value Status 11/05/16 4:21P 11/05/16 0.9 FINAL POTASSIUM(mmol/L) Lisa Dt/Tm Resulted Value Status 11/05/16 4:21P 11/05/16 4.1 FINAL No TSH components found LDL (CALCULATED)(mg/dL) Lisa Dt/Tm Resulted Value Status 11/05/16 4:21P 11/05/16 79 FINAL ALT(U/L) Lisa Dt/Tm Resulted Value Status 11/05/16 4:21P 11/05/16 61* FINAL Hemoglobin AIC Results: No HEMOGLOBIN, A1C components found * Telephone Encounter - Vanita Cuenca OSA - 04/22/2018 1:38 PM EST Reason for patient's call: asking to speak to the nurse Caller was transferred to Jalyn at the dedicated phone nurse line. in this encounter Plan of Treatment Upcoming Encounters Date Type Specialty Care Team Description 04/28/2018 Office Visit Podiatry Jalyn Whatley DPM [address] [place] [address] [place] [address] 05/15/2018 Office Visit Ophthalmology Pino Smiley MD 16 [place] [address] 09/29/2018 Office Visit Cardiology Pino Mckeon, 132 [place] [address] Health Maintenance Due Date Last Done Comments GARDASIL-HPV IMMUNIZATION SE OTIS (3 of 3 - Male 3-dose series) 05/07/2017 01/03/2017, 11/05/2016 17 YEAR WELLNESS VISIT 09/06/2017 *DEPRESSION SCREENINGGRICELDA FOR PTS 18 AND OVER 09/08/2017 *BASIC METABOLIC PANEL (BMP) FOR HTN YEARLY 11/07/2017 Influenza Vaccine (FLU shot) (#1) 2017 06/27/2011, 03/22/2003, 05/13/2002, Additional history exists DTaP,Tdap,and Td Vaccines (7 - Td) 06/27/2021 06/27/2011, 10/16/2004, 03/11/2001, Additional history exists as of this encounter Implants Not on fileas of this encounter Visit Diagnoses Diagnosis Systemic primary arterial hypertension- Primary Unspecified essential hypertension in this encounter Advance Directives Patient has advance care planning documents on file. For more information, please contact: [place] [phone]
--- OUTSIDE RECORDS SUMMARY | 2023-02-04 15:17 | External Medical Summary | Summary of Care ---
Author Name Unknown Organization [place] [address] Phone Care Team Providers Care Tensile Tester Name Role Phone Remi Cornelius MD Primary Care Provider [phone] Reason for Referral * Evaluate & Treat - Unlimited Visits (Within 10 days (routine)) Status Reason Specialty Diagnoses / Procedures Referred By Contact Referred To Contact Authorized Specialty Services Required Podiatry Diagnoses Plantar Remi Knight MD 132 [place] [address] Jalyn Whatley DPM 132 [place] [address] Reason for Visit * Reason Comments REFERRAL Encounter Details Date Type Department Care Team Description 03/20/2018 Telephone Pediatrics [facility] [address] [place] [address] Remi Cornelius MD 132 [facility] [address] REFERRAL Allergies No Known Allergiesas of this encounter [...] encounter Miscellaneous Notes * Telephone Encounter - Angelina Ennis DO - 03/20/2018 8:51 AM EDT Overdue for well child visit (due in December from what I can see). Please have them schedule. * Telephone Encounter - Sera GabrielIMKAL - 03/20/2018 7:45 AM EDT New referral request: Our records indicate that you have an upcoming appointment and a referral is required for this visit. Please review pended referral for the following: Patient Name: Cher Mora Patient Primary care provider: Remi Cornelius MD Name of preferred specialist: Jalyn Whatley Type of specialist: Podiatry Location of specialist: [facility]ist[facility] Phone # : Specialist's Fax #: Reason for visit: Plantar warts Date of visit: 04/28/18 in this encounter Plan of Treatment Upcoming Encounters Date Type Specialty Care Team Description 04/28/2018 Office Visit Podiatry Jalyn Whatley DPM [address] [place] [address] 05/15/2018 Office Visit Ophthalmology Pino Smiley MD 16 [place] [address] 09/29/2018 Office Visit Cardiology [facility] Mckeon, [facility] [address] Scheduled Referrals Name Priority Associated Diagnoses Order S chedule PODIATRY REFERRAL OP Within 10 days (routine) Plantar wart Ordered: 03/23/2018 Health Maintenance Due Date Last Done Comments [...] fileas of this encounter Visit Diagnoses Diagnosis Plantar wart - Primary in this encounter
--- OUTSIDE RECORDS SUMMARY | 2023-02-04 15:17 | External Medical Summary | Summary of Care ---
Author Name Unknown Organization [place] [address] Care Team Providers Care Real Estate Valuer Name Role Phone Remi Cornelius MD Primary Care Provider [phone] Reason for Visit * Reason Comments NEW PATIENT plantar warts on bot h feet x 3 months * Evaluate & Treat - Unlimited Visits (Within 10 days (routine)) Status Reason Specialty Diagnoses / Procedures Referred By Contact Referred To Contact Authorized Specialty Services Required Podiatry Diagnoses Plantar wart Remi Cornelius MD 132 [facility] [place] [address] Jalyn Whatley DPM 132 [facility] [address] Encounter Details Date Type Department Care Team Description 04/28/2018 Office Visit Podiatry [facility] 132 [facility] [place] [address] Jalyn Whatley DPM [address] [place] [address] [place] [id number] Bilateral foot pain*; Plantar wart Allergies No Known Allergiesas of this encounter Medications Medication Sig Dispensed Refills Start Date End Date Status lisinopril (PRINIVIL) 5 MG TabletIndications: Systemic primary arterial hypertension Take 1 Tab by mouth daily. 30 Tab 5 04/22/2018 Active mupirocin calcium (BACTROBAN) 2 % ointmentIndication s:Impetigo Apply topically to affected area on R forearm three times a day x 5-7 days or as needed 22 g 0 03/03/2016 04/28/2018 Discontinued lisinopril (PRINIVIL) 5 MG Tablet TAKE 1 TABLET BY MOUTH ONCE DAILY 30 Tab 5 04/22/2018 04/28/2018 Discontinued as of this encounter Active Problems [...] Vital Sign Reading Time Taken Blood Pressure - - Pulse - - Temperature - - Respiratory Rate - - Oxygen Saturation - - Inhaled Oxygen Concentration - - Weight 153.3 kg (338 lb) 04/28/2018 11: 15 AM EST Height 189.2 cm (6' 2.5") 04/28/2018 11 :15 AM EST Body Mass Index 42.82 04/28/2018 11:15 AM EST in this encounter Progress Notes * Jalyn Whatley, PEACE - 04/28/2018 12:12 PM EST Podiatry New Patient Note [facility] Name: Cher Mora : 2000 Date: 04/28/2018 CHIEF COMPLAINT: Bilateral plantar warts HISTORY OF PRESENT ILLNESS: This patient is a 17 year old male who presents today with complaints of bilateral plantar warts. Pt states he has noticed since December painful plantar warts to the bottomof both feet. He states these are painful with walking, especially when barefoot. He has also noticed them increasing in size and number. He states his Mom tried to use OTC freeze spray without any relief. He does not like his feet touched or needles. He would like to be under sedation to have these removed. He denies any other complaints at todays visit. Past Medical History: Diagnosis Date Closed fracture of unspecified bone age 2 Fracture of 2-3rd metatarsal bones Past Surgical History: Procedure Laterality Date CONTROL NASAL HEMORRHAGE ANTERIOR COMPLEX Right 07/27/2015 Performed by Sheng Howe DO at OR [facility] CONTROL OF NOSEBLEED, COMPLEX Right 07/27/2015 CONTROL NASAL HEMORRHAGE ANTERIOR COMPLEX performed by Sheng Howe DO at OR [facility] Family History Problem Relation Age of Onset Diabetes Grandfather (Paternal) Hypertension Father Hypertension Grandfather (Paternal) Heart Disorder Grandfather (Maternal) from [place] at 33 y.o. Cancer Other Social History Socioeconomic History Marital status: Single Spouse name: Not on file Number of children: Not on file Years of education: Not on file Highest education level: Not on file Social Needs Financial resource strain: Not on file Food insecurity - worry: Not on file Food insecurity - inability: Not on file Transportation needs - medical: Not on file Transportation needs - non-medical: Not on file Occupational History Not on file Tobacco Use Smoking status: Never Smoker Smokeless tobacco: Current User Tobacco comment: sometimes Substance and Sexual Activity Alcohol use: No Drug use: No Sexual activity: No Other Topics Concern Not on file Social History Narrative Not on file Current Outpatient Medications Medication Sig Dispense Refill lisinopril (PRINIVIL) 5 MG Tablet Take 1 Tab by mouth daily. 30 Tab 5 ALLERGIES: Review of patient's allergies indicates: No Known Allergies REVIEW OF SYSTEMS: CONSTITUTIONAL: No change in weight, No weakness, No fatigue and No fevers, sweats, or chills EYE: No recent significant change in vision and No eye pain, redness, discharge EARS: No ear pain and No recent change in hearing NOSE: No history of frequent colds or sinusitis and No nasal stuffiness PULMONARY: No cough, sputum, or hemoptysis and No recent change in breathing CARDIOVASCULAR: No chest pain, No shortness of breath and No syncope EXTREMITIES: Bilateral foot pain SKIN/INTEGUMENTARY: No edema, No rash and No itching NEUROLOGIC: Normal balance, No headaches, No seizures and No weakness PSYCHIATRIC: No depression, No anxiety and No psychosis FOCUSED PODIATRIC EXAM: Vitals: Filed Vitals: 04/28/18 1115 Weight: (!) 153.3 kg (338 lb) Height: 1.892 m (6' 2.5") General: Patient is awake alert oriented to person place time. No apparent distress. Vascular: DP/PT pulses palpable, ashtyn. CFT < 3 sec 1-5, ashtyn. No edema noted, ashtyn. Temperature gradient is normal warm to cold, ashtyn. Neurologic: Protective sensation intact to light touch, ashtyn. Sensation to sharp/dull is intact, ashtyn. Dermatological: Skin is normal in appearance with no open lesions or interdigital macerations, ashtyn. Nails 1-5, ashtyn are normal in length and thickness. Pedal hair is noted, ashtyn. Plantar warts noted to bilateral feet Right foot: (3) 1. Sub 1st met head 2. Sub 2nd met head 3. Plantar hallux Left foot: (4) 1. Sub 1st met head 2. Near 2nd sulcus plantar 3. Plantar heel x 2 Musculoskeletal: No POP noted, ashtyn. No pain with active or passive ROM of the digits or ankle joint, ashtyn. Muscle strength is 5/5 for all muscle groups of the lower extremity, ashtyn. DIAGNOSTIC STUDIES: None ASSESSMENT: 1. Bilateral foot pain 2. Plantar warts, ashtyn feet PLAN: - Discussed different treatment options, however, pt does not like his feet touched or needles. He would like to proceed with surgical removal. - Will schedule when able. Message sent to assistant professor surgical technology for assistance. Pt request call to Mom to set up. - Instructed to call with any problems or questions. Jalyn Whatley DPM in this encounter Nursing Notes * Kathi Willis LPN - 04/28/2018 11:16 AM EST Pt presents for plantar warts on bottoms of both feet, began in December, have increased in number. Are sometimes painful with walking in thin soled shoes, states there's one main wart on each foot, notices more smaller bumps also on each foot. mirna griffin in this encounter Plan of Treatment Upcoming Encounters Date Type Specialty Care Team Description 05/15/2018 Office Visit Ophthalmology Pino Smiley MD 16 [place] [address] 09/29/2018 Office Visit Cardiology Pino Mckeon, 132 [place] [address] Health Maintenance Due Date Last Done [...] fileas of this encounter Visit Diagnoses Diagnosis Bilateral foot pain- Primary Pain in limb Plantar wart in this encounter Advance Directives Patient has advance care planning documents on file. For more information, please contact: [place] [phone]
--- OUTSIDE RECORDS SUMMARY | 2023-02-04 15:17 | External Medical Summary | Summary of Care ---
Author Name Unknown Organization [place] [address] Phone Care Team Providers Care Director Chemistry Name Role Phone Remi Cornelius MD Primary Care Provider [phone] Reason for Referral * Evaluate & Treat - Unlimited Visits (Within 10 days (routine)) Status Reason Specialty Diagnoses / Procedures Referred By Contact Referred To Contact Authorized Specialty Services Required Podiatry Diagnoses Plantar Remi Knight MD 132 [facility] [place] [address] Jalyn Whatley DPM 132 [place] [address] Reason for Visit * Reason Comments REFERRAL Encounter Details Date Type Department Care Team Description 03/20/2018 Telephone Pediatrics [facility] [address] [place] [address] Remi Cornelius MD 132 [facility] [place] [address] REFERRAL Allergies No Known Allergiesas of [...] encounter Miscellaneous Notes * Telephone Encounter - Sharon Valle LPN - 03/24/2018 8:58 AM EDT Do you want to pt seen for PE or can referral be placed? * Telephone Encounter - Angelina Ennis DO - 03/20/2018 8:51 AM EDT Overdue for well child visit (due in December from what I can see). Please have them schedule. * Telephone Encounter - Harvey Sera CarranzaMIKAL - 03/20/2018 7:45 AM EDT New referral [...] [address] [place] [address] 05/15/2018 Office Visit Ophthalmology Pino Smiley MD 16 [place] [address] 09/29/2018 Office Visit Cardiology Pino Mckeon DO 132 [place] [address] [phone] Scheduled Referrals Name Priority Associated Diagnoses Order [...]
--- OUTSIDE RECORDS SUMMARY | 2023-02-04 15:17 | External Medical Summary | Summary of Care ---
Author Name Unknown Organization [place] [address] Care Team Providers Care Mat Repairer Name Role Phone Remi Cornelius MD Primary Care Provider [phone] Encounter Details Date Type Department Care Team Description 05/06/2018 Scan Encounter Pediatrics [facility] 132 [facility] [place] [address] Remi Cornelius MD 132 [facility] [address] <No scans attached> Allergies No Known [...] Start Travel End as of this encounter Plan of Treatment Upcoming Encounters Date Type Specialty Care Team Description 05/14/2018 Office Visit Family Medicine Joel Odom DO 132 [facility] [place] [address] [phone] 05/15/2018 Office Visit Ophthalmology Pino Smiley MD 16 [place] [address] 05/18/2018 Scheduled Telephone PreSurgery Jayant Presurgical Assessment Education [facility] 132 [facility] [place] [address] [phone] 06/01/2018 Hospital Encounter Surgery Jalyn Whatley DPM [address] [place] [address] 06/01/2018 Surgery Surgery Jalyn Whatley, DPM [address] [place] [address] [phone] EXCISION TUMOR LEG ANKLE SUBCUTANEOUS 06/08/2018 Office Visit Podiatry Jalyn Whatley, DPKaylen [address] [place] [address] [phone] 09/29/2018 Office Visit Cardiology Pino Mckeon, DO [address] [place] [place] [address] [phone] Health Maintenance Due Date Last Done Comments GARDASIL-HPV IMMUNIZATION SE OTIS (3 of 3 - Male 3-dose series) 05/07/2017 01/03/2017, 11/05/2016 17 YEAR WELLNESS VISIT 09/06/2017 *DEPRESSION SCREENING, ANNUA L FOR PTS 18 AND OVER 09/08/2017 *BASIC [...] more information, please contact: [place]arma [phone]
--- OUTSIDE RECORDS SUMMARY | 2023-02-04 15:17 | External Medical Summary | Summary of Care ---
Author Name Unknown Organization [place] [address] Phone Care Team Providers Care Health Information Specialist Name Role Phone Remi Cornelius MD Primary Care Provider [phone] Encounter Details Date Type Department Care Team Description 03/24/2018 Scan Encounter Pediatrics [facility] 132 [facility] [place] [address] Remi Cornelius MD 132 [facility] [place] [address] <No scans attached> Allergies No Known [...] Office Visit Ophthalmology Pino Smiley MD 16 [place] [address] 09/29/2018 Office Visit Cardiology Pino Mckeon, 132 [facility] [place] [address] Health Maintenance Due Date Last Done [...]
--- OUTSIDE RECORDS SUMMARY | 2023-02-04 15:17 | External Medical Summary | Summary of Care ---
Author Name Unknown Organization [place] [address] Care Team Providers Care Group Counselor Name Role Phone Remi Cornelius MD Primary Care Provider [phone] [phone] Reason for Visit * Reason Comments eRx-Medication Refill Encounter Details Date Type Department Care Team Description 04/22/2018 Refill Peds Cardiology [facility] [address] [facility] [place] [address] Juan Nieto MD [address] [address] Allergies No Known Allergiesas of this encounter Medications Medication Sig Dispensed Refills Start Date End Date Status mupirocin calcium (BACTROBAN) 2 % ointmentIndications:I mpetigo Apply topically to affected area on R forearm three times a day x 5-7 days or as needed 22 g 0 03/03/2016 Active lisinopril (PRINIVIL) 5 MG Tablet TAKE 1 TABLET BY MOUTH ONCE DAILY 30 Tab 5 04/22/2018 Active as of [...] encounter Miscellaneous Notes * Telephone Encounter - Aguila Hughes MD - 04/22/2018 2:45 PM EST Signed Prescriptions: Disp Refills lisinopril (PRINIVIL) 5 MG Tablet 30 Tab 5 Sig: TAKE 1 TABLET BY MOUTH ONCE DAILY Authorizing Provider: AGUILA HUGHES * Telephone Encounter - Nelly Acevedo OSA - 04/22/2018 1:43 PM EST Pending Prescriptions: Disp Refills lisinopril (PRINIVIL) 5 MG Tablet [Pharma*30 Tab 5 Sig: TAKE 1 TABLET BY MOUTH ONCE DAILY * Telephone Encounter - Nelly Acevedo OSA - 04/22/2018 1:42 PM EST Please Refill Rx in this encounter Plan of Treatment Upcoming Encounters Date Type Specialty Care Team Description 04/28/2018 Office Visit Podiatry Jalyn Whatley DPM [address] [place] [address] 05/15/2018 Office Visit Ophthalmology Pino Smiley MD 16 [place] [address] 09/29/2018 Office Visit Cardiology Pino Mckeon, DO 132 [facility] [place] [address] Health Maintenance Due Date Last Done [...] more information, please contact: [place] Sharma [phone]
--- OUTSIDE RECORDS SUMMARY | 2023-02-04 15:17 | External Medical Summary | Summary of Care ---
Author Name Unknown Organization [place] [address] Phone Care Team Providers Care Drop Pit Worker Name Role Phone Remi Cornelius MD Primary Care Provider [phone] [phone] Reason for Referral * Evaluate & Treat - Unlimited Visits (Within 10 days (routine)) Status Reason Specialty Diagnoses / Procedures Referred By Contact Referred To Contact Authorized Specialty Services Required Podiatry Diagnoses Plantar Remi Knight MD [address] [place] [address] Jalyn Whatley DPM 132 [place] [address] Reason for Visit * Reason Comments REFERRAL Encounter Details Date Type Department Care Team Description 03/20/2018 Telephone Pediatrics [facility] [address] [place] [address] Remi Cornelius MD [address] [place] [address] REFERRAL Allergies No Known Allergiesas of [...] Telephone Encounter - Remi Cornelius MD - 03/24/2018 10:29 AM EDT I put in a referral yesterday. Since he is no longer in high school, and has actually seen the adult mud jack nozzle worker, he should be followed by family medicine. * Telephone Encounter - Sharon Valle LPN - 03/24/2018 8:58 AM EDT Do you want to pt seen for PE or can referral be placed? * Telephone Encounter - Angelina Ennis DO - 03/20/2018 8:51 AM EDT Overdue for well child visit (due in December from what I can see). Please have them schedule. * Telephone Encounter - Sera Gabriel OSA - 03/20/2018 7:45 AM EDT New referral [...] Office Visit Ophthalmology Pino Smiley MD [address] [place] [address] 09/29/2018 Office Visit Cardiology [facility]ino [facility]keon, [address] [facility] [address] Scheduled Referrals Name Priority Associated [...]
--- OUTSIDE RECORDS SUMMARY | 2023-02-04 15:18 | External Medical Summary | Summary of Care ---
Author Name Unknown Organization [place] [address] Phone Care Team Providers Care Ice Cream Scooper Name Role Phone Remi Cornelius MD Primary Care Provider [phone] [phone] Reason for Visit * Reason Comments NEW PATIENT Encounter Details Date Type Department Care Team Description 03/11/2018 Office Visit Cardiology, [facility] 132 [facility] [place] [address] Pino Mckeon, [address] [place] [address] [phone] Systemic primary arterial hypertension*;Obesity, Class II, BMI 35-39.9, isolated (see actual BMI);Chewing tobacco use Allergies No Known Allergiesas of this encounter Medications Prescription Sig. Disp. Refills Start Date End Date Status mupirocin calcium (BACTROBAN) 2 % ointmentIndications :Impetigo Apply topically to affected area on R forearm three times a day x 5-7 days or as needed 22 g 0 03/03/2016 Active lisinopril (PRINIVIL) 5 MG Tablet Take 1 Tab by mouth daily. 30 Tab 5 07/11/2017 Active lisinopril (PRINIVIL) 5 MG Tablet Take 1 Tab by mouth daily. 30 Tab 5 12/31/2016 03/11/2018 Discontinued as of this encounter Active Problems [...] Date Never Smoker Smokeless Tobacco: Current User Tobacco Cessation:Ready to Q uit: No; Counseling Given: Yes Comments:sometimes Alcohol Use Drinks/Week oz/Week Comments No Sex Assigned at Date Recorded Not on file as of this encounter Last Filed Vital Signs Vital Sign Reading Time Taken Blood Pressure 138/78 03/11/2018 12:51 PM EDT Pulse 98 03/11/2018 12:51 PM EDT Temperature - - Respiratory Rate 14 03/11/2018 12:5 1 PM EDT Oxygen Saturation - - Inhaled Oxygen Concentration - - Weight 148.3 kg (327 lb) 03/11/2018 12: 51 PM EDT Height - - Body Mass Index - - in this encounter Progress Notes * Pino Mckeon DO - 03/11/2018 1:06 PM EDT Formatting of this note may be different from the original. Cardiology Consultation Reason for consult: Hypertension History of Present Illness: 17 year old male diagnosed with HTN in 2017. Previously followed by Pediatric Cardiology. Tolerating low-dose lisinopril for treatment of high blood pressure. Patient admits to dietary indiscretions and lack of regular exercise. He has gained approximately 20 lb over thelast 6 months. Blood pressure borderline elevated on initial assessment. He admits to feeling anxious during today's office visit. 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 Denies exertional chest discomfortor unusual shortness of breath. States he does not feel well on days he misses blood pressure medication. Denies headaches, visual changes, or focal weakness. Offers no other complaints at this time. EKG: Normal sinus rhythm, Normal ECG 2D echocardiogram report 10/2016: Normal transthoracic echocardiogram . Past Medical History: Patient Active Problem List Diagnosis Code Genu varum M21.169 Routine child health exam Z00.129 COLOR BLINDNESS OTHER COLOR DEFICIENCIES H53.50 Chewing tobacco use Z72.0 Obesity, Class II, BMI 35-39.9, isolated (see actual BMI) E66.9 Systemic primary arterial hypertension I10 Exotropia of both eyes H50.10 Past Surgical History: Procedure Laterality Date CONTROL OF NOSEBLEED, COMPLEX Right 07/27/2015 CONTROL NASAL HEMORRHAGE ANTERIOR COMPLEX performed by Sheng Howe DO at OR [facility] Family History: Denies family history of premature coronary disease or sudden cardiac Family History Problem Relation Age of Onset Diabetes Grandfather (Paternal) Hypertension Father Hypertension Grandfather (Paternal) Heart Disorder Grandfather (Maternal) from [place] at 33 y.o. Cancer Maternal Great grandparents [OTHER] Family Status Relation Status Mother Alive Father Alive Owns [employer] company Brother Alive Step brother Grandfather (Paternal) Father Grandfather (Paternal) Grandfather (Maternal) Other Social History: Tobacco abuse, snuff Social History Social History Marital status: Single Spouse name: N/A Number of children: N/A Years of education: N/A Occupational History Not on file. Social History Main Topics Smoking status: Never Smoker Smokeless tobacco: Current User Comment: sometimes Alcohol use No Drug use: No Sexual activity: No Other Topics Concern Not on file Social History Narrative Social History Social History Narrative ROS: Pertinent positives as per HPI, comprehensive 10 system review otherwise negative. Review of patient's allergies indicates: No Known Allergies Current Outpatient Prescriptions Medication Sig Dispense Refill lisinopril (PRINIVIL) 5 MG Tablet Take 1 Tab by mouth daily. 30 Tab 5 mupirocin calcium (BACTROBAN) 2 % ointment Apply topically to affected area on R forearm three times a day x 5-7 days or as needed 22 g 0 OBJECTIVE/PHYSICAL EXAMINATION: BP 138/78 | Pulse 98 | Resp 14 | Wt 327 lbs (148.326kg) General: NAD, AAO x3, well nourished. HEENT: [...] tibial=2/4. Neuro: No focal deficits. IMPRESSION: 1. 17-year-old male with essential hypertension - BP controlled with low-dose lisinopril 2. Elevated BMI 3. Tobacco use RECOMMENDATIONS/PLAN: Continue low-dose lisinopril, 5 mg daily. Sodium restriction advised. Instructed to monitor home blood pressure 2 days per week at least 2 hr after taking his a.m. medications. Encouraged to exercise regularly, minimum 30 min daily. Also discussed importance of monitoring portion size and weight loss. Patient voices understanding. He is agreeable to the current plan, however, will report any change or decline in clinical status. Follow Up: Return in about 6 months (around 09/09/2018). Pino Mckeon DO, FACC Associate Cardiology - [place] in this encounter Nursing Notes * Tanya Kumar RN - 03/11/2018 12:52 PM EDT Examination Room: 11 Name: Cher Mora Date of : (2000). Reason for Visit: New patient Interim Hospitalization(s): No Problems/Concerns: Here to establish care, previously seen by Dr. Nieto. Has been feeling well, denies concerns. Chest Pain/SOB: Denies [facility] is a way you can talk to your provider online through e-mail. Would you like to sign up? I can activate it for you? ALREADY ACTIVE in this encounter Plan of Treatment Upcoming Encounters Date Type Specialty Care Team Description 05/15/2018 Office Visit Ophthalmology Pino Smiley MD 16 [place] [address] 09/29/2018 Office Visit Cardiology Pino Mckeon DO 132 [facility] [place] [address] [phone] Scheduled Tests Name Priority Associated Diagnoses Order S chedule EKG Routine Systemic primary arterial hypertension Expected: 03/11/2018 (Approximate), Expires: 04/11/2019 COMPR METAB PANEL Routine Systemic primary arterial hypertension Expected: 03/27/2018 (Approximate), Expires: 04/11/2019 Health Maintenance Due Date Last Done Comments [...] hy pertension - Primary Unspecified essential hypertension Obesity, Class II, BMI 35-39 .9, isolated (see actual BMI) Morbid obesity Chewing tobacco use Tobacco use disorder in this encounter"
--- OUTSIDE RECORDS SUMMARY | 2023-02-04 15:18 | External Medical Summary | Summary of Care ---
Author Name Unknown Organization [place] [address] Phone Care Team Providers Care Psychosocial Rehabilitation Counselor Name Role Phone Remi Cornelius MD Primary Care Provider [phone] Encounter Details Date Type Department Care Team Description 07/11/2017 Scan Encounter Pediatrics [facility] 132 [facility] [place] [address] Remi Cornelius MD 132 [place] [address] <No scans attached> Allergies No Known [...] by mouth daily. 30 Tab 5 12/31/2016 Active lisinopril (PRINIVIL) 5 MG Tablet Take [...] Encounters Date Type Specialty Care Team Description 12/16/2017 Office Visit Pediatric Cardiology Juan Nieto MD [address] [facility] [place] [address] Health Maintenance Due Date Last Done Comments Influenza Vaccine (FLU shot) (#1) 2016 06/27/2011, 03/22/2003, 05/13/2002, Additional history exists GARDASIL-HPV IMMUNIZATION SE OTIS (3 of 3 - Male 3 Dose Series) 05/07/2017 01/03/2017, 11/05/2016 17 YEAR WELLNESS VISIT 09/06/2017 DTaP,Tdap,and Td Vaccines (7 - Td) 06/27/2021 06/27/2011, 10/16/2004, 03/11/2001, Additional history exists HEPATITIS B Completed 12/09/2000, 12/31, 1999 MMR SERIES Completed 10/16/2004, 09/10/2000 POLIO SERIES Completed 10/16/2004, 03/02, 01/16/2000, Additional history exists VARICELLA SERIES Completed 06/27/2011, 09/10/2000 16 YEAR WELLNESS VISIT Completed 01/03/2017, 2015 MENINGOCOCCAL (MENACTRA) Completed 01/03/2017, 06/03 as of this encounter Implants Not on fileas of this encounter Insurance Payer Benefit Plan / Group Subscriber ID Type Phone Address [facility] [id number] [phone] [place] [phone] as of this encounter
--- OUTSIDE RECORDS SUMMARY | 2023-02-04 15:18 | External Medical Summary | Summary of Care ---
Author Name Unknown Organization [place] [address] Phone Care Team Providers Care Performance Improvement Analyst Name Role Phone Remi Cornelius MD Primary Care Provider [phone] Encounter Details Date Type Department Care Team Description 06/30/2017 Scan Encounter Pediatrics [facility] [address] [place] [place] [address] Remi Cornelius MD 132 [place] [id number] <No scans attached> Allergies No Known [...] mouth daily. 30 Tab 5 12/31/2016 Active as of this encounter Active Problems [...] Encounters Date Type Specialty Care Team Description 07/11/2017 Office Visit Pediatric Cardiology Juan Nieto MD [address] [place] [address] Health Maintenance Due Date Last Done Comments Influenza Vaccine (FLU shot) (#1) 2016 06/27/2011, 03/22/2003, 05/13/2002, Additional history exists GARDASIL-HPV IMMUNIZATION SE OTIS (3 of 3 - Male 3 Dose Series) 05/07/2017 01/03/2017, 11/05/2016 17 YEAR WELLNESS VISIT 09/06/2017 HEPATITIS B Completed 12/09/2000, 12/31, 1999 MMR SERIES Completed 10/16/2004, 09/10/2000 POLIO SERIES Completed 10/16/2004, 03/02, 01/16/2000, Additional history exists TDAP (IF NO TD/TDAP PAST 5 YRS) Completed 2 VARICELLA SERIES Completed 06/27/2011, 09/10/2000 16 YEAR WELLNESS VISIT Completed 01/03/2017, 2015 MENINGOCOCCAL (MENACTRA) Completed 01/03/2017, 06/03 as of this encounter Implants Not on fileas of this encounter Insurance Payer Benefit Plan / Group Subscriber ID Type Phone Address [facility] [id number] [phone] [facility] [place] [place] [phone] as of this encounter
--- OUTSIDE RECORDS SUMMARY | 2023-02-04 15:18 | External Medical Summary ---
Author Name Unknown Address [facility] [place] [address] Phone Organization K01:[place] [address] [address] [facility] [place] [address] Laboratory Report Ordering Provider Test Date Status MICHAEL CHRISTIANSONGINS 11/05/2016 16:21:00 Final Observation Date Value Abnormality Reference Status BUN 11/05/2016 23:11 17 6-20 Final Creatinine 11/05/2016 23:11 0.9 0.4-1.0 Final Sodium 11/05/2016 23:11 143 135-146 Final Potassium 11/05/2016 23:11 4.1 3.5-5.1 Final Cl 11/05/2016 23:11 104 98-107 Final CO2 11/05/2016 23:11 23 22-32 Final Anion gap 11/05/2016 23:11 16 Above high normal 7-15 Final Glucose 11/05/2016 23:11 87 70-120 Final Albumin 11/05/2016 23:11 4.7 3.8-5.0 Final AST (Aspartate aminotransferase) 11/05/2016 23:11 34 0-43 Final Alk Phos 11/05/2016 23:11 87 0-238 Final Bilirubin, Total 11/05/2016 23:11 0.3 0-1.2 Final Calcium 11/05/2016 23:11 9.8 8.4-10.2 Final Protein 11/05/2016 23:11 7.1 6.0-8.3 Final ALT (Alanine aminotransferase) 11/05/2016 23:11 61 Above high normal 10-50 Final E Glom Filt Rate 11/05/2016 23:11 GFR CALCULATED FOR ADULTS ONLY >60 Final Performing Location [address] [place] [address]
--- OUTSIDE RECORDS SUMMARY | 2023-02-04 15:18 | External Medical Summary ---
Author Name Unknown Address Unknown Organization [id number]:Performed at [facility] [address] [facility] [place] [address] Laboratory Report Ordering Provider Test Date Status LUDMILA CHRISTIANSON 11/05/2016 16:21:00 Final Observation Date Value Abnormality Reference Status Fasting status - Reported 11/05/2016 16:22 0 Final Triglyceride 11/05/2016 23:11 105 <200 Final Performing Location Performed at [facility] 132 [facility] [place] [address]
--- OUTSIDE RECORDS SUMMARY | 2023-02-04 15:18 | External Medical Summary | Summary of Care ---
Author Name Unknown Organization [place] [address] Phone Care Team Providers Care English Language Arts Teacher Name Role Phone Remi Cornelius MD Primary Care Provider [phone] Encounter Details Date Type Department Care Team Description 07/14/2017 Scan Encounter Pediatrics [facility] 132 [facility] [place] [address] Remi Cornelius MD 132 [place] [place] [address] <No scans attached> Allergies No Known [...] Pediatric Cardiology Juan Nieto MD [address] [facility] [place] [address] Health Maintenance [...] / Group Subscriber ID Type Phone Address [facility] [id number] [phone] [place] [phone] as of this encounter
--- OUTSIDE RECORDS SUMMARY | 2023-02-04 15:18 | External Medical Summary | Summary of Care ---
Author [place] [address] Phone Care Team Providers Care Beaver Trapper Name Role Phone Remi Cornelius MD Primary Care Provider [phone] Reason for Visit * Reason Comments Information Encounter Details Date Type Department Care Team Description 07/29/[address] [address] Pino Smiley MD 16 [place] [address] Information Allergies No Known Allergiesas of this encounter [...] encounter Miscellaneous Notes * Telephone Encounter - Marina Mckeon OSA - 08/04/2017 4:06 PM EST Patient's father, Cristian, returned call. Pt has hurt his knee and needs knee surgery. At this time,patient wants to cancel surgery and hold off for now. Father is not sure when/if patient will want surgery at this time. Patient will call when he is ready to schedule surgery. * Telephone Encounter - Marina Mckeon OSA - 07/29/2017 3:53 PM EST Called patient's parents, left message for them to call. Pt is penciled in for surgery 09/23/[address] Smiley. Pt was to have return appointment with Dr. Smiley and no appointment has been made. When last talked to parents, talked to father and he was going to have mother make the appointment. Need to find out if still doing surgery and need to make appt for patient. in this encounter Plan of Treatment Upcoming Encounters Date Type Specialty Care Team Description 12/16/2017 Office Visit Pediatric Cardiology Juan Nieto MD [address] [place] [address] Health Maintenance Due Date Last Done [...] / Group Subscriber ID Type Phone Address [facility] [id number] [phone] [place] [phone] as of this encounter
--- OUTSIDE RECORDS SUMMARY | 2023-02-04 15:18 | External Medical Summary | Summary of Care ---
Author [place] [address] Phone Care Team Providers Care Senior Software Development Manager Name Role Phone Remi Cornelius MD Primary Care Provider [phone] Reason for Visit * Reason Comments Eye Problem Encounter Details Date Type Department Care Team Description 02/16/[address] [address] Pino Smiley MD 16 [place] [address] Eye Problem Allergies No Known Allergiesas of this encounter [...] Telephone Encounter - Marina Mckeon OSA - 02/16/2018 12:16 PM EDT Pt's mother called. Pt has decided to proceed with surgery (canceled 09/23/2017). Penciled pt in [facility] 07/28/2018 for surgery. Pt was given return appt with Dr. Smiley 05/15/2018 at [place] as patient has not been seen since 2017. in this encounter Plan of Treatment Upcoming Encounters Date Type Specialty Care Team Description 05/15/2018 Office Visit Ophthalmology Pino Smiley MD [address] [place] [address] Health Maintenance Due Date Last Done Comments GARDASIL-HPV IMMUNIZATION SE BERG (3 of 3 - Male 3 Dose [...]
--- OUTSIDE RECORDS SUMMARY | 2023-02-04 15:18 | External Medical Summary | Summary of Care ---
Author Name Unknown Organization [place] [address] Phone Care Team Providers Care Band Cutting Machine Operator Name Role Phone Remi Cornelius MD Primary Care Provider [phone] Reason for Visit * Reason Comments Information Encounter Details Date Type Department Care Team Description 05/27/2017 Telephone Ophthalmology, [address] [address] Pino Smiley MD [address] [place] [address] Information Allergies No Known Allergiesas of [...] encounter Miscellaneous Notes * Telephone Encounter - Mike Mraina, MIKAL - 05/27/2017 1:48 PM EST Called patient's parents to see if they are ready to schedule patient's surgery for spring 2017, emeli wanted to wait until after wrestling season. Talked to patient's father, Cristian, and penciled patient in for 09/23/2017 at [facility]. He will have patient's mother call to confirm. ALSO, PT needs return appointment before surgery. Advised father of appt and he will have patient's mother make the appt. in this encounter Plan of Treatment Upcoming Encounters Date Type Specialty Care Team Description 07/08/2017 Office Visit Pediatric Cardiology Juan Nieto MD [address] [facility] [place] [address] Health Maintenance Due Date Last Done Comments Influenza Vaccine (FLU shot) (#1) 2016 06/27/2011, 03/22/2003, 05/13/2002, Additional history exists GARDASIL-HPV IMMUNIZATION SE OTIS (3 of 3 - Male 3 Dose Series) 05/07/2017 01/03/2017, 11/05/2016 HEPATITIS B Completed 12/09/2000, 12/31, 1999 MMR [...] / Group Subscriber ID Type Phone Address [facility] [id number] [phone] [facility] [place] [phone] as of this encounter
--- OUTSIDE RECORDS SUMMARY | 2023-02-04 15:18 | External Medical Summary | Summary of Care ---
Author Name Unknown Organization [place] [address] Phone Care Team Providers Care Biomass Facilitator Name Role Phone Remi Cornelius MD Primary Care Provider [phone] Reason for Visit * Reason Comments FOLLOW UP Encounter Details Date Type Department Care Team Description 07/11/2017 Office Visit Peds Cardiology [facility] [address] [place] [address] Juan Nieto MD [address] [place] [address] Systemic primary arterial hypertension*;Obesity, Class II, BMI 35-39.9, isolated (see actual BMI) Allergies No Known Allergiesas of this encounter [...] Vital Sign Reading Time Taken Blood Pressure 132/76 07/11/2017 10:36 AM EST Pulse 98 07/11/2017 10:36 AM EST Temperature - - Respiratory Rate 22 07/11/2017 10:3 6 AM EST Oxygen Saturation 100% 07/11/2017 10: 36 AM EST Inhaled Oxygen Concentration - - Weight 128.6 kg (283 lb 9.6 oz) 018 10:36 AM EST Height 192.4 cm (6' 3.75") 07/11/2017 1 0:36 AM EST Body Mass Index 34.75 07/11/2017 10:36 AM EST in this encounter Progress Notes * Juan Nieto MD - 07/11/2017 10:40 AM EST Formatting of this note may be different from the original. Cher Mora Date of : 2000 Age: 16 year 10 month old Date of visit: 07/11/2017 Location: [facility] CARDIOLOGY [facility] Primary Care Provider: Remi Cornelius MD Referring Provider: Remi Cornelius MD Historian: patient and mother Dear Dr. Cornelius, I saw Cher for follow-up. He is seen for the following diagnoses: Systemic hypertension Treatment to date: Medical treatment; see medication list for current medications. Since the time of the last visit he has done well and has had no significant interim problems. He reports no symptoms such as headache, chest pain, palpitations, fatigue and nose bleeds. There is no BP monitored in the interm. Last office BP was 124/68 on 03/18/2017. He is expected to have repair of right knee meniscus in next few weeks. Past History Past Medical History: Diagnosis Date Closed fracture of unspecified bone age 2 Fracture of 2-3rd metatarsal bones Epistaxis Torn right knee meniscus Past Surgical History: Procedure Laterality Date CONTROL OF NOSEBLEED, COMPLEX Right 07/27/2015 CONTROL NASAL HEMORRHAGE ANTERIOR COMPLEX performed by Sheng Howe DO at OR [facility] Medications Outpatient Prescriptions Marked as Taking for the 07/11/17 encounter (Office Visit) with Juan Nieto MD Medication Sig lisinopril (PRINIVIL) 5 MG Tablet Take 1 Tab by mouth daily. Family History Family History Problem Relation Age of Onset Diabetes Paternal Grandfather Hypertension Father Hypertension Paternal Grandfather Heart Disorder Maternal Grandfather from [place] at 33 y.o. Cancer Maternal Great grandparents [OTHER] Dad, half brother, uncle and aunt with HTN. All on meds. MGF with hx of [place] at 33 years old. PGF with hx of CABG in 70's. No family history of stroke. No family history of congenital heart disease or sudden cardiac Social History He lives with parents. Going in XII grade. 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 Hechews tobacco. Allergies Review of patient's allergies indicates no known allergies. Review of Systems Constitutional: Negative for fever and chills. No weight loss Eyes: Negative for redness, and discharge Ears: Negative for discharge Nose: no epistaxis Neck: Negative for swelling and masses Pulmonary: No shortness or breath, No wheezing, No hemoptysis GI/Abd: No melana or hematochezia, No vomiting, diarrhea and constipation Musculoskeletal: negative Genitourinary: negative Neurologic: No seizures, No headache, No focal weakness, No tremor, No paresthesia All others negative unless stated otherwise above. Physical Examination BP 132/76 | Pulse 98 | Resp 22 | Ht 6' 3.75" (1.924m) | Wt 283 lbs 9.6 oz (128.640kg) | BMI 34.75 kg/m | BSA 2.62 m | SaO2 100% Blood pressure percentiles are 76 % systolic and 62 % diastolic based on NHBPEP's 4th Report. Bloodpressure percentile targets: 95: 142/91. Weight for age: >99 %ile (Z= 2.91) based on CDC 2-20 Years nnilwi-hez-onl data using vitals from07/11/2017. Height for age: 99 %ile (Z= 2.33) based on CDC 2-20 Years [id number] data using vitals from 07/11/2017. He has lost 15 lb over past 6 months. General: heavyset, obese, no acute distress, cooperative wearing splint on right knee. Head: atraumatic and normocephalic Neck: supple and no masses, JVD: none Lungs: clear to auscultation and good air movement bilaterally Chest: Deformity: none Abdomen: abdomen soft, non-tender Extremities: no edema, no clubbing, no cyanosis Pulses: normal upper and lower extremity pulses Skin: no rashes Cardiac Exam Palpation: Precordium: normal impulses, non-tender and no thrill Auscultation: Quality of auscultation: marginal Rhythm: regular S1: normal intensity, S2: normal intensity and splitting, Clicks: none, Gallops: none, Rub: None Systolic Murmurs: none Diastolic murmurs: none Continuous murmur: none My physical examination did not reveal any evidence of abuse. Testing Tests reviewed: 11/15/2016 EKG: Normal sinus rhythm. Tracing is normal. Echo: Normal study Tests done today None Impression 1. Systemic hypertension 2. Increase BMI Cher is making good progress and his BP seems under control. I have praised his efforts of losingweight. My recommendations are as follows: Continue Lisinopril 5 mg orally once a day and stay compliant to medicine Monitor BP and keep log of readings. Take healthy and balanced diet, Limit serving size Increase aerobic physical acitivity There are no contraindications to Cher having anesthesia or surgery from cardiac standpoint. He is not at increased perioperative risk as BP appears under control. Antihypertensive medicine can be safely continued until the day prior to surgery and can be resumed after the surgery. No sports restrictions. He can participate in football and wrestling. He should avoid power weight lifting. Endocarditis procedural risk is not greater than general population, prophylaxis is not recommended Treatment Lisinopril 5 mg orally once a day Follow up Follow up in 6 months. Testing to be done at the next visit: To be determined at that time This was discussed with those present today. Thank you sincerely for referring Cher to us. Pleasecall me if you have any questions at [phone]. If I can help you further, please don't hesitateto contact me. Juan Nieto MD 07/11/2017 10:40 AM in this encounter Nursing Notes * Dolores Jung, ANSON - 07/11/2017 10:37 AM EST Here with mom for a follow up. in this encounter Plan of Treatment Upcoming Encounters Date Type Specialty Care Team Description 12/16/2017 Office Visit Pediatric Cardiology Juan Nieto MD [address] [place] [address] Health Maintenance Due Date Last [...] .9, isolated (see actual BMI) Morbid obesity in this encounter Insurance Payer Benefit Plan / Group Subscriber ID Type Phone Address [facility] [id number] [phone] 0 [address] [facility] [place] [phone] as of this encounter
== END 2023-01-31 09:19 | disposition home or self-care (01) | DRG 558 ==
LOC: ED 09:38 → SUATTDRO 12:52 → EDINP 16:06 → 2S 16:37

== ENCOUNTER 2023-06-15 13:37 | Inpatient (IN) ==
[2023-06-15] MEDS ORDERED: levETIRAcetam 2,000 MG in 0.9 % SODIUM CHLORIDE 100 ML IV ONE (13:45)
[2023-06-15] MEDS ORDERED: LACTATED RINGER'S 1,000 ML IV ONE (13:45)
[2023-06-15] MEDS ORDERED: ONDANSETRON INJ 2 MG/ML 2 ML VIAL IV STA (13:45)
[2023-06-15] MEDS ORDERED: SODIUM CHLORIDE 0.9% 1,000 ML IV ONE (13:45)
[2023-06-15] MEDS ORDERED: MoRPHine SULFATE 4 MG/ML 1 ML CARP\\VIAL IV STA (13:45)
[2023-06-15] MEDS ORDERED: MoRPHine SULFATE 4 MG/ML 1 ML CARP\\VIAL IV PRN (13:45)
--- OUTSIDE RECORDS SUMMARY | 2023-06-15 13:47 | External Medical Summary | Summary of Care ---
Author Name Unknown Organization [facility] Address [address] [facility] [place] [address] Phone [phone] Care Team Providers Care [place] Program Coordinator Name Role Phone Joel Odom DO Primary Care Provider Reason for Visit * Reason Comments Follow Up Sleep Apnea 1st cpap check Encounter Details Date Type Department Care Team (Late st Contact Info) Description 04/10/2023 10:30 AM EST Office Visit Sleep Disorders Ctr [facility] [address] [place] [phone] Tamara Burgos CRNP [address] [place] [address] MIKAL (obstructive sleep apnea)*; Hypersomnia; Parasomnia, unspecified type Allergies No known active allergiesdocumented as of this encounter (statuses as of 04/11/2023) Medications Medication Sig Dispensed Refills Start Date End Date Status Lisinopril 20 MG Oral Tablet (Prinivil) Take 1 tablet by mouth once daily 90 Tablet 1 12/11/2022 Active Vitamin C 1000 MG Oral Tablet Take 1 Tablet by mouth in the morning. 0 Active Divalproex Sodium ER 500 MG Oral Tablet Extended Release 24 Hour (Depakote ER)Indications:Paraso mnia, unspecified type Take 2 tablets by mouth once daily 60 Tablet 0 03/20/2023 Active documented as of this encounter (statuses as of 04/11/2023) Active Problems Problem Noted Date Diagnosed Date History of epistaxis 05/16/2020 Deviated nasal septum 05/16/2020 Hypertrophy of both inferior nasal turbinates Obesity, morbid (more than 1 00 lbs over ideal weight or BMI > 40) 07/28/2018 Morbid obesity due to excess calories 05/14/2018 Exotropia of both eyes 03/10/2017 HTN, goal below 140/90 11/15/2016 Overview: RX lisinopril COLOR BLINDNESS OTHER COLOR DEFICIENCIES 005 Genu varum 09/10/2000 documented as of this encounter (statuses as of 04/11/2023) Resolved Problems Problem Noted Date Diagnosed Date Resolved Date Body mass index (BMI) of 40. 0 to 44.9 in adult 06/15/2018 08/11/2018 Overview: Per Obesity protocol #1 Preop examination 05/14/2018 11/26/2018 Obesity, Class II, BMI 35-39 .9, isolated (see actual BMI) 11/05/2016 06/19/2018 Overview: Per Obesity protocol #1 Chewing tobacco use 09/08/2015 05/17/20 19 Routine child health exam 10/16/2004 documented as of this encounter (statuses as of 04/11/2023) Immunizations Name Administration Dates Next Due HPV [...] 2 days Alcohol Use Standard Drinks/Week Comments Yes 0 (1 standard drink = 0.6 oz pur e alcohol) occasional PHQ-2 Answer Date Recorded PHQ Adult Total Score 0 05/02/2022 Hunger Vital Sign Answer Date Recorded Worried About Running Out of Food in the Last Ye ar Never true 05/17/2019 Ran Out of Food in the Last Year Never true 05/17/2019 Sex and Gender Information Value Date Recorded Sex Assigned at Not on file Gender Identity Not on file Sexual Orientation Not on file Job Start Date Occupation Industry Not on file Not on file Not on file documented as of this encounter Last Filed Vital Signs Vital Sign Reading Time Taken Comments Blood Pressure 128/74 04/10/2023 10:29 AM EST Pulse 91 04/10/2023 10:29 AM EST Temperature 36 C (96.8 F) 04/10/2023 10:29 AM EST Respiratory Rate 16 04/10/2023 10:29 AM EST Oxygen Saturation 98% 04/10/2023 10:29 AM EST Inhaled Oxygen Concentration - - Weight 149.7 kg (330 lb) 04/10/2023 10:29 AM EST Height 190.5 cm (6' 3") 04/10/2023 10:29 AM EST Body Mass Index 41.25 04/10/2023 10:29 AM EST documented in this encounter Progress Notes * Tamara Burogs CRNP - 04/10/2023 10:38 AM EST [facility] Cory Mora is a 22 year old male seen today for follow-up after being started on CPAP therapy for mild MIKAL based on pAHI criteria. Sleep Testing/History: Initially presented after having two episodes of altered mentation consisting of aggression and confusion occurring from sleep state resulting in hospitalization December 2022 and January 2023. 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 Neurology work up has been negative. On Depakote. - HST 02/17/2023: pAHI 4% 6, REM pAHI 8, SpO2 demetrio 85% with 0.4 minutes <89% - PAP PSG 02/19/2023: CPAP 14 included supine and REM sleep with rAHI 0, SpO2 demetrio 95% Interim History: Has had some intolerance due to rainout (humidifier turned down), sore throat (worse with CPAP), mask uncomfortable. This may result in him removing the mask during the night. Tried nasal pillow (DreamWear). He tolerated nasal breathing for the one night but didn't like sidesleeping with this mask. Another nasal mask is being mailed to him. He doesn't perceive a difference in sleep quality/daytime symptoms but his dad has commented that he is less irritable in the morning. He reports quick sleep onset, waking shortly after sleep onset with twitching his head to the rightand kicking his left leg occurring "9 out of 10 nights" and some mornings prior to waking triggeredby an arousal and falling back to sleep. Another physician thinks it may be from a pinched nerve. He does have lower back pain when laying down at times and has only left leg nerve pain the radiates up to his head. PT did help resolve these symptoms in the past. No RLS meeting URGE criteria. No sedative or melatonin used. Continues to drink alcohol at varying amounts and frequency. He is trying to limit his alcohol withthe awareness that it may trigger a recurrence of seizure vs parasomnia vs RBD. Compliance Data: Report date: last 8 days ending 04/09/2023 % total days used: 100 % days used > 4 hours: 100 Average hours per day used: 7 hours 17 mins Large leak: 18 - 68 L/min rAHI: 0.4 Equipment: DME Provider: JOHNY Device: [id number] Settings: 14 cmH20 Interface Type: FFM Humidifier: yes Cleaning: By hand routinely [place] Sleepiness Scale Question 04/10/2023 10:32 AM EST - Filed by Aleyda Moran LPN What is the chance you will doze off in the following situation? Sitting and reading Slight chance of dozing Watching TV Slight chance of dozing Sitting inactive in a public place, such as a theater or meeting No chance of dozing As a passenger in a car for an hour without a break No chance of dozing Lying down to rest in the afternoon when circumstances permit High chance of dozing When sitting and talking to someone No chance of dozing When sitting quietly after lunch without alcohol High chance of dozing In a car, while stopped for a few minutes in traffic No chance of dozing Score (range: 0 - 24) 8 Problem List: Patient Active Problem List Diagnosis Code Genu varum M21.169 COLOR BLINDNESS OTHER COLOR DEFICIENCIES H53.50 HTN, goal below 140/90 I10 Exotropia of both eyes H50.10 Morbid obesity due to excess calories ([facility]) E66.01 Obesity, morbid (more than 100 lbs over ideal weight or BMI > 40) ([facility]) E66.01 History of epistaxis Z87.898 Deviated nasal septum J34.2 Hypertrophy of both inferior nasal turbinates J34.3 Current Medications: Outpatient Medications Marked as Taking for the 04/10/23 encounter (Office Visit) with Tamara Burgos CRNP Medication Sig Divalproex Sodium ER 500 MG Oral Tablet Extended Release 24 Hour (Depakote ER) Take 2 tablets by mouth once daily Vitamin C 1000 MG Oral Tablet Take 1 Tablet by mouth in the morning. Lisinopril 20 MG Oral Tablet (Prinivil) Take 1 tablet by mouth once daily Physical Exam: BP 128/74 | Pulse 91 | Temp 36 C (96.8 F) (Tympanic) | Resp 16 | Ht 1.905 m (6' 3") | Wt (!) 149.7 kg (330 lb) | SpO2 98% | BMI 41.25 kg/m | BSA 2.81 m Constitutional: Alert, oriented and in no acute distress Skin: No abnormal mask markings on face Cardio: Regular rate and rhythm, no murmur Chest: Normal respiratory effort at rest, clear to auscultation Neuro: Fluent speech Psych: Appropriate mood and affect. Assessment & Plan: Encounter Diagnoses Name Primary? MIKAL (obstructive sleep apnea) Yes Hypersomnia Parasomnia, unspecified type Mild obstructive sleep apnea based on pAHI criteria. He is compliant and therapeutic with PAP treatment. [place] improved from 12 to 8 He hasn't perceived benefit but family has noted an improvement in his mood with use of CPAP. No recurrence of altered mentation from sleep. Counseled on recommendation to avoid sleep deprivation, irregular sleep scheduling, disrupted sleep. Recommended avoidance of alcohol. Use of CPAP is recommended during all periods of sleep opportunity. I advised against removing the mask in the morning and falling back to sleep. Staff message sent to Dr. Feliz to inquire about titration study further as there is no mentionof parasomnia or REM without atonia being present or not present. Case reviewed with Dr. Thakkar. [facility] I spent a total of 40-54 minutes (exact time 50 mins) on the date of service in preparation, delivery, and documentation of the care provided to Cory Mora excluding any time spent in the performance of separately billed services. documented in this encounter Nursing Notes * Aleyda Moran LPN - 04/10/2023 10:32 AM EST Chief Complaint Patient presents with Follow Up Sleep Apnea 1st cpap check Cpap DME: AMD [place] Sleepiness Scale Question 04/10/2023 10:32 AM EST - Filed by Aleyda Moran LPN What is the chance you will doze off in the following situation? Sitting and reading Slight chance of dozing Watching TV Slight chance of dozing Sitting inactive in a public place, such as a theater or meeting No chance of dozing As a passenger in a car for an hour without a break No chance of dozing Lying down to rest in the afternoon when circumstances permit High chance of dozing When sitting and talking to someone No chance of dozing When sitting quietly after lunch without alcohol High chance of dozing In a car, while stopped for a few minutes in traffic No chance of dozing Score (range: 0 - 24) 8 documented in this encounter Plan of Treatment Upcoming Encounters Date Type Department Care Team (Late st Contact Info) Description 05/06/2023 2:40 PM EST Office Visit [facility] [address] [place] [address] Divya Rosario CRNP [address] [place] [address] 05/14/2023 9:40 AM EST Office Visit [facility] [address] [place] [address] Joel Odom, [address] [place] [address] 06/10/2023 1:30 PM EST Office Visit Sleep Disorders Ctr [facility] [address] [place] [phone] Tamara Burgos CRNP [address] [place] [address] 10/06/2023 8:00 AM EDT Office Visit Family Practice [facility] [address] [place] [address] Joel Odom, DO [address] [place] [address] 03/12/2024 8:40 AM EDT Office Visit Neurology [facility] [address] [facility] [place] [address] Wellington Herrera, DO [address] [facility] [place] [address] Health Maintenance Due Date Last Done Comments GARDASIL-HPV IMMUNIZATION SERIES (3 - Male 3-dose series) 05/07/2017 01/03/2017, 11/05/2016 Albumin/Creatinine Ratio 09/06/2017 DTaP,Tdap,and Td Vaccines (7 - Td or Tdap) 06/27/2021 06/27/2011, 10/16/2004, 03/11/2001, Additional history exists Influenza Vaccine (FLU shot) (#1) 2023 03/10/2013, 03/03/2012, 06/27/2011, Additional history exists Depression Screening 05/02/2023 05/02/2022 GFR 03/11/2024 03/11/2023, 1206/2021, 05/30/2021, Additional history exists Hepatitis B Completed 12/09/2000, [...] as of this encounter Visit Diagnoses Diagnosis MIKAL (obstructive sleep apnea)- Primary Obstructive sleep apnea (adult) (pediatric) Hypersomnia Hypersomnia, unspecified Parasomnia, unspecified type documented in this encounter Care Teams [place] Program Coordinator Relationship Specialty Start Date End Date Joel Odom DO [address] [place] [address] PCP - General Family Medicine 05/14/18 documented as of this encounter
--- OUTSIDE RECORDS SUMMARY | 2023-06-15 13:47 | External Medical Summary | Summary of Care ---
Author Name Unknown Organization [facility] Address [address] [facility] [place] [address] Phone [phone] Care Team Providers Care Manager Delivery Name Role Phone Joel Odom DO Primary Care Provider Reason for Referral * Precert (Within 10 days (routine)) - Authorized Specialty Diagnoses / Procedures Referred By Barbara t Referred To Contact Sleep Disorders Diagnoses Parasomnia, unspecified type MIKAL (obstructive sleep apnea) Procedures SLEEP STUDY, W/ CPAP (TREATMENT SETTINGS) Tamara Burgos CRNP [address] [place] [address] Referral ID Status Reason Start Date Expiration Date V isits Requested Visits Authorized [id number] Authorized 02/18/2023 999 999 Reason for Visit * Reason Onset Date Comments Review Sleep Study 02/18/2023 WatchPAT resu lts Encounter Details Date Type Department Care Team (Late st Contact Info) Description 02/18/2023 Telephone Sleep Disorders Ctr [facility] [address] [place] [phone] Tamara Burogs CRNP [address] [place] [address] Review Sleep Study (WatchPAT results) Allergies No known active allergiesdocumented as of this encounter (statuses as of 03/26/2023) Medications Medication Sig Dispensed Refills Start Date End Date Status Lisinopril 20 MG Oral Tablet (Prinivil) Take 1 tablet by mouth once daily 90 Tablet 1 12/11/2022 Active Vitamin C 1000 MG Oral Tablet Take 1 Tablet by mouth in the morning. 0 Active documented as of this encounter (statuses as of 03/26/2023) Active Problems Problem Noted Date Diagnosed Date [...] as of this encounter (statuses as of 03/26/2023) Resolved Problems Problem Noted Date Diagnosed Date [...] as of this encounter (statuses as of 03/26/2023) Immunizations Name Administration Dates Next Due HPV [...] encounter Miscellaneous Notes * Telephone Encounter - Aleyda Moran LPN - 03/26/2023 2:54 PM EDT Per [facility] they never received the pressure change order. Order has been faxed directly to them. Pt aware via [employer] message * Telephone Encounter - MARYANA Sarabia - 03/26/2023 11:11 AM EDT Please make sure the DME has the pressure change order from 03/14/2023. * Telephone Encounter - MARYANA Sarabia - 03/21/2023 8:35 AM EDT Please fax the printed order to [facility] (this order was previously sent through but they didn't do it). It does not need to go through . * Telephone Encounter - Aleyda Moran LPN - 03/10/2023 2:50 PM EDT Left a message for the pt to return phn call to the office. * Telephone Encounter - MARYANA Sarabia - 03/06/2023 5:49 PM EDT Please check on status of CPAP ordered 02/18/2023. Was this sent to a DME? They haven't heard anything yet. The pressures will need adjusted based on the titration study (different from that order). Please let me know what is found out. * Telephone Encounter - MARYANA Sarabia - 02/18/2023 5:21 PM EDT Results of HST reviewed showing SHAYAN 6. Discussed with Dr. Anette Odom. Start auto CPAP. Titrationstudy ordered to further assess treatment needs and for parasomnias. Concetta - Forward order for titration to [facility] with my consult note please. documented in this encounter Plan of Treatment Upcoming Encounters Date Type Department Care Team (Late st Contact Info) Description 03/27/2023 4:00 PM EDT Office Visit Cardiology, [facility] [address] [place] [address] Pino cMkeon, DO [address] [place] [address] 04/03/2023 8:30 AM EDT Office Visit Sleep Disorders Ctr [facility] [address] [place] [phone] Tamara Burgos CRNP [address] [place] [address] 05/06/2023 2:40 PM EST Office Visit Family Practice [facility] [address] [place] [address] Divya Rosario CRNP [address] [place] [address] 05/14/2023 9:40 AM EST Office Visit [facility] [address] [place] [address] Joel Odom, DO [address] [place] [address] 10/06/2023 8:00 AM EDT Office Visit [facility] [address] [place] [address] Joel Odom, DO [address] [place] [address] 03/12/2024 8:40 AM EDT Office Visit Neurology [facility] [address] [place] [address] Wellington Herrera, DO [address] [place] [address] Scheduled Orders Name Type Priority Associated Diagnoses Orde r Schedule SLEEP STUDY, W/ CPAP (TREATMENT SETTINGS) Procedures Routine Parasomnia, unspecified type MIKAL (obstructive sleep apnea) Ordered: 02/18/2023 Health Maintenance Due Date Last Done Comments GARDASIL-HPV IMMUNIZATION SERIES (3 - Male 3-dose series) 05/07/2017 01/03/2017, 11/05/2016 Albumin/Creatinine Ratio 09/06/2017 DTaP,Tdap,and Td Vaccines (7 - Td or Tdap) 06/27/2021 06/27/2011, 10/16/2004, 03/11/2001, Additional history exists Influenza Vaccine (FLU shot) (#1) 2023 03/10/2013, 03/03/2012, 06/27/2011, Additional history exists Depression Screening 05/02/2023 05/02/2022 GFR 03/11/2024 03/11/2023, 12/06/2021, 05/30/2021, Additional history exists Hepatitis B Completed [...] as of this encounter Visit Diagnoses Diagnosis Witnessed episode of apnea- Primary Hypersomnia Hypersomnia, unspecified HTN, goal below 140/90 Unspecified essential hypertension Parasomnia, unspecified type MIKAL (obstructive sleep apnea) Obstructive sleep apnea (adult) (pediatric) documented in this encounter Care Teams Manager Delivery Relationship Specialty Start Date End Date Joel Odom DO [address] [place] [address] PCP - General Family Medicine 05/14/18 documented as of this encounter
--- OUTSIDE RECORDS SUMMARY | 2023-06-15 13:47 | External Medical Summary | Summary of Care ---
Author Name Unknown Organization [facility] Address [address] [facility] [place] [address] Phone [phone] Care Team Providers Care Awning Hanger Name Role Phone Camelia Odom DO Primary Care Provider Reason for Visit * Reason Comments eRx-Medication Refill Encounter Details Date Type Department Care Team (Late st Contact Info) Description 05/20/2023 Refill Family Practice [facility] [address] [place] [address] Camelia Odom DO [address] [place] [address] Parasomnia, unspecified type Allergies No known active allergiesdocumented as of this encounter (statuses as of 05/21/2023) Medications Medication Sig Dispensed Refills Start Date End Date Status Lisinopril 20 MG Oral Tablet (Prinivil) Take 1 tablet by mouth once daily 90 Tablet 1 12/11/2022 Active Vitamin C 1000 MG Oral Tablet Take 1 Tablet by mouth in the morning. 0 Active Divalproex Sodium ER 500 MG Oral Tablet Extended Release 24 Hour (Depakote ER)Indications:Par asomnia, unspecified type Take 2 tablets by mouth once daily 60 Tablet 0 05/21/2023 Active Divalproex Sodium ER 500 MG Oral Tablet Extended Release 24 Hour (Depakote ER)Indications:Par asomnia, unspecified type Take 2 tablets by mouth once daily 60 Tablet 0 04/22/2023 05/21/2023 Discontinued documented as of this encounter (statuses as of 05/21/2023) Active Problems Problem Noted Date Diagnosed Date [...] as of this encounter (statuses as of 05/21/2023) Resolved Problems Problem Noted Date Diagnosed Date [...] as of this encounter (statuses as of 05/21/2023) Immunizations Name Administration Dates Next Due HPV [...] Date Recorded PHQ Adult Total Score 0 05/06/2023 Hunger Vital Sign Answer Date Recorded Within the past 12 months, y ou worried that your food would run out before you got the money to buy more. Never true 05/06/20 23 Within the past 12 months, t he food you bought just didn't last and you didn't have money to get more. Never true 05/06/2023 Sex and Gender Information Value Date Recorded Sex Assigned at Male 05/06/2023 3:24 PM EST Gender Identity Male 05/06/2023 3:24 PM EST Sexual Orientation Straight 05/06/2023 3: 24 PM EST Job Start Date Occupation Industry Not on file Not on file Not on file documented as of this encounter Miscellaneous Notes * Telephone Encounter - Camelia Odom DO - 05/21/2023 1:21 PM EST Signed Prescriptions: Disp Refills Divalproex Sodium ER 500 MG Oral Tablet Ex*60 Tab*0 Sig: Take 2 tablets by mouth once daily Authorizing Provider: CAMELIA ODOM * Telephone Encounter - Cammie Cruz MED ASSIST - 05/21/2023 11:21 AM EST Pending Prescriptions: Disp Refills Divalproex Sodium ER 500 MG Oral Tablet Ex*60 Tab*0 Sig: Take 2 tablets by mouth once daily * Telephone Encounter - Cammie Cruz MED ASSIST - 05/21/2023 11:20 AM EST Did you pend patient's preferred pharmacy and medication before forwarding?yes Pharmacy: [facility] [address] [place] [address] [place] [address] Pending Prescriptions: Disp Refills Divalproex Sodium ER 500 MG Oral Tablet E*60 Tab*0 Sig: Take 2 tablets by mouth once daily Last Visit: 05/06/2023 (in office), Visit date not found (telemedicine) Next Visit: 10/06/2023 If no future appointments scheduled, and last appointment is greater than a year ago, please schedule patient for a follow-up appointment Last date the medication was ordered: 04/22/2023 Is this request for a controlled substance?No Urine Drug Screen:No results found for this or any previous visit. Patient Phone Numbers Labs: Lab Results Component Value Date/Time CREAT 0.8 03/11/2023 10:11 AM CREAT 0.9 06/04/2019 08:27 AM POTASSIUM 4.3 03/11/2023 10:11 AM POTASSIUM 4.6 06/04/2019 08:27 AM TSH 1.55 05/02/2022 03:28 PM LDLCALC 106 05/30/2021 12:03 PM LDLCALC 79 11/05/2016 04:21 PM ALT 30 03/11/2023 10:11 AM ALT 54 (H) 07/20/2018 09:27 AM HGBA1C 5.3 05/02/2022 03:28 PM * Telephone Encounter - Marina Seals - 05/21/2023 5:32 AM ESTPending Prescriptions: Disp Refills Divalproex Sodium ER 500 MG Oral Tablet Ex*60 Tab*0 Sig: Take 2tablets by mouth once daily documented in this encounter Plan of Treatment Upcoming Encounters Date Type Department Care Team (Late st Contact Info) Description 06/10/2023 1:30 PM EST Office Visit Sleep Disorders Ctr [facility] [address] [place] [phone] Tamara Burgos CRNP [address] [place] [address] 10/06/2023 8:00 AM EDT Office Visit Family Practice [facility] [address] [place] [address] Camelia Odom, DO [address] [place] [address] 03/12/2024 8:40 AM EDT Office Visit Neurology [facility] [address] [place] [address] Wellington Herrera, DO [address] [place] [address] Health Maintenance Due Date Last Done Comments GARDASIL-HPV IMMUNIZATION SERIES (3 - Male 3-dose series) 05/07/2017 01/03/2017, 11/05/2016 DTaP,Tdap,and Td Vaccines (7 - Td or Tdap) 06/27/2021 06/27/2011, 10/16/2004, 03/11/2001, Additional history exists Influenza Vaccine (FLU shot) (#1) 2023 03/10/2013, 03/03/2012, 06/27/2011, Additional history exists GFR 03/11/2024 03/11/2023, 12/06/2021, 05/30/2021, Additional history exists Depression Screening 05/06/2024 05/06/2023 Albumin/Creatinine Ratio 05/06/2026 05/06/2023 Hepatitis B Completed 12/09/2000, 12/31, 1999 MENINGOCOCCAL (MENACTRA/MENVEO) Completed 01/03/2017, 06/27/2011 COVID-19 Vaccine Discontinued Hepatitis C Screening Discontinued Pneumococcal Vaccine: Pediatrics (0 to 5 Years) and At-Risk Patients (6 to 64 Years) Aged Out No longer eligible based on patient's age to complete this topic documented as of this encounter Medical Devices Not on filedocumented as of this encounter Visit Diagnoses Diagnosis Parasomnia, unspecified type documented in this encounter Care Teams Awning Hanger Relationship Specialty Start Date End Date Camelia Odom DO [address] [place] [address] PCP - General Family Medicine 05/14/18 documented as of this encounter
--- OUTSIDE RECORDS SUMMARY | 2023-06-15 13:47 | External Medical Summary | Summary of Care ---
Author Name Unknown Organization [facility] Address [address] [facility] [place] [address] Phone [phone] Care Team Providers Care Paperboard Boxes Estimator Name Role Phone Camelia Odom DO Primary Care Provider Reason for Visit * Reason Onset Date Comments Medication Refill 04/22/2023 Encounter Details Date Type Department Care Team (Late st Contact Info) Description 04/22/2023 Refill Family [facility] [address] [place] [address] Camelia Odom DO [address] [place] [address] Parasomnia, unspecified type Allergies No known active allergiesdocumented as of this encounter (statuses as of 04/22/2023) Medications Medication Sig Dispensed Refills Start Date [...] mouth once daily 60 Tablet 0 04/22/2023 Active Divalproex Sodium ER 500 MG Oral Tablet Extended Release 24 Hour (Depakote ER)Indications:Par asomnia, unspecified type Take 2 tablets by mouth once daily 60 Tablet 0 03/20/2023 04/22/2023 Discontinued (Refill) documented as of this encounter (statuses as of 04/22/2023) Active Problems Problem Noted Date Diagnosed Date [...] as of this encounter (statuses as of 04/22/2023) Resolved Problems Problem Noted Date Diagnosed Date [...] as of this encounter (statuses as of 04/22/2023) Immunizations Name Administration Dates Next Due HPV [...] Telephone Encounter - Camelia Odom DO - 04/22/2023 4:11 PM EST Signed Prescriptions: Disp Refills Divalproex Sodium ER 500 MG Oral Tablet Ex*60 Tab*0 Sig: Take 2 tablets by mouth once daily Authorizing Provider: CAMELIA ODOM * Telephone Encounter - Em George LPN - 04/22/2023 2:27 PM ESTPending Prescriptions: Disp Refills Divalproex Sodium ER 500 MG Oral Tablet Ex*60 Tab*0 Sig: Take 2 tablets by mouth once daily * Telephone Encounter - Em George LPN - 04/22/2023 2:26 PM EST Did you pend patient's preferred pharmacy and medication before forwarding?yes Pharmacy: [facility] [address] [place] [address] [place] [address] Pending Prescriptions: Disp Refills Divalproex Sodium ER 500 MG Oral Tablet E*60 Tab*0 Sig: Take 2 tablets by mouth once daily Last Visit: 02/04/2023 (in office), Visit date not found (telemedicine) Next Visit: 05/06/2023 If no future appointments scheduled, and last appointment is greater than a year ago, please schedule patient for a follow-up appointment Last date the medication was ordered: 03/20/23 Is this request for a controlled substance?No [...] 05/02/2022 03:28 PM * Telephone Encounter - Chelsea Varma - 04/22/2023 1:22 PM EST Did you pend patient's preferred pharmacy and medication before forwarding?yes Pharmacy: [facility] [address] [place] [address] Pending Prescriptions: Disp Refills Divalproex Sodium ER 500 MG Oral Tablet E*60 Tab*0 Sig: Take 2 tablets by mouth once daily Last Visit: 02/04/2023 (in office), Visit date not found (telemedicine) Next Visit: 05/06/2023 If no future appointments scheduled, and last appointment is greater than a year ago, please schedule patient for a follow-up appointment Last date the medication was ordered: 03/20/2023 Is this request for a controlled substance?No Urine Drug Screen:No results found for this or any previous visit. Patient Phone Numbers [employer] [facility] [phone] Labs: Lab Results Component Value Date/Time CREAT 0.8 03/11/2023 10:11 AM CREAT 0.9 06/04/2019 08:27 AM POTASSIUM 4.3 03/11/2023 10:11 AM POTASSIUM 4.6 06/04/2019 08:27 AM TSH 1.55 05/02/2022 03:28 PM LDLCALC 106 05/30/2021 12:03 PM LDLCALC 79 11/05/2016 04:21 PM ALT 30 03/11/2023 10:11 AM ALT 54 (H) 07/20/2018 09:27 AM HGBA1C 5.3 05/02/2022 03:28 PM documented in this encounter Plan of Treatment Upcoming Encounters Date Type Department Care Team (Late st Contact Info) Description 05/06/2023 2:40 PM EST Office Visit [facility] [address] [place] [address] Divya Rosario CRNP [address] [place] [address] 05/14/2023 9:40 AM EST Office Visit [facility] [address] [place] [address] Camelia Odom DO [address] [place] [address] 06/10/2023 1:30 PM EST Office Visit Sleep Disorders Ctr [facility] [address] [place] [phone] Tamara Burgos CRNP [address] [place] [address] 10/06/2023 8:00 AM EDT Office Visit [facility] [address] [place] [address] Camelia Odom DO [address] [place] [address] 03/12/2024 8:40 AM EDT Office Visit Neurology [place] [address] [facility] [place] [address] Wellington Herrera DO [address] [place] [address] Health Maintenance Due Date Last Done Comments GARDASIL-HPV IMMUNIZATION SERIES (3 - Male 3-dose series) 05/07/2017 01/03/2017, 11/05/2016 Albumin/Creatinine Ratio 09/06/2017 DTaP,Tdap,and Td Vaccines (7 - Td or Tdap) 06/27/2021 06/27/2011, 10/16/2004, 03/11/2001, Additional history exists Influenza Vaccine (FLU shot) (#1) 2023 03/10/2013, 03/03/2012, 06/27/2011, Additional history exists Depression Screening 05/02/2023 05/02/2022 GFR 03/11/2024 03/11/2023, 06/2021, 05/30/2021, Additional history exists Hepatitis B Completed [...] type documented in this encounter Care Teams Paperboard Boxes Estimator Relationship Specialty Start Date End Date Camelia Odom DO [address] [place] [address] PCP - General Family Medicine 05/14/18 documented as of this encounter
--- OUTSIDE RECORDS SUMMARY | 2023-06-15 13:47 | External Medical Summary | Summary of Care ---
Author Name Unknown Organization [facility] Address [address] [facility] [place] [address] Phone [phone] Care Team Providers Care Job Placement Specialist Name Role Phone Joel Odom DO Primary Care Provider Encounter Details Date Type Department Care Team (Late st Contact Info) Description 04/11/2023 Telephone Pulmonary Medicine, [facility] [address] [place] [address] Taamra Burgos CRNP [address] [place] [address] Allergies No known active allergiesdocumented as of [...] encounter Miscellaneous Notes * Telephone Encounter - Agusto Hanson - 04/11/2023 9:00 AM EST Orders in 04/11 supplies [facility] documented in this encounter Plan of Treatment Upcoming Encounters Date Type Department Care Team (Late st Contact Info) Description 05/06/2023 2:40 PM EST Office Visit [facility] [address] [place] [address] Divya Rosario CRNP [address] [place] [address] 05/14/2023 9:40 AM EST Office Visit [facility] [address] [place] [address] Joel Odom, DO [address] [place] [address] 06/10/2023 1:30 PM EST Office Visit Sleep Disorders Ctr [facility] [address] [place] [phone] Tamara Burgos CRNP [address] [place] [address] 10/06/2023 8:00 AM EDT Office Visit [facility] [address] [place] [address] Joel Odom, [address] [place] [address] 03/12/2024 8:40 AM EDT Office Visit Neurology [place] [address] [place] [address] Wellington Herrera, DO [address] [place] [address] Health Maintenance Due Date Last Done Comments [...] filedocumented as of this encounter Care Teams Job Placement Specialist Relationship Specialty Start Date End Date Joel Odom DO [address] [place] [address] PCP - General Family Medicine 05/14/18 documented as of this encounter
--- OUTSIDE RECORDS SUMMARY | 2023-06-15 13:47 | External Medical Summary | Summary of Care ---
Author Name Unknown Organization [facility] Address [address] [facility] [place] [address] Phone [phone] Care Team Providers Care Cathode Builder Name Role Phone Joel Odom DO Primary Care Provider Reason for Visit * Reason Comments eRx-Medication Refill Encounter Details Date Type Department Care Team Description 03/20/2023 Refill Family Practice [facility] [address] [place] [address] Vera Sarmiento DO [address] [place] [address] Parasomnia, unspecified type Allergies No known active allergiesdocumented as of this encounter (statuses as of 03/20/2023) Medications Medication Sig Dispensed Refills Start Date [...] once daily 60 Tablet 0 03/20/2023 Active Divalproex Sodium ER 500 MG Oral Tablet Extended Release 24 Hour (Depakote ER)Indications:Par asomnia, unspecified type Take 2 tabs by mouth daily. 60 Tablet 0 02/27/2023 03/20/2023 Discontinued documented as of this encounter (statuses as of 03/20/2023) Active Problems Problem Noted Date History of [...] as of this encounter (statuses as of 03/20/2023) Resolved Problems Problem Noted Date Resolved Date [...] as of this encounter (statuses as of 03/20/2023) Immunizations Name Administration Dates Next Due HPV [...] = 0.6 oz pur e alcohol) occasional Food Insecurity Answer Date Recorded Within the [...] encounter Miscellaneous Notes * Telephone Encounter - Jos Rodríguez MD - 03/20/2023 6:23 PM EDT Signed Prescriptions: Disp Refills Divalproex Sodium ER 500 MG Oral Tablet Ex*60 Tab*0 Sig: Take 2 tablets by mouth once daily Authorizing Provider: JOS RODRÍGUEZ * Telephone Encounter - Malini Suazo [facility] - 03/20/2023 2:45 PM EDTPending Prescriptions: Disp Refills Divalproex Sodium ER 500 MG Oral Tablet Ex*60 Tab*0 Sig: Take 2 tablets by mouth once daily * Telephone Encounter - Malini Suazo [facility] - 03/20/2023 2:45 PM EDT Telepharmacy is currently not authorized to approve refills for this class of medication per refillprotocol. Thank you, Malini Suazo, PharmD Staff Pharmacist Refill Call Center [phone] 03/20/2023, 2:45 PM Pending Prescriptions: Disp Refills Divalproex Sodium ER 500 MG Oral Tablet Ex*60 Tab*0 Sig: Take 2 tablets by mouth once daily Last Visit: 02/04/2023 (in office), Visit date not found (telemedicine) Next Visit: 05/06/2023 If no future appointments scheduled, and last appointment is greater than a year ago, please schedule patient for a follow-up appointment Last date the medication was ordered: 02/27/23 Pharmacy: [facility] [address] [place] [address] Is this request for a controlled substance?No [...] Encounters Date Type Specialty Care Team Description 03/27/2023 Office Visit Cardiology Pino Mckeon DO [address] [place] [address] 04/03/2023 Office Visit Sleep Disorders Tamara Burgos CRNP [address] [place] [address] 05/06/2023 Office Visit Family Medicine Divya Rosario CRNP [address] [place] [address] 05/14/2023 Office Visit Family Medicine Joel Odom DO [address] [place] [address] 10/06/2023 Office Visit Family Medicine Joel Odom DO [address] [place] [address] 03/12/2024 Office Visit Neurology Wellington Herrera, DO [address] [place] [facility], [place] [address] Health Maintenance Due Date Last Done Comments [...] type documented in this encounter Care Teams Cathode Builder Relationship Specialty Start Date End Date Joel Odom DO [address] [place] [address] PCP - General Family Medicine 05/14/18 documented as of this encounter
--- OUTSIDE RECORDS SUMMARY | 2023-06-15 13:47 | External Medical Summary | Summary of Care ---
Author Name Unknown Organization [facility] Address [address] [facility] [place] [address] Phone [phone] Care Team Providers Care Systems Support Specialist Name Role Phone Camelia Odom DO Primary Care Provider Reason for Visit * Reason Comments eRx-Medication Refill Encounter Details Date Type Department Care Team (Late st Contact Info) Description 06/09/2023 Refill Family Practice [facility] [address] [place] [address] Camelia Odom DO [address] [place] [address] Allergies No known active allergiesdocumented as of this encounter (statuses as of 06/10/2023) Medications Medication Sig Dispensed Refills Start Date End Date Status Vitamin C 1000 MG Oral Tablet Take 1 Tablet by mouth in the morning. 0 Active Divalproex Sodium ER 500 MG Oral Tablet Extended Release 24 Hour (Depakote ER)Indications:Par asomnia, unspecified type Take 2 tablets by mouth once daily 60 Tablet 0 05/21/2023 Active Lisinopril 20 MG Oral Tablet (Prinivil) Take 1 tablet by mouth once daily 90 Tablet 1 06/10/2023 Active Lisinopril 20 MG Oral Tablet (Prinivil) Take 1 tablet by mouth once daily 90 Tablet 1 12/11/2022 06/10/2023 Discontinued documented as of this encounter (statuses as of 06/10/2023) Active Problems Problem Noted Date Diagnosed Date [...] as of this encounter (statuses as of 06/10/2023) Resolved Problems Problem Noted Date Diagnosed Date [...] as of this encounter (statuses as of 06/10/2023) Immunizations Name Administration Dates Next Due HPV [...] encounter Miscellaneous Notes * Telephone Encounter - Crow Ortiz RPh - 06/10/2023 11:22 AM ESTSigned Prescriptions: Disp Refills Lisinopril 20 MG Oral Tablet (Prinivil) 90 Tab*1 Sig: Take 1 tablet by mouth once dailyAuthorizing Provider: CAMELIA ODOM User: CROW ORTIZ----- documented in this encounter Plan of Treatment Upcoming Encounters Date Type Department Care Team (Late st Contact Info) Description 06/10/2023 1:30 PM EST Office Visit Sleep Disorders Ctr [facility] [address] [place] [phone] Tamara Burgos CRNP [address] [place] [address] 10/06/2023 8:00 AM EDT Office Visit Family Practice [facility] [address] [place] [address] Camelia Odom, [address] [place] [address] 03/12/2024 8:40 AM EDT Office Visit Neurology [facility] [address] [facility] [place] [address] Wellington Herrera DO [address] [facility] [place] [address] Health Maintenance Due Date Last Done Comments GARDASIL-HPV IMMUNIZATION SERIES (3 - Male 3-dose series) 05/07/2017 01/03/2017, 11/05/2016 DTaP,Tdap,and Td Vaccines (7 - Td or Tdap) 06/27/2021 06/27/2011, 10/16/2004, 03/11/2001, Additional history exists Influenza Vaccine (FLU shot) (#1) 2023 03/10/2013, 03/03/2012, 06/27/2011, Additional history exists GFR 03/11/2024 03/11/2023, 1206/2021, 05/30/2021, Additional history exists Depression Screening 05/06/2024 [...] filedocumented as of this encounter Care Teams Systems Support Specialist Relationship Specialty Start Date End Date Camelia Odom DO [address] [place] [address] PCP - General Family Medicine 05/14/18 documented as of this encounter
--- OUTSIDE RECORDS SUMMARY | 2023-06-15 13:47 | External Medical Summary ---
Author Name Unknown Address Unknown Organization K01:[facility] [place] [facility] [address] [facility] [address] Laboratory Report Ordering Provider Test Date Status MONA PARRY 05/06/2023 15:28:34 Final Normal: <30 mg/g creatinine< br/>High: 30-300 mg/g creatinine
Very High: >300 mg/g creatinine
Nephrotic: >2200 mg/g creatinine Observation Date Value Abnormality Reference (Units ) Status Albumin, Urine 05/06/2023 15:28:34 <1.20 (mg/dL) Final Creatinine, Urine 05/06/2023 15:28:34 140 (mg/dL) Final Albumin/Creatinine [Mass Ratio] in Urine 05/06/2023 15:28:34 <9 <30 (mg/g Creat) Final Performing Location [facility] [place] [address] [facility] [address]
--- OUTSIDE RECORDS SUMMARY | 2023-06-15 13:47 | External Medical Summary | Summary of Care ---
Author Name Unknown Organization [facility] Address [address] [facility] [place] [address] Phone [phone] Care Team Providers Care Church Warden Name Role Phone Joel Odom DO Primary Care Provider Reason for Visit * Reason Comments Return Visit 3 month Encounter Details Date Type Department Care Team (Late st Contact Info) Description 05/06/2023 2:40 PM EST Office Visit [facility] [address] [place] [address] Divya Rosario CRNP [address] [place] [address] HTN, goal below 140/90*; Parasomnia, unspecified type; MIKAL (obstructive sleep apnea) Allergies No known active allergiesdocumented as of this encounter (statuses as of 05/13/2023) Medications Medication Sig Dispensed Refills Start Date [...] once daily 60 Tablet 0 04/22/2023 Active documented as of this encounter (statuses as of 05/13/2023) Active Problems Problem Noted Date Diagnosed Date [...] as of this encounter (statuses as of 05/13/2023) Resolved Problems Problem Noted Date Diagnosed Date [...] as of this encounter (statuses as of 05/13/2023) Immunizations Name Administration Dates Next Due HPV [...] Sign Reading Time Taken Comments Blood Pressure 130/68 05/06/2023 3:12 PM EST Pulse 88 05/06/2023 3:12 PM EST Temperature 36.5 C (97.7 F) 05/06/2023 3:12 PM ES T Respiratory Rate - - Oxygen Saturation 98% 05/06/2023 3:12 PM EST Inhaled Oxygen Concentration - - Weight 157.1 kg (346 lb 6.4 oz) 05/06/2023 3:12 PM EST Height 191.8 cm (6' 3.5") 05/06/2023 3:12 PM EST Body Mass Index 42.73 05/06/2023 3:12 PM EST documented in this encounter Progress Notes * Divya Rosario CRNP - 05/13/2023 4:35 PM EST Images from the original note were not included. History of Present Illness Cory Mora is a 22 year old male that presents for Return Visit (3 month ) HPI Here for recheck. He's been following with sleep medicine for parasomnia, MIKAL. Started seeing them after violent episodes while sleeping -- saw neuro to evaluate whether possible seizures but so far workup did not confirm seizures. On depakote. Also started on lisinopril for HTN. 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 Outpatient Medications Marked as Taking for the 05/06/23 encounter (Office Visit) with Divya Rosario CRNP Medication Sig Divalproex Sodium ER 500 MG Oral Tablet Extended Release 24 Hour (Depakote ER) Take 2 tablets by mouth once daily Vitamin C 1000 MG Oral Tablet Take 1 Tablet by mouth in the morning. Lisinopril 20 MG Oral Tablet (Prinivil) Take 1 tablet by mouth once daily Physical Exam Vitals: 05/06/23 1512 Temp: 36.5 C (97.7 F) Pulse: 88 SpO2: 98% BP: 130/68 BMI: 42.71 Physical Exam Vitals reviewed. Constitutional: Appearance: Normal [...] Breath sounds: Normal breath sounds. Abdominal: General: There is no distension. Palpations: Abdomen is soft. Tenderness: There is no abdominal tenderness. Musculoskeletal: Cervical back: Neck supple. Right lower leg: No edema. Left lower leg: No edema. Lymphadenopathy: Cervical: No cervical adenopathy. Skin: General: Skin is warm and dry. Capillary Refill: Capillary refill takes less than 2 seconds. Neurological: Mental Status: He is alert and oriented to person, place, and time. Psychiatric: Behavior: Behavior normal. Thought Content: Thought content normal. 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 [place] [address] Health Maintenance Due Date Last Done Comments [...] Procedure Name Priority Date/Time Associated Diagnosis Comments ALBUMIN / CREATININE RATIO, URINE Routine 05/06/2023 3:28 PM EST HTN, goal below 140/90 documented in this encounter Results * ALBUMIN / CREATININE RATIO, URINE (05/06/2023 3:28 PM EST) Albumin, Random Urine <1.20 mg/dL 05/06/2023 10:[address] [facility] Creatinine, Random Urine 140 mg/dL 05/06/2023 10:[address] [facility] Albumin / Creatinine Ratio, Urine <9 <30 mg/g Creat 05/06/2023 10:[address] [facility] Urine Urine specimen obtained by clean catch procedure / Unknown Non-blood Collection / Unknown 05/06/2023 3:28 PM EST 05/06/2023 3:28 PM EST Narrative [facility] [place] 05/06/2023 10:45 PM EST Normal: <30 mg/g creatinine High: 30-300 mg/g creatinine Very High: >300 mg/g creatinine Nephrotic: >2200 mg/g creatinine Divya MIJARES LAB URINE ORDERABL ES [facility] [address] [facility] [place] [address] documented in this encounter Visit Diagnoses Diagnosis HTN, goal below 140/90- Primary Unspecified essential hypertension Parasomnia, unspecified type MIKAL (obstructive sleep apnea) Obstructive sleep apnea (adult) (pediatric) documented in this encounter Care Teams Church Warden Relationship Specialty Start Date End Date Joel Odom DO [address] [place] [address] PCP - General Family Medicine 05/14/18 documented as of this encounter
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
--- OUTSIDE RECORDS SUMMARY | 2023-06-15 13:48 | External Medical Summary ---
Author Name Unknown Address Unknown Organization K09:[facility] [address] [place] [address] Laboratory Report Ordering Provider Test Date Status ROSALINE BROWN 03/11/2023 10:11:15 Final Observation Date Value Abnormality Reference (Units ) Status BUN 03/11/2023 10:11:15 17 6-20 (mg/dL) Final Creatinine 03/11/2023 10:11:15 0.8 0.6-1.2 (mg/dL) Final Glomerular filtration rate/1.73 sq M.predicted [Volume Rate/Area] in Serum, Plasma or Blood by Creatinine-based formula (CKD-EPI) 03/11/2023 10:11:15 >90 >=60 (mL/min) Final eGFR is calculated based on the CKD-EPI 2020 equation SODIUM 03/11/2023 10:11:15 140 135-146 (m mol/L) Final Potassium 03/11/2023 10:11:15 4.3 3.5-5.1 (m mol/L) Final Cl 03/11/2023 10:11:15 102 98-107 (mm ol/L) Final CO2 03/11/2023 10:11:15 27 22-32 (mmo l/L) Final Anion gap 03/11/2023 10:11:15 11 7-15 (mmol /L) Final Glucose 03/11/2023 10:11:15 88 70-120 (mg /dL) Final Albumin 03/11/2023 10:11:15 5.0 3.8-5.0 (g /dL) Final AST (Aspartate aminotransferase) 03/11/2023 10:11:15 19 10-50 (U/L) Final Alk Phos 03/11/2023 10:11:15 52 35-130 (U/ L) Final Bilirubin, Total 03/11/2023 10:11:15 0.5 <=1 .2 (mg/dL) Final Calcium 03/11/2023 10:11:15 9.8 8.4-10.2 ( mg/dL) Final Protein 03/11/2023 10:11:15 7.0 6.0-8.3 (g /dL) Final ALT (Alanine aminotransferase) 03/11/2023 10:11:15 30 10-50 (U/L) Final Performing Location [facility] [address] [place] [address]
--- OUTSIDE RECORDS SUMMARY | 2023-06-15 13:48 | External Medical Summary | Summary of Care ---
Author Name Unknown Organization [facility] Address [address] [facility] [place] [address] Phone [phone] Care Team Providers Care Meal Miller Name Role Phone Joel Odomrebecca Primary Care Provider Reason for Visit * Reason Comments Review Sleep Study WatchPAT Encounter Details Date Type Department Care Team Description 02/17/2023 Nurse Only Pulmonary Medicine, [facility] [address] [facility] [place] [address] , Nurse Pulmonary [address] [facility] [place] [address] Review Sleep Study (WatchPAT) Allergies No known active allergiesdocumented as of this encounter (statuses as of 02/18/2023) Medications Medication Sig Dispensed Refills Start Date End Date Status Lisinopril 20 MG Oral Tablet (Prinivil) Take 1 tablet by mouth once daily 90 Tablet 1 12/11/2022 Active Divalproex Sodium ER 500 MG Oral Tablet Extended Release 24 Hour (Depakote ER)Indications:Par asomnia, unspecified type Take 1 Tablet by mouth in the morning. Take 2 tabs by mouth daily.. 0 01/31/2023 Active Vitamin C 1000 MG Oral Tablet Take 1 Tablet by mouth in the morning. 0 Active Mupirocin 2 % External Ointment (Bactroban)Indicat ions:Impetigo Apply topically to affected area 3 times a day for 14 days. To affected area for up to 14 days. 60 g 5 02/04/2023 02/18/2023 Active Additional Information Patient not taking.Reported on 02/12/2023 documented as of this encounter (statuses as of 02/18/2023) Active Problems Problem Noted Date History of [...] as of this encounter (statuses as of 02/18/2023) Resolved Problems Problem Noted Date Resolved Date [...] as of this encounter (statuses as of 02/18/2023) Immunizations Name Administration Dates Next Due HPV [...] as of this encounter Progress Notes * Maddi Thakkar DO - 02/18/2023 10:01 AM EDT [email or web address] home sleep apnea test report uploaded, viewable through Media attached to this encounter, and/or via Scans. documented in this encounter Plan of Treatment Upcoming Encounters Date Type Specialty Care Team Description 03/11/2023 Office Visit [facility]rology Wellington Herrera [facility] [address] [facility] [address] 04/18/2023 Office Visit Cardiology Taina Benson PA-C [address] [place] [address] 05/06/2023 Office Visit Family Medicine Divya Rosario CRNP [address] [place] [address] 05/14/2023 Office Visit Family Medicine Joel Odom DO [address] [place] [address] 10/06/2023 Office Visit Family Medicine Joel Odom DO [address] [address] Health Maintenance Due Date Last Done Comments GARDASIL-HPV IMMUNIZATION SERIES (3 - Male 3-dose series) 05/07/2017 01/03/2017, 11/05/2016 Albumin/Creatinine Ratio 09/06/2017 DTaP,Tdap,and Td Vaccines (7 - Td or Tdap) 06/27/2021 06/27/2011, 10/16/2004, 03/11/2001, Additional history exists Influenza Vaccine (FLU shot) (#1) 2023 03/10/2013, 03/03/2012, 06/27/2011, Additional history exists Depression Screening 05/02/2023 05/02/2022 GFR 05/02/2023 05/02/2022, 05/03, 06/04/2019, [...] as of this encounter Visit Diagnoses Diagnosis Obstructive sleep apnea- Primary Obstructive sleep apnea (adult) (pediatric) Sleep apnea, unspecified type [G47.30 (ICD-10-CM)] documented in this encounter Care Teams Meal Miller Relationship Specialty Start Date End Date Joel Odom DO [address] [place] [address] PCP - General Family Medicine 05/14/18 documented as of this encounter
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
--- OUTSIDE RECORDS SUMMARY | 2023-06-15 13:48 | External Medical Summary | Summary of Care ---
Author Name Unknown Organization [facility] Address [address] [facility] [address] Phone [phone] Care Team Providers Care Bridge Inspector Name Role Phone Lei Joel Hernandezrebecca Primary Care Provider Reason for Visit * Reason Comments EEG Encounter Details Date Type Department Care Team Description 02/10/2023 NeuroDiagnostic Study Neurophysiology [facility] [address] [place] [address] Sp, Neurophys Tech [address] [facility] [place] [address] Allergies No known active allergiesdocumented as of this encounter (statuses as of 02/23/2023) Medications Medication Sig Dispensed Refills Start Date End Date Status Lisinopril 20 MG Oral Tablet (Prinivil) Take 1 tablet by mouth once daily 90 Tablet 1 12/11/2022 Active Divalproex Sodium ER 500 MG Oral Tablet Extended Release 24 Hour (Depakote ER)Indications:Parasom ric, unspecified type Take 1 Tablet by mouth in the morning. Take 2 tabs by mouth daily.. 0 01/31/2023 Active Vitamin C 1000 MG Oral Tablet Take 1 Tablet by mouth in the morning. 0 Active documented as of this encounter (statuses as of 02/23/2023) Active Problems Problem Noted Date History of [...] as of this encounter (statuses as of 02/23/2023) Resolved Problems Problem Noted Date Resolved Date [...] as of this encounter (statuses as of 02/23/2023) Immunizations Name Administration Dates Next Due HPV [...] Visit Neurology Wellington Herrera, DO [address] [facility] [place] [address] 04/18/2023 Office Visit Cardiology Taina Benson PA-C [address] [place] [address] 05/06/2023 Office Visit Family Medicine Divya Rosario CRNP [address] [place] [address] 05/14/2023 Office Visit Family Medicine Joel Odom DO [address] [place] [address] 10/06/2023 Office Visit Family Medicine Joel Odom DO [address] [place] [address] Health Maintenance Due Date Last Done Comments [...] as of this encounter Visit Diagnoses Diagnosis Transient amnesia- Primary Memory loss documented in this encounter Care Teams Bridge Inspector Relationship Specialty Start Date End Date Joel Odom DO [address] [place] [address] PCP - General Family Medicine 05/14/18 documented as of this encounter
--- OUTSIDE RECORDS SUMMARY | 2023-06-15 13:48 | External Medical Summary | Summary of Care ---
Author Name Unknown Organization [facility] Address [address] [facility] [place] [address] Phone [phone] Care Team Providers Care Body Fitter Name Role Phone Joel Odom DO Primary Care Provider Encounter Details Date Type Department Care Team Description 02/27/2023 Telephone Neurology [facility] [place] [address] [place] [address] Wellington Herrera DO [address] [place] [address] Allergies No known active allergiesdocumented as of this encounter (statuses as of 02/27/2023) Medications Medication Sig Dispensed Refills Start Date End Date Status Lisinopril 20 MG Oral Tablet (Prinivil) Take 1 tablet by mouth once daily 90 Tablet 1 12/11/2022 Active Vitamin C 1000 MG Oral Tablet Take 1 Tablet by mouth in the morning. 0 Active Divalproex Sodium ER 500 MG Oral Tablet Extended Release 24 Hour (Depakote ER)Indications:Parasom ric, unspecified type Take 2 tabs by mouth daily. 60 Tablet 0 02/27/2023 Active documented as of this encounter (statuses as of 02/27/2023) Active Problems Problem Noted Date History of [...] as of this encounter (statuses as of 02/27/2023) Resolved Problems Problem Noted Date Resolved Date [...] as of this encounter (statuses as of 02/27/2023) Immunizations Name Administration Dates Next Due DTaP [...] encounter Miscellaneous Notes * Telephone Encounter - Vandana Hartley LPN - 02/27/2023 11:14 AM EDT Pt aware. No further questions/concerns at this time. * Telephone Encounter - Wellington Herrera DO - 02/27/2023 10:06 AM EDT Please advise Cory his ambulatory EEG was normal. No seizure activity was seen. Thanks documented in this encounter Plan of Treatment Upcoming Encounters Date Type Specialty Care Team Description 03/11/2023 [facility] Visit [facility] [address] 04/18/2023 Office Visit Cardiology Taina Benson PA-C [address] [place] [address] 05/06/2023 Office Visit Family Medicine Divya Rosario CRNP [address] [place] [address] 05/14/2023 Office Visit Family Medicine Joel Odom DO [address] [place] [address] 10/06/2023 Office Visit Family Medicine Joel Odom, [address] [place] [address] Health Maintenance Due Date Last Done Comments [...] filedocumented as of this encounter Care Teams Body Fitter Relationship Specialty Start Date End Date Joel Odom DO [address] [place] [address] PCP - General Family Medicine 05/14/18 documented as of this encounter
--- OUTSIDE RECORDS SUMMARY | 2023-06-15 13:48 | External Medical Summary | Summary of Care ---
Author Name Unknown Organization [facility] Address [address] [place] [address] Phone [phone] Care Team Providers Care Petal Cutter Name Role Phone Lei Joel Hernandezrebecca Primary Care Provider Reason for Visit * Reason Onset Date Comments Scheduling 02/12/2023 WATCHPAT Encounter Details Date Type Department Care Team Description 02/12/2023 Telephone Sleep Lab, [facility] [address] [place] [address] [facility], Sleep Med Home Study [address] [place], [place] [id number] Scheduling (WATCHPAT) Allergies No known active allergiesdocumented as of this encounter (statuses as of 02/14/2023) Medications Medication Sig Dispensed Refills Start Date [...] as of this encounter (statuses as of 02/14/2023) Active Problems Problem Noted Date History of [...] as of this encounter (statuses as of 02/14/2023) Resolved Problems Problem Noted Date Resolved Date [...] as of this encounter (statuses as of 02/14/2023) Immunizations Name Administration Dates Next Due DTaP [...] encounter Miscellaneous Notes * Telephone Encounter - Carley Downing - 02/14/2023 2:21 PM EDT Spoke to Insurance. Authorization is required. Authorization pending. * Telephone Encounter - MIKAL Olivier - 02/12/2023 1:57 PM EDT WATCHPAT Ordered by MARYANA Sarabia No auth needed documented in this encounter Plan of Treatment Upcoming Encounters Date Type Specialty Care Team Description 03/11/2023 Office Visit Neurology Wellington Herrera, DO [address] [place] [address] 04/18/2023 Office Visit Cardiology Taina Benson PA-C [address] [place] [address] 05/06/2023 Office Visit Family Medicine Divya Rosario CRNP [address] [place] [address] 05/14/2023 Office Visit Family Medicine Joel Odom DO [address] [place] [address] 10/06/2023 Office Visit Family Medicine Joel Odom DO [address] [place] [address] Health Maintenance Due Date Last Done Comments [...] filedocumented as of this encounter Care Teams Petal Cutter Relationship Specialty Start Date End Date Joel Odom DO [address] [place] [address] PCP - General Family Medicine 05/14/18 documented as of this encounter
--- OUTSIDE RECORDS SUMMARY | 2023-06-15 13:48 | External Medical Summary | Summary of Care ---
Author Name Unknown Organization [facility] Address [address] [place] [address] Phone [phone] Care Team Providers Care Refrigeration Engineer Name Role Phone Lei Joel Hernandezrebecca Primary Care Provider Reason for Visit * Reason Onset Date Comments Scheduling 02/12/2023 WATCHPAT Encounter Details Date Type Department Care Team Description 02/12/2023 Telephone Sleep Lab, [facility] [address] [place] [address] [facility], Sleep Med Home Study [address], [place] [id number] Scheduling (WATCHPAT) Allergies No known active allergiesdocumented as of this encounter (statuses as of 02/12/2023) Medications Medication Sig Dispensed Refills Start Date [...] as of this encounter (statuses as of 02/12/2023) Active Problems Problem Noted Date History of [...] as of this encounter (statuses as of 02/12/2023) Resolved Problems Problem Noted Date Resolved Date [...] as of this encounter (statuses as of 02/12/2023) Immunizations Name Administration Dates Next Due HPV [...] Miscellaneous Notes * Telephone Encounter - MIKAL Olivier - 02/12/2023 1:57 PM EDT WATCHPAT Ordered by MARYANA Sarabia No auth needed documented in this encounter Plan of Treatment Upcoming Encounters Date Type Specialty Care Team Description 03/11/2023 Office Visit Neurology Wellington Herrera, DO [address] [place] [address] 04/18/2023 Office Visit Cardiology Taina Benson PA-C [address] [place] [address] 05/06/2023 Office Visit Family Medicine Divya Rosario CRNP [address] [place] [address] 05/14/2023 Office Visit Family Medicine Joel Odom DO [address] [place] [address] 10/06/2023 Office Visit Family Medicine Joel Odom DO [address] [place] [address] Health Maintenance Due Date Last Done Comments [...] filedocumented as of this encounter Care Teams Refrigeration Engineer Relationship Specialty Start Date End Date Joel Odom DO [address] [place] [address] PCP - General Family Medicine 05/14/18 documented as of this encounter
--- OUTSIDE RECORDS SUMMARY | 2023-06-15 13:48 | External Medical Summary ---
Author Name Unknown Address Unknown Organization K01:[place] [place] [address] [place] [address] Laboratory Report Ordering Provider Test Date Status ROSALINE BROWN 03/11/2023 10:11:15 Final Deficient: <20 ng/mL
Ins ufficient: 20-29 ng/mL
Recommended/Optimum:30-50 ng/mL

Vitamin D intoxication is rare. If suspicious of Vitamin D toxicity, evaluation of serum Calcium and PTH is recommended. Observation Date Value Abnormality Reference (Units ) Status 25-OH Vitamin D total 03/11/2023 10:11:15 28 >19 (ng/mL) Final Performing Location LABORATORY [facility] - [address] [place] [address]
--- OUTSIDE RECORDS SUMMARY | 2023-06-15 13:48 | External Medical Summary | Summary of Care ---
Author Name Unknown Organization [facility] Address [address] [facility] [place] [address] Phone [phone] Care Team Providers Care Floor Person Name Role Phone Joel Odom DO Primary Care Provider Encounter Details Date Type Department Care Team Description 02/19/2023 Telephone Pulmonary Medicine, [facility] [address] [place] [address] Tamara Burgos CRNP [address] [place] [address] Allergies No known active allergiesdocumented as of this encounter (statuses as of 02/19/2023) Medications Medication Sig Dispensed Refills Start Date [...] as of this encounter (statuses as of 02/19/2023) Active Problems Problem Noted Date History of [...] as of this encounter (statuses as of 02/19/2023) Resolved Problems Problem Noted Date Resolved Date [...] as of this encounter (statuses as of 02/19/2023) Immunizations Name Administration Dates Next Due HPV [...] * Telephone Encounter - Agusto Hanson - 02/19/2023 8:46 AM EDT Orders in 02/19 new pAP documented in this encounter Plan of Treatment Upcoming Encounters Date Type Specialty Care Team Description 03/11/2023 Office Visit Neurology Wellington Herrera, DO [address] [facility], [place] [address] 04/18/2023 Office Visit Cardiology Taina Benson PA-C [address] [place] [address] 05/06/2023 Office Visit Family Medicine Divya Rosario CRNP [address] [place] [address] 05/14/2023 Office Visit Family Medicine Joel Odom DO [address] [place] [address] 10/06/2023 Office Visit Family Medicine Joel Odom DO [address] [place] [address] Health Maintenance Due Date Last Done Comments [...] filedocumented as of this encounter Care Teams Floor Person Relationship Specialty Start Date End Date Joel Odom, [address] [place] [address] PCP - General Family Medicine 05/14/18 documented as of this encounter
--- OUTSIDE RECORDS SUMMARY | 2023-06-15 13:48 | External Medical Summary | Summary of Care ---
Author Name Unknown Organization [facility] Address [address] [facility] [place] [address] Phone [phone] Care Team Providers Care Payroll Coordinator Name Role Phone Joel Odom DO Primary Care Provider Encounter Details Date Type Department Care Team Description 02/27/2023 Telephone Neurology [facility] [place] [address] [place] [address] Wellington Herrera DO [address] [place] [address] Allergies No known active allergiesdocumented as of [...] Office Visit Neurology Wellington Herrera DO [facility] [address] 04/18/2023 Office Visit Cardiology Taina Benson PA-C [address] [place] [address] 05/06/2023 Office Visit Family Medicine Divya Rosario CRNP [address] [place] [address] 05/14/2023 Office Visit Family Medicine Joel Odom DO [address] [place] [address] 10/06/2023 Office Visit Family Medicine Joel Odom, [address] [place] [address] Health Maintenance Due Date Last Done Comments [...] filedocumented as of this encounter Care Teams Payroll Coordinator Relationship Specialty Start Date End Date Joel Odom DO [address] [place] [address] PCP - General Family Medicine 05/14/18 documented as of this encounter
--- OUTSIDE RECORDS SUMMARY | 2023-06-15 13:48 | External Medical Summary | Summary of Care ---
Author Name Unknown Organization [facility] [address] [facility] [address] Phone [phone] Care Team Providers Care Cribbing Setter Name Role Phone Joel Odomrebecca Primary Care Provider Reason for Visit * Reason Comments EEG Encounter Details Date Type Department Care Team Description 02/07/2023 NeuroDiagnostic Study Neurophysiology [facility] [address] [place] [address] Sp, Neurophys Tech [address] [facility] [place] [address] Allergies No known active allergiesdocumented as of [...] as of this encounter Progress Notes * Mack Vasquez 02/19/2023 12:38 PM EDT Electroencephalogram Report Neurophysiology [place] [address] [place] [address] Name: Cory Mora Age: [age] year old Study Start Date/Time: 02/07/2023; 14:51:39 Study End Date/Time: 02/10/2023; 14:06:39 Location: Ambulatory Referring Physician: Wellington Herrera DO Clinical Summary: Cory Mora is a/an 22 year old male undergoing EEG evaluation for: Epilepsy: clinical suspicion of epilepsy Neuroactive Medications: Depakote Technical Summary: This digitally acquired electroencephalogram was performed using 21 scalp electrodes in the international 10/20 system placement, with additional scalp, precordial, and other surface electrodes used for electrical referencing and artifact detection. Activation Procedures: No activation procedures were performed for this study period. Background: Normal. Posterior dominant rhythm symmetric. Frequency 10 Hz Alpha Organization - organized with an anterior to posterior gradient. Reactivity - present and reactive to external stimuli. Variability - present with distinct states of arousal. Continuity - continuous. EKG: Normal sinus rhythm Sleep: Stage 2 sleep was observed due to the presence of symmetric vertex waves, sleep spindles, and K complexes. Interictal Findings: No evidence of epileptiform abnormalities or focal asymmetries Clinical and Electrographic Events: No electrographic events were captured during this EEG. Clinical Events: 02/07/2023: Per patient after 22:00, after 22:30 and after 23:00, Patient feels " legs feel funny/numbness/ light headed lasting about 5 seconds". No EEG correlate. 02/09/2023: Per patient after 2:00, Around 9:00, around 16:30 and around 22:30 Patient feels " legs feel funny/numbness/ light headed lasting about 5 seconds". No EEG correlate. Summary of Findings: Normal 72-hour ambulatory EEG. There is no evidence of epileptiform activity or asymmetry. There were no clinical or electrographic seizures during this study. The clinical events described as "legs feeling numb" were non epileptic. -- I have reviewed the ambulatory EEG and agree with the findings and report as noted above. Wellington Herrera DO documented in this encounter Plan of Treatment Upcoming Encounters Date Type Specialty Care Team Description 03/11/2023 Office Visit Neurology Wellington Herrera DO [address] [facility] [address] 04/18/2023 Office Visit Cardiology Taina Benson PA-C [address] [place] [address] 05/06/2023 Office Visit Family Medicine Divya Rosario CRNP [address] [place] [address] 05/14/2023 Office Visit Family Medicine Joel Odom DO [address] [place] [address] 10/06/2023 Office Visit Family Medicine Joel Odom DO [address] [place] [address] Health Maintenance Due Date Last Done Comments [...] of this encounter Visit Diagnoses Diagnosis Transient amnesia [R41.3 (ICD-10-CM)]- Primary Memory loss documented in this encounter Care Teams Cribbing Setter Relationship Specialty Start Date End Date Joel Odom, [address] [place] [address] PCP - General Family Medicine 05/14/18 documented as of this encounter
--- OUTSIDE RECORDS SUMMARY | 2023-06-15 13:48 | External Medical Summary | Summary of Care ---
Author Name Unknown Organization [facility] Address [address] [facility] [place] [address] Phone [phone] Care Team Providers Care Design Technician Name Role Phone Joel Odom DO Primary Care Provider Reason for Visit * Reason Comments Outpatient Testing Encounter Details Date Type Department Care Team Description 03/11/2023 Laboratory [facility] [place] [address] [place] [address] [facility] [address] [place] [id number] Arrived Allergies No known active allergiesdocumented as of this encounter (statuses as of 03/11/2023) Medications Medication Sig Dispensed Refills Start Date [...] as of this encounter (statuses as of 03/11/2023) Active Problems Problem Noted Date History of [...] as of this encounter (statuses as of 03/11/2023) Resolved Problems Problem Noted Date Resolved Date [...] as of this encounter (statuses as of 03/11/2023) Immunizations Name Administration Dates Next Due HPV [...] PA-C [address] [place] [address] 05/06/2023 Office Visit Family Medicine Divya Rosario CRNP [address] [place] [address] 05/14/2023 Office Visit Family Medicine Joel Odom DO [address] [place] [address] 07/01/2023 Office Visit Sleep Disorders Tamara Burgos CRNP [address] [place] [address] 10/06/2023 Office Visit Family Medicine Joel Odom DO [address] [place] [address] 03/12/2024 Office Visit Neurology Wellington Herrera, 200 [facility], [place] [address] Health Maintenance Due Date Last Done Comments [...] filedocumented as of this encounter Care Teams Design Technician Relationship Specialty Start Date End Date Joel Odom DO [address] [place] [address] PCP - General Family Medicine 05/14/18 documented as of this encounter
--- OUTSIDE RECORDS SUMMARY | 2023-06-15 13:48 | External Medical Summary | Summary of Care ---
Author Name Unknown Organization [facility] Address [address] [facility] [place] [address] Phone [phone] Care Team Providers Care Edge Trimmer Name Role Phone Joel Odom DO Primary Care Provider Reason for Visit * Reason Comments Follow Up * Evaluate & Treat - Unlimited Visits (Within 10 days (routine)) - Authorized Specialty Diagnoses / Procedures Referred By Contac t Referred To Contact Neurology Diagnoses Seizure-like activity (HCC) Joel Odom DO [address] [facility] [place] [address] Referral ID Status Reason Start Date Expiration Date Visits Requested Visits Authorized [id number] Authorized Specialty Services Required 01/02/2023 999 999 Encounter Details Date Type Department Care Team Description 03/11/2023 Office Visit Neurology [place] [address] [place] [address] Wellington Herrera DO [address] [facility] [place] [address] 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)* Allergies No known active allergiesdocumented as of [...] Sign Reading Time Taken Comments Blood Pressure 136/74 03/11/2023 9:22 AM EDT Pulse 81 03/11/2023 9:22 AM EDT Temperature 35.6 C (96.1 F) 03/11/2023 9:22 AM ED T Respiratory Rate 20 03/11/2023 9:22 AM EDT Oxygen Saturation 98% 03/11/2023 9:22 AM EDT Inhaled Oxygen Concentration - - Weight 151.2 kg (333 lb 4.8 oz) 03/11/2023 9:22 AM EDT Height - - Body Mass Index 41.66 02/19/2023 8:50 PM EDT documented in this encounter Progress Notes * Wellington Herrera, DO - 03/11/2023 9:30 AM EDT [place] [address] NAME: Cory Mora Date of : 2000 Date of Visit: 03/11/23 Chief Complaint: Chief Complaint Patient presents with Follow Up Subjective: A 22-year-old male with recently diagnosed mild obstructive sleep apnea and 2 episodes of altered mentation consisting of aggression and confusion resulting in hospital admission 1 in December of 2022 and then 1 in January of 2023 presenting clinic for follow-up. He presents today with his mother. Both of the episodes occurred in the certified adapted physical educator hours. He did have an extensive workup including MRI, routine EEG, an ambulatory EEG. The episodes were characterized by rhabdomyolysis. After the 2nd episode he was placed on Depakote 500 mg twice daily. He is had no further episodes. After hospital discharge he was diagnosed with mild obstructive sleep apnea. He is tolerating Depakote well. He does have some intermittent symptoms of unpleasant sensations in his legs predominantly at night or while at rest. Otherwise there is no family history of similar symptoms. No family history of epilepsy. HOME MEDICATIONS : Current Outpatient Medications Medication Sig Dispense Refill Lisinopril 20 MG Oral Tablet (Prinivil) Take 1 tablet by mouth once daily 90 Tablet 1 Vitamin C 1000 MG Oral Tablet Take 1 Tablet by mouth in the morning. Divalproex Sodium ER 500 MG Oral Tablet Extended Release 24 Hour (Depakote ER) Take 2 tabs by mouthdaily. 60 Tablet 0 No current facility-administered medications for this visit. Review of patient's allergies indicates: No Known Allergies PHYSICAL EXAMINATION: Vital Signs: BP 136/74 (BP Site: Left Arm, BP Position: Sitting, BP Cuff Size: Regular) | Pulse 81 | Temp 35.6 C (96.1 F) (Tympanic) | Resp 20 | Wt (!) 151.2 kg (333 lb 4.8 oz) | SpO2 98% | BMI 41.66 kg/m |BSA 2.83 m EXAM: Constitutional: appearance normally developed, well nourished Head and Face: normocephalic and atraumatic Eyes: normal lids, normal conjunctiva Neck: supple Respiratory: normal effort Cardiovascular: regular rhythm and normal pulses Abdomen: non distended Skin: no rashes, lesions, or ulcers noted Psychiatric: normal judgement and insight, normal mood and normal affect NEUROLOGIC EXAMINATION: Appearance: no acute distress Orientation: awake, alert and oriented x 3 Mental Status: alert Attention: normal Knowledge: appropriate Language: no aphasia Speech: no dysarthria Cranial Nerves: CN 2 - no visual defect on confrontation and pupils round, equal CN 3, 4, 6 - extra-ocular movements intact CN 5 - facial sensation intact CN 7 - no facial asymmetry CN 8 - intact hearing CN 9, 10 - palate symmetric CN 11 - good shoulder shrug CN 12 - tongue midline Gait: stable, no ataxia LABORATORY: Labs reviewed and pertinent findings are indicated below: Review of prior Diagnostic Tests: Ambulatory EEG performed on 02/07/2023: Normal 72 hour ambulatory EEG. Routine EEG performed on 12/27/2022: Normal Review of prior Radiology Studies: MRI of the brain with without contrast performed on 12/26/2022: Unremarkable IMPRESSION / PLAN: Cory was seen today for follow up. 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 He would 2 episodes 1 in December and 1 in January consisting of profound altered awareness and agitation with amnesia. Both episodes occurred in the certified adapted physical educator hours out of sleep. One episode was abortive with useof Ativan. MRI of the brain with without contrast performed on December 26, 2022 was unremarkable. Routine EEG as well as ambulatory EEG were normal. No clinical events were captured on ambulatory EEG. Agree with continuing Depakote 500 mg twice daily for seizure prophylaxis. He is planning to see sleep medicine in June to discuss possibility of night terrors. He was recently diagnosed with mild obstructive sleep apnea and is wearing CPAP. Will obtain additional labs today including a vitamin-D level, CMP, and Depakote level. I will arrange for follow-up in 1 year sooner if needed. Wellington Herrera DO This was a 40 minute visit, with greater than 50% face to face counseling. Discussion was carried out with patient regarding testing, diagnostic possibilities and findings, treatment options, risk, and benefits. documented in this encounter Nursing Notes * Vandana Hartley LPN - 03/11/2023 9:21 AM EDT Patient verified identity by spelling of last name and date. Chief Complaint Patient presents with Follow Up documented in this encounter Plan of Treatment Upcoming Encounters Date Type Specialty Care Team Description 04/18/2023 Office Visit Cardiology Taina Benson PA-C [address] [place] [address] 05/06/2023 Office Visit Family Medicine Divya Rosario CRNP [address] [place] [address] 05/14/2023 Office Visit Family Medicine Joel Odom DO [address] [place] [address] 07/01/2023 Office Visit Sleep Disorders Tamara Burgos CRNP [address] [place] [address] 10/06/2023 Office Visit Family Medicine Joel Odom, [address] [place] [address] 03/12/2024 Office Visit Neurology Wellington Herrera, [address] [facility] [address] Pending Results Name Type Priority Associated Diagnoses Date /Time VALPROIC ACID LEVEL Lab Routine 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) 03/11/2023 10:11 AM EDT COMPREHENSIVE METABOLIC PANEL Lab Routine 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
--- OUTSIDE RECORDS SUMMARY | 2023-06-15 13:48 | External Medical Summary ---
Author Name Unknown Address Unknown Organization K01:[facility] [address] [place] [address] Laboratory Report Ordering Provider Test Date Status ROSALINE BROWN 03/11/2023 10:11:15 Final Observation Date Value Abnormality Reference (Units ) Status Valproic Acid, level 03/11/2023 10:11:15 46 Below low normal 50-100 (ug/mL) Final Performing Location [facility] - [address] [place] [address]
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
--- OUTSIDE RECORDS SUMMARY | 2023-06-15 13:48 | External Medical Summary | Summary of Care ---
Author Name Unknown Organization [facility] Address [address] [facility] [place] [address] Phone [phone] Care Team Providers Care Under Presser Name Role Phone Joel Odom DO Primary Care Provider Reason for Visit * Reason Comments Sleep Apnea * Precert (Within 10 days (routine)) - Authorized Specialty Diagnoses / Procedures Referred By Contac t Referred To Contact Sleep Disorders Diagnoses Parasomnia, unspecified type MIKAL (obstructive sleep apnea) Procedures SLEEP STUDY, W/ CPAP (TREATMENT SETTINGS) Tamara Burgos CRNP [address] [place] [address] Referral ID Status Reason Start Date Expiration Date V isits Requested Visits Authorized [id number] Authorized 02/18/2023 999 999 Encounter Details Date Type Department Care Team Description 02/19/2023 Pul[facility]ostic Sleep Lab, [facility] [address] [facility] [address] [facility], Sleep Med Night Sleep [address] [facility] [place] [id number] MIKAL (obstructive sleep apnea)* Allergies No known active allergiesdocumented as of this encounter (statuses as of 03/04/2023) Medications Medication Sig Dispensed Refills Start Date [...] 2 tabs by mouth daily.. 0 01/31/2023 02/27/2023 Discontinued (Refill) documented as of this encounter (statuses as of 03/04/2023) Active Problems Problem Noted Date History of [...] as of this encounter (statuses as of 03/04/2023) Resolved Problems Problem Noted Date Resolved Date [...] as of this encounter (statuses as of 03/04/2023) Immunizations Name Administration Dates Next Due HPV [...] - Inhaled Oxygen Concentration - - Weight 143.8 kg (317 lb) 02/19/2023 8:50 PM EDT Height 190.5 cm (6' 3") 02/19/2023 8:50 PM EDT Body Mass Index 39.62 02/19/2023 8:50 PM EDT documented in this encounter Progress Notes * Brittanie Feliz MD - 03/04/2023 12:42 AM EDT [facility] PAP Titration Polysomnogram - Physician Report . Name: Cory Mora MR#: [id number] Date of : 2000 Study date: 02/19/2023 Report date: 02/20/2023 Study name: Adult Acquisition ID: [id number] Referring Physician: Tamara Burgos Ordering Physician: Tamara Burgos Interpreting Sleep Physician: Brittanie Feliz MD Signature: Electronically Signed Testing Location: [facility] . Impression: At a CPAP setting of 14 cmH2O, the apnea-hypopnea and arousal indices were normalized. At this setting, snoring was eliminated and oxygen saturation was maintained above 94 %. Abnormal sleep architecture likely due to respiratory events, PAP therapy and first night effect. Recommendations: CPAP 14 cmH2O using a large ResMed AirFit F20 interface with heated humidification. Weight loss under medical supervision. Advise patient not to drive nor engage in activities that require full attention while drowsy. Clinical Background: 22-year-old Male diagnosed with mild sleep apnea (AHI 6/hr.) on 01/2023. Weight 317.0 lbs. & BMI 39.6 lb./in [place] Sleepiness Scale 05/25 Neck Size 19.0 inches Comorbidities: HTN, Obesity, Deviated Nasal Septum INITIAL DIAGNOSTIC ANALYSIS: Sleep Architecture: Minutes TRT - Total recording time 425.5 Sleep latency 7.5 SPT - Sleep Period Time 417.5 WASO - Wake time after sleep onset 15.0 TST - Total Sleep Time 403.0 R Sleep latency minus wake 100.0 Sleep efficiency 94.7% TST Stage N1 12.0 3.0% Stage N2 268.5 66.6% Stage N3 41.5 10.3% Stage R 81.0 20.10% . Respiratory Event Summary * TST NREM REM ~Supine Supine Prone Left Right Apneas Count 1 0 1 1.00 0 0 1 0 Index 0.1 0.0 0.7 0.48 0.0 0.0 1.5 0.0 Hypopneas Count 18 15 2 0.00 18 0 0 0 Index 2.7 2.8 1.5 0.00 3.9 0.0 0.0 0.0 AHI Count 19 15 3 1.00 18 0 1 0 Index 2.8 2.8 2.2 0.48 3.9 0.0 1.5 0.0 RDI (Aircraft Loadmaster Superintendent+All Hyp+RERA) Count 19 15 3 1.00 18 0 1 0 Index 2.8 2.8 2.2 0.48 3.9 0.0 1.5 0.0 Respiratory Related Arousal Count 0 0 0 0.00 0 0 0 0 Index 0.0 0.0 0.0 0.00 0.0 0.0 0.0 0.0 Oxygen Desaturation Count 14 14 0 Index 2.1 2.6 0.0 Arousals: Index Respiratory related 13 1.9/hr PLM related 0 0.0/hr Spontaneous 69 10.3/hr Total 82 12.2/hr Movement Events: Index Total PLMs 0 N/A/hr PLMs associated with arousals 0 N/A/hr . Respiratory Events: Index Central 1 0.1/hr Obstructive 0 0.0/hr Mixed 0 0.0/hr Hypopneas 18 2.7/hr RERA's 0 0.0/hr AHI = Apneas + Hypopneas 19 2.8/hr RDI = Apneas + Hypopneas +RERA's 19 2.8/hr CPAP was started via a large ResMed AirFit F20 interface at 5 cmH2O. The pressures were then gradually titrated to 14 cmH2O. Respiratory events, oxygen desaturations and snoring resolved at a CPAP of14 cmH2O. Supine position, 13.5 minutes of stage R sleep and improved sleep efficiency were obtained at the recommended pressure. The final AHI at the recommended therapeutic pressure was 0 /hour. Noepisodes of Dinesh-Garvin respiration were found. Oxygenation: Min. Sat. Avg. Sat. Awake - 96% N sleep - 96% REM - 97% Overall 92% 96% Time spent ?88%: 0.00 minutes. Supplemental O2 was not utilized. Body Position Analysis Supine Right Left Side Prone Vertical Total Sleep Time (min.) 277.2 49.6 40.1 89.70 20.9 15.2 Total Sleep Time (%) 68.78 12.31 9.95 22.26 5.19 3.77 Total Sleep Time REM (min.) 56.5 0.0 24.5 24.50 0.0 0.0 Total Sleep Time NREM (min.) 220.7 49.6 15.6 65.20 20.9 15.2 Total Sleep Period (min.) 287.4 51.4 40.8 92.20 21.2 16.7 Oximetry Data Min SpO2 value TST: 92% Average SpO2 (TIB): 96% Min SpO2 w/ Respiratory Event: 93% Average SpO2 (TST): 96.50% Desaturations #: 14 Desaturation Index: 2.1 /hr Oximetry Distribution WK NREM REM TIB TST Min % Min % Min % Min % Min % >90% 21.40 95.11 321.50 99.84 81.00 100.00 423.90 99.62 402.50 99.88 80 - 89% 0.00 0.00 0.00 0.00 0.00 0.00 0.00 0.00 0.00 0.00 70 - 79% 0.00 0.00 0.00 0.00 0.00 0.00 0.00 0.00 0.00 0.00 60 - 69% 0.00 0.00 0.00 0.00 0.00 0.00 0.00 0.00 0.00 0.00 50 - 59% 0.00 0.00 0.00 0.00 0.00 0.00 0.00 0.00 0.00 0.00 ?88%* 0.0 0.0 0.0 0.0 0.0 0.0 0.0 0.0 0.00 0.00 Fail (min) 1.1 4.89 0.5 0.16 0.0 0.00 1.6 0.38 0.50 0.12 Cardiac Events: Min bpm Average Pulse Rate During Sleep (TST): 65.0 bpm Highest Pulse Rate During Sleep (TST): 92 bpm Highest Pulse Rate During Recording (TIB): 97 bpm Comments / Artifact / Quality of the Study The polysomnographic recording quality was satisfactory for interpretation. No significant artifacts were found. Technical & Digital Specifications for the Recording and Scoring of Sleep and Associated Events: A standard polysomnogram with and/or without positive airway pressure (PAP) was performed monitoring EEG, EOG, EMG (chin and leg derivations), oxygen saturation, body position, digital video, respiratory effort and airflow. The Sleep Stage and Event scoring was based on the AASM Manual for the Scoring of Sleep and Associated Events, Version 2.5. Apnea in adults is scored when there is a drop in the peak signal excursion by ? 90% of pre-event baseline using an oronasal thermal sensor (diagnosticstudy), PAP device flow (titration study), or an alternative apnea sensor, for ? 10 seconds. Hypopnea in adults is scored when the peak signal excursions drop by ? 30% of pre-event baseline using nasal pressure (diagnostic study), PAP device flow (titration study), or an alternative hypopnea sensor, for ? 10 seconds in association with a >4% arterial oxygen desaturation from pre-event baseline. Respiratory effort-related arousals (RERA's) are defined as a sequence of breaths lasting at least10 seconds characterized by increasing respiratory effort or flattening of the nasal pressure waveform leading to an arousal from sleep when the sequence of breaths which does not meet criteria for an apnea or hypopnea. Apnea Hypopnea Index (AHI) is defined as the number of apneas and hypopneas occurring in an hour of sleep. Respiratory Disturbance Index (RDI) is defined as the number of apneas, h ypopneas, and RERA's occurring in an hour of sleep. Pressure Distribution IPAP EPAP TIB Sleep REM Apneas Hypopneas RERAs Indices Min Mean SpO2% duration ( minutes) (min) (min) (min) CA# OA# MA# Index # Index # Index AHI RDI SpO2 SpO2 <95 <90 ?88 <85 <80 <75 5 5 17.0 16.0 0.0 0 0 0 0.0 0 0.0 0 0.0 0.0 0.0 92 95 2.9 6 6 20.4 20.4 0.0 0 0 0 0.0 0 0.0 0 0.0 0.0 0.0 93 94 18.9 7 7 45.7 43.5 0.0 0 0 0 0.0 11 15.2 0 0.0 15.2 15.2 92 95 14.2 9 9 66.6 62.1 24.5 1 0 0 1.0 0 0.0 0 0.0 1.0 1.0 94 96 0.4 10 10 17.7 17.7 0.0 0 0 0 0.0 0 0.0 0 0.0 0.0 0.0 95 95 11 11 109.7 105.7 14.5 0 0 0 0.0 1 0.6 0 0.0 0.6 0.6 93 96 0.3 12 12 72.5 70.5 28.5 0 0 0 0.0 6 5.1 0 0.0 5.1 5.1 93 96 0.4 13 13 20.8 20.8 0.0 0 0 0 0.0 0 0.0 0 0.0 0.0 0.0 95 97 14 14 44.6 44.1 13.5 0 0 0 0.0 0 0.0 0 0.0 0.0 0.0 95 97 Brittanie Feliz MD KELLY Board Certified Internal/Sleep Medicine [facility] documented in this encounter Nursing Notes * Sera Moseley, MIKAL - 02/19/2023 8:51 PM EDT No new cough, SOB, flu like symptoms, loss of taste, or loss of smell. No exposure to COVID-19 or flu in the last 14 days. DME - [facility] - [employer] on 02/17/2023. No previous therapy. No sleep aides prior to PSG. Patient has no defibrillator, pacemaker, cochlear implant, or any devices affected by a magnet. Test: Completed Nocturnal Polysomnogram/NPSG with CPAP [place] total score: 05/25 Neck Circumference: 19 inches Patient received Drowsy Driving Information: yes The patient chose the home care company [employer] CPAP was initiated at a pressure o 5 cmH2O at the start of the study. The patient had a sleep latency of 8 minutes. PLMs noted. Moderate snore rated 4 with 0 being no snore and 5 being loud enough tohear through a closed door. The patient has hypopneas. Cardiac arrhythmias not noted. The patient did not get up throughout the night to use the bathroom. Sleep was observed in the supine, left &right sleep postures. All stages of sleep noted. CPAP was titrated to eliminate moderate snore and respiratory events. CPAP titrated to an optimal pressure of 14 cmH2O. The patient stated he tolerated the mask and pressure well, feels rested and snored less. The patient stated he slept the same as usual but has a little bit of a sore throat from the air. documented in this encounter Plan of Treatment Upcoming Encounters Date Type Specialty Care Team Description 03/11/2023 Office Visit Neurology Wellington Herrera, DO [address] [facility] [place] [address] 04/18/2023 Office Visit Cardiology Taina Benson PA-C [address] [place] [address] 05/06/2023 Office Visit Family Medicine Divya Rosario CRNP [address] [place] [address] 05/14/2023 Office Visit Family Medicine Joel Odom DO [address] [place] [address] 10/06/2023 Office Visit Family Medicine Joel Odom DO [address] [place] [address] Scheduled Orders Name Type Priority Associated Diagnoses [...] apnea)- Primary Obstructive sleep apnea (adult) (pediatric) documented in this encounter Care Teams Under Presser Relationship Specialty Start Date End Date Joel Odom DO [address] [place] [address] PCP - General Family Medicine 05/14/18 documented as of this encounter
--- OUTSIDE RECORDS SUMMARY | 2023-06-15 13:48 | External Medical Summary | Summary of Care ---
Author Name Unknown Organization [facility] Address [address] [facility] [place] [address] Phone [phone] Care Team Providers Care Manager Hvac Name Role Phone Joel Odom DO Primary Care Provider Reason for Visit * Reason Onset Date Comments Follow Up 03/10/2023 Encounter Details Date Type Department Care Team Description 03/10/2023 Telephone Pulmonary Medicine, [facility] [address] [place] [address] Tamara Burgos CRNP [address] [place] [address] Follow Up Allergies No known active allergiesdocumented as of this encounter (statuses as of 03/14/2023) Medications Medication Sig Dispensed Refills Start Date [...] as of this encounter (statuses as of 03/14/2023) Active Problems Problem Noted Date History of [...] as of this encounter (statuses as of 03/14/2023) Resolved Problems Problem Noted Date Resolved Date [...] as of this encounter (statuses as of 03/14/2023) Immunizations Name Administration Dates Next Due HPV [...] Encounter - Aleyda Moran LPN - 03/10/2023 3:13 PM EDT Per [facility] Medical several attempts have been made to contact the pt. Per [facility] they will call [employer] incase the reason is the pt is at work when they call. Pt is aware via VM message that JOHNY has been trying to contact him and will try again dov for a set up on Fri. The pt was also given JOHNY's phnnumber to call if need be * Telephone Encounter - Aye Sheriff LPN - 03/10/2023 2:48 PM EDT Left message advising patient to call Ela knight @ [phone]. . * Telephone Encounter - Aye Sheriff LPN - 03/10/2023 2:48 PM EDT Contact: ----- Message from MARYANA Sarabia sent at 03/06/2023 5:53 PM EDT ----- Strange. I'll ask my team to look into why you haven't heard about the CPAP that was ordered 02/18/2023. I'm glad he's doing ok on your device. You can use [employer] to adjust it up to 14 if you feel comfortable doing so or we can help with the adjustment. I messaged Dr. Feliz who read the study so she was aware of his history. There was no mention of any parasomnia or REM without atonia from her assessment while CPAP was worn that night. Tamara ----- Message ----- From:Cory Mora Sent:03/04/2023 3:42 PM EDT To:User Message Message List Subject:sleep study HI Tamara, it's Jing. Kaushik has been using my cpap since his sleep study last month until he gets hisown. He has not gotten a prescription or any information on one. My setting is at 12. He says it feels like he needs more air. I think he's doing great on it. He wears it every night but sometimes takes it off after several hours, so hopefully with the right settings he'll use it for the duration of his sleep. Did his sleep study show definitively he does NOT have RBD or any other parasomnias? ----- Message ----- From:MARYANA Guillory Sent:03/04/2023 12:16 PM EDT To:Cory Mora Subject:sleep study Cory, Checking in to see how you are doing with CPAP therapy. If you can tolerate starting on higher pressures, I can send in an updated prescription based on what the in lab sleep study showed. If you aren't tolerating therapy well, then we could also leave you on the current settings while you continueto get used to it. Please schedule a return visit with us, as one is required within 31-90 days of having started CPAPtreatment. Tamara ----- Message ----- From:Carley Rios Sent:02/19/2023 10:16 AM EDT To:Cory Mora Subject:sleep study Jimliu, You are welcome! I spoke to the Sleep lab and these are the instructions. 1.Park in ER parking lot & check in at ER registration. 2. Bring something loose & comfortable to sleep in. 3. Bring any meds taken at night. 4. We have water & lucita crackers for snacks. Can bring other drinks & snacks (no caffeine or alcohol). 5. We have pillows & blankets. Do not bring any from home.Please let me know if I can assist you with anything else. Thank you, Carley [facility] Inspector ----- Message ----- From:Cory Mora Sent:02/19/2023 9:40 AM EDT To:User Message Message List Subject:sleep study Thank you so much Carley! I really appreciate your help in this matter! Jing ----- Message ----- From:Cory Mora Sent:02/19/2023 9:36 AM EDT To:User Message Message List Subject:sleep study Yes. He will take the appointment tonight. What does he need to do or bring along? Thanks!! ----- Message ----- From:Carley Rios Sent:02/19/2023 9:27 AM EDT To:Cory Mora Subject:sleep study Vimal [place] had an cancellation for tonight, February 19 at 8:30 pm. Would that work for your schedules? Please let me know. I did schedule it just so we didn't lose the appointment. Thank you, [facility] ----- Message ----- From:Cory Mora Sent:02/19/2023 8:50 AM EDT To:User Message Message List Subject:sleep study Yes we will go to [place]. Please schedule the next earliest appointment. HUMBERTO he is not availablethis Friday the thru next Friday the . Thank you so much! Janell ----- Message ----- From:Carley Rios Sent:02/19/2023 8:14 AM EDT To:Cory Mora Subject:sleep study Vimal, I spoke to [facility] this morning and they are scheduling out into June and July of nextyear.It looks like [facility] has sooner openings. Are you okay with going there for the sleep study? If so let me know if there are any day preferences and I will get it scheduled BRANDEE. Thank you, [facility] ----- Message ----- From:Cory Mora Sent:02/18/2023 9:22 PM EDT To:User Message Message List Subject:sleep study Thanks for the message. Can you get the titration study scheduled BRANDEE please? We'll gladly go to out of the area clinics. I feel like we're either finding a diagnosis or waiting for it to happen again. Lets rule out parasomnias and REM behavior disorder and treat them if needed. I can't imagine mild sleep apnea could be the cause for the episodes. Kaushik will get started on the CPAP. Thank you! Jing Mora ----- Message ----- From:MARYANA Guillory Sent:02/18/2023 5:29 PM EDT To:Cory Mora Subject:sleep study The recent home sleep test suggests at least mild obstructive sleep apnea. I reviewed this with Dr.Katelyn Odom. The recommendation is to proceed with an auto adjusting CPAP now. A titration study can be scheduled in the coming months to maximize treatment and further evaluate for any parasomniasor REM behavior disorder. - A medical supply company will contact you to schedule set-up. They will fit you with a mask and provide the machine and all supplies, and go over how to use, clean, etc. You will need to clean and replace supplies as directed by the medical supply company. - Once you have CPAP, use it whenever sleeping and for the entire sleep period. Minimum usage requirements for insurance purposes are at least 4 hours per day, on at least 70% of days. Per Medicare criteria, you need to meet that for a 30- day period within the first 90 days that you have the CPAP. - Be sure to follow up with us in clinic between 31-90 days from when CPAP is started as many insurances require this. We will see how you are doing with treatment, and review data from your machine that tells us how long you are using it each day, as well as how well it is working to treat your sleep apnea. MARYANA Land documented in this encounter Plan of Treatment Upcoming Encounters Date Type Specialty Care Team Description 04/03/2023 Office Visit Sleep Disorders Tamara Burgos CRNP [address] [place] [address] 04/18/2023 Office Visit Cardiology Taina Benson PA-C [address] [place] [address] 05/06/2023 Office Visit Family Medicine Divya Rosario CRNP [address] [place] [address] 05/14/2023 Office Visit Family Medicine Joel Odom, DO [address] [place] [address] 10/06/2023 Office Visit Family Medicine Joel Odom, DO [address] [place] [address] 03/12/2024 Office Visit Neurology Wellington Herrera, DO [address] [facility], [place] [address] Health Maintenance Due Date Last Done Comments [...] apnea- Primary Obstructive sleep apnea (adult) (pediatric) documented in this encounter Care Teams Manager Hvac Relationship Specialty Start Date End Date Joel Odom DO [address] [place] [address] PCP - General Family Medicine 05/14/18 documented as of this encounter
--- OUTSIDE RECORDS SUMMARY | 2023-06-15 13:48 | External Medical Summary | Summary of Care ---
Author Name Unknown Organization [facility] Address [address] [facility] [place] [address] Phone [phone] Care Team Providers Care Clerical Aide Name Role Phone Joel Odom DO Primary Care Provider Reason for Visit * Reason Comments NEW PATIENT * Evaluate & Treat - Unlimited Visits (Within 24 hrs (call dept; emergent)) - Authorized Specialty Diagnoses / Procedures Referred By Contac t Referred To Contact Sleep Medicine / Sleep Disorders Diagnoses Seizure-like activity (HCC) Parasomnia, unspecified type Joel Odom DO [address] [facility] [place] [address] Referral ID Status Reason Start Date Expiration Date Visits Requested Visits Authorized [id number] Authorized Specialty Services Required 02/04/2023 2 2 Encounter Details Date Type Department Care Team Description 02/12/2023 Office Visit Sleep Disorders [facility] [address] [facility] [place] [address] Tamara Burgos CRNP [address] [facility] [place] [address] Snoring*; Witnessed episode of apnea; Hypersomnia; HTN, [...] 02/14/2023) Immunizations Name Administration Dates Next Due HPV [...] MARYANA Sarabia - 02/12/2023 8:05 AM EDT [facility] SLEEP MEDICINE CONSULTATION Mr. Cory Mora is [...] 0700. He called his parents confused around 0850. His words were slurred. Had trouble breathing and swallowing which he thinks may have been from a panic attack. [place] better with a dministration of lorazepam at the ER. Found to have very high CK both [...] hours vary, daylight Work nights: In bed 0812-4037, may be on his phone Time to fall asleep 5-10 minutes - by 2200 Nighttime awakenings/ Reason Few times due to his leg sensation Wake after sleep onset Not long Awake Time/Alarm Perceived total sleep time 6717-1386 7-9 hrs Naps Off days: In Bed Varies, same time to later if he's out Awake Time/Alarm 0900 to 1200 Naps Occasional, unintentional or planned with girlfriend He wakes up not feeling well/grumpy, impacts his night time sleep [place] Sleepiness Scale Question 02/11/2023 5:54 PM EDT [...] BMI > 40) ([facility]) E66.01 History of epistaxis Z87.898 [...] performed by Sheng Howe DO at [facility] KNEE ARTHROSCOPY/MENISCECTOMY Right 06/2017 Right knee, [facility], [place], [place] was OK. 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 Impression: Confusional arousals vs pseudo RBD vs [...] portal. MARYANA [place] Pulmonary & Sleep Medicine [facility] I spent a total of Greater than 55 mins (exact time 75 mins) on the date of service in preparation,delivery, and documentation of the care provided to Cory Mora excluding any time spent in the performance of separately billed services. documented in this encounter Nursing Notes * August L ANSON Harley - 02/12/2023 7:56 AM EDT New pt referred for evaluation of parasomnias. Neck - 19" [place] Sleepiness Scale Question 02/11/2023 5:54 PM EDT [...] Visit Neurology Wellington Herrera, DO [address] [place] [facility] [place] [address] 04/18/2023 Office Visit Cardiology Taina Benson PA-C [address] [place] [address] 05/06/2023 Office Visit Family Medicine Divya Rosario CRNP [address] [place] [address] 05/14/2023 Office Visit Family Medicine Joel Odom DO [address] [place] [address] 10/06/2023 Office Visit Family Medicine Joel Odom DO [address] [place] [address] Scheduled Orders Name Type Priority Associated Diagnoses [...] type documented in this encounter Care Teams Clerical Aide Relationship Specialty Start Date End Date Joel Odom DO [address] [place] [address] PCP - General Family Medicine 05/14/18 documented as of this encounter
--- NOTE | 2023-06-15 13:52 | Emergency Department Note ---
Impression & Plan Seizure, Atrial fibrillation with rapid ventricular response, Acute dehydration, Acute head trauma, Combative behavior, Elevated lactic acid level ED Provider Note NAME: CHER WRAY AGE: 22 SEX: M : 2000 ARRIVES VIA: Ambulance INFORMANT: [Patient][ems] ED PROVIDER(S): [Dario Delacruz MD] CHIEF COMPLAINT: Seizure HISTORY OF PRESENT ILLNESS: The patient is a 22-year-old male who apparently was drinking alcohol heavily last night. EMS was summoned for seizure-like activity. He received 5 mg of intranasal Versed and this seemed to block/stop the seizure. The patient was combative for a brief time but now is mentally improved. The patient does have bleeding across the face, there is concern that he may have struck something during the seizure event. He complains of some left shoulder pain and feels quite thirsty. The patient does have a seizure history. He is on Depakote and states he is taking it as prescribed. He has no diagnosis of diabetes although, EMS reported a sugar in the 300s. The patient denies drug abuse. He has no history of any dysrhythmia. EMS reported a very fast heart rate on the right in with occasional short runs of what they thought may have been V. tach. PMHx/PSHx/Social Hx: See Below PHYSICAL EXAM: GENERAL: Patient is in moderate distress, agitated. HEENT: Patient has dried blood on his face and nose. There is an abrasion to the mid frontal scalp. No obvious bony step-off or globe injury. Mucous membranes are quite dry. Lips are dry. NECK: No stridor, no adenopathy, nontender C-spine, the patient does seem to move the neck without pain or difficulty. LUNGS: Clear to auscultation bilaterally, no wheeze, no rhonchi, breath sounds equal. HEART: Tachycardic and irregular, no obvious murmur. ABDOMEN: Soft, nontender, no peritonitis. EXTREMITIES: No cyanosis. The patient does have pain to palpate around the left shoulder, no obvious dislocation clinically. NEUROLOGIC: Oriented x 3, no acute motor or sensory deficits, no focal weakness. SKIN: No jaundice, no diaphoresis. DIFFERENTIAL DIAGNOSIS: Seizure, dehydration, acidosis, electrolyte imbalance, intracranial bleeding, C- spine fracture, facial fracture, dysrhythmia, DKA, medication noncompliance, among others. EMERGENCY DEPARTMENT PROCEDURES: MEDICAL DECISION MAKING: There is no leukocytosis or concerning anemia. There is a normal platelet count. VBG does show a very subtle acidosis but the pCO2 is normal. Renal panel testing suggests some acidosis as well as dehydration. No renal failure. Lactic acid level is quite high at over 6, this is consistent with his seizure- like activity. There were some subtle liver enzyme elevations seen. Total CK is high at 400, this is consistent with his seizure-like activity. ECG shows a rapid atrial fibrillation without any obvious ischemia. Cardiac enzyme testing x 1 is slightly elevated. This troponin elevation could be secondary to cardiac injury or just mismatch from the rapid rate and seizure-like activity. Patient appeared to be in a euthyroid state. Prolactin level was elevated consistent with potential seizure-like activity. Urinalysis shows some dehydration, no infection. Urine tox was positive for opiates as well as benzos. Depakote level was subtherapeutic. Respiratory bio fire returned positive for rhinovirus. Brain CT showed no acute bleed or mass effect. Facial CT showed no acute fracture. C-spine CT showed no acute fracture. Films of the chest, left shoulder and left humerus were performed, no acute pathology noted. On exam, the patient was in a rapid A-fib. He was awake and interactive. He was cooperative. He appeared clinically quite dehydrated. Patient had received a liter of saline prior to arrival. He was given an additional liter of IV saline plus a liter of lactated Ringer's. He received 2 g of IV Keppra to prevent further seizure activity. He was given 1 g of IV valproic acid as his level was low. He received IV Zofran, IV morphine. He was eventually given a bolus of IV diltiazem and placed on a diltiazem drip. The patient is now resting comfortably. His heart rate has improved but he remains in A-fib. There has been no further seizure-like activity. The patient likely had a seizure-like event earlier, he was combative. He has an elevated lactic acid level, he is dehydrated, he appears to be in a rapid A- fib. I spoke with the patient and his family. The patient is clearly going to require a hospital stay and further care. I did speak with case management. The on-call hospitalist was consulted. Prior/Outside records/notes reviewed: Discharge summary note on 01/31/2023 discussing his admission for an altered level of consciousness and presumed partial epileptic seizure. ECG per my interpretation: Indication was tachycardia. The ECG shows atrial fibrillation with a rapid ventricular response. There is diffuse nonspecific ST change. There is no ST elevation. There are no PVCs. The QTc is 464. Continuous Cardiac Monitoring per my interpretation: An order was placed for continuous cardiac monitoring. The monitor shows a rate of 182 with atrial fibrillation. Imaging/x-ray results per my interpretation: Chest x-ray does not show mediastinal widening, pneumonia or pneumothorax. Left shoulder and left humerus films do not show findings of fracture. Chronic Medical/Social conditions affecting care: Paranoia, seizure disorder. Care/Management discussed with: Case management, the on-call hospitalist. Level of care consideration(s): After review of the information above and other included data: --I believe the patient requires escalation of care to admission Critical Care Note: I have personally spent 53 minutes of critical care time in the direct management of this patient. This includes bedside care, interpretation of diagnostic studies, and testing, discussion with consultants, patient, and family members, and other required patient management activities. This 53 minutes is in excess of all separately billable procedures. 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 Beliefs That Will Affect Care: None Current Living Situation: Family Feels Safe at Home: Yes Assistive Devices: None Allergies Allergies Allergy/AdvReac Type Severity Reaction Status Date / Time No Known Allergies Allergy Unknown Unverified 06/15/23 14:50 Home Meds Home Medications Medication Instructions Recorded Confirmed ascorbic acid (vitamin C) 1,000 mg 0 mg PO DAILY 12/26/22 06/15/23 tablet (Vitamin C) lisinopril 20 mg tablet 20 mg PO DAILY 12/26/22 06/15/23 magnesium oxide 500 mg tablet 0 mg PO DAILY 01/29/23 06/15/23 Previous Rx's Medication Instructions Recorded divalproex 500 mg tablet,extended 500 mg PO BID #60 tabs 01/31/23 release 24 hr Results & Data (ED) Vital Signs Vital Signs - 24 hr 06/15/23 13:29 06/15/23 13:29 06/15/23 13:29 Temperature 36.6 C Temperature Source Temporal Artery Scan Pulse Rate 171 H Pulse Rate [Apical] Pulse Rate from SpO2 Sensor Respiratory Rate 16 16 Blood Pressure 108/60 Blood Pressure [Left Arm] Blood Pressure Mean 76 Blood Pressure Mean [Left Arm] Pulse Oximetry 97 Oxygen Delivery Method Room Air Sepsis Recent Fever Within 48 Hours No Sepsis New/Unexplained Change in Mental Status N/A Sepsis Action Taken by Nursing No Action Required 06/15/23 13:46 06/15/23 13:48 06/15/23 14:16 Temperature Temperature Source Pulse Rate 187 H 155 H 187 H Pulse Rate [Apical] Pulse Rate from SpO2 Sensor Respiratory Rate 16 Blood Pressure Blood Pressure [Left Arm] Blood Pressure Mean Blood Pressure Mean [Left Arm] Pulse Oximetry 97 Oxygen Delivery Method Sepsis Recent Fever Within 48 Hours Sepsis New/Unexplained Change in Mental Status Sepsis Action Taken by Nursing 06/15/23 14:29 06/15/23 15:00 06/15/23 15:18 Temperature Temperature Source Pulse Rate 148 H 144 H Pulse Rate [Apical] 146 H Pulse Rate from SpO2 Sensor 153 H 143 H Respiratory Rate 16 14 16 Blood Pressure 98/77 L 123/87 Blood Pressure [Left Arm] 118/93 Blood Pressure Mean 84 99 Blood Pressure Mean [Left Arm] 101 Pulse Oximetry 97 97 96 Oxygen Delivery Method Sepsis Recent Fever Within 48 Hours Sepsis New/Unexplained Change in Mental Status Sepsis Action Taken by Nursing 06/15/23 15:30 06/15/23 15:52 Temperature 37.1 C Temperature Source Pulse Rate 150 H 152 H Pulse Rate [Apical] Pulse Rate from SpO2 Sensor 136 H 132 H Respiratory Rate 15 22 Blood Pressure 113/71 121/57 L Blood Pressure [Left Arm] Blood Pressure Mean 85 78 Blood Pressure Mean [Left Arm] Pulse Oximetry 97 94 Oxygen Delivery Method Sepsis Recent Fever Within 48 Hours Sepsis New/Unexplained Change in Mental Status Sepsis Action Taken by Intermediate Medications Current Medication List: was personally reviewed by me Laboratory Data Attestation: I reviewed the patient's lab results. 06/15/23 13:55 06/15/23 13:55 Lab Results 06/15/23 06/15/23 06/15/23 Range/Units 13:55 13:59 15:06 WBC 10.09 (4.8-10.8) K/ul RBC 5.31 (4.70-6.10) M/uL Hgb 14.7 (14.0-18.0) g/dl POC Hgb 14.3 (14.0-18.0) g/dl Hct 43.4 (42.0-52.0) % POC Hct 42 (42-52) % MCV 81.7 (80.0-100.0) fL MCH 27.7 (25.0-34.0) pg MCHC 33.9 (32.0-36.0) g/dL RDW Std Deviation 37.0 (36.4-46.3) fL RDW Coeff of Yehuda 12.5 (11.5-14.5) % Plt Count 238 (130-400) K/uL MPV 10.5 (9.4-12.4) fL Immature Gran % (Auto) 1.4 % Neut % (Auto) 78.1 % Lymph % (Auto) 16.2 % [place] % (Auto) 3.1 % Eos % (Auto) 0.9 % Baso % (Auto) 0.3 % Neut # (Auto) 7.89 H (1.40-6.50) K/uL Lymph # (Auto) 1.63 (1.20-3.40) K/uL [place] # (Auto) 0.31 (0.11-0.59) K/uL Eos # (Auto) 0.09 (0.00-0.50) K/uL Baso # (Auto) 0.03 (0.00-0.20) K/uL Immature Gran # (Auto) 0.14 (0.01-0.20) K/uL VBG pH 7.28 L (7.36-7.41) VBG pCO2 47 (38-50) mmHg VBG pO2 40 mmHg VBG HCO3 22 mmol/L VBG O2 Saturation < 60.0 % VBG Base Excess -4.8 mEq/L POC Sodium 140 (135-144) mmol/L Sodium 138 (136-145) mmol/L POC Potassium 4.1 (3.3-5.0) mmol/L Potassium 4.0 (3.5-5.1) mmol/L POC Chloride 106 (101-112) mmol/L Chloride 103 (98-107) mmol/L Carbon Dioxide 17 L (21-32) mmol/L POC Total CO2 16 L (24-31) mmol/L Anion Gap 18 H (3-11) POC Anion Gap 24.0 (16-25) mmol/L POC BUN 17 (7-18) mg/dl BUN 19 (6-23) mg/dl Creatinine 1.25 (0.6-1.4) mg/dl POC Creatinine 1.2 (0.6-1.3) mg/dl Est Cr Clr Drug Dosing 151.4 ml/min Est GFR ( Amer) 93.5 ml/min Est GFR (Non-Af Amer) 80.6 ml/min BUN/Creatinine Ratio 15.2 (10-20) Glucose 194 H (70-99(Fasting)) mg/dl POC Glucose (other) 198 H (70-99) mg/dl Lactate 6.5 H* (0.4-2.0) mmol/L Calcium 8.9 (8.6-10.3) mg/dl POC Ioniz Calcium Je 1.13 (1.12-1.32) mmol/l Magnesium 3.2 H (1.7-2.4) mg/dl Total Bilirubin 0.4 (0.2-1.0) mg/dl AST 50 H (13-39) U/L ALT 68 H (7-52) U/L Alkaline Phosphatase 54 (34-104) U/L Total Creatine Kinase 426 H (30-223) U/L Troponin I High Sens 158.6 H* (0-20) pg/ml Total Protein 7.5 (6.0-8.3) gm/dl Albumin 4.9 (3.4-5.0) gm/dl Globulin 2.6 (2.5-4.0) gm/dl Albumin/Globulin Ratio 1.9 (0.9-2) TSH 2.470 (0.300-4.500) uIu/ml Prolactin 24.77 ng/ml Urine Color Urine Appearance (Clear) Urine pH (4.5-7.5) Ur Specific Varney (1.000-1.030) Urine Protein (Negative) Urine Glucose (UA) (Negative) Urine Ketones (Negative) Urine Blood (Negative) Urine Nitrite (Negative) Urine Bilirubin (Negative) Urine Urobilinogen (Negative) Ur Leukocyte Esterase (Negative) Urine WBC (Auto) (0-5) /hpf Urine RBC (Auto) (0-4) /hpf U Hyaline Cast (Auto) (0-5) /lpf U Epithel Cells (Auto) (0-5) /lpf Urine Bacteria (Auto) (Negative) Urine Opiates Screen (Neg) Ur Methadone, Qual (Neg) Urine Barbiturates (Neg) Valproic Acid 23 L (50-100) mcg/ml Ur Phencyclidine (PCP) (Neg) U Amphetamin/Meth Scrn (Neg) MDMA (Ecstasy) Screen (Neg) U Benzodiazepines Scrn (Neg) Ur Cocaine Metabolite (Neg) U Marijuana (THC) Screen (Neg) Ethyl Alcohol mg/dL < 10.0 (<10.0) mg/dl Adenovirus (PCR) Not Detected (NotDetected) B. pertussis DNA (PCR) Not Detected (NotDetected) B.parapertussis DNA PCR Not Detected (NotDetected) C. pneumoniae DNA (PCR) Not Detected (NotDetected) Coronavirus OC43 (PCR) Not Detected (NotDetected) Coronavirus HKU1 (PCR) Not Detected (NotDetected) Coronavirus 229E (PCR) Not Detected (NotDetected) SARS-CoV-2 (PCR) Not Detected (NotDetected) Coronavirus NL63 (PCR) Not Detected (NotDetected) Human Metapneumovir PCR Not Detected (NotDetected) Influenza Type A (PCR) Not Detected (NotDetected) Influenza Type B (PCR) Not Detected (NotDetected) M. pneumoniae (PCR) Not Detected (NotDetected) Parainfluenza 1 (PCR) Not Detected (NotDetected) Parainfluenza 2 (PCR) Not Detected (NotDetected) Parainfluenza 3 (PCR) Not Detected (NotDetected) Parainfluenza 4 (PCR) Not Detected (NotDetected) RSV (PCR) Not Detected (NotDetected) Entero/Rhino (PCR) DETECTED A* (NotDetected) 06/15/23 Range/Units 15:35 WBC (4.8-10.8) K/ul RBC (4.70-6.10) M/uL Hgb (14.0-18.0) g/dl POC Hgb (14.0-18.0) g/dl Hct (42.0-52.0) % POC Hct (42-52) % MCV (80.0-100.0) fL MCH (25.0-34.0) pg MCHC (32.0-36.0) g/dL RDW Std Deviation (36.4-46.3) fL RDW Coeff of Yehuda (11.5-14.5) % Plt Count (130-400) K/uL MPV (9.4-12.4) fL Immature Gran % (Auto) % Neut % (Auto) % Lymph % (Auto) % [place] % (Auto) % Eos % (Auto) % Baso % (Auto) % Neut # (Auto) (1.40-6.50) K/uL Lymph # (Auto) (1.20-3.40) K/uL [place] # (Auto) (0.11-0.59) K/uL Eos # (Auto) (0.00-0.50) K/uL Baso # (Auto) (0.00-0.20) K/uL Immature Gran # (Auto) (0.01-0.20) K/uL VBG pH (7.36-7.41) VBG pCO2 (38-50) mmHg VBG pO2 mmHg VBG HCO3 mmol/L VBG O2 Saturation % VBG Base Excess mEq/L POC Sodium (135-144) mmol/L Sodium (136-145) mmol/L POC Potassium (3.3-5.0) mmol/L Potassium (3.5-5.1) mmol/L POC Chloride (101-112) mmol/L Chloride (98-107) mmol/L Carbon Dioxide (21-32) mmol/L POC Total CO2 (24-31) mmol/L Anion Gap (3-11) POC Anion Gap (16-25) mmol/L POC BUN (7-18) mg/dl BUN (6-23) mg/dl Creatinine (0.6-1.4) mg/dl POC Creatinine (0.6-1.3) mg/dl Est Cr Clr Drug Dosing ml/min Est GFR ( Amer) ml/min Est GFR (Non-Af Amer) ml/min BUN/Creatinine Ratio (10-20) Glucose (70-99(Fasting)) mg/dl POC Glucose (other) (70-99) mg/dl Lactate (0.4-2.0) mmol/L Calcium (8.6-10.3) mg/dl POC Ioniz Calcium Je (1.12-1.32) mmol/l Magnesium (1.7-2.4) mg/dl Total Bilirubin (0.2-1.0) mg/dl AST (13-39) U/L ALT (7-52) U/L Alkaline Phosphatase (34-104) U/L Total Creatine Kinase (30-223) U/L Troponin I High Sens (0-20) pg/ml Total Protein (6.0-8.3) gm/dl Albumin (3.4-5.0) gm/dl Globulin (2.5-4.0) gm/dl Albumin/Globulin Ratio (0.9-2) TSH (0.300-4.500) uIu/ml Prolactin ng/ml Urine Color Yellow Urine Appearance Clear (Clear) Urine pH 5.5 (4.5-7.5) Ur Specific Varney 1.012 (1.000-1.030) Urine Protein 1+ H (Negative) Urine Glucose (UA) Negative (Negative) Urine Ketones Trace H (Negative) Urine Blood 1+ H (Negative) Urine Nitrite Negative (Negative) Urine Bilirubin Negative (Negative) Urine Urobilinogen Negative (Negative) Ur Leukocyte Esterase Negative (Negative) Urine WBC (Auto) 1-5 (0-5) /hpf Urine RBC (Auto) 0-4 (0-4) /hpf U Hyaline Cast (Auto) 1-5 (0-5) /lpf U Epithel Cells (Auto) >30 H (0-5) /lpf Urine Bacteria (Auto) Negative (Negative) Urine Opiates Screen Pos H (Neg) Ur Methadone, Qual Neg (Neg) Urine Barbiturates Neg (Neg) Valproic Acid (50-100) mcg/ml Ur Phencyclidine (PCP) Neg (Neg) U Amphetamin/Meth Scrn Neg (Neg) MDMA (Ecstasy) Screen Neg (Neg) U Benzodiazepines Scrn Pos H (Neg) Ur Cocaine Metabolite Neg (Neg) U Marijuana (THC) Screen Neg (Neg) Ethyl Alcohol mg/dL (<10.0) mg/dl Adenovirus (PCR) (NotDetected) B. pertussis DNA (PCR) (NotDetected) B.parapertussis DNA PCR (NotDetected) C. pneumoniae DNA (PCR) (NotDetected) Coronavirus OC43 (PCR) (NotDetected) Coronavirus HKU1 (PCR) (NotDetected) Coronavirus 229E (PCR) (NotDetected) SARS-CoV-2 (PCR) (NotDetected) Coronavirus NL63 (PCR) (NotDetected) Human Metapneumovir PCR (NotDetected) Influenza Type A (PCR) (NotDetected) Influenza Type B (PCR) (NotDetected) M. pneumoniae (PCR) (NotDetected) Parainfluenza 1 (PCR) (NotDetected) Parainfluenza 2 (PCR) (NotDetected) Parainfluenza 3 (PCR) (NotDetected) Parainfluenza 4 (PCR) (NotDetected) RSV (PCR) (NotDetected) Entero/Rhino (PCR) (NotDetected) Administered Medications Diltiazem HCl 125 mg/ Dextrose 125 mls @ 5 mls/hr IV .Q24H [facility]; Protocol Stop: 07/15/23 14:44 Last Titration: 06/15/23 15:53 Dose: 10 mg/hr, 10 mls/hr Documented By: JASON Co-signed By: NIRANJAN Admin: 06/15/23 15:21 Dose: 5 mg/hr, 5 mls/hr Documented By: JASON Co-signed By: NIMCO Morphine Sulfate (Morphine Sulfate 4 Mg/Ml 1 Ml Carp\Vial) 4 mg IV Q15M PRN PRN Reason: Pain Stop: 06/29/23 13:44 Last Admin: 06/15/23 14:34 Dose: 4 mg Documented By: AMINTA Discontinued Medications Diltiazem HCl (Diltiazem Hcl 5 Mg/Ml 5 Ml Vial) 15 mg IV NOW STA Stop: 06/15/23 14:46 Last Admin: 06/15/23 14:56 Dose: 15 mg Documented By: AMINTA Co-signed By: NIMCO Levetiracetam 2,000 mg/ Sodium (Chloride) 120 mls @ 440 mls/hr IV NOW ONE Stop: 06/15/23 14:01 Last Infusion: 06/15/23 14:44 Dose: Infused Documented By: Admin: 06/15/23 13:54 Dose: 440 mls/hr Documented By: AMINTA Sodium Chloride (Nss) 1,000 mls @ 999 mls/hr IV .Q1H1M ONE Stop: 06/15/23 14:45 Last Infusion: 06/15/23 14:50 Dose: Infused Documented By: Admin: 06/15/23 13:54 Dose: 999 mls/hr Documented By: AMINTA Lactated Ringer's (Lr) 1,000 mls @ 999 mls/hr IV .Q1H1M ONE Stop: 06/15/23 14:45 Last Infusion: 06/15/23 14:50 Dose: Infused Documented By: Admin: 06/15/23 13:54 Dose: 999 mls/hr Documented By: AMINTA Valproic Acid 1,000 mg/ (Dextrose) 60 mls @ 55 mls/hr IV NOW STA Stop: 06/15/23 15:29 Last Admin: 06/15/23 15:16 Dose: 55 mls/hr Documented By: JASON Morphine Sulfate (Morphine Sulfate 4 Mg/Ml 1 Ml Carp\Vial) 4 mg IV NOW STA Stop: 06/15/23 13:46 Last Admin: 06/15/23 13:53 Dose: 4 mg Documented By: AMINTA Ondansetron HCl (Ondansetron Inj 2 Mg/Ml 2 Ml Vial) 4 mg IV NOW STA Stop: 06/15/23 13:46 Last Admin: 06/15/23 13:54 Dose: 4 mg Documented By: AMINTA Imaging Data Radiologist's Impression: Cervical Spine CT 06/15/23 13:45 CT SCAN OF THE CERVICAL SPINE CLINICAL HISTORY: Fall. Seizure. COMPARISON STUDY: CT of the cervical spine dated 01/29/2023. TECHNIQUE: CT scan of the cervical spine is performed from the skull base to the upper thoracic spine. Images are reviewed in the axial, sagittal, and coronal planes. IV contrast was not administered for this examination. A dose lowering technique was utilized adhering to the principles of ALARA. CT DOSE: 1580.4 mGy.cm FINDINGS: Skeletal structures: The skeletal structures are well mineralized. There is no evidence of fracture or subluxation involving the cervical spine. Vertebral body height and alignment are maintained. There is straightening of the cervical lordosis. The odontoid process and lateral masses are intact. The atlantoaxial articulation is preserved. The spinous processes appear intact. Intervertebral discs: The disc spaces are well maintained. Central canal: Widely patent. Soft tissues: The prevertebral and paraspinous soft tissues are within normal limits. Calvarium: The visualized calvarium at the skull base appears intact. Brain parenchyma: Partially visualized brain parenchyma at the skull base is within normal limits. Sinuses and mastoids: Mucosal thickening and secretions are noted in the sphenoid sinuses. The mastoid air cells are well pneumatized. Lung apices: Clear as visualized. IMPRESSION: There is no evidence of cervical spine fracture or subluxation. ACT 112: Negative or not required by law. Electronically signed by: Dario Velarde M.D. 06/15/2023 2:34 PM Chest X-Ray 06/15/23 13:45 SINGLE VIEW CHEST CLINICAL HISTORY: Seizure. Fall. FINDINGS: 2 AP, portable, upright chest radiographs are compared to study dated 01/29/2023. The cardiomediastinal silhouette is unremarkable. The lungs and pleural spaces are clear. No pneumothorax is seen. The bony thorax is grossly intact. IMPRESSION: No active disease in the chest. ACT 112: Negative or not required by law. Electronically signed by: Dario Velarde M.D. 06/15/2023 2:[address] 06/15/23 13:45 CT SCAN OF THE FACIAL BONES WITHOUT IV CONTRAST CLINICAL HISTORY: Fall. Seizure. COMPARISON STUDY: Facial bone CT dated 12/26/2022. TECHNIQUE: High-resolution CT scan of the facial bones is performed. Images are reviewed in the axial, sagittal, and coronal planes. IV contrast was not administered for this examination. A dose lowering technique was utilized adhering to the principles of ALARA. FINDINGS: The skeletal structures are well mineralized. There is no evidence of facial bone fracture. The bony orbits are intact and the orbital contents are within normal limits. The zygomatic arches, nasal bones, and pterygoid plates are preserved. The maxilla and mandible are intact. There are no layering blood products within the paranasal sinuses. There is mild mucosal thickening within the maxillary, ethmoid, and sphenoid sinuses. Secretions are noted in the sphenoids. Metatarsals are well pneumatized. The visualized calvarium and upper cervical spine are maintained. Partially imaged brain parenchyma is within normal limits. There is mild right periorbital soft tissue contusion. IMPRESSION: There is no evidence of facial bone fracture. ACT 112: Negative or not required by law. Electronically signed by: Dario Velarde M.D. 06/15/2023 2:[address] 06/15/23 13:45 CT SCAN OF THE BRAIN WITHOUT IV CONTRAST CLINICAL HISTORY: Seizure. Fall. COMPARISON STUDY: CT of the brain dated 01/29/2023. TECHNIQUE: Unenhanced axial CT scan of the brain is performed from the vertex to the skull base. A dose lowering technique was utilized adhering to the principles of ALARA. FINDINGS: Brain parenchyma: The brain parenchyma is normal in appearance. There is no hemorrhage, mass effect, or evidence of acute territorial ischemia by CT criteria. Torres-white matter differentiation is preserved. No extra-axial fluid collection is seen. Ventricles, sulci, cisterns: Normal in configuration. Intracranial vasculature: The visualized intracranial vasculature at the skull base is normal in appearance. Calvarium: Unremarkable. Sinuses and mastoids: There is mild mucosal thickening within the maxillary, ethmoid, and sphenoid sinuses. The mastoid air cells are well pneumatized. Orbits: The bony orbits are grossly intact. IMPRESSION: No acute intracranial abnormality. ACT 112: Negative or not required by law. Electronically signed by: Dario Velarde M.D. 06/15/2023 2:28 PM Humerus X-Ray 06/15/23 13:45 LEFT SHOULDER 3 VIEWS; LEFT HUMERUS 2 VIEWS CLINICAL HISTORY: Fall. Seizure. FINDINGS: 3 views of the left shoulder with AP and lateral views of the left humerus are obtained. No prior studies are available for comparison at the time of dictation. The skeletal structures are well mineralized. There is no radiographic evidence of left shoulder fracture or dislocation. There is no radiographic evidence of left humeral fracture. The glenohumeral and acromioclavicular joints are maintained. The left elbow is grossly preserved. Mild soft tissue swelling overlies the left shoulder. The imaged left lung parenchyma appears clear. An IV catheter is noted in the left antecubital fossa. There is an enthesophyte at the triceps insertion. IMPRESSION: 1. There is no radiographic evidence of left shoulder fracture or dislocation. 2. There is no radiographic evidence of left humeral fracture. Electronically signed by: Dario Velarde M.D. 06/15/2023 2:31 PM Shoulder X-Ray 06/15/23 13:45 LEFT SHOULDER 3 VIEWS; LEFT HUMERUS 2 VIEWS CLINICAL HISTORY: Fall. Seizure. FINDINGS: 3 views of the left shoulder with AP and lateral views of the left humerus are obtained. No prior studies are available for comparison at the time of dictation. The skeletal structures are well mineralized. There is no radiographic evidence of left shoulder fracture or dislocation. There is no radiographic evidence of left humeral fracture. The glenohumeral and acromioclavicular joints are maintained. The left elbow is grossly preserved. Mild soft tissue swelling overlies the left shoulder. The imaged left lung parenchyma appears clear. An IV catheter is noted in the left antecubital fossa. There is an enthesophyte at the triceps insertion. IMPRESSION: 1. There is no radiographic evidence of left shoulder fracture or dislocation. 2. There is no radiographic evidence of left humeral fracture. Electronically signed by: Dario Velarde M.D. 06/15/2023 2:31 PM Discharge Plan Visit Data Chief Complaint: Seizure ED Provider: Dario Delacruz Discharge Problem: Seizure, Atrial fibrillation with rapid ventricular response, Acute dehydration, Acute head trauma, Combative behavior, Elevated lactic acid level Patient Disposition: Admitted As Inpatient Condition: Serious Forms Stand Alone Forms: My [facility] [employer] Prescriptions Prescriptions: No Action ascorbic acid (vitamin C) [Vitamin C] 1,000 mg Tablet 0 mg PO DAILY Rx Instructions: Unable to verify OTC medication and strength with patient/family at this date/time lisinopril 20 mg tablet 20 mg PO DAILY magnesium oxide 500 mg Tablet 0 mg PO DAILY Rx Instructions: Unable to verify OTC medication and strength with patient/family at this date/time divalproex 500 mg Tablet Extended Release 24 Hr 500 mg PO BID Qty: 60 0RF Referrals Referrals: Joel Odom DO [Primary Care Provider] - Discharge Problem: Acute head trauma Qualifiers: Encounter type: initial encounter Qualified Code(s): S09.90XA - Unspecified injury of head, initial encounter
[2023-06-15 14:12] LABS: iSTAT Creatinine 1.2 mg/dl (0.6-1.3); iSTAT Hemoglobin 14.3 g/dl (14.0-18.0); iSTAT Ionized Calcium 1.13 mmol/l (1.12-1.32); iSTAT Potassium 4.1 mmol/L (3.3-5.0)
[2023-06-15 14:17] LABS: Basophils # (auto) 0.03 K/uL (0.00-0.20); Basophils % (auto) 0.3 %; Eosinophils # (auto) 0.09 K/uL (0.00-0.50); Eosinophils % (auto) 0.9 %; Hematocrit (blood only) 43.4 % (42.0-52.0); Hemoglobin 14.7 g/dl (14.0-18.0); Immature Granulocytes # (auto) 0.14 K/uL (0.01-0.20); Immature Granulocytes % (auto) 1.4 %; Lymphocytes # (auto) 1.63 K/uL (1.20-3.40); Lymphocytes % (auto) 16.2 %; Mean Corpuscular Hemoglobin 27.7 pg (25.0-34.0); Mean Corpuscular Hgb Conc 33.9 g/dL (32.0-36.0); Mean Corpuscular Volume 81.7 fL (80.0-100.0); Mean Platelet Volume 10.5 fL (9.4-12.4); Monocytes # (auto) 0.31 K/uL (0.11-0.59); Monocytes % (auto) 3.1 %; Neutrophils # (auto) 7.89 K/uL (1.40-6.50); Neutrophils % (auto) 78.1 %; Platelet Count 238 K/uL (130-400); RDW Coefficient of Variation 12.5 % (11.5-14.5); Red Blood Count 5.31 M/uL (4.70-6.10); White Blood Count 10.09 K/ul (4.8-10.8)
[2023-06-15] MEDS ORDERED: VALPROATE SOD 1,000 MG in DEXTROSE 5% 50 ML IV STA (14:30)
--- NOTE | 2023-06-15 14:31 | CT Scan Report ---
CT SCAN OF THE BRAIN WITHOUT IV CONTRAST CLINICAL HISTORY: Seizure. Fall. COMPARISON STUDY: CT of the brain dated 01/29/2023. TECHNIQUE: Unenhanced axial CT scan of the brain is performed from the vertex to the skull base. A d ose lowering technique was utilized adhering to the principles of ALARA. FINDINGS: Brain parenchyma: The brain parenchyma is normal in appearance. There is no hemorrhage, mass effect, or evidence of acute territorial ischemia by CT criteria. Torres-white matter differentiation is preser raj. No extra-axial fluid collection is seen. Ventricles, sulci, cisterns: Normal in configuration. Intracranial vasculature: The visualized intracranial vasculature at the skull base is normal in appe arance. Calvarium: Unremarkable. Sinuses and mastoids: There is mild mucosal thickening within the maxillary, ethmoid, and sphenoid si nuses. The mastoid air cells are well pneumatized. Orbits: The bony orbits are grossly intact. IMPRESSION: No acute intracranial abnormality. ACT 112: Negative or not required by law. Electronically signed by: Dario Velarde M.D. 06/15/2023 2:28 PM
--- NOTE | 2023-06-15 14:32 | XRay Report ---
LEFT SHOULDER 3 VIEWS; LEFT HUMERUS 2 VIEWS CLINICAL HISTORY: Fall. Seizure. FINDINGS: 3 views of the left shoulder with AP and lateral views of the left humerus are obtained. No prior studies are available for comparison at the time of dictation. The skeletal structures are wel l mineralized. There is no radiographic evidence of left shoulder fracture or dislocation. There is n o radiographic evidence of left humeral fracture. The glenohumeral and acromioclavicular joints are m aintained. The left elbow is grossly preserved. Mild soft tissue swelling overlies the left shoulder. The imaged left lung parenchyma appears clear. An IV catheter is noted in the left antecubital fossa . There is an enthesophyte at the triceps insertion. IMPRESSION: 1. There is no radiographic evidence of left shoulder fracture or dislocation. 2. There is no radiographic evidence of left humeral fracture. Electronically signed by: Dario Velarde M.D. 06/15/2023 2:31 PM
--- NOTE | 2023-06-15 14:36 | XRay Report ---
SINGLE VIEW CHEST CLINICAL HISTORY: Seizure. Fall. FINDINGS: 2 AP, portable, upright chest radiographs are compared to study dated 01/29/2023. The cardio mediastinal silhouette is unremarkable. The lungs and pleural spaces are clear. No pneumothorax is se en. The bony thorax is grossly intact. IMPRESSION: No active disease in the chest. ACT 112: Negative or not required by law. Electronically signed by: Dario Velarde M.D. 06/15/2023 2:35 PM
--- NOTE | 2023-06-15 14:36 | CT Scan Report ---
CT SCAN OF THE CERVICAL SPINE CLINICAL HISTORY: Fall. Seizure. COMPARISON STUDY: CT of the cervical spine dated 01/29/2023. TECHNIQUE: CT scan of the cervical spine is performed from the skull base to the upper thoracic spine . Images are reviewed in the axial, sagittal, and coronal planes. IV contrast was not administered fo r this examination. A dose lowering technique was utilized adhering to the principles of ALARA. CT DOSE: 1580.4 mGy.cm FINDINGS: Skeletal structures: The skeletal structures are well mineralized. There is no evidence of fracture o r subluxation involving the cervical spine. Vertebral body height and alignment are maintained. Ther e is straightening of the cervical lordosis. The odontoid process and lateral masses are intact. The atlantoaxial articulation is preserved. The spinous processes appear intact. Intervertebral discs: The disc spaces are well maintained. Central canal: Widely patent. Soft tissues: The prevertebral and paraspinous soft tissues are within normal limits. Calvarium: The visualized calvarium at the skull base appears intact. Brain parenchyma: Partially visualized brain parenchyma at the skull base is within normal limits. Sinuses and mastoids: Mucosal thickening and secretions are noted in the sphenoid sinuses. The mastoi d air cells are well pneumatized. Lung apices: Clear as visualized. IMPRESSION: There is no evidence of cervical spine fracture or subluxation. ACT 112: Negative or not required by law. Electronically signed by: Dario Velarde M.D. 06/15/2023 2:34 PM
[2023-06-15 14:42] LABS: Albumin Globulin Ratio 1.9 (0.9-2); Albumin Level 4.9 gm/dl (3.4-5.0); BUN Creatinine Ratio 15.2 (10-20); Bilirubin,Total 0.4 mg/dl (0.2-1.0); Calcium 8.9 mg/dl (8.6-10.3); Creatinine Clr Calc Pharmacy 151.4 ml/min; Est GFR (African American) 93.5 ml/min; Est GFR (Non-African American) 80.6 ml/min; Globulin 2.6 gm/dl (2.5-4.0); Magnesium 3.2 mg/dl (1.7-2.4); Total Protein 7.5 gm/dl (6.0-8.3)
--- NOTE | 2023-06-15 14:42 | CT Scan Report ---
CT SCAN OF THE FACIAL BONES WITHOUT IV CONTRAST CLINICAL HISTORY: Fall. Seizure. COMPARISON STUDY: Facial bone CT dated 12/26/2022. TECHNIQUE: High-resolution CT scan of the facial bones is performed. Images are reviewed in the axia l, sagittal, and coronal planes. IV contrast was not administered for this examination. A dose lower ing technique was utilized adhering to the principles of ALARA. FINDINGS: The skeletal structures are well mineralized. There is no evidence of facial bone fracture. The bony orbits are intact and the orbital contents are within normal limits. The zygomatic arches, nasal bones, and pterygoid plates are preserved. The maxilla and mandible are intact. There are no la yering blood products within the paranasal sinuses. There is mild mucosal thickening within the maxil azeem, ethmoid, and sphenoid sinuses. Secretions are noted in the sphenoids. Metatarsals are well pneu matized. The visualized calvarium and upper cervical spine are maintained. Partially imaged brain par enchyma is within normal limits. There is mild right periorbital soft tissue contusion. IMPRESSION: There is no evidence of facial bone fracture. ACT 112: Negative or not required by law. Electronically signed by: Dario Velarde M.D. 06/15/2023 2:40 PM
[2023-06-15] MEDS ORDERED: dilTIAZem HCl 5 MG/ML 5 ML VIAL IV STA (14:45)
[2023-06-15] MEDS ORDERED: STAT IV Infusion **Titration per Protocol STA (14:45)
[2023-06-15 14:52] LABS: Troponin I High Sensitivity 158.6 pg/ml (0-20)
[2023-06-15 14:58] LABS: Thyroid Stimulating Hormone 2.47 uIu/ml (0.300-4.500)
[2023-06-15 15:07] LABS: Adenovirus PCR Not Detected (NotDetected); Bordetella parapertussis PCR Not Detected (NotDetected); Bordetella pertussis PCR Not Detected (NotDetected); Chlamydia pneumoniae PCR Not Detected (NotDetected); Coronavirus 229E PCR Not Detected (NotDetected); Coronavirus CoV-2 (COVID19)PCR Not Detected (NotDetected); Coronavirus HKU1 PCR Not Detected (NotDetected); Coronavirus NL63 PCR Not Detected (NotDetected); Coronavirus OC43PCR Not Detected (NotDetected); Human Metapneumovirus PCR Not Detected (NotDetected); Influenza A PCR Not Detected (NotDetected); Influenza B PCR Not Detected (NotDetected); Mycoplasma pneumoniae PCR Not Detected (NotDetected); Parainfluenza Virus 1 PCR Not Detected (NotDetected); Parainfluenza Virus 2 PCR Not Detected (NotDetected); Parainfluenza Virus 3 PCR Not Detected (NotDetected); Parainfluenza Virus 4 PCR Not Detected (NotDetected); Respiratory Syncytial VirusPCR Not Detected (NotDetected)
[2023-06-15 15:13] LABS: Rhinovirus/Enterovirus PCR DETECTED (NotDetected)
[2023-06-15 15:19] LABS: Base Excess VBG -4.8 mEq/L; HCO3 VBG 22 mmol/L; Oxygen Saturation VBG < 60.0 %; PCO2 VBG 47 mmHg (38-50); PO2 VBG 40 mmHg; pH VBG 7.28 (7.36-7.41)
[2023-06-15] MEDS: dilTIAZem HCL 125 MG in DEXTROSE 5% 100 ML IV SCH (15:21)
[2023-06-15 15:50] LABS: Appearance Urine Clear (Clear); Bacteria Urine Automated Negative (Negative); Bilirubin Urine Negative (Negative); Blood Urine 1+ (Negative); Color Urine Yellow; Epithelial Cell Urine Auto >30 /lpf (0-5); Glucose Urine UA Negative (Negative); Ketones Urine Trace (Negative); Leukocyte Esterase Urine Negative (Negative); Nitrite Urine Negative (Negative); Protein Urine 1+ (Negative); RBC Urine Automated 0-4 /hpf (0-4); Specific Gravity Urine 1.012 (1.000-1.030); Urobilinogen Urine Negative (Negative); pH Urine 5.5 (4.5-7.5)
[2023-06-15 16:10] LABS: Amphetamines+Metham, Urine Neg (Neg); Barbiturates, Urine Neg (Neg); Benzodiazepine, Urine Pos (Neg); Cocaine, Urine Neg (Neg); MDMA (Ecstacy), Urine Neg (Neg); Marijuana, Urine Neg (Neg); Methadone, Urine Neg (Neg); Opiate, Urine Pos (Neg); Phencyclidine, Urine Neg (Neg)
--- NOTE | 2023-06-15 16:23 | History & Physical Report ---
Date of Service June 15, 2023 Assessment & Plan (1) Seizure: Plan: 22-year-old male medical history significant for hypertension and morbid obesity, mild sleep apnea, history of epistaxis presents with possible seizure episodes and also found to be in rapid A-fib. Mother heard noises in his room and when she went to check patient was thrashing in the bed and confused EMS was called and was given 5 mg of intranasal Versed by EMS which seem to stop the seizure. Seems the patient was combative for a brief period. Currently sleepy. But alert and oriented. Doesn't remember the episode. Have some bruises on the face and extremities. On presentation his heart rate is in the 170s and 180s and EKG showed rapid A-fib. Patient received total 3 L of fluids and also placed on Cardizem drip. Mother is in the room. Has some headache. Denies any blurred visions. No runny nose or sore throat. No cough. Afebrile. Denies any chest pain or shortness of breath. No nausea. No abdominal pain. Denies any diarrhea. Patient last night went out with his friends and had few drinks of alcohol. Mother states he came in the morning and she doubts that he put CPAP while asleep in the morning. Patient had similar episodes in November and December 2022 and at the time seems episodes were triggered with alcohol intake. Patient was seen by psychiatry and neurology at that time. Psychiatry thought this could be REM behavioral disorder as patient history of parasomnia( talking in his sleep) and advised for sleep studies. Neurology thinks Patient had partial epileptic seizure frontal lobe with impaired consciousness. He had routine EEG as well as as well as ambulatory EEG which were normal. He had MRI during last admission which was unremarkable. He was placed on Depakote 500 mg twice daily. He also followed with sleep and was diagnosed mild sleep apnea and currently using CPAP while sleeping. Patient states he drinks only couple of times a week and 2 or 3 drinks each time. Does not drink daily as per mother. Denies any marijuana use. Uses smokeless tobacco.Seems chews tobacco. 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 Seizure precautions Close monitoring telemetry floor Patient was thrashing during the episode. Imaging study with CT head, facial CT and cervical spine CT, chest x-ray and shoulder x-ray are unremarkable Close monitor Rapid A-fib New onset Started on Cardizem drip Low-dose IV heparin Close monitor for any bleeding episodes Serial cardiac enzymes and echocardiogram Monitoring telemetry Cardiology consult in a.m. Elevated troponin Mostly from above Will follow serial enzymes and echo Patient denies any chest pain or shortness of breath Hypertension Continue lisinopril with holding parameters Currently on Cardizem drip Will monitor Elevated lactic acid Mostly from seizures Getting fluids normalized. Elevated CPK CPK all 426 Mild rhabdo Getting IV fluids Follow repeat labs Hyperglycemia Follow the blood sugars Follow HbA1c levels Urinary retention S/p Mueller If not improving consult urology Sleep apnea mild CPAP nightly Morbid obesity Needs counseling Mild elevation of ast and alt follow repeat labs, DVT prophylaxis IV heparin Disposition Telemetry floor Full code History of Present Illness Chief Complaint: Seizures Primary Care Provider: Joel Odom DO 22-year-old male medical history significant for hypertension and morbid obesity, mild sleep apnea, history of epistaxis presents with possible seizure episodes and also found to be in rapid A-fib. Mother heard noises in his room and when she went to check patient was thrashing in the bed and confused EMS was called and was given 5 mg of intranasal Versed by EMS which seem to stop the seizure. Seems the patient was combative for a brief period. Currently sleepy. But alert and oriented. Doesn't remember the episode. Have some bruises on the face and extremities. On presentation his heart rate is in the 170s and 180s and EKG showed rapid A-fib. Patient received total 3 L of fluids and also placed on Cardizem drip. Mother is in the room. Has some headache. Denies any blurred visions. No runny nose or sore throat. No cough. Afebrile. Denies any chest pain or shortness of breath. No nausea. No abdominal pain. Denies any diarrhea. Patient last night went out with his friends and had few drinks of alcohol. Mother states he came in the morning and she doubts that he put CPAP while asleep in the morning. Patient had similar episodes in November and December 2022 and at the time seems episodes were triggered with alcohol intake. Patient was seen by psychiatry and neurology at that time. Psychiatry thought this could be REM behavioral disorder as patient history of parasomnia( talking in his sleep) and advised for sleep studies. Neurology thinks Patient had partial epileptic seizure frontal lobe with impaired consciousness. He had routine EEG as well as as well as ambulatory EEG which were normal. He had MRI during last admission which was unremarkable. He was placed on Depakote 500 mg twice daily. He also followed with sleep and was diagnosed mild sleep apnea and currently using CPAP while sleeping. Patient states he drinks only couple of times a week and 2 or 3 drinks each time. Does not drink daily as per mother. Denies any marijuana use. Uses smokeless tobacco.Seems chews tobacco. Past medical history. As mentioned above Past surgical history. Control of nosebleed. Right knee arthroscopy. Strabismus surgery bilateral. Social history. Lives with his mother. Uses smokeless tobacco. Alcohol social drinking as per patient. Drinks 2 times a week. No drug use. Family history. Father has hypertension. Paternal grandfather had hypertension. Diabetes. Maternal grandfather had CT at 33 years Allergies Allergy/AdvReac Type Severity Reaction Status Date / Time No Known Allergies Allergy Unknown Unverified 06/15/23 14:50 Home Medications Medication Instructions Recorded Confirmed Type ascorbic acid (vitamin C) 1,000 mg 0 mg PO DAILY 12/26/22 06/15/23 History tablet (Vitamin C) lisinopril 20 mg tablet 20 mg PO DAILY 12/26/22 06/15/23 History magnesium oxide 500 mg tablet 0 mg PO DAILY 01/29/23 06/15/23 History divalproex 500 mg tablet,extended 500 mg PO BID #60 tabs 01/31/23 06/15/23 Rx release 24 hr Past Med/Surg History Medical History Elevated CPK Tobacco use disorder Paranoia AMS (altered mental status) cryptogenic, cleared rapidly Smokeless tobacco use Obesity Hypertension Surgical History Status post medial meniscus repair Family History Other Heart disease Social History Smoking Status: Never smoker Tobacco Type: Smokeless Tobacco (Dip or Chew) Second Hand Exposure: No; Do You Dip or Chew Tobacco: Yes; Tobacco Cessation Education Requested by Patient: No Hx Alcohol Use: Yes Alcohol type: beer Hx Substance Use: No Preferred Language: Moldovan Communication Ability: Effective Flower Grower Required: No Beliefs That Will Affect Care: None Current Living Situation: Parent Other Information That Helps Us Care for You: No Feels Safe at Home: Yes Safety Concerns: Feels Safe At This Time Assistive Devices: CPAP Review of Systems Review of Systems: All systems reviewed & are unremarkable except as noted in HPI & below Physical Exam Physical Exam: General- drowsy but easily arousable. Not in acute distress Head- bruises seen on face and scalp Eyes- PERRL,. ENT- oropharynx clear Neck- supple, no JVD. Lungs- clear to auscultation no wheezing or crackles. Heart- irregular rhythm; tachycardia,no murmur, no gallop. Abdomen- normal bowel sounds, soft, nontender, no distension. Extremities- no pretibial edema, bruises seen on extremities. Neuro- alert, oriented x 3; PERRL, no facial palsy; no dysarthria; motor 5/5 bilaterally; obeys simple commands Results & Data Results & Data Vital Signs (Past 12 Hours) Vital Signs Temp Pulse Pulse Resp BP BP Pulse Ox 06/15/23 15:52 37.1 C 152 H 22 121/57 L 94 06/15/23 15:30 150 H 15 113/71 97 06/15/23 15:18 144 H 16 123/87 96 06/15/23 15:00 148 H 14 98/77 L 97 06/15/23 14:29 146 H 16 118/93 97 06/15/23 14:16 187 H 06/15/23 13:48 155 H 16 97 06/15/23 13:46 187 H 06/15/23 13:29 16 06/15/23 13:29 06/15/23 13:29 36.6 C 171 H 16 108/60 97 O2 Del Method 06/15/23 15:52 06/15/23 15:30 06/15/23 15:18 06/15/23 15:00 06/15/23 14:29 06/15/23 14:16 06/15/23 13:48 06/15/23 13:46 06/15/23 13:29 06/15/23 13:29 Room Air 06/15/23 13:29 Diagnostic Findings Laboratory Results WBC 10.09 K/ul (4.8-10.8) 06/15/23 13:55 RBC 5.31 M/uL (4.70-6.10) 06/15/23 13:55 Hgb 14.7 g/dl (14.0-18.0) 06/15/23 13:55 POC Hgb 14.3 g/dl (14.0-18.0) 06/15/23 13:59 Hct 43.4 % (42.0-52.0) 06/15/23 13:55 POC Hct 42 % (42-52) 06/15/23 13:59 MCV 81.7 fL (80.0-100.0) 06/15/23 13:55 MCH 27.7 pg (25.0-34.0) 06/15/23 13:55 MCHC 33.9 g/dL (32.0-36.0) 06/15/23 13:55 RDW Std Deviation 37.0 fL (36.4-46.3) 06/15/23 13:55 RDW Coeff of Yehuda 12.5 % (11.5-14.5) 06/15/23 13:55 Plt Count 238 K/uL (130-400) 06/15/23 13:55 MPV 10.5 fL (9.4-12.4) 06/15/23 13:55 Immature Gran % (Auto) 1.4 % 06/15/23 13:55 Neut % (Auto) 78.1 % 06/15/23 13:55 Lymph % (Auto) 16.2 % 06/15/23 13:55 [place] % (Auto) 3.1 % 06/15/23 13:55 Eos % (Auto) 0.9 % 06/15/23 13:55 Baso % (Auto) 0.3 % 06/15/23 13:55 Neut # (Auto) 7.89 K/uL (1.40-6.50) H 06/15/23 13:55 Lymph # (Auto) 1.63 K/uL (1.20-3.40) 06/15/23 13:55 [place] # (Auto) 0.31 K/uL (0.11-0.59) 06/15/23 13:55 Eos # (Auto) 0.09 K/uL (0.00-0.50) 06/15/23 13:55 Baso # (Auto) 0.03 K/uL (0.00-0.20) 06/15/23 13:55 Immature Gran # (Auto) 0.14 K/uL (0.01-0.20) 06/15/23 13:55 VBG pH 7.28 (7.36-7.41) L 06/15/23 15:06 VBG pCO2 47 mmHg (38-50) 06/15/23 15:06 VBG pO2 40 mmHg 06/15/23 15:06 VBG HCO3 22 mmol/L 06/15/23 15:06 VBG O2 Saturation < 60.0 % 06/15/23 15:06 VBG Base Excess -4.8 mEq/L 06/15/23 15:06 POC Sodium 140 mmol/L (135-144) 06/15/23 13:59 Sodium 138 mmol/L (136-145) 06/15/23 13:55 POC Potassium 4.1 mmol/L (3.3-5.0) 06/15/23 13:59 Potassium 4.0 mmol/L (3.5-5.1) 06/15/23 13:55 POC Chloride 106 mmol/L (101-112) 06/15/23 13:59 Chloride 103 mmol/L (98-107) 06/15/23 13:55 Carbon Dioxide 17 mmol/L (21-32) L 06/15/23 13:55 POC Total CO2 16 mmol/L (24-31) L 06/15/23 13:59 Anion Gap 18 (3-11) H 06/15/23 13:55 POC Anion Gap 24.0 mmol/L (16-25) 06/15/23 13:59 POC BUN 17 mg/dl (7-18) 06/15/23 13:59 BUN 19 mg/dl (6-23) 06/15/23 13:55 Creatinine 1.25 mg/dl (0.6-1.4) 06/15/23 13:55 POC Creatinine 1.2 mg/dl (0.6-1.3) 06/15/23 13:59 Est Cr Clr Drug Dosing 151.4 ml/min 06/15/23 13:55 Est GFR ( Amer) 93.5 ml/min 06/15/23 13:55 Est GFR (Non-Af Amer) 80.6 ml/min 06/15/23 13:55 BUN/Creatinine Ratio 15.2 (10-20) 06/15/23 13:55 Glucose 194 mg/dl (70-99(Fasting)) H 06/15/23 13:55 POC Glucose (other) 198 mg/dl (70-99) H 06/15/23 13:59 Lactate 6.5 mmol/L (0.4-2.0) H* 06/15/23 15:06 Calcium 8.9 mg/dl (8.6-10.3) 06/15/23 13:55 POC Ioniz Calcium Je 1.13 mmol/l (1.12-1.32) 06/15/23 13:59 Magnesium 3.2 mg/dl (1.7-2.4) H 06/15/23 13:55 Total Bilirubin 0.4 mg/dl (0.2-1.0) 06/15/23 13:55 AST 50 U/L (13-39) H 06/15/23 13:55 ALT 68 U/L (7-52) H 06/15/23 13:55 Alkaline Phosphatase 54 U/L (34-104) 06/15/23 13:55 Total Creatine Kinase 426 U/L (30-223) H 06/15/23 13:55 Troponin I High Sens 430.6 pg/ml (0-20) H* D 06/15/23 15:09 Total Protein 7.5 gm/dl (6.0-8.3) 06/15/23 13:55 Albumin 4.9 gm/dl (3.4-5.0) 06/15/23 13:55 Globulin 2.6 gm/dl (2.5-4.0) 06/15/23 13:55 Albumin/Globulin Ratio 1.9 (0.9-2) 06/15/23 13:55 TSH 2.470 uIu/ml (0.300-4.500) 06/15/23 13:55 Prolactin 24.77 ng/ml 06/15/23 13:55 Urine Color Yellow 06/15/23 15:35 Urine Appearance Clear (Clear) 06/15/23 15:35 Urine pH 5.5 (4.5-7.5) 06/15/23 15:35 Ur Specific [place] 1.012 (1.000-1.030) 06/15/23 15:35 Urine Protein 1+ (Negative) H 06/15/23 15:35 Urine Glucose (UA) Negative (Negative) 06/15/23 15:35 Urine Ketones Trace (Negative) H 06/15/23 15:35 Urine Blood 1+ (Negative) H 06/15/23 15:35 Urine Nitrite Negative (Negative) 06/15/23 15:35 Urine Bilirubin Negative (Negative) 06/15/23 15:35 Urine Urobilinogen Negative (Negative) 06/15/23 15:35 Ur Leukocyte Esterase Negative (Negative) 06/15/23 15:35 Urine WBC (Auto) 1-5 /hpf (0-5) 06/15/23 15:35 Urine RBC (Auto) 0-4 /hpf (0-4) 06/15/23 15:35 U Hyaline Cast (Auto) 1-5 /lpf (0-5) 06/15/23 15:35 U Epithel Cells (Auto) >30 /lpf (0-5) H 06/15/23 15:35 Urine Bacteria (Auto) Negative (Negative) 06/15/23 15:35 Urine Opiates Screen Pos (Neg) H 06/15/23 15:35 Ur Methadone, Qual Neg (Neg) 06/15/23 15:35 Urine Barbiturates Neg (Neg) 06/15/23 15:35 Valproic Acid 23 mcg/ml (50-100) L 06/15/23 13:55 Ur Phencyclidine (PCP) Neg (Neg) 06/15/23 15:35 U Amphetamin/Meth Scrn Neg (Neg) 06/15/23 15:35 MDMA (Ecstasy) Screen Neg (Neg) 06/15/23 15:35 U Benzodiazepines Scrn Pos (Neg) H 06/15/23 15:35 Ur Cocaine Metabolite Neg (Neg) 06/15/23 15:35 U Marijuana (THC) Screen Neg (Neg) 06/15/23 15:35 Ethyl Alcohol mg/dL < 10.0 mg/dl (<10.0) 06/15/23 15:06 Adenovirus (PCR) Not Detected (NotDetected) 06/15/23 13:55 B. pertussis DNA (PCR) Not Detected (NotDetected) 06/15/23 13:55 B.parapertussis DNA PCR Not Detected (NotDetected) 06/15/23 13:55 C. pneumoniae DNA (PCR) Not Detected (NotDetected) 06/15/23 13:55 Coronavirus OC43 (PCR) Not Detected (NotDetected) 06/15/23 13:55 Coronavirus HKU1 (PCR) Not Detected (NotDetected) 06/15/23 13:55 Coronavirus 229E (PCR) Not Detected (NotDetected) 06/15/23 13:55 SARS-CoV-2 (PCR) Not Detected (NotDetected) 06/15/23 13:55 Coronavirus NL63 (PCR) Not Detected (NotDetected) 06/15/23 13:55 Human Metapneumovir PCR Not Detected (NotDetected) 06/15/23 13:55 Influenza Type A (PCR) Not Detected (NotDetected) 06/15/23 13:55 Influenza Type B (PCR) Not Detected (NotDetected) 06/15/23 13:55 M. pneumoniae (PCR) Not Detected (NotDetected) 06/15/23 13:55 Parainfluenza 1 (PCR) Not Detected (NotDetected) 06/15/23 13:55 Parainfluenza 2 (PCR) Not Detected (NotDetected) 06/15/23 13:55 Parainfluenza 3 (PCR) Not Detected (NotDetected) 06/15/23 13:55 Parainfluenza 4 (PCR) Not Detected (NotDetected) 06/15/23 13:55 RSV (PCR) Not Detected (NotDetected) 06/15/23 13:55 Entero/Rhino (PCR) DETECTED (NotDetected) A* 06/15/23 13:[address] 06/15/23 13:45 CT SCAN OF THE CERVICAL SPINE CLINICAL HISTORY: Fall. Seizure. COMPARISON STUDY: CT of the cervical spine dated 01/29/2023. TECHNIQUE: CT scan of the cervical spine is performed from the skull base to the upper thoracic spine. Images are reviewed in the axial, sagittal, and coronal planes. IV contrast was not administered for this examination. A dose lowering technique was utilized adhering to the principles of ALARA. CT DOSE: 1580.4 mGy.cm FINDINGS: Skeletal structures: The skeletal structures are well mineralized. There is no evidence of fracture or subluxation involving the cervical spine. Vertebral body height and alignment are maintained. There is straightening of the cervical lordosis. The odontoid process and lateral masses are intact. The atlantoaxial articulation is preserved. The spinous processes appear intact. Intervertebral discs: The disc spaces are well maintained. Central canal: Widely patent. Soft tissues: The prevertebral and paraspinous soft tissues are within normal limits. Calvarium: The visualized calvarium at the skull base appears intact. Brain parenchyma: Partially visualized brain parenchyma at the skull base is within normal limits. Sinuses and mastoids: Mucosal thickening and secretions are noted in the sphenoid sinuses. The mastoid air cells are well pneumatized. Lung apices: Clear as visualized. IMPRESSION: There is no evidence of cervical spine fracture or subluxation. ACT 112: Negative or not required by law. Electronically signed by: Dario Velarde M.D. 06/15/2023 2:34 PM Chest X-Ray 06/15/23 13:45 SINGLE VIEW CHEST CLINICAL HISTORY: Seizure. Fall. FINDINGS: 2 AP, portable, upright chest radiographs are compared to study dated 01/29/2023. The cardiomediastinal silhouette is unremarkable. The lungs and pleural spaces are clear. No pneumothorax is seen. The bony thorax is grossly intact. IMPRESSION: No active disease in the chest. ACT 112: Negative or not required by law. Electronically signed by: Dario Velarde M.D. 06/15/2023 2:[address] 06/15/23 13:45 CT SCAN OF THE FACIAL BONES WITHOUT IV CONTRAST CLINICAL HISTORY: Fall. Seizure. COMPARISON STUDY: Facial bone CT dated 12/26/2022. TECHNIQUE: High-resolution CT scan of the facial bones is performed. Images are reviewed in the axial, sagittal, and coronal planes. IV contrast was not administered for this examination. A dose lowering technique was utilized adhering to the principles of ALARA. FINDINGS: The skeletal structures are well mineralized. There is no evidence of facial bone fracture. The bony orbits are intact and the orbital contents are within normal limits. The zygomatic arches, nasal bones, and pterygoid plates are preserved. The maxilla and mandible are intact. There are no layering blood products within the paranasal sinuses. There is mild mucosal thickening within the maxillary, ethmoid, and sphenoid sinuses. Secretions are noted in the sphenoids. Metatarsals are well pneumatized. The visualized calvarium and upper cervical spine are maintained. Partially imaged brain parenchyma is within normal limits. There is mild right periorbital soft tissue contusion. IMPRESSION: There is no evidence of facial bone fracture. ACT 112: Negative or not required by law. Electronically signed by: Dario Velarde M.D. 06/15/2023 2:[address] 06/15/23 13:45 CT SCAN OF THE BRAIN WITHOUT IV CONTRAST CLINICAL HISTORY: Seizure. Fall. COMPARISON STUDY: CT of the brain dated 01/29/2023. TECHNIQUE: Unenhanced axial CT scan of the brain is performed from the vertex to the skull base. A dose lowering technique was utilized adhering to the principles of ALARA. FINDINGS: Brain parenchyma: The brain parenchyma is normal in appearance. There is no hemorrhage, mass effect, or evidence of acute territorial ischemia by CT criteria. Torres-white matter differentiation is preserved. No extra-axial fluid collection is seen. Ventricles, sulci, cisterns: Normal in configuration. Intracranial vasculature: The visualized intracranial vasculature at the skull base is normal in appearance. Calvarium: Unremarkable. Sinuses and mastoids: There is mild mucosal thickening within the maxillary, ethmoid, and sphenoid sinuses. The mastoid air cells are well pneumatized. Orbits: The bony orbits are grossly intact. IMPRESSION: No acute intracranial abnormality. ACT 112: Negative or not required by law. Electronically signed by: Dario Velarde M.D. 06/15/2023 2:28 PM Humerus X-Ray 06/15/23 13:45 LEFT SHOULDER 3 VIEWS; LEFT HUMERUS 2 VIEWS CLINICAL HISTORY: Fall. Seizure. FINDINGS: 3 views of the left shoulder with AP and lateral views of the left humerus are obtained. No prior studies are available for comparison at the time of dictation. The skeletal structures are well mineralized. There is no radiographic evidence of left shoulder fracture or dislocation. There is no radiographic evidence of left humeral fracture. The glenohumeral and acromioclavicular joints are maintained. The left elbow is grossly preserved. Mild soft tissue swelling overlies the left shoulder. The imaged left lung parenchyma appears clear. An IV catheter is noted in the left antecubital fossa. There is an enthesophyte at the triceps insertion. IMPRESSION: 1. There is no radiographic evidence of left shoulder fracture or dislocation. 2. There is no radiographic evidence of left humeral fracture. Electronically signed by: Dario Velarde M.D. 06/15/2023 2:31 PM Shoulder X-Ray 06/15/23 13:45 LEFT SHOULDER 3 VIEWS; LEFT HUMERUS 2 VIEWS CLINICAL HISTORY: Fall. Seizure. FINDINGS: 3 views of the left shoulder with AP and lateral views of the left humerus are obtained. No prior studies are available for comparison at the time of dictation. The skeletal structures are well mineralized. There is no radiographic evidence of left shoulder fracture or dislocation. There is no radiographic evidence of left humeral fracture. The glenohumeral and acromioclavicular joints are maintained. The left elbow is grossly preserved. Mild soft tissue swelling overlies the left shoulder. The imaged left lung parenchyma appears clear. An IV catheter is noted in the left antecubital fossa. There is an enthesophyte at the triceps insertion. IMPRESSION: 1. There is no radiographic evidence of left shoulder fracture or dislocation. 2. There is no radiographic evidence of left humeral fracture. Electronically signed by: Dario Velarde M.D. 06/15/2023 2:31 PM ECG Additional Comments: ECG. Atrial fibrillation with rapid ventricular response with rates 173. Nonspecific ST abnormalities. ST depression anterolateral leads. Code Status & VTE Plan VTE Prophylaxis Plan VTE Prophylaxis will be ordered: Yes
[2023-06-15 17:31] LABS: Calcium 8.7 mg/dl (8.6-10.3); Potassium 4.3 mmol/L (3.5-5.1)
[2023-06-15 17:37] LABS: Creatinine Clr Calc Pharmacy 189.3 ml/min; Est GFR (African American) 122.4 ml/min; Est GFR (Non-African American) 105.6 ml/min
[2023-06-15] MEDS ORDERED: NITROGLYCERIN SL 0.4 MG/TAB TAB SL PRN (19:23)
[2023-06-15] MEDS ORDERED: LORazepam 2 MG in SYRINGE 1 ML IV PRN (19:23)
[2023-06-15] MEDS ORDERED: THIAMINE HCL 100 MG in SYRINGE 9 ML IV STA (19:27)
[2023-06-15] MEDS: Heparin IV Adult Wt-Based Low-Dose *NO* INITIAL Bolus Protocol IV SCH ×3 (19:41→20:02)
[2023-06-15] MEDS: levETIRAcetam 500 MG in 0.9 % SODIUM CHLORIDE 100 ML IV SCH (20:43)
[2023-06-15] MEDS: SODIUM CHLORIDE 0.9% 1,000 ML IV SCH (20:43)
[2023-06-15] MEDS: NICOTINE 14 MG/24 HR PATCH TD SCH (21:29)
[2023-06-15] MEDS: VALPROATE SOD 500 MG in DEXTROSE 5% 50 ML IV SCH (21:29)
[2023-06-15 21:35] LABS: Basophils # (auto) 0.02 K/uL (0.00-0.20); Basophils % (auto) 0.2 %; Eosinophils # (auto) 0.01 K/uL (0.00-0.50); Eosinophils % (auto) 0.1 %; Hematocrit (blood only) 41.3 % (42.0-52.0); Hemoglobin 14.1 g/dl (14.0-18.0); Immature Granulocytes # (auto) 0.05 K/uL (0.01-0.20); Immature Granulocytes % (auto) 0.5 %; Lymphocytes # (auto) 1.67 K/uL (1.20-3.40); Lymphocytes % (auto) 15.3 %; Mean Corpuscular Hemoglobin 27.5 pg (25.0-34.0); Mean Corpuscular Hgb Conc 34.1 g/dL (32.0-36.0); Mean Corpuscular Volume 80.5 fL (80.0-100.0); Mean Platelet Volume 10.5 fL (9.4-12.4); Monocytes # (auto) 0.54 K/uL (0.11-0.59); Monocytes % (auto) 4.9 %; Neutrophils # (auto) 8.66 K/uL (1.40-6.50); Platelet Count 228 K/uL (130-400); RDW Coefficient of Variation 12.8 % (11.5-14.5); Red Blood Count 5.13 M/uL (4.70-6.10); White Blood Count 10.95 K/ul (4.8-10.8)
[2023-06-15 21:39] LABS: INR 1.1 (0.9-1.1); Partial Thromboplastin Time 28 Seconds (21-31); Prothrombin Time 11.9 Seconds (9.0-12.0)
--- NOTE | 2023-06-15 21:45 | Electrocardiogram Report ---
Test Reason : Blood Pressure : / mmHG Vent. Rate : 173 BPM Atrial Rate : 000 BPM P-R Int : 000 ms QRS Dur : 096 ms QT Int : 274 ms P-R-T Axes : 000 039 121 degrees QTc Int : 464 ms Atrial fibrillation with rapid ventricular response Nonspecific ST and T wave abnormality Abnormal ECG When compared with ECG of 29-JAN-2023 09:58, Atrial fibrillation has replaced Sinus rhythm Vent. rate has increased BY 66 BPM Borderline criteria for Inferior infarct are no longer Present ST now depressed in Anterolateral leads Confirmed by Jagdish Main ([id number]) on 06/15/2023 9:45:28 PM Referred By: Confirmed By:Jagdish Main
[2023-06-15] MEDS: HEPARIN SODIUM/DEXTROSE 25,000 UNITS/500 ML BAG IV SCH (21:46)
[2023-06-15] MEDS: HYDROmorphone INJ 0.5 MG/0.5 ML SYR IV PRN (21:50)
[2023-06-16] MEDS: SODIUM CHLORIDE 0.9% 1,000 ML IV SCH ×3 (03:00→16:40)
[2023-06-16 04:18] LABS: Basophils # (auto) 0.02 K/uL (0.00-0.20); Basophils % (auto) 0.2 %; Eosinophils # (auto) 0.08 K/uL (0.00-0.50); Eosinophils % (auto) 0.9 %; Hemoglobin 13.1 g/dl (14.0-18.0); Immature Granulocytes # (auto) 0.03 K/uL (0.01-0.20); Immature Granulocytes % (auto) 0.3 %; Lymphocytes # (auto) 2.41 K/uL (1.20-3.40); Lymphocytes % (auto) 27.9 %; Mean Corpuscular Hemoglobin 27.5 pg (25.0-34.0); Mean Corpuscular Hgb Conc 33.6 g/dL (32.0-36.0); Mean Corpuscular Volume 81.9 fL (80.0-100.0); Mean Platelet Volume 10.7 fL (9.4-12.4); Monocytes # (auto) 0.84 K/uL (0.11-0.59); Monocytes % (auto) 9.7 %; Neutrophils # (auto) 5.26 K/uL (1.40-6.50); Platelet Count 207 K/uL (130-400); RDW Coefficient of Variation 12.9 % (11.5-14.5); Red Blood Count 4.76 M/uL (4.70-6.10); White Blood Count 8.64 K/ul (4.8-10.8)
[2023-06-16 04:33] LABS: BUN Creatinine Ratio 16.3 (10-20); Calcium 8.5 mg/dl (8.6-10.3); Creatinine Clr Calc Pharmacy 206.4 ml/min; Est GFR (African American) 135.4 ml/min; Est GFR (Non-African American) 116.8 ml/min
[2023-06-16 04:34] LABS: Albumin Level 4.2 gm/dl (3.4-5.0); Bilirubin Direct 0.1 mg/dl (0-0.2); Bilirubin,Total 0.6 mg/dl (0.2-1.0); Magnesium 2.3 mg/dl (1.7-2.4); Total Protein 6.6 gm/dl (6.0-8.3)
[2023-06-16 04:40] LABS: ANTI-Xa, UFH(UnfractionatedHep < 0.10 IU/ml (0.3-0.7)
[2023-06-16] MEDS: dilTIAZem HCL 125 MG in DEXTROSE 5% 100 ML IV SCH ×2 (04:57→17:39)
[2023-06-16] MEDS ORDERED: HEPARIN SOD (PORCINE) 1000 UNIT/ML IV ONE ×3 (05:00→20:37)
[2023-06-16] MEDS: VALPROATE SOD 500 MG in DEXTROSE 5% 50 ML IV SCH ×2 (08:25→21:31)
[2023-06-16] MEDS: levETIRAcetam 500 MG in 0.9 % SODIUM CHLORIDE 100 ML IV SCH ×2 (08:25→20:01)
[2023-06-16] MEDS: NICOTINE 14 MG/24 HR PATCH TD SCH (08:28)
[2023-06-16] MEDS: lisinopril 20 MG TAB PO SCH (08:28)
[2023-06-16] MEDS ORDERED: ONDANSETRON INJ 2 MG/ML 2 ML VIAL IV PRN (10:04)
--- NOTE | 2023-06-16 10:08 | Electrocardiogram Report ---
Test Reason : Blood Pressure : / mmHG Vent. Rate : 083 BPM Atrial Rate : 083 BPM P-R Int : 158 ms QRS Dur : 104 ms QT Int : 400 ms P-R-T Axes : 048 054 057 degrees QTc Int : 470 ms Normal sinus rhythm Normal ECG When compared with ECG of 15-JUN-2023 13:45, Sinus rhythm has replaced Atrial fibrillation Vent. rate has decreased BY [address] no longer depressed in Inferior leads ST no longer depressed in Anterolateral leads Nonspecific T wave abnormality no longer evident in Inferior leads Nonspecific T wave abnormality no longer evident in Lateral leads Confirmed by Ritchie Tovar ([id number]) on 06/16/2023 10:07:53 AM Referred By: REFERRED SELF Confirmed By:Ritchie Tovar
[2023-06-16 11:52] LABS: ANTI-Xa, UFH(UnfractionatedHep 0.11 IU/ml (0.3-0.7)
[2023-06-16] MEDS ORDERED: HEPARIN IV BOLUS 4,500 UNITS in SYRINGE 0 ML IV ONE (12:45)
--- NOTE | 2023-06-16 12:45 | Cardiology Consultation ---
Date of Consultation June 16, 2023 Assessment & Plan (1) PAF (paroxysmal atrial fibrillation): (2) Obesity: (3) Smokeless tobacco use: (4) Rhabdomyolysis: (5) Sleep apnea: Plan 22-year-old male seen in cardiology consultation secondary to atrial fibrillation with a rapid ventricular response occurring in the setting of holiday heart, suspected volume depletion, untreated sleep apnea, probable seizure with associated rhabdomyolysis. Rhythm status post spontaneous conv ersion as detailed below. [id number] score 1 point given history of hypertension. Patient with chronic frequent nosebleeds, at increased risk of bleeding with employment as well as seizure. Overall, patient adverse to and the risks of anticoagulation appear to be greater than the benefit. Recommend initiation of low-dose beta-aleksander therapy, metoprolol succinate, for heart rate and blood pressure control. Continue lisinopril. Recommend Cardiac CT to evaluate atypical chest pain and elevated troponin. Risk factor and lifestyle modification discussed in detail with patient, girlfriend, mother, and father Jaren who participated in half of the consult via telephone. Neurology evaluation pending. Supervising Physician Co-Signing Physician Notes 22-year-old male presenting with status epilepticus and paroxysmal atrial fibrillation. Bruising involving his lower extremities, cranium, and face noted. Seizure witnessed by his father. Patient denies palpitations or chest discomfort. Voices concern regarding new diagnosis of atrial fibrillation. Blood pressure reasonably controlled. Admits to excessive alcohol intake send noncompliance with antiepileptic medication preceding current hospitalization. PE: VSS. Gen: NAD, AAO x3. Heart: Regular rhythm, normal S1-S2. No murmur. Lungs: Clear bilateral, no rales, rhonchi, wheeze. Extremities: No edema. A/P: Agree with above PA-C history, physical exam, assessment and plan. 22-year-old male admitted with status epilepticus. ECG on arrival demonstrating atrial fibrillation with rapid ventricular response. [id number] score 1 point given history of hypertension. Atrial fibrillation occurring in presence of reversible causes, excessive alcohol intake. Anticoagulation not currently recommended. Continue antihypertensive therapy. Add low-dose beta-aleksander. Review of bedside 2D transthoracic echocardiogram demonstrates preserved LV systolic function, no significant valvular heart disease. All questions answered to satisfaction both the patient and his family. Will see him for outpatient cardiology follow-up in 2 to 4 weeks. History of Present Illness Reason for Consultation: Rapid atrial fibrillation Requesting Physician: Dr. Goldman Attending Physician: Dr. Blackwell History of Present Illness Mr. Cory Mora is a 22-year-old male who went out with his lifelong friends Friday evening and then by 6-8 alcoholic drinks. Around 5:30 AM he went to bed with CPAP on and awoke at 1030 to use the bathroom. He went back to bed without CPAP therapy. Shortly thereafter his mother heard noises coming from the room and initially thought it was the strong winds outside however they eventually went in to the bedroom to find the patient thrashing around in the bed and with altered consciousness. EMS was summoned. The patient's father and eventually his brother did their best to control him with the mattress on the floor. The patient does not recall the episode, coming to in the ambulance. Patient received 5 mg of intranasal Versed with resolution of seizure type activity. Patient with multiple bruises on his head, face, and all extremities. Upon presentation to the ER the patient was noted to be in atrial fibrillation with a rapid ventricular response. He received 3 L of fluid resuscitation and IV Cardizem with spontaneous conversion back to sinus rhythm on June 15, 2023 at 16: 31. No conversion pause noted. Since that time patient has been in sinus rhythm in the 80s and 90s. This was the first episode he has had since being placed on Depakote with patient notably missing 1 dose of Depakote Friday morning. It should also be noted that these episodes only occur at night, last 2 when not utilizing CPAP therapy. Total creatinine kinase was 426 initially then 3258. Sensitivity troponin has been checked x 5 - 158.6 -> 430.6 -> 516.4 -> 345.7 then 175.3. Resting echocardiography in the morning of June 16, 2023 showed normal LV systolic function, EF 55 to 60%. Left atrial size was notably normal. No significant valvular pathology observed. Normal-sized aortic root. No pericardial effusion. Chest x-ray without acute disease. Additional imaging reviewed included CT of the cervical spine, CT of the head, CT of the face, humerus x-ray, shoulder x- ray. Patient followed by Dr. Mckeon as an outpatient with essential hypertension, obesity, tobacco use. Blood pressure controlled on lisinopril 20 mg/day. 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 He does have occasional episodes of shortness of breath that occur at rest with his mother noting anxiety may be an issue. He also has some chest discomfort with activity such as digging and shoveling that is definitely reproducible with palpation/tender to touch. Allergies Allergy/AdvReac Type Severity Reaction Status Date / Time No Known Allergies Allergy Unknown Unverified 06/15/23 14:50 Home Medications Medication Instructions Recorded Confirmed Type ascorbic acid (vitamin C) 1,000 mg 0 mg PO DAILY 12/26/22 06/15/23 History tablet (Vitamin C) lisinopril 20 mg tablet 20 mg PO DAILY 12/26/22 06/15/23 History magnesium oxide 500 mg tablet 0 mg PO DAILY 01/29/23 06/15/23 History divalproex 500 mg tablet,extended 500 mg PO BID #60 tabs 01/31/23 06/15/23 Rx release 24 hr Patient History Medical History Elevated CPK Tobacco use disorder Paranoia AMS (altered mental status) cryptogenic, cleared rapidly Smokeless tobacco use Obesity Hypertension Surgical History Status post medial meniscus repair Family History Other Heart disease Social History Smoking Status: Never smoker Tobacco Type: Smokeless Tobacco (Dip or Chew) Second Hand Exposure: No; Do You Dip or Chew Tobacco: Yes; Tobacco Cessation Education Requested by Patient: No Hx Alcohol Use: Yes Alcohol type: beer Hx Substance Use: No Preferred Language: Welsh Communication Ability: Effective Agate Setter Required: No Beliefs That Will Affect Care: None Current Living Situation: Parent Other Information That Helps Us Care for You: No Feels Safe at Home: Yes Safety Concerns: Feels Safe At This Time Assistive Devices: CPAP Review of Systems Review of Systems: Complete review of systems is otherwise as stated above, negative, or noncontributory. Physical Exam Physical Exam: General: A&Ox3. NAD. Elevated BMI. Skin: Multiple bruises and areas of excoriation in all extremities as well as in the face, forehead, and scalp. HENT: See above normocephalic. Eyes: PER. Conjunctiva pink, sclera clear. Neck: No carotid bruits. No JVD. No HJR. Heart:, 88 bpm RRR. No murmur. No rub. No gallop. PMI is nondisplaced. Lungs: Clear to auscultation. Abdomen: +BS. Soft. Nontender. No masses or organomegaly. Mueller catheter in place Extremities: No clubbing, cyanosis, or edema. Limited neurological examination is without focal deficits. Pulses: radial=2/4, posterior tibial=2/4. Results & Data Vital Signs (Past 12 Hours) Vital Signs Temp Pulse Pulse Resp BP Pulse Ox O2 Del Method 06/16/23 11:24 36.7 C 92 H 19 136/76 98 Room Air 06/16/23 07:53 36.9 C 78 18 131/73 97 Room Air 06/16/23 07:00 75 06/16/23 02:55 36.8 C 84 18 136/79 97 Room Air, CPAP 06/16/23 02:54 87 10 L 97 FiO2 06/16/23 11:24 06/16/23 07:53 06/16/23 07:00 06/16/23 02:55 06/16/23 02:54 21 Laboratory Results Cardiac Enzymes 06/15/23 06/15/23 06/15/23 Range/Units 13:55 15:09 20:51 AST 50 H (13-39) U/L Troponin I High Sens 158.6 H* 430.6 H* D 516.4 H* (0-20) pg/ml 06/16/23 06/16/23 Range/Units 03:35 09:30 AST 62 H (13-39) U/L Troponin I High Sens 345.7 H* D 175.3 H* D (0-20) pg/ml Coagulation 06/15/23 Range/Units 20:51 PT 11.9 (9.0-12.0) Seconds APTT 28 (21-31) Seconds CBC 06/15/23 06/15/23 06/16/23 Range/Units 13:55 20:51 03:35 WBC 10.09 10.95 H 8.64 (4.8-10.8) K/ul RBC 5.31 5.13 4.76 (4.70-6.10) M/uL Hgb 14.7 14.1 13.1 L (14.0-18.0) g/dl Hct 43.4 41.3 L 39.0 L (42.0-52.0) % Plt Count 238 228 207 (130-400) K/uL Neut # (Auto) 7.89 H 8.66 H 5.26 (1.40-6.50) K/uL Lymph # (Auto) 1.63 1.67 2.41 (1.20-3.40) K/uL [place] # (Auto) 0.31 0.54 0.84 H (0.11-0.59) K/uL Eos # (Auto) 0.09 0.01 0.08 (0.00-0.50) K/uL Baso # (Auto) 0.03 0.02 0.02 (0.00-0.20) K/uL Comprehensive Metabolic Panel 06/15/23 06/15/23 06/16/23 Range/Units 13:55 15:09 03:35 Sodium 138 140 139 (136-145) mmol/L Potassium 4.0 4.3 4.0 (3.5-5.1) mmol/L Chloride 103 107 104 (98-107) mmol/L Carbon Dioxide 17 L 21 26 (21-32) mmol/L BUN 19 18 15 (6-23) mg/dl Creatinine 1.25 1.00 0.92 (0.6-1.4) mg/dl Glucose 194 H 94 98 (70-99(Fasting)) mg/dl Calcium 8.9 8.7 8.5 L (8.6-10.3) mg/dl Direct Bilirubin 0.1 (0-0.2) mg/dl AST 50 H 62 H (13-39) U/L ALT 68 H 60 H (7-52) U/L Alkaline Phosphatase 54 38 (34-104) U/L Total Protein 7.5 6.6 (6.0-8.3) gm/dl Albumin 4.9 4.2 (3.4-5.0) gm/dl Intake and Output 06/15/23 06/16/23 06/16/23 22:59 06:59 14:59 Intake Total 631.834 / 4040.334 1288.5 / 4040.334 1168.00 / 1168.00 Output Total 850 / 2450 1600 / 2450 Balance -218.166 / 1590.334 -311.5 / 5095.406 9941.00 / 1168.00 Intake: IV 231.834 / 3440.334 1088.5 / 3440.334 1168.00 / 1168.00 Heparin Sodium/Dextrose 25,000 146 / 146 198.00 / 198.00 units In 500 ml @ 1,350 UNITS/ HR 27 mls/hr IV .[id number] [facility] Rx #:[id number] Sodium Chloride 0.9% 1,000 ml @ 942.5 / 942.5 810 / 810 150 mls/hr IV .[id number] [facility] Rx#: [id number] Valproate Sod 500 mg In 115 / 115 55 / 55 Dextrose 5% 50 ml @ 55 mls/hr IV BID [facility] Rx#:[id number] dilTIAZem HCL 125 mg In 11.834 / 11.834 Dextrose 5% 100 ml @ 10 MG/HR 10 mls/hr IV .[id number] [facility] Rx#: [id number] levETIRAcetam 500 mg In 0.9 % 105 / 105 105 / 105 Sodium Chloride 100 ml @ 440 mls/hr IV BID [facility] Rx#:[id number] Oral 400 / 600 200 / 600 Output: Urine Amount (Catheter) 850 / 2450 1600 / 2450 Temp Sensing Mueller 850 / 2450 1600 / 2450 Other: Weight 162 kg 162 kg Weight Measurement Method Built in [facility] Standing Scale
--- NOTE | 2023-06-16 13:43 | Hospitalist Progress Note ---
Date of Service June 16, 2023 Assessment & Plan (1) Seizure: Plan: 22-year-old male w/ PMH of hypertension and morbid obesity, mild sleep apnea on CPAP, history of epistaxis presents with possible seizure episodes and also found to be in rapid A-fib. He received 5 Mg of intranasal Versed by EMS which seemed to stop the seizure. He received loading dose of Keppra, morphine, IV fluids, thiamine, valproate upon presenting to the ED. Social habits status drinks only couple of times a week. Uses smokeless tobacco. Chews tobacco. He is being managed for the following: Breakthrough seizure History of partial epileptic seizures with impaired consciousness, on Depakote. Came in with seizure activity. See above. Due to violent body movement during seizure activity, imagings done [CT head, facial CT, cervical spine CT, CXR, shoulder x-ray] were unremarkable. Toxicology screen positive for opiates and benzos both of which patient received prior to urine collection. Reports compliance with Depakote 500 mg twice daily, subtherapeutic level at presentation. Status post 1 g Depakote and 2 g Keppra in the ED. Continue with IV Depakote 500 mg twice daily and IV Keppra 500 mg twice daily. IV Ativan 2 mg as needed for breakthrough seizures. Follow EEG, neurology recommendation. Seizure precaution. A-fib with RVR, new onset: TSH normal. Demand ischemia: Likely secondary to above. patient with no chest pain, rather generalized muscle ache. At presentation patient's heart rate noted to be in 170s to 180s and EKG showed rapid A-fib. On Cardizem drip and heparin drip. Continue. Metoprolol succinate started. Telemetry monitoring. Cardiology on board, appreciate recommendation. Rhinovirus URTI: Provide symptomatic management. Patient denies sore throat or cough. Elevated blood lactic acid level: Likely secondary to seizure. Getting IV fluid. Rhabdomyolysis: Likely secondary to muscle injury secondary to seizure. CPK uptrending, continue IV fluid, CPK in AM. Hypertension: Continue home lisinopril with holding parameters. Monitor. Urinary retention: Status post Mueller. Voiding trial, remove Mueller. If symptom recurs, consult urology. Sleep apnea, mild, continue CPAP nightly. Morbid obesity, encouraged lifestyle modification/weight loss. DVT prophylaxis: Patient on heparin drip Disposition: On telemetry floor Full code Admission and Anticipated Discharge Date Admission Date: June 15, 2023 Subjective Patient was seen and examined at bedside. Patient was lying in bed, on room air, resting comfortably, not in any acute distress. Patient denies any further seizure episodes in the hospital, denies headache, reports generalized muscle ache. Patient was n.p.o., will start diet. Patient denies any febrile illness or flulike illness or cough or sore throat or acute changes in his bowel or bladder habits. Physical Exam Physical Exam: GENERAL: Alert and oriented x3. NAD, on RA. HEENT: No pallor, no icterus. Pupils equal, round and reactive to light. Oral mucosa moist. bruises noted forehead and face. NECK: No JVD, no neck masses. HEART: S1 and S2 heard. Regular rate and rhythm. No murmur, no gallop. RESPIRATORY SYSTEM: Normal AP diameter. No accessory muscle use. No wheezing, no crackles. ABDOMEN: Soft, bowel sounds present, nontender, no distention. CENTRAL NERVOUS SYSTEM: No facial droop. Speech is clear. Obeys simple commands. Moves extremities. EXTREMITIES: No edema, no erythema seen. Results & Data Results & Data Vital Signs (Past 12 Hours) Vital Signs Temp Pulse Pulse Resp BP Pulse Ox O2 Del Method 06/16/23 11:24 36.7 C 92 H 19 136/76 98 Room Air 06/16/23 07:53 36.9 C 78 18 131/73 97 Room Air 06/16/23 07:00 75 06/16/23 02:55 36.8 C 84 18 136/79 97 Room Air, CPAP 06/16/23 02:54 87 10 L 97 FiO2 06/16/23 11:24 06/16/23 07:53 06/16/23 07:00 06/16/23 02:55 06/16/23 02:54 21
[2023-06-16] MEDS: METOPROLOL SUCC 25MG EXT REL TAB PO SCH (15:02)
[2023-06-16] MEDS: HEPARIN SODIUM/DEXTROSE 25,000 UNITS/500 ML BAG IV SCH (16:40)
--- NOTE | 2023-06-16 19:09 | Electroencephalogram ---
EEG Procedure Note Date of Service June 16, 2023 Start / End Times Start Time: :28 End Time: 09:48 Referring Physician Virgilio Goldman MD History A 22 year old male with presumed frontal lobe epielpsy. EEG performed for evaluation of epileptiform activity. Home Medication List Medication Instructions Recorded Confirmed Type ascorbic acid (vitamin C) 1,000 mg 0 mg PO DAILY 12/26/22 06/15/23 History tablet (Vitamin C) lisinopril 20 mg tablet 20 mg PO DAILY 12/26/22 06/15/23 History magnesium oxide 500 mg tablet 0 mg PO DAILY 01/29/23 06/15/23 History divalproex 500 mg tablet,extended 500 mg PO BID #60 tabs 01/31/23 06/15/23 Rx release 24 hr Inpatient Medication List Hydromorphone HCl (Hydromorphone Inj 0.5 Mg/0.5 Ml Syr) 0.5 mg IV Q6H PRN PRN Reason: Severe Pain (Scale 7, 8, 9,10) Stop: 06/29/23 19:22 Last Admin: 06/15/23 21:50 Dose: 0.5 mg Documented By: IGOR Diltiazem HCl 125 mg/ Dextrose 125 mls @ 10 mls/hr IV .[id number] [facility]; Protocol Stop: 07/15/23 14:44 Last Admin: 06/16/23 17:39 Dose: Not Given Documented By: Admin: 06/16/23 04:57 Dose: Not Given Documented By: Titration: 06/15/23 16:48 Dose: Infused Documented By: JASON Co-signed By: SHAKEEL Titration: 06/15/23 15:53 Dose: 10 mg/hr, 10 mls/hr Documented By: JASON Co-signed By: NIRANJAN Admin: 06/15/23 15:21 Dose: 5 mg/hr, 5 mls/hr Documented By: JASON Co-signed By: NIMCO Levetiracetam 500 mg/ Sodium (Chloride) 105 mls @ 440 mls/hr IV BID [facility] Stop: 07/15/23 20:59 Last Infusion: 06/16/23 08:40 Dose: Infused Documented By: Admin: 06/16/23 08:25 Dose: 440 mls/hr Documented By: Infusion: 06/15/23 20:58 Dose: Infused Documented By: Admin: 06/15/23 20:43 Dose: 440 mls/hr Documented By: IGOR Valproic Acid 500 mg/ Dextrose 55 mls @ 55 mls/hr IV BID [facility] Stop: 07/15/23 20:59 Last Infusion: 06/16/23 09:25 Dose: Infused Documented By: Admin: 06/16/23 08:25 Dose: 55 mls/hr Documented By: Infusion: 06/15/23 22:29 Dose: Infused Documented By: Admin: 06/15/23 21:29 Dose: 55 mls/hr Documented By: IGOR Heparin Sodium/Dextrose (Heparin Sodium/Dextrose) 25,000 units in 500 mls @ 32 mls/hr IV .[id number] [facility]; Protocol Stop: 07/15/23 19:22 Last Titration: 06/16/23 18:58 Dose: 1,600 units/hr, 32 mls/hr Documented By: RONNELL Co-signed By: WILLI Admin: 06/16/23 16:40 Dose: 1,600 units/hr, 32 mls/hr Documented By: WILLI Co-signed By: BENJAMIN Titration: 06/16/23 16:40 Dose: Infused Documented By: WILLI Co-signed By: BENJAMIN Titration: 06/16/23 12:24 Dose: 1,600 units/hr, 32 mls/hr Documented By: WILLI Co-signed By: ELOY Titration: 06/16/23 07:09 Dose: 1,350 units/hr, 27 mls/hr Documented By: WILLI Co-signed By: IGOR Titration: 06/16/23 05:04 Dose: 1,350 units/hr, 27 mls/hr Documented By: IGOR Co-signed By: NILESH Admin: 06/15/23 21:46 Dose: 1,000 units/hr, 20 mls/hr Documented By: IGOR Co-signed By: JOYE Sodium Chloride (Nss) 1,000 mls @ 150 mls/hr IV .[id number] [facility] Stop: 07/15/23 19:29 Last Admin: 06/16/23 16:40 Dose: 150 mls/hr Documented By: Infusion: 06/16/23 15:05 Dose: Infused Documented By: Admin: 06/16/23 08:24 Dose: 150 mls/hr Documented By: Infusion: 06/16/23 08:24 Dose: Infused Documented By: Admin: 06/16/23 03:00 Dose: 150 mls/hr Documented By: Infusion: 06/16/23 03:00 Dose: Infused Documented By: Admin: 06/15/23 20:43 Dose: 150 mls/hr Documented By: IGOR Lisinopril (Lisinopril 20 Mg Tab) 20 mg PO DAILY [facility] Stop: 07/16/23 08:59 Last Admin: 06/16/23 08:28 Dose: 20 mg Documented By: WILLI Metoprolol Succinate (Metoprolol Succ 25mg Ext Rel Tab) 12.5 mg PO QAM [facility] Stop: 07/16/23 13:14 Last Admin: 06/16/23 15:02 Dose: 12.5 mg Documented By: WILLI Miscellaneous (Remove Nicoderm Patch) 1 each N/A DAILY@0859 [facility] Stop: 07/16/23 08:58 Last Admin: 06/16/23 08:24 Dose: 1 each Documented By: WILLI Nicotine (Nicotine 14 Mg/24 Hr Patch) 14 mg TD DAILY [facility] Stop: 07/15/23 19:59 Last Admin: 06/16/23 08:28 Dose: 14 mg Documented By: Admin: 06/15/23 21:29 Dose: 14 mg Documented By: IGOR Discontinued Medications Diltiazem HCl (Diltiazem Hcl 5 Mg/Ml 5 Ml Vial) 15 mg IV NOW STA Stop: 06/15/23 14:46 Last Admin: 06/15/23 14:56 Dose: 15 mg Documented By: AMINTA Co-signed By: NIMCO Heparin Sodium (Porcine) (Heparin Sod (Porcine) 1000 Unit/Ml) 4,500 units IV NOW ONE Stop: 06/16/23 05:01 Last Admin: 06/16/23 05:03 Dose: 4,500 units Documented By: IGOR Co-signed By: NILESH Heparin Sodium/Dextrose (Heparin Iv Adult Wt-Based Low-Dose *No* Initial Bolus Protocol) 1 each IV Q15M [facility]; Protocol Stop: 06/15/23 21:12 Last Admin: 06/15/23 20:02 Dose: Not Given Documented By: Admin: 06/15/23 19:56 Dose: Not Given Documented By: Admin: 06/15/23 19:41 Dose: Not Given Documented By: IGOR Levetiracetam 2,000 mg/ Sodium (Chloride) 120 mls @ 440 mls/hr IV NOW ONE Stop: 06/15/23 14:01 Last Infusion: 06/15/23 14:44 Dose: Infused Documented By: Admin: 06/15/23 13:54 Dose: 440 mls/hr Documented By: AMINTA Sodium Chloride (Nss) 1,000 mls @ 999 mls/hr IV .Q1H1M ONE Stop: 06/15/23 14:45 Last Infusion: 06/15/23 14:50 Dose: Infused Documented By: Admin: 06/15/23 13:54 Dose: 999 mls/hr Documented By: AMINTA Lactated Ringer's (Lr) 1,000 mls @ 999 mls/hr IV .Q1H1M ONE Stop: 06/15/23 14:45 Last Infusion: 06/15/23 14:50 Dose: Infused Documented By: Admin: 06/15/23 13:54 Dose: 999 mls/hr Documented By: AMINTA Valproic Acid 1,000 mg/ (Dextrose) 60 mls @ 55 mls/hr IV NOW STA Stop: 06/15/23 15:29 Last Infusion: 06/15/23 17:33 Dose: Infused Documented By: Admin: 06/15/23 15:16 Dose: 55 mls/hr Documented By: JASON Thiamine HCl 100 mg/ Syringe 10 mls @ 2 mls/min IV NOW STA Stop: 06/15/23 19:31 Last Admin: 06/15/23 20:42 Dose: 2 mls/min Documented By: IGOR Heparin Sodium (Porcine) 4,500 (units/ Syringe) 4.5 mls @ 10 mls/min IV ONE ONE Stop: 06/16/23 12:46 Last Admin: 06/16/23 12:49 Dose: 10 mls/min Documented By: WILLI Co-signed By: ELOY New (Stat Iv Infusion Titration Per Protocol) 1 each N/A NOW STA Stop: 06/15/23 14:46 Last Admin: 06/15/23 21:51 Dose: 1 each Documented By: IGOR Morphine Sulfate (Morphine Sulfate 4 Mg/Ml 1 Ml Carp\Vial) 4 mg IV NOW STA Stop: 06/15/23 13:46 Last Admin: 06/15/23 13:53 Dose: 4 mg Documented By: AMINTA Morphine Sulfate (Morphine Sulfate 4 Mg/Ml 1 Ml Carp\Vial) 4 mg IV Q15M PRN PRN Reason: Pain Stop: 06/29/23 13:44 Last Admin: 06/15/23 14:34 Dose: 4 mg Documented By: AMINTA Ondansetron HCl (Ondansetron Inj 2 Mg/Ml 2 Ml Vial) 4 mg IV NOW STA Stop: 06/15/23 13:46 Last Admin: 06/15/23 13:54 Dose: 4 mg Documented By: AMINTA Description This is a 21 electrode EEG with a single channel dedicated to limited EKG. The electrodes were placed in accordance with the International 10-20 system. Interpretation REPORT: At the onset of the EEG the patient is awake. The background is symmetric and well organized. The posterior dominant rhythm is 10 Hz. There is a normal anterior to posterior gradient. Frontal head regions consist of low amplitude beta activity. No stage 2 sleep transients are seen. Photic stimulation does not induce any additional abnormalities. Drowsiness is characterized by increased theta activity, decreased blink rate, and decreased myogenic artifact. Clinical Correlation IMPRESSION: This is a normal awake and drowsy routine EEG. There is no evidence of focal slowing or epileptiform activity.
[2023-06-16 19:23] LABS: ANTI-Xa, UFH(UnfractionatedHep 0.18 IU/ml (0.3-0.7)
--- NOTE | 2023-06-16 20:02 | Communication Note ---
Date of Service: June 16, 2023 Reviewed EEG which shows no abnormalities CT head with no abnormalities seizure could have been precipitated , given alcohol and A fib Continue depakote 500mg bid , given low levels recheck depakote levels , consder decreasing keppra to 250 mg and tapering
[2023-06-16] MEDS: HYDROmorphone INJ 0.5 MG/0.5 ML SYR IV PRN (22:55)
[2023-06-17] MEDS: SODIUM CHLORIDE 0.9% 1,000 ML IV SCH ×2 (01:06→08:01)
[2023-06-17 04:30] LABS: BUN Creatinine Ratio 17.5 (10-20); Calcium 8.5 mg/dl (8.6-10.3); Creatinine Clr Calc Pharmacy 237.4 ml/min; Est GFR (African American) 145.9 ml/min; Est GFR (Non-African American) 125.9 ml/min; Magnesium 2.1 mg/dl (1.7-2.4); Phosphorus 4.4 mg/dl (2.5-4.9)
[2023-06-17 04:31] LABS: Hematocrit (blood only) 36.5 % (42.0-52.0); Hemoglobin 12.1 g/dl (14.0-18.0); Mean Corpuscular Hemoglobin 27.6 pg (25.0-34.0); Mean Corpuscular Hgb Conc 33.2 g/dL (32.0-36.0); Mean Corpuscular Volume 83.1 fL (80.0-100.0); Mean Platelet Volume 10.3 fL (9.4-12.4); Platelet Count 148 K/uL (130-400); RDW Coefficient of Variation 12.8 % (11.5-14.5); RDW Standard Deviation 38.8 fL (36.4-46.3); Red Blood Count 4.39 M/uL (4.70-6.10); White Blood Count 6.69 K/ul (4.8-10.8)
[2023-06-17 04:47] LABS: ANTI-Xa, UFH(UnfractionatedHep 0.24 IU/ml (0.3-0.7)
[2023-06-17] MEDS: HEPARIN SODIUM/DEXTROSE 25,000 UNITS/500 ML BAG IV SCH (08:01)
[2023-06-17] MEDS: VALPROATE SOD 500 MG in DEXTROSE 5% 50 ML IV SCH (09:29)
[2023-06-17] MEDS: levETIRAcetam 500 MG in 0.9 % SODIUM CHLORIDE 100 ML IV SCH (09:29)
[2023-06-17] MEDS: METOPROLOL SUCC 25MG EXT REL TAB PO SCH (09:30)
[2023-06-17] MEDS: NICOTINE 14 MG/24 HR PATCH TD SCH (09:30)
[2023-06-17] MEDS: lisinopril 20 MG TAB PO SCH (09:31)
--- NOTE | 2023-06-17 09:54 | Cardiology Progress Note ---
Date of Service June 17, 2023 Assessment & Plan (1) Status epilepticus: (2) PAF (paroxysmal atrial fibrillation): (3) Obesity: (4) Smokeless tobacco use: (5) Rhabdomyolysis: (6) Sleep apnea: Plan 22-year-old male seen admitted with status epilepticus. EKG on arrival with atrial fibrillation with rapid ventricular response, occurring in presence of reversible causes (excessive alcohol intake, holiday heart, dehydration, untreated sleep apnea, seizure with associated rhabdomyolysis). Rhythm status post spontaneous conversion on June 15, 2023 at 16:31 without clinical sequela, maintaining sinus rhythm thereafter. [id number] Score 1 point given history of hypertension. Anticoagulation not currently recommended (patient request, chronic frequent nosebleeds, increased risk of bleeding with employment as well as the seizure disorder). Low dose beta-aleksander therapy added this admission. Hypertension. Controlled on Lisinopril and now low dose beta-aleksander therapy. Recommend outpatient general cardiology follow-up including 14-day Zio monitoring (to evaluate for ongoing PAF) and Cardiac CT (to evaluate the atypical chest pain, elevated troponin, atypical dyspnea). Please contact with any questions or concerns. Admission and Anticipated Discharge Date Admission Date: June 15, 2023 Supervising Physician Co-Signing Physician Notes 22-year-old male presenting with status epilepticus and paroxysmal atrial fibrillation. Feeling better today. No recurrent atrial fibrillation on telemetry. Blood pressure within acceptable range. PE: VSS. Gen: NAD, AAO x3. Heart: Regular rhythm, normal S1-S2. No murmur. Lungs: Clear bilateral, no rales, rhonchi, wheeze. Extremities: No edema. A/P: Agree with above PA-C history, physical exam, assessment and plan. 22-year-old male admitted with status epilepticus. ECG on arrival demonstrating atrial fibrillation with rapid ventricular response. [id number] score 1 point given history of hypertension. Atrial fibrillation occurring in presence of reversible cause including excessive alcohol intake. Low-dose beta-aleksander added. Continue previously prescribed antihypertensive therapy. Results of echocardiogram and recommendations discussed with patient at length. All questions answered to his satisfaction. Outpatient ZIO monitor and coronary CT recommended. Subjective Patient seen, evaluated. Chart, medications, and telemetry reviewed. No palpitations, chest pain, or difficulty breathing. EKG: Normal sinus rhythm at 73 bpm. QTc 460 ms Telemetry: Patient presented with atrial fibrillation with a rapid ventricular response, spontaneously converting back to sinus rhythm on June 15, 2023 at 16:31 and maintaining sinus rhythm since. No arrhythmias noted since conversion. Resting echocardiography on June 16, 2023 revealed normal LV systolic function, EF 55 to 60%. Left atrial size was normal. No significant valvular pathology observed. Normal-sized aortic root. No pericardial effusion. Review of Systems Review of Systems: Complete review of systems is otherwise as stated above, negative, or noncontributory. Physical Exam Physical Exam: General: A&Ox3. NAD. Skin/HEENT: Multiple bruises and areas of excoriation in all extremities as well as in the face, forehead, and scalp. Neck: No JVD. Heart: RRR, 76 bpm. Lungs: Clear. Extremities: No clubbing, cyanosis, or edema. Limited neurological examination is without focal deficits. Results & Data Vital Signs (Past 12 Hours) Vital Signs Temp Pulse Pulse Resp BP BP Pulse Ox 06/17/23 07:38 77 06/17/23 07:26 36.7 C 78 18 114/66 98 06/17/23 03:20 36.8 C 75 16 119/71 100 06/16/23 22:51 36.9 C 86 20 135/71 97 06/16/23 22:32 91 H 19 99 06/16/23 21:55 76 O2 Del Method FiO2 06/17/23 07:38 06/17/23 07:26 CPAP 06/17/23 03:20 Room Air, CPAP 06/16/23 22:51 Room Air, CPAP 06/16/23 22:32 21 06/16/23 21:55 Laboratory Results Cardiac Enzymes 06/16/23 Range/Units 09:30 Troponin I High Sens 175.3 H* D (0-20) pg/ml CBC 06/17/23 Range/Units 03:56 WBC 6.69 (4.8-10.8) K/ul RBC 4.39 L (4.70-6.10) M/uL Hgb 12.1 L (14.0-18.0) g/dl Hct 36.5 L (42.0-52.0) % Plt Count 148 (130-400) K/uL Comprehensive Metabolic Panel 06/17/23 Range/Units 03:56 Sodium 140 (136-145) mmol/L Potassium 4.0 (3.5-5.1) mmol/L Chloride 106 (98-107) mmol/L Carbon Dioxide 27 (21-32) mmol/L BUN 14 (6-23) mg/dl Creatinine 0.80 (0.6-1.4) mg/dl Glucose 106 H (70-99(Fasting)) mg/dl Calcium 8.5 L (8.6-10.3) mg/dl Intake and Output 06/16/23 06/17/23 06/17/23 22:59 06:59 14:59 Intake Total 1451.733 / 5919.083 2179.35 / 5919.083 1065.45 / 1065.45 Output Total 1000 / 3900 Balance 1451.733 / 2019.083 1179.35 / 2019.083 1065.45 / 1065.45 Intake: IV 1451.733 / 3899.083 1279.35 / 3899.083 1065.45 / 1065.45 Heparin Sodium/Dextrose 25,000 291.733 / 769.083 279.35 / 769.083 65.45 / 65.45 units In 500 ml @ 1,850 UNITS/ HR 37 mls/hr IV .[id number] [facility] Rx #:[id number] Sodium Chloride 0.9% 1,000 ml @ 1000 / 2810 1000 / 2810 1000 / 1000 150 mls/hr IV .[id number] [facility] Rx#: [id number] Valproate Sod 500 mg In 55 / 110 Dextrose 5% 50 ml @ 55 mls/hr IV BID [facility] Rx#:[id number] levETIRAcetam 500 mg In 0.9 % 105 / 210 Sodium Chloride 100 ml @ 440 mls/hr IV BID [facility] Rx#:[id number] Oral 2019 Output: Urine 1000 / 1000
--- NOTE | 2023-06-17 14:47 | Communication Note ---
Date of Service: June 17, 2023 Spoke to attending physician: Levels were low despite compliance, recommend to increase Depakote to 750 mg twice a day. Taper Keppra to 250 mg twice daily for 3 days then to 50 mg daily for 3 days then stop. Check Depakote level in 1 week and follow-up with neurology
--- NOTE | 2023-06-17 15:26 | Discharge Summary ---
Date of Service June 17, 2023 Admission HPI Per Admitting Provider 22-year-old male medical history significant for hypertension and morbid obesity, mild sleep apnea, history of epistaxis presents with possible seizure episodes and also found to be in rapid A-fib. Mother heard noises in his room and when she went to check patient was thrashing in the bed and confused EMS was called and was given 5 mg of intranasal Versed by EMS which seem to stop the seizure. Seems the patient was combative for a brief period. Currently sleepy. But alert and oriented. Doesn't remember the episode. Have some bruises on the face and extremities. On presentation his heart rate is in the 170s and 180s and EKG showed rapid A-fib. Patient received total 3 L of fluids and also placed on Cardizem drip. Mother is in the room. Has some headache. Denies any blurred visions. No runny nose or sore throat. No cough. Afebrile. Denies any chest pain or shortness of breath. No nausea. No abdominal pain. Denies any diarrhea. Patient last night went out with his friends and had few drinks of alcohol. Mother states he came in the morning and she doubts that he put CPAP while asleep in the morning. Patient had similar episodes in November and December 2022 and at the time seems episodes were triggered with alcohol intake. Patient was seen by psychiatry and neurology at that time. Psychiatry thought this could be REM behavioral disorder as patient history of parasomnia( talking in his sleep) and advised for sleep studies. Neurology thinks Patient had partial epileptic seizure frontal lobe with impaired consciousness. He had routine EEG as well as as well as ambulatory EEG which were normal. He had MRI during last admission which was unremarkable. He was placed on Depakote 500 mg twice daily. He also followed with sleep and was diagnosed mild sleep apnea and currently using CPAP while sleeping. Patient states he drinks only couple of times a week and 2 or 3 drinks each time. Does not drink daily as per mother. Denies any marijuana use. Uses smokeless tobacco.Seems chews tobacco. Past medical history. As mentioned above Past surgical history. Control of nosebleed. Right knee arthroscopy. Strabismus surgery bilateral. Social history. Lives with his mother. Uses smokeless tobacco. Alcohol social drinking as per patient. Drinks 2 times a week. No drug use. Family history. Father has hypertension. Paternal grandfather had hypertension. Diabetes. Maternal grandfather had SC at 33 years Admission Exam Per Admitting Provider General- drowsy but easily arousable. Not in acute distress Head- bruises seen on face and scalp Eyes- PERRL,. ENT- oropharynx clear Neck- supple, no JVD. Lungs- clear to auscultation no wheezing or crackles. Heart- irregular rhythm; tachycardia,no murmur, no gallop. Abdomen- normal bowel sounds, soft, nontender, no distension. Extremities- no pretibial edema, bruises seen on extremities. Neuro- alert, oriented x 3; PERRL, no facial palsy; no dysarthria; motor 5/5 bilaterally; obeys simple commands Principal Diagnosis Breakthrough seizure A-fib with RVR, new onset Demand ischemia Rhinovirus URTI Rhabdomyolysis Discharge Exam GENERAL: Alert and oriented x3. NAD, on RA. HEENT: No pallor, no icterus. Pupils equal, round and reactive to light. Oral mucosa moist. bruises noted forehead and face. NECK: No JVD, no neck masses. HEART: S1 and S2 heard. Regular rate and rhythm. No murmur, no gallop. RESPIRATORY SYSTEM: Normal AP diameter. No accessory muscle use. No wheezing, no crackles. ABDOMEN: Soft, bowel sounds present, nontender, no distention. CENTRAL NERVOUS SYSTEM: No facial droop. Speech is clear. Obeys simple commands. Moves extremities. EXTREMITIES: No edema, no erythema seen. Discharge Data Allergies Allergy/AdvReac Type Severity Reaction Status Date / Time No Known Allergies Allergy Unknown Unverified 06/15/23 14:50 Consultations 06/15/23 15:03 ED Decision to Admit Stat 06/16/23 08:00 Consult Cardiology Routine Consult Neurology Routine Ordered Studies 06/15/23 13:45 CT cervical spine wo con Stat CT face [CT facial bones wo con] Stat CT head/brain wo con Stat Hospital Course (1) Seizure: 22-year-old male w/ PMH of hypertension and morbid obesity, mild sleep apnea on CPAP, history of epistaxis presents with possible seizure episodes and also found to be in rapid A-fib. He received 5 Mg of intranasal Versed by EMS which seemed to stop the seizure. He received loading dose of Keppra, morphine, IV fluids, thiamine, valproate upon presenting to the ED. Social habits status drinks only couple of times a week. Uses smokeless tobacco. Chews tobacco. He was managed for the following: Breakthrough seizure History of partial epileptic seizures with impaired consciousness, on Depakote. Came in with seizure activity. See above. Due to violent body movement during seizure activity, imagings done [CT head, facial CT, cervical spine CT, CXR, shoulder x-ray] were unremarkable. Toxicology screen positive for opiates and benzos both of which patient received prior to urine collection. Reports compliance with Depakote 500 mg twice daily, subtherapeutic level at presentation. Status post 1 g Depakote and 2 g Keppra in the ED. Discussed with neurology, Depakote increased to 750 Mg twice daily, tapering dose of levetiracetam on discharge. Depakote level in 1 week, follow-up with PCP and neurology office in 1 week. EEG reviewed. Patient with no further seizures. A-fib with RVR, new onset: TSH normal. Demand ischemia: Likely secondary to above. patient with no chest pain, rather generalized muscle ache. At presentation patient's heart rate noted to be in 170s to 180s and EKG showed rapid A-fib. Metoprolol succinate started. Telemetry monitoring. Cardiology evaluated, appreciate recommendation. Rhinovirus URTI: Provide symptomatic management. Patient denies sore throat or cough. Elevated blood lactic acid level: Likely secondary to seizure. Status post IV fluid. Resolved. Rhabdomyolysis: Likely secondary to muscle injury secondary to seizure. Status post IV fluid. CPK downtrending. Hypertension: Continue home lisinopril with holding parameters. Monitor. Urinary retention: Status post Mueller. Voiding trial, remove Muellre. If symptom recurs, consult urology. Resolved. Sleep apnea, mild, continue CPAP nightly. Morbid obesity, encouraged lifestyle modification/weight loss. DVT prophylaxis: Ambulation. Disposition: On telemetry floor Full code Patient being discharged home with following instruction at the point of discharge: Follow-up with your primary care physician within a week time and likely you will need labs CBC/CMP/magnesium/phosphorus. For your seizure, based on discussion with neurology, your divalproex will be increased to 750 mg twice daily and you will be discharged on Keppra 250 mg twice daily for 3 days then 250 mg daily for 3 days & then stop. Follow-up with neurology in 1 week. You will need repeat Depakote level in 1 week, coordinate with your PCP office to set up this test. For your atrial fibrillation with RVR, cardiology evaluated you. Low-dose metoprolol has been started. Follow-up with cardiology in 2 to 4 weeks time upon discharge. You will need Zio patch monitoring upon discharge. Coordinate with your PCP office or cardiology office to set up the test. You might also need cardiac CT to evaluate for your typical chest pain and your typical dyspnea, coordinate with your cardiology office to set up the test. Strongly recommend refraining from drinking alcohol. As discussed at the bedside, binge drinking predisposes to atrial fibrillation. You will benefit from formal sleep study, coordinate with your PCP office to set up the test. Please make sure that you are able to get your medications today by calling your pharmacy before you leave the hospital so that your treatment continuity is not broken. Home Health Attestation I certify that this patient is under my care and that I, or a physicians medical research assistant working with me, had a face to-face encounter that meets the home health [id number] encounter requirements with this patient. The encounter with the patient was in whole, or in part, for the following medical condition, which is the primary reason for home health care (list medical condition): I certify that, based on my findings, the following services are medically necessary home health services: My clinical findings support the need for the above services because: Further, I certify that my clinical findings support that this patient is homebound (i.e. absences from home require considerable and taxing effort and are for medical reasons or moravian services or infrequently or of short duration when for other reasons) because: Certification for Home Health Services: Based on the above findings, I certify that this patient is confined to the home and needs intermittent [facility] care, physical therapy and/or speech therapy or continues to need occupational therapy. The patient is under my care, and I have initiated the establishment of the plan of care. This patient will be followed by a physician who will periodically review the plan of care. Total Time Total Time Spent Total Time Spent (In Minutes): 45 Discharge Plan Discharge Items Patient Disposition: Home - Self-Care Reason For Visit: SEIZURE, RAPID, A FIB Discharge Diagnosis: Breakthrough seizure A-fib with RVR, new onset Demand ischemia Rhinovirus URTI Rhabdomyolysis Condition on Discharge: Serious Activity: Resume your previous activity Non-emergency contact: Primary Care Provider Call non-emergency contact if: you have any medication questions, your symptoms worsen and your pain is worsening Follow-up/Referrals: Pino Mckeon DO [Instructional Systems Design Consultant] - (The Cardiology office will contact you for follow up testing/appointment.) Yuliya Alves PA-C [Physician Recreation Instructor] - (Date & Time 07/21/2023 11:20 AM Provider Yuliya Alves PA-C Department Neurology [facility] ) Joel Odom DO [Primary Care Provider] - (Date & Time 06/24/2023 2:20 PM Provider Joel Odom DO Department [facility] ) Diet: Regular Addtl Attending Provider Instructions: Follow-up with your primary care physician within a week time and likely you will need labs CBC/CMP/magnesium/phosphorus. For your seizure, based on discussion with neurology, your divalproex will be increased to 750 mg twice daily and you will be discharged on Keppra 250 mg twice daily for 3 days then 250 mg daily for 3 days & then stop. Follow-up with neurology in 1 week. You will need repeat Depakote level in 1 week, coordinate with your PCP office to set up this test. For your atrial fibrillation with RVR, cardiology evaluated you. Low-dose metoprolol has been started. Follow-up with cardiology in 2 to 4 weeks time upon discharge. You will need Zio patch monitoring upon discharge. Coordinate with your PCP office or cardiology office to set up the test. You might also need cardiac CT to evaluate for your typical chest pain and your typical dyspnea, coordinate with your cardiology office to set up the test. Strongly recommend refraining from drinking alcohol. As discussed at the bedside, binge drinking predisposes to atrial fibrillation. You will benefit from formal sleep study, coordinate with your PCP office to set up the test. Please make sure that you are able to get your medications today by calling your pharmacy before you leave the hospital so that your treatment continuity is not broken. Pending Studies at Discharge: Yes Stand-Alone Forms: My [employer], Smoking Cessation Medications and DC Order Prescriptions: New metoprolol succinate 25 mg Tablet Extended Release 24 Hr 12.5 mg PO QAM Qty: 15 0RF levetiracetam 250 mg tablet 250 mg PO UD Qty: 9 0RF Rx Instructions: 250 mg tablet twice daily for 3 days, then once daily for 3 days then stop. Continued ascorbic acid (vitamin C) [Vitamin C] 1,000 mg Tablet 0 mg PO DAILY Rx Instructions: Unable to verify OTC medication and strength with patient/family at this date/time lisinopril 20 mg tablet 20 mg PO DAILY magnesium oxide 500 mg Tablet 0 mg PO DAILY Rx Instructions: Unable to verify OTC medication and strength with patient/family at this date/time Changed divalproex 500 mg Tablet Extended Release 24 Hr 750 mg PO BID Qty: 90 0RF Discharge Orders: Discharge Order (Routine); Ordered 06/17/23 Ordered By: Edward Blackwell Admission Data Admit Date/Time: 06/15/23 16:01 Attending Provider: Edward Blackwell Admit Provider: Virgilio Goldman Primary Care Provider: Joel Odom Other Providers: Virgilio Goldman; Diane Davies; Jet Yepez Sheldon D; Pino Mckeon; Jason Laboy; Jaxon Steele; Taina Benson; Yuliya Strickland; Diane Hargrove; Kevin Rubio; Андрей Torres; Laura Rodriguez; Oriana Stephenson; Viktoriya Tsang; Kishore Lugo; Yuliya Alves; Kendell Simmons; Yuliya Lackey; Remi Raphael; Sean Rothman; Wellington Herrera; Kip Ashley; Adriana Case; Amaury Inman; Pradip Jennings; Jennifer Walker; Elmer Doty; Loan Boyd; La Hyde; Kip Gannon
[2023-06-19 02:48] LABS: 7-Aminoclonaz, Confirm NEGATIVE ng/mL (<25); Codeine Urine NEGATIVE ng/mL (<50); Hydro-Alp Ur, GC/MS NEGATIVE ng/mL (<25); Hydrocodone Urine NEGATIVE ng/mL (<50); Hydromor Urine NEGATIVE ng/mL (<50); Hydroxyethylflurazepam, Conf NEGATIVE ng/mL (<50); Hydroxymidazolam Ur, GC/MS 461 ng/mL (<50); Hydroxytriazolam NEGATIVE ng/mL (<50); Lorazepam, Ur GC/MS NEGATIVE ng/mL (<50); Morphine Urine 915 ng/mL (<50); Nordiazepam, Confirm NEGATIVE ng/mL (<50); Norhydrocodone Conf Ur NEGATIVE ng/mL (<50); Noroxycodone Urine NEGATIVE ng/mL (<50); Oxazepam Ur, GC/MS NEGATIVE ng/mL (<50); Oxycodone Urine NEGATIVE ng/mL (<50); Oxymorph Urine NEGATIVE ng/mL (<50); Temazepam, Confirm NEGATIVE ng/mL (<50)
--- NOTE | 2023-06-20 06:44 | Electrocardiogram Report ---
Test Reason : Blood Pressure : / mmHG Vent. Rate : 073 BPM Atrial Rate : 073 BPM P-R Int : 156 ms QRS Dur : 102 ms QT Int : 418 ms P-R-T Axes : 034 029 023 degrees QTc Int : 460 ms Normal sinus rhythm Normal ECG When compared with ECG of 16-JUN-2023 05:10, No significant change was found Confirmed by Ritchie Tovar ([id number]) on 06/20/2023 6:43:55 AM Referred By: REFERRED SELF Confirmed By:Ritchie Tovar
== END 2023-06-17 17:30 | disposition home or self-care (01) | DRG 101 ==
LOC: ED 13:37 → 2S 16:01 → SUATTDRO 16:01 → 2S 19:03